=== PATIENT | female | born 1960 | race Caucasian/White ===

== ENCOUNTER 2023-11-20 15:19 | Inpatient (IN) | payer OTHER, SELFPAY ==
[2023-11-20] VITALS (8 sets, daily range): BP systolic 74–133; BP diastolic 45–72; BMI 23.8
--- NOTE | 2023-11-20 11:22 | ED.GENMED ---
History of Present Illness
General
Chief Complaint: Fever
Time Seen by Provider: 11/20/23 11:19
Travel History
Have you had any contact with someone who has COVID-19?: No
Do you have any symptoms of coronavirus? Fever > 100 degrees, chills, cough, shortness of breath, sore throat, loss of taste or smell, muscle aches, or headache?: No
History of Present Illness
History of Present Illness:
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 She has known history of chronic neutropenia, typically undergoes injections of Granix if her
granulocyte count drops below 1500. Patient reports fever as well as vomiting and generalized weakness over the past 2 days but the symptoms are improved, fever was measured at home this morning. Did not take any antipyretics. Denies any chest
pain, dyspnea, abdominal pain, dysuria, or extremity paresthesias. No ill contacts at home.
Past History
Past History
ED Past Medical History: Asthma, Cancer, CVA, Hypercholesterolemia, Seizures and Other (Kidney stones, thrombocytopenia, hepatitis C, anemia, TIA)
ED Past Surgical History: Appendectomy, Cholecystectomy and Urological (Stents)
Social History
Tobacco: Non-smoker
Alcohol: None
Drug: None
Personal:
Living: with family
Employment: Retired
Family History
Family History: Other (nc)
Review of Systems
Review of Systems
Allergies reviewed?: Yes
All Other Systems: ROS reviewed and negative except as documented in HPI and ROS
Phy Exam
Physical Exam
Physical Exam:
GEN: Well appearing, NAD, WDWN
HEENT: Oral mucosa moist, no scleral icterus
Cardiac: Tachycardic, regular
Lung: No respiratory distress, no tachypnea
Chest: Right upper chest wall Port-A-Cath present, no erythema or discharge from the site
Abdomen: Soft, nontender, no rigidity
MSK: No gross deformity or injuries
Skin: Good color, no pallor or jaundice, no rashes
Neuro: AO x3, moves all extremities freely
Psych: Calm, cooperative
Course
Orders/Labs/Results
Orders:
Orders
11/20/23 11:22
CR Chest - 2 Views Urgent
Comment:
Reason For Exam: neutropenic fever
11/20/23 11:30
Blood Culture Q30M
JONATAN Source: Blood/Venous
Specimen Description:
11/20/23 11:48
COVID-19 Antigen Urgent
Source: Nasal Swab
Complete Blood Count/With Diff Urgent
Comprehensive Metabolic Panel Urgent
Lactic Acid Q4H
Comment: CANCEL 2nd LACTIC ACID IF 1st LACTIC ACID IS LESS THAN 2
Prothrombin Time Urgent
Influenza A+B Rapid Molecular Urgent
JONATAN Source: Nasal Swab
Specimen Description:
11/20/23 11:56
0.9% Sodium Chloride 1000 ml [Nss] 1,000 ml IV BOLUS
Acetaminophen [Tylenol] 650 mg PO NOW STA
11/20/23 12:00
Blood Culture Q30M
JONATAN Source: Blood/Venous
Specimen Description:
11/20/23 13:58
Cefepime HCl [Maxipime] 2,000 mg IV NOW STA
11/20/23 14:12
Urinalysis Reflex To Culture Urgent
Date Specimen was Collected: 11/20/23
Time Specimen was Collected: 14:09
11/20/23 14:13
Vancomycin [Vancocin] 1,250 mg 0.9% Sodium Chloride 250 ml [Nss] 250 ml IV NOW
Abnormal Lab Results
11/20/23
11:48
WBC 1.2 L* 10^3/uL
(4.8-10.8)
RBC 2.89 L 10^6/uL
(4.20-5.40)
Hgb 9.0 L g/dL
(12.0-16.0)
Hct 24.6 L %
(37.0-47.0)
MCH 31.1 H pg
(27.0-31.0)
Plt Count 31 L 10^3/uL
(130-400)
Absolute Neuts (auto) 0.2 L* 10^3/uL
(1.4-6.5)
Absolute Lymphs (auto) 0.8 L 10^3/uL
(1.2-3.4)
Immature Gran % 1.7 H %
(0-0.5)
Neutrophils % 19.0 L %
(42.2-75.2)
Lymphocytes % 66.1 H %
(20.5-51.1)
Monocytes % 12.4 H %
(1.7-9.3)
Sodium 128 L mmol/L
(135-145)
Carbon Dioxide 20 L mmol/L
(22-30)
BUN 23 H mg/dl
(7-17)
Calcium 8.1 L mg/dl
(8.4-10.2)
Total Protein 5.9 L g/dl
(6.3-8.2)
11/20/23 11:48
11/20/23 11:48
Vital Signs
Initial and Last Documented VS:
Initial Vital Signs
Temp Pulse Resp BP Pulse Ox
100.2 F 131 18 106/72 98
11/20/23 10:33 11/20/23 10:33 11/20/23 10:33 11/20/23 10:33 11/20/23 10:33
Last Documented Vital Signs
Temp Pulse Resp BP Pulse Ox
100.2 F 116 16 96/61 96
11/20/23 10:33 11/20/23 12:00 11/20/23 12:00 11/20/23 12:00 11/20/23 12:00
MDM/Problems Addressed
MDM/Problems Addressed:
Patient is markedly neutropenic with a absolute neutrophil count of 200. There is no focal source for infection at this time with urinalysis pending. Patient be admitted to the hospital service for broad-spectrum IV antibiotics
*Critical Care Note
Total Time (30-74mins, 75-104mins- exclusive of procedures): Not Applicable
ED Attending Note
-
Portions of this chart may have been created with voice recognition software.� Occasional wrong word or��sound alike� substitutions may have occurred due to the inherent limitations of voice recognition software.
Discharge Plan
Departure
Patient Disposition: Admit
Date of Disposition: 11/20/23
Time of Disposition: 14:21
Admit to: Med/Surg
Presentation/result/management discussed w/ accepting MD/DO: Hospitalist
Discharge Problem:
Neutropenic fever
Prescriptions:
No Action
atorvastatin 20 MG tablet
20 mg PO HS
alendronate 70 MG tablet
70 mg PO JUNIOR@0800
Visbiome 112.5 billion cell Capsule
1 cap PO DAILY
ferrous sulfate 27 mg iron Tablet
27 mg PO DAILY
acyclovir 800 mg Tablet
800 mg PO Q12H
levetiracetam [Keppra] 1,000 mg Tablet
1,000 mg PO BID
prochlorperazine maleate 10 mg Tablet
10 mg PO Q6H PRN (Reason: nausea/vomiting)
acetaminophen [Tylenol Extra Strength] 500 mg Tablet
1,000 mg PO Q6H PRN (Reason: mild pain)
lidocaine-prilocaine 2.5-2.5 % Cream
1 applic TOPICAL MOFR
Patient Comments:
11/20/2023, apply to port site on upper right chest; pt. applied this medication yesterday for their MRI but it is normally applied on MoFr.
methotrexate sodium 2.5 mg Tablet
15 mg PO TU@0800
hydroxyzine HCl 25 mg Tablet
25 mg PO TID PRN (Reason: anxiety)
albuterol sulfate 90 mcg/actuation Hfa Aerosol Inhaler
2 puff INHALATION R Q6HPRN PRN (Reason: sob)
loratadine [Claritin] 10 mg Tablet
10 mg PO DAILY
folic acid 800 mcg Tablet
0.8 mg PO DAILY
cholecalciferol (vitamin D3) 25 mcg (1,000 unit) Tablet
25 mcg PO DAILY
Granix 300 mcg/0.5 mL Syringe
300 mcg SC DIRECTED PRN (Reason: if gran<1.5)
Patient Comments:
11/20/2023, contacted [facility] Department to confirm Granix and last dose.
Referrals:
Corona Chacko MD [Family Provider] -
Interventions
Interventions:
*Risk Screen - Suicide Last Done: 11/20/23 10:33
*General Assessment Last Done: 11/20/23 10:33
*Neglect/Abuse Screening Last Done: 11/20/23 10:33
ED- Fall Risk Assessment Last Done: 11/20/23 12:02
*ED COVID-19 Vaccine History Last Done: 11/20/23 12:03
ED- Neurological Assessment Last Done: 11/20/23 12:02
ED-Skin Assessment Last Done: 11/20/23 12:03
[2023-11-20] MEDS: TYLENOL 650 MG PO ×2 (11:59→17:20)
[2023-11-20] MEDS: NSS 1000 IV (11:59)
[2023-11-20 12:04] LABS: % Basophils 0.8 % (0-2); % Immature Granulocytes 1.7 % (0-0.5); % Lymphocytes 66.1 % (20.5-51.1); % Monocytes 12.4 % (1.7-9.3); Absolute Lymphocytes 0.8 10^3/uL (1.2-3.4); Absolute Monocytes 0.2 10^3/uL (0.1-0.6); Hematocrit 24.6 % (37.0-47.0); Mean Corp Hgb Conc. 36.6 g/dL (33.0-37.0); Mean Corpuscular Hgb 31.1 pg (27.0-31.0); Mean Corpuscular Volume 85.1 fL (81.0-99.0); Nucleated Red Blood Cells % 0 %; Red Blood Cell Count 2.89 10^6/uL (4.20-5.40); Red Cell Dist. Width 13.7 % (11.5-14.5)
[2023-11-20 12:12] LABS: Lactic Acid 1.5 mmol/L (0.7-2.0)
[2023-11-20 12:14] LABS: White Blood Cell Count 1.2 10^3/uL (4.8-10.8)
[2023-11-20 12:15] LABS: PT 14.4 Sec (11.4-14.6)
[2023-11-20 12:26] LABS: COVID-19 Antigen Negative (Negative)
[2023-11-20 12:41] LABS: ALT (SGPT) 14 U/L (0-35); AST (SGOT) 27 U/L (14-36); Albumin 3.6 g/dl (3.5-5.0); Alkaline Phosphatase 126 U/L (38-126); Blood Urea Nitrogen 23 mg/dl (7-17); Calcium 8.1 mg/dl (8.4-10.2); Carbon Dioxide 20 mmol/L (22-30); Chloride 101 mmol/L (98-107); Estimated Creatinine Clearance 38 ml/min; Glucose 97 mg/dl (70-99); Potassium 3.5 mmol/L (3.5-5.1); Sodium 128 mmol/L (135-145); Total Protein 5.9 g/dl (6.3-8.2); eGFR > 60.00
[2023-11-20 13:32] LABS: Platelet Count 31 10^3/uL (130-400)
[2023-11-20 13:33] LABS: Absolute Neutrophils 0.2 10^3/uL (1.4-6.5)
[2023-11-20 14:30] LABS: Urine Albumin 2+ (Neg - Trace); Urine Bilirubin 1+ (Negative); Urine Character Clear (Clear); Urine Color Yellow; Urine Glucose Negative (Negative); Urine Ketone Negative (Negative); Urine Leukocyte Trace (Negative); Urine Nitrite Negative (Negative); Urine Occult Blood Negative (Negative); Urine Urobilinogen Negative (Neg - 1+)
--- NOTE | 2023-11-20 14:35 | HPS.HSE ---
Addendum entered and electronically signed by Preston Steen MD 11/20/23 16:09:
I saw and examined the patient.
The LARGE ANIMAL VETERINARIAN or PA's note was reviewed and I agree with the note.
Comment:
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 Patient has been compliant with
isolation except for hospital and medical office visits. Does acknowledge having a patient in the medical office coughing a few days ago. Otherwise, chronic headache. Denies chest pain, shortness of breath, cough, runny nose, congestion,
diarrhea, dysuria, hematuria. Patient's blood pressures generally run low as per patient, although tachycardic to 100, temperature 100.2. SARS-CoV-2, flu negative. X-ray unremarkable. Labs consistent with neutropenia, hemoglobin 9, platelets 31,
sodium 128. UA dirty although does not have any symptoms. Plan�patient may have viral illness. Continue vancomycin and cefepime for now follow-up cultures, MRSA swab. Continue fluids for hyponatremia, appears dry. Oncology and infectious
disease consult.
Original Note:
Family Physician
-
Family Physician: Corona Chacko
Chief Complaint
-
fever
History of Present Illness
63 yo female w/ hx of Rosai-Mirna disease (histiocytosis variant) asthma, CVA, hld, seizure, brain tumor presents to the emergency department for evaluation of fever, chills night sweats nausea generalized weakness for past few days. she has
known history of chronic neutropenia, typically undergoes injections of Granix if her granulocyte count drops below 1500.� Patient stated started off with vomiting which resolved. Stated chronic headache from brain tumor denies dizziness or
syncopal episode. Denied chest pain, short of breath, cough, runny nose, congestion . Denied abdominal pain, diarrhea. Denied dysuria hematuria.
covid, flu, chest x ray negative. received vanco and cefepime. admitting for further management.
Medical History
Past Medical History
Past Medical History: Reports Other
Additional Past Medical History:
Asthma, Cancer, CVA, Hypercholesterolemia, Seizures and Other (Kidney stones, thrombocytopenia, hepatitis C, anemia, TIA
Past Surgical History: Reports Other
Additional Past Surgical History:
Appendectomy, Cholecystectomy and Urological (Stents)
Social History
Tobacco: Non-smoker
Alcohol: None
Drug: None
Family History
Family History: Not pertinent
Allergies / Home Medications
Allergies reflects when Allergies were last updated in [facility].
Home Medications with original date entered in [facility]
Allergy/Medication List:
Allergies
Allergy/AdvReac Type Severity Reaction Status Date / Time
penicillin G Allergy Unknown Unknown Verified 11/20/23 10:32
Sulfa (Sulfonamide Allergy Unknown Unknown Verified 11/20/23 10:32
Antibiotics)
codeine Allergy n/v ; Verified 11/20/23 10:32
foggy ;
percocet
'too
strong'
Home Medications
alendronate 70 mg tablet 70 mg PO JUNIOR@0800 OSTEOPOROSIS 03/31/20
atorvastatin 20 mg tablet 20 mg PO HS High cholesterol 03/31/20
Lactobac no.2-Bifidobac no.1-S. thermo 112.5 billion cell capsule (Visbiome) 1 cap PO DAILY Gastrointestinal issue 01/21/23
ferrous sulfate 27 mg iron tablet 27 mg PO DAILY Supplement 06/04/23
acyclovir 800 mg tablet 800 mg PO Q12H Infection 07/05/23
levetiracetam 1,000 mg tablet (Keppra) 1,000 mg PO BID Seizures 07/05/23
acetaminophen 500 mg tablet (Tylenol Extra Strength) 1,000 mg PO Q6H PRN mild pain 11/20/23
albuterol sulfate 90 mcg/actuation aerosol inhaler 2 puff inhalation R Q6HPRN PRN sob 11/20/23
cholecalciferol (vitamin D3) 25 mcg (1,000 unit) tablet 25 mcg PO DAILY Supplement 11/20/23
folic acid 800 mcg tablet 0.8 mg PO DAILY Supplement 11/20/23
hydroxyzine HCl 25 mg tablet 25 mg PO TID PRN anxiety 11/20/23
lidocaine-prilocaine 2.5 %-2.5 % topical cream 1 applic topical MOFR PORT ACCESS 11/20/23
loratadine 10 mg tablet (Claritin) 10 mg PO DAILY Allergies 11/20/23
methotrexate sodium 2.5 mg tablet 15 mg PO TU@0800 ARTHRITIS 11/20/23
prochlorperazine maleate 10 mg tablet 10 mg PO Q6H PRN nausea/vomiting 11/20/23
tbo-filgrastim 300 mcg/0.5 mL subcutaneous syringe (Granix) 300 mcg SC DIRECTED PRN if gran<1.5 11/20/23
Review of Systems
-
Constitutional: Reports Fever, Fatigue, Night Sweats and Chills
EENT: Reports No Symptoms
Respiratory: Reports No Symptoms
Cardiac: Reports No Symptoms
Abdomen/GI: Reports Nausea and Vomiting
: Reports No Symptoms
Musculoskeletal: Reports No Symptoms
Skin: Reports No Symptoms
Neurological: Reports No Symptoms
Endocrine: Reports No Symptoms
Hematologic/Lymphatic: Reports No Symptoms
Psych: Reports No Symptoms
Physical Exam
Vital Signs
Vital Signs
Temp Pulse Resp BP Pulse Ox
100.2 F 116 16 96/61 96
11/20/23 10:33 11/20/23 12:00 11/20/23 12:00 11/20/23 12:00 11/20/23 12:00
Physical Exam
General: Well Developed, Well Nourished and No Apparent Distress
HEENT: NormoCephalic, Moist mucous membranes and Atraumatic
Respiratory: Clear
Cardiac: S1/S2 and Regular Rhythm; No Murmur or Rub
GI: Soft, Non Tender, Non Distended and Normal Bowel Sounds; No Organomegaly
Rectal: Deferred by Provider
Musculoskeletal: No Clubbing, No Cyanosis and No Edema
Skin: No Rash
Neuro: AO x 3 and Nonfocal/grossly intact
Psych: Calm
Laboratory Results
-
11/20/23 11:48
11/20/23 11:48
Laboratory Results
PT 14.4 Sec (11.4-14.6) 11/20/23 11:48
INR 1.10 11/20/23 11:48
Lactic Acid Cancelled 11/20/23 15:30
Total Bilirubin 1.0 mg/dl (0.2-1.3) 11/20/23 11:48
AST 27 U/L (14-36) 11/20/23 11:48
ALT 14 U/L (0-35) 11/20/23 11:48
Alkaline Phosphatase 126 U/L (38-126) 11/20/23 11:48
Data Reviewed
-
Diagnostic Radiology: Report Reviewed by me
Lab Data: Labs Reviewed by me
Impression/Plan
-
#sepsis/neutropenic fever
-wbc 1.2,tachycardia, hypotension,temp 100.2
-UA negative.
-chest x ray with No active cardiopulmonary disease.
-covid negative, influenza A and B negative.
-iv vanco and cefepime
-blood culture sent from ER
-Tylenol prn for fever
-ID consulted
-on acyclovir prophylaxis at home
#hyponatremia likely hypovolemic
-na 128
-obtain urine osm, na, cr, serums osm
-fluids continued (LR 80cc/hr)
-monitor BMp
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
-#pancytopenia
-wbc 1.2,hgb 9.0,platelets 31
-ctm
Chronic hypotension
-Bp soft in ER
-ctm
hx of CVA
hx of 2 petit-mal seizures 2016
- continue Keppra
#hxt of brain tumor
HLD
-Statin continued
# Anxiety
-hydroxyzine continued
#hx of Asthma
-Not in acute exacerbation
-Albuterol from home continued
#hx of Hep C, related to receiving blood transfusion
#DVT ppx: SCDs
#Code: Full
[2023-11-20 14:58] LABS: Urine Squamous Cell 21-25 /LPF (Few); Urine Urothelial Cell 26-30 /LPF (FEW)
[2023-11-20 15:01] LABS: Urine Bacteria Moderate (Negative); Urine Red Blood Cell 0-2 /HPF (0-2); Urine White Cell 0-2 /HPF (0-5)
[2023-11-20] MEDS: VANCOCIN 275 MG IV (15:05)
[2023-11-20 16:10] LABS: Osmolality Serum 270 mOsm/kg (275-300)
--- NOTE | 2023-11-20 16:15 | CON.ID ---
Consultation
-
Date/Time Consultation Requested: 11/20/23 15:10
Date/Time Consultation Performed: 11/20/23 16:15
Requesting Provider: Sydney
Performing Provider: Dr Gaona
Reason for Consultation: neutropenic fever
Chief Complaint / Past History
Chief Complaint
fevers, chills, night sweats
History of Present Illness
Ms davis is a 63 year old female with history of Rosai-Alyse disease (histiocytosis varient) with chronic neutropenia, brain mass, CVA/seizure, chronic hypotension who presented here for a 2 day history of fevers, chills, night sweats, weakness.
Reports a recent sick contact in medical office. Chronic headache is noted. Denies chest pain, shortness of breath, cough, congestion, diarrhea, dysuria, hematuria. Gets outpatient granix when AC <1500. Last granix was last week. Reports no
brain surgery beyond the biopsy? Has been self isolating for about 1 year. Cannot recall her last seizure. No recent steroids. Last infusion for Rosai-alyse was in the fall - doesnt recall what it was
Since arrival here tmax 100.2 orally, BP initially 106/72 mild hypotension this afternoon, mildly elevated HR, wbc 1.2 on arrival, hgb 9.0, plt 31, ANC 0.2, lymphocytosis noted, Na 128, cr 0.9, lactic acid 1.5, t bili 1.0, ast 27, alt 14, alk phos
126, UA no pyuria, moderate squamous cells, CXR clear lungs, port in place, 11/19/23 MRI [facility] without and without 'Interval resection of the left occipital lobe enhancing brain neoplasm, now with a resection cavity containing mild subacute blood
products. Regions of enhancement in the left occipital lobe surrounding the resection cavity are concerning for residual disease. No prior postoperative imaging of the brain is available for direct comparison, and this exam is considered the current
postoperative baseline.' covid ag negative, flu negative, urine culture pending,
Past History
Additional Past Medical History:
CLL, anemia, thrombocytopenia, neutropenia Past medical history chronic hypotension, CVA with 2 petit mall seizures [id number], history of brain tumor with biopsy January 2023� HLD, tachycardia, asthma, hepatitis C from blood transfusion-treated, renal
calculi, osteopenia, CLL anemia, thrombocytopenia
Additional Past Surgical History:
Cholecystectomy 2009, appendectomy 2004, section 1987, multiple kidney stone removals 2019, 2020, right nephrostomy tube placement 04/22/2020, laser lithotripsy 09/22/2021, brain tumor biopsy January 2023, lymph node biopsy
Allergy History:
penicillin G Allergy (Unknown, Verified 11/20/23 10:32)
Unknown
Sulfa (Sulfonamide Antibiotics) Allergy (Unknown, Verified 11/20/23 10:32)
Unknown
codeine Allergy (Verified 11/20/23 10:32)
n/v ; foggy ; percocet 'too strong'
Medications Reviewed: Yes
Social History
Tobacco: Non-Smoker
Alcohol: None
Drug: None
Family History
Family History: Not Pertinent
Review of Systems
Review of Systems
General: Fever and Chills
All systems: All other systems were reviewed and were negative
Vital Signs
Temp Pulse Resp BP Pulse Ox
100.2 F 100 18 95/52 97
11/20/23 10:33 11/20/23 15:45 11/20/23 15:45 11/20/23 14:11 11/20/23 14:30
Physical Exam
Physical Exam
Constitutional: Acutely Ill and Toxic (rigoring, pale)
Cardiovascular: Regular Rate and S1/S2; Negative Murmur or Rub
Pulmonary: Clear and Symmetric; Negative Wheezes, Rales or Rhonchi
Gastrointestinal: Soft, Non Tender, Non Distended and Normal Bowel Sounds
Skin: Warm and Dry; Negative Rash or Jaundice
Lines: Port (no erythema, warmth, tenderness or draiange)
Lab / Diagnostic Study Results
11/20/23 11:48
11/20/23 11:48
Abs Immat Gran (auto) 0.0 10^3/uL (0-0.05) 11/20/23 11:48
Absolute Neuts (auto) 0.2 10^3/uL (1.4-6.5) L* 11/20/23 11:48
Absolute Lymphs (auto) 0.8 10^3/uL (1.2-3.4) L 11/20/23 11:48
Absolute Monos (auto) 0.2 10^3/uL (0.1-0.6) 11/20/23 11:48
Absolute Basos (auto) 0.0 10^3/uL (0-0.2) 11/20/23 11:48
Immature Gran % 1.7 % (0-0.5) H 11/20/23 11:48
Neutrophils % 19.0 % (42.2-75.2) L 11/20/23 11:48
Lymphocytes % 66.1 % (20.5-51.1) H 11/20/23 11:48
Monocytes % 12.4 % (1.7-9.3) H 11/20/23 11:48
Eosinophils % 0.0 % (0-6) 11/20/23 11:48
Basophils % 0.8 % (0-2) 11/20/23 11:48
PT 14.4 Sec (11.4-14.6) 11/20/23 11:48
INR 1.10 11/20/23 11:48
Lactic Acid Cancelled 11/20/23 15:30
Ur Squamous Epith Cells 21-25 /LPF (Few) 11/20/23 14:12
Microbiology Results
Micro:
11/20/23 15:03 Blood Culture - Pending
Blood/Venous
11/20/23 15:03 Blood Culture - Pending
Blood/Venous
11/20/23 14:12 Urine Culture - Pending
Urine
11/20/23 11:48 Influenza Types A & B (REAGAN) - Final
Nasal Swab Negative for Influenza A & B, NAAT
Negative results must be combined with clinical observations
and patient history.
Nucleic Acid Amplification test (NAAT)performed on the
[employer] NOW platform.
Assessment / Plan
Neutropenic fever
Chronic Neutropenia
Rosai-Alyse disease (histiocytosis variant)
Brain Mass
History of Seizure disorder
Unknown allergies to penicillin and sulfa
- blood cultures x2 in progress - repeat a set in the AM
- influenza and covid negative
- continue ppx: acyclovir
- hold probiotics
- agree with cefepime dose adjusted
- stop vancomycin - no pneumonia, skin or oral lesions
- follow clinically
[2023-11-20] MEDS: LR 1000 IV (16:54)
[2023-11-20 17:08] LABS: Urine Sodium 14 mmol/L (30-90)
[2023-11-20 17:16] LABS: Osmolality Urine 536 mOsm/kg (300-900)
--- NOTE | 2023-11-20 18:30 | PTCARENOTE ---
Received patient from ED. Patient is AAOx3, 86-88% on RA - put on 2L and SpO2 99% on 2L, sinus tach on tele monitor 120's-130's, 100.7 fever - Tylenol given for fever. Attending made aware of nurse assessment and vital signs. Nursing shift
assessment and VS charted on worklist.
[2023-11-20] MEDS: KEPPRA 1000 MG PO (20:36)
[2023-11-20] MEDS: LIPITOR 20 MG PO (20:36)
[2023-11-20] MEDS: ZOVIRAX 800 MG PO (20:36)
[2023-11-20] MEDS: MAXIPIME 2000 MG IV (23:23)
[2023-11-20] MEDS: STERILE WATER FOR INJECTION 10 ML IV (23:23)
[2023-11-21] VITALS (24 sets, daily range): BP systolic 68–108; BP diastolic 37–70; BMI 22.2
--- NOTE | 2023-11-21 00:55 | PTCARENOTE ---
Resting HR elevated, 120's-130's. HR increased to 150's-160's. Pt shivering and stated, 'I am freezing'. Pt diaphoretic, gown saturated and changed. Temperature obtained and elevated. Blankets removed and medication provided, see CONSTANZA. JOSE made
aware. Will recheck temperature.
[2023-11-21] MEDS: TYLENOL 650 MG PO ×3 (01:29→17:10)
[2023-11-21] MEDS: ZOFRAN 4 MG IV (02:35)
--- NOTE | 2023-11-21 02:35 | PTCARENOTE ---
Pt complained of nausea. Pt stated, 'I always feel nausea when I feel like this'. FURNACE REPAIR MECHANIC made aware, 1 x dose Zofran ordered, see MAR. Will continue to monitor.
[2023-11-21] MEDS: LR 1000 IV ×4 (04:31→20:09)
[2023-11-21] MEDS: NSS 500 IV (04:45)
--- NOTE | 2023-11-21 04:47 | PTCARENOTE ---
Blood pressure decreased. Pt stated, 'My blood pressure is always low, sometimes it can be 60's over 40's'. Pt complained of lethargy. PROJECT LEADER made aware, bolus ordered, see MAR. Will reassess blood pressure.
--- NOTE | 2023-11-21 06:27 | W.PN.UPDATE ---
Update Note
Progress Note Update
At 0430; BP 82/42 manual BP, Patient asymptomatic, NSS 500 CC bolus given once. BP now 92/52.
[2023-11-21 07:57] LABS: Hemoglobin 7.4 g/dL (12.0-16.0); Mean Corpuscular Volume 86.6 fL (81.0-99.0); Red Blood Cell Count 2.31 10^6/uL (4.20-5.40)
[2023-11-21 08:04] LABS: Platelet Count 22 10^3/uL (130-400); White Blood Cell Count 0.7 10^3/uL (4.8-10.8)
[2023-11-21] MEDS: CLARITIN 10 MG PO (08:34)
[2023-11-21] MEDS: STERILE WATER FOR INJECTION 10 ML IV ×2 (08:34→16:04)
[2023-11-21] MEDS: MAXIPIME 2000 MG IV ×2 (08:34→16:04)
[2023-11-21] MEDS: VITAMIN D3 (cholecalciferol) 1000 UNITS PO (08:35)
[2023-11-21] MEDS: FOLVITE 0.800000000000000044 MG PO (08:35)
[2023-11-21] MEDS: FEOSOL 325 MG PO (08:35)
[2023-11-21] MEDS: KEPPRA 1000 MG PO ×2 (08:35→19:36)
[2023-11-21] MEDS: ZOVIRAX 800 MG PO ×2 (08:35→19:24)
[2023-11-21 09:15] LABS: Blood Urea Nitrogen 21 mg/dl (7-17); Calcium 6.9 mg/dl (8.4-10.2); Carbon Dioxide 17 mmol/L (22-30); Chloride 105 mmol/L (98-107); Estimated Creatinine Clearance 35 ml/min; Glucose 92 mg/dl (70-99); Potassium 3.3 mmol/L (3.5-5.1); Sodium 128 mmol/L (135-145); eGFR > 60.00
--- NOTE | 2023-11-21 09:26 | CON.ONC ---
Addendum entered and electronically signed by Jakub Sweeney MD 11/21/23 11:31:
Hematology Addendum:
Patient seen and evaluated
Agree w/ RESOURCE ROOM TEACHER note and plan as outlined
-chronic pancytopenia known to Dr. Nieves as well as Dr. Chaudhary at [facility]
-on chronic GCSF as outpt
-w/ neutropenic fever - will dose GCSF daily - 300mcg
-antibiotics as per ID
-follow CBC and transfuse prn
Will continue to follow with you
Original Note:
Impression
Impression
Neutropenic fever
Acute on chronic hypotension
Chronic pancytopenia
Chronic thrombocytopenia w/ splenomegaly
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
Hx brain mass s/p biopsy (01/2023)
Plan
Plan
11/21 WBC 0.7, Hgb 7.4, Hct 20, PLT 22, ANC 200
Transfuse as needed to maintain Hgb >7, PLT >20
Neutropenic precautions
Granix 300mcg daily for ANC <1500
Antibiotics per ID
CBC w/ diff daily
Follow fevers
Blood cultures and urine cultures pending
Records reviewed from [facility]
Supportive care
Emotional support
We will follow.
Patient History
History of Present Illness
Hermila Berry is a 63 year old female known to Dr. Nieves with [facility] for history of IgG [place] MGUS, chronic pancytopenia/thrombocytopenia with splenomegaly. She is a patient of Dr. Chaudhary at [facility]. She has had frequent hospitalizations for neutropenic
fever. She reports 8 hospitalizations in 2022. She receives Granix twice weekly for ANC <1500. She presented to the ER yesterday, 11/20, with reports of acute fevers Tmax 102 with dry heaving/poor appetite, and generalized weakness x2 days. She
reports a recent sick contact at a medical office. Her last dose of Granix was 11/14/23. She completed 4 treatments of Rituxan in Aug 2023. She continues with weekly Methotrexate on Tuesdays.
Past-Medical/Surgical History
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
Chronic pancytopenia
Chronic thrombocytopenia
Splenomegaly w/ portal HTN
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
Rosai-Mirna Disease of BUILDING SURVEYOR
Asthma
Hypercholesterolemia
Seizure history on Kera (2016)
Nephrolithiasis w/ ureteral stents, lithotripsy ()
CVA/TIA (2015)
Hepatitis C (treated)
Appendectomy (2004)
Cholecystectomy (2009)
Brain mass s/p biopsy (01/2023)
Chronic hypotension
Patient Medication
Medication Instructions Recorded Confirmed Last Taken Type
alendronate 70 mg tablet 70 mg PO JUNIOR@0800 OSTEOPOROSIS 03/31/20 11/20/23 11/16/23 History
atorvastatin 20 mg tablet 20 mg PO HS High cholesterol 03/31/20 11/20/23 11/19/23 History
Lactobac no.2-Bifidobac no.1-S. 1 cap PO DAILY Gastrointestinal 01/21/23 11/20/23 11/20/23 History
thermo 112.5 billion cell capsule issue
(Visbiome)
ferrous sulfate 27 mg iron tablet 27 mg PO DAILY Supplement 06/04/23 11/20/23 11/20/23 History
acyclovir 800 mg tablet 800 mg PO Q12H Infection 07/05/23 11/20/23 11/20/23 History
levetiracetam 1,000 mg tablet 1,000 mg PO BID Seizures 07/05/23 11/20/23 11/20/23 History
(Keppra)
acetaminophen 500 mg tablet 1,000 mg PO Q6H PRN mild pain 11/20/23 11/20/23 11/19/23 History
(Tylenol Extra Strength)
albuterol sulfate 90 mcg/actuation 2 puff inhalation R Q6HPRN PRN sob 11/20/23 11/20/23 Unknown History
aerosol inhaler
cholecalciferol (vitamin D3) 25 25 mcg PO DAILY Supplement 11/20/23 11/20/23 11/20/23 History
mcg (1,000 unit) tablet
folic acid 800 mcg tablet 0.8 mg PO DAILY Supplement 11/20/23 11/20/23 11/20/23 History
hydroxyzine HCl 25 mg tablet 25 mg PO TID PRN anxiety 11/20/23 11/20/23 11/19/23 History
lidocaine-prilocaine 2.5 %-2.5 % 1 applic topical MOFR PORT ACCESS 11/20/23 11/20/23 11/19/23 History
topical cream
loratadine 10 mg tablet (Claritin) 10 mg PO DAILY Allergies 11/20/23 11/20/23 11/20/23 History
methotrexate sodium 2.5 mg tablet 15 mg PO TU@0800 ARTHRITIS 11/20/23 11/20/23 11/18/23 History
prochlorperazine maleate 10 mg 10 mg PO Q6H PRN nausea/vomiting 11/20/23 11/20/23 11/19/23 History
tablet
tbo-filgrastim 300 mcg/0.5 mL 300 mcg SC DIRECTED PRN if 11/20/23 11/20/23 11/14/23 History
subcutaneous syringe (Granix) gran<1.5
Active Medications
Generic Name Dose Route Start Last Admin
Trade Name Freq PRN Reason Stop Dose Admin
Acetaminophen 650 mg 11/20/23 16:45 11/21/23 06:37
Acetaminophen 325 Mg Tablet PO 12/18/23 16:44 650 mg
Q4HPRN PRN Administration
YANCEY/mild pain/temp > 100.4 F
Acetaminophen 650 mg 11/20/23 16:45
Acetaminophen 650 Mg Rectal Suppository RECTAL 12/18/23 16:44
Q4HPRN PRN
YANCEY/ mild pain/ temp >/= 100.4F
Acyclovir Sodium 800 mg 11/20/23 20:00 11/21/23 08:35
Acyclovir Sodium 800 Mg Tablet PO 11/30/23 19:59 800 mg
Q12 SEBLE Administration
Albuterol 2 puff 11/20/23 16:45
Albuterol Hfa [90 Mcg/Dose] Inhaler INH 12/18/23 16:44
R Q6HPRN PRN
sob
Protocol
Atorvastatin Calcium 20 mg 11/20/23 22:00 11/20/23 20:36
Atorvastatin (Lipitor) 20 Mg Tablet PO 12/18/23 21:59 20 mg
HS SEBLE Administration
Cefepime HCl 2,000 mg 11/21/23 00:00 11/21/23 08:34
Cefepime Hcl 2,000 Mg/12.5 Ml Vial IV 2,000 mg
Q8H SEBLE Administration
Cholecalciferol 1,000 units 11/21/23 08:00 11/21/23 08:35
Cholecalciferol (Vitamin D3) 1,000 Units Tablet (25 Mcg) PO 12/19/23 07:59 1,000 units
DAILY SEBLE Administration
Ferrous Sulfate 325 mg 11/21/23 08:00 11/21/23 08:35
Ferrous Sulfate 325 Mg Tablet PO 12/19/23 07:59 325 mg
DAILY SEBLE Administration
Folic Acid 0.8 mg 11/21/23 08:00 11/21/23 08:35
Folic Acid 0.4 Mg Tablet PO 12/19/23 07:59 0.8 mg
DAILY SEBLE Administration
Hydroxyzine HCl 25 mg 11/20/23 16:45
Hydroxyzine 25 Mg Tablet PO 12/18/23 16:44
TIDPRN PRN
anxiety
Lactated Ringer's 1,000 mls @ 80 mls/hr 11/20/23 17:00 11/21/23 04:31
Lr IV 1,000 mls
.[id number] SEBLE Administration
Levetiracetam 1,000 mg 11/20/23 20:00 11/21/23 08:35
Levetiracetam 500 Mg Regular Release Tablet PO 12/18/23 19:59 1,000 mg
BID SEBLE Administration
Loratadine 10 mg 11/21/23 08:00 11/21/23 08:34
Loratadine 10 Mg Tablet PO 12/19/23 07:59 10 mg
DAILY SEBLE Administration
Sodium Chloride 0 flush 11/20/23 17:00
Sodium Chloride 0.9% (Flush) Syringe IV 12/18/23 16:59
PER PROTOCOL SEBLE
Sterile Water 10 ml 11/21/23 00:00 11/21/23 08:34
Sterile Water For Injection 10 Ml Vial IV 12/19/23 00:00 10 ml
Q8H SEBLE Administration
Review of Systems
-
History Source: Patient, Coordinated Provider and Records
Constitutional: Reports Fever, No Appetite, Fatigue, Night Sweats, Chills and Weakness
EENT: Reports No Symptoms
Respiratory: Reports No Symptoms
Cardiac: Reports No Symptoms
GI: Reports No Symptoms
Breast: Reports N/A
: Reports No Symptoms
Musculoskeletal: Reports No Symptoms
Skin: Reports No Symptoms
Neuro: Reports No Symptoms
Endocrine: Reports No Symptoms
Hematologic/Lymphatic: Reports No Symptoms
Allergy / Immunology: Reports No Symptoms
Psych: Reports No Symptoms
Physical Exam
-
Patient is lying in bed. She is receiving IVF bolus. She is frustrated by frequent hospitalizations and 'feeling like this'. She denies acute pain.
General: Well Developed, Well Nourished, No Apparent Distress, Comfortable, Fever, Chills and Conversant; Negative Pain
HEENT: Negative Jaundice
Cardiology: S1, S2 and Other (tachycardia)
Pulmonary: Clear
GI: Normal Bowel Sounds
Musculoskeletal: No Edema
Extremities: Pulses Present
Neurology: Non Focal
Skin: Warm and Dry
Hematologic / Lymphatic: No Lymphadenopathy
Psych: Calm
Labs
Lab Results
WBC 0.7 10^3/uL (4.8-10.8) L* 11/21/23 07:34
RBC 2.31 10^6/uL (4.20-5.40) L 11/21/23 07:34
Hgb 7.4 g/dL (12.0-16.0) L 11/21/23 07:34
Hct 20.0 % (37.0-47.0) L* 11/21/23 07:34
MCV 86.6 fL (81.0-99.0) 11/21/23 07:34
MCH 32.0 pg (27.0-31.0) H 11/21/23 07:34
MCHC 37.0 g/dL (33.0-37.0) 11/21/23 07:34
RDW 14.0 % (11.5-14.5) 11/21/23 07:34
Plt Count 22 10^3/uL (130-400) L* D 11/21/23 07:34
MPV Not Reportable 11/21/23 07:34
Abs Immat Gran (auto) 0.0 10^3/uL (0-0.05) 11/20/23 11:48
Absolute Neuts (auto) 0.2 10^3/uL (1.4-6.5) L* 11/20/23 11:48
Absolute Lymphs (auto) 0.8 10^3/uL (1.2-3.4) L 11/20/23 11:48
Absolute Monos (auto) 0.2 10^3/uL (0.1-0.6) 11/20/23 11:48
Absolute Eos (auto) 0.0 10^3/uL (0-0.7) 11/20/23 11:48
Absolute Basos (auto) 0.0 10^3/uL (0-0.2) 11/20/23 11:48
Immature Gran % 1.7 % (0-0.5) H 11/20/23 11:48
Neutrophils % 19.0 % (42.2-75.2) L 11/20/23 11:48
Lymphocytes % 66.1 % (20.5-51.1) H 11/20/23 11:48
Monocytes % 12.4 % (1.7-9.3) H 11/20/23 11:48
Eosinophils % 0.0 % (0-6) 11/20/23 11:48
Basophils % 0.8 % (0-2) 11/20/23 11:48
Creatinine 1.0 mg/dL (0.6-1.0) 11/21/23 07:34
Vital Signs
Vital Signs
Temp Pulse Resp BP Pulse Ox
99.2 F 124 18 72/44 97
11/21/23 07:30 11/21/23 07:30 11/21/23 07:30 11/21/23 07:30 11/21/23 07:30
--- NOTE | 2023-11-21 11:45 | PTCARENOTE ---
pt BP 72/44 - attending made aware and LR bolus ordered. After bolus, BP 70/46. Attending made aware of BP after bolus. No further interventions at this time.
[2023-11-21] MEDS: GRANIX 300 MCG SC (11:54)
[2023-11-21] MEDS: LIDOCAINE 4% PATCH 1 PATCH TOPICAL (11:55)
--- NOTE | 2023-11-21 13:00 | PTCARENOTE ---
pt SpO2 88% on RA - put on 1L, pt is drowsy, on tele monitor going from bradycardia to tachycardia 30's-120's - tele alarming ' irregular rhythm.' BP in the 70s systolic. Attending updated and made aware. Orders to stop fluids at this time per
attending. VS charted.
--- NOTE | 2023-11-21 13:32 | W.PN.HOSP.TC ---
Today's Communication/Plan
-
broaden abx
fluids
pressors for map >65
ICU upgrade
Assessment / Plan
Assessment / Plan
Physical Exam
General: Well Developed, Well Nourished and No Apparent Distress
HEENT: NormoCephalic, Moist mucous membranes and Atraumatic
Respiratory: Clear
Cardiac: S1/S2 and Regular Rhythm; No Murmur or Rub
GI: Soft, Non Tender, Non Distended and Normal Bowel Sounds; No Organomegaly
Rectal: Deferred by Provider
Musculoskeletal: No Clubbing, No Cyanosis and No Edema
Skin: No Rash
Neuro: AO x 3 and Nonfocal/grossly intact
Psych: Calm
#sepsis/neutropenic fever
-no clear source
-cont cefepime, expand abx
-ID consulted
-on acyclovir prophylaxis at home
-F/u cultures
-Next step is pressors - ICU upgrade
#Hypoxia
-may be related to underlying NIDIA as noted while sleeping
-ctm off fluids
-CXR with no acute findings yesterday
#Hypotension
-patient states this is chronic
-will cont to monitor s/p fluids
-mentation remains well, if any changes - start pressors
#hyponatremia likely hypovolemic
-na 128
-monitor with resuscitation
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
-#pancytopenia
#brain tumor, with just biopsy at this time
-wbc 1.2,hgb 9.0,platelets 31
-ctm
-F/u onc outpatient for further needs
-GCSF daily
#Hypokalemia
-monitor and replete
hx of CVA
hx of 2 petit-mal seizures 2016
- continue Keppra
#hxt of brain tumor
HLD
-Statin continued
# Anxiety
-hydroxyzine continued
#hx of Asthma
-Not in acute exacerbation
-Albuterol from home continued
#hx of Hep C, related to receiving blood transfusion
#DVT ppx: SCDs
#Code: Full
Total time spent on today's encounter was 50 minutes which included time spent in counseling the patient/family regarding diagnosis and treatment plan as listed above, goals of care, and symptom management. Case was discussed with nursing staff,
specialists, and care coordinators/case management. All labs and imaging personally reviewed by me. Remainder the time spent in detailed review of previous records, lab data, imaging, and other medical provider documentation.
Anticipated Discharge: > 48 hours
Subjective/Interval History
-
Date of Service: November 21, 2023
tachy-sierra at times, may be exacerbated by fever. otherwise continues to spike mild temperature
Objective Data
-
Labs:
Laboratory Results
11/21/23
07:34
WBC 0.7 L*
Hgb 7.4 L
Hct 20.0 L*
Plt Count 22 L* D
Sodium 128 L
Potassium 3.3 L
Chloride 105
Carbon Dioxide 17 L
BUN 21 H
Creatinine 1.0
Glucose 92
Calcium 6.9 L*
Vital Signs:
Vital Signs
Temp Pulse Resp BP Pulse Ox
99.2 F 125 16 70/44 91
11/21/23 11:30 11/21/23 11:30 11/21/23 11:30 11/21/23 11:30 11/21/23 11:30
I&O
11/20/23 11/21/23 11/22/23
06:59 06:59 06:59
Intake Total 2420 / 2420
Balance 2420 / 2420
Review of Systems
-
History Source: Patient
All other systems: Reviewed and negative
Physical Exam
-
General: No Apparent Distress
HEENT: Normocephalic and Atraumatic
Respiratory: Rhonchi; Negative Wheezes or Rales
Cardiac: Regular Rhythm and S1/S2
GI: Soft
Genito-urinary: No Costovertebral Tender
Musculoskeletal: No Edema
Neuro: AO x 3
Hematologic / Lymphatic: No Lymphadenopathy
Psych: Calm
Data Reviewed
-
Diagnostic Radiology: Report Reviewed by me
Labs: Labs Reviewed by me
[2023-11-21] MEDS: KCL ELIXIR 40 MEQ PO (15:02)
--- NOTE | 2023-11-21 16:12 | CM ---
Reviewed chart, Patient lives with her spouse and daughter in a two story home with one step to enter. Patient stated that she is independent with her ADLs, personal care, bathing and dressing but did admit to her spouse having to supervise her at
times. Her spouse does all the cleaning, she does the laundry, cooking and her spouse does the patient observer. Patient stated that she has an s.p cane that she sometimes uses to assist with her ambulation.
Patient's spouse drives and can get her to her appointments and take her shopping.
She has had VN services in the past through [facility]. If indicated post this stay she selected VN.
She has never been to a SNF.
Patient has a prescription plan. Her PCP is Dr. Corona Chacko.
Patient does not feel that she will have needs at d/c for CM but if VN is indicated she stated that she would like VN through services.
Plan: Case management will continue to follow and assist with discharge planning. Home, likely no needs from CM-will watch for VN needs.
--- NOTE | 2023-11-21 16:34 | W.PN.ID1 ---
Date of Service
Date of Service: November 21, 2023
Today's Communication
- persistent hypotension this afternoon, decreasing Ca, will restart vancomycin, add micafungin given chronic neutropenia
Assessment / Plan
Neutropenic fever
Chronic Neutropenia
Rosai-Mirna disease (histiocytosis variant)
Brain Mass
History of Seizure disorder
Unknown allergies to penicillin and sulfa
- blood cultures x2 in progress - repeat a set in the AM
- influenza and covid negative
- continue ppx: acyclovir
- hold probiotics
- agree with cefepime dose adjusted
- persistent hypotension this afternoon, decreasing Ca, will restart vancomycin, add micafungin given chronic neutropenia
- follow clinically
Chief Complaint
-: Other (neutropenic fever)
Subjective / Review of Systems
afebrile
hypotensive this afternoon
tachycardic
leukopenia/neutropenia ongoing
cr stable
blood cultures no growth to date
new diarrhea otherwise unchanged
no: headaches, sinus tenderness, cough, sputum production, nausea, vomiting, constipation, new rashes, tenderness over port
Vital Signs / Physical Exam
Vital Signs
Vital Signs
Temp Pulse Resp BP Pulse Ox
99.2 F 125 16 70/44 91
11/21/23 11:30 11/21/23 11:30 11/21/23 11:30 11/21/23 11:30 11/21/23 11:30
Physical Exam
Constitutional: No Acute Distress
Cardiovascular: Regular Rate and S1/S2; Negative Murmur or Rub
Pulmonary: Clear and Symmetric; Negative Wheezes or Rales
Gastrointestinal: Soft, Non Tender, Non Distended and Normal Bowel Sounds
Skin: Warm and Dry; Negative Rash or Jaundice
Objective Data
Lab Data
Lab Results
11/21/23 07:34
11/21/23 07:34
PT 14.4 Sec (11.4-14.6) 11/20/23 11:48
INR 1.10 11/20/23 11:48
Estimated Creat Clear 35 ml/min 11/21/23 07:34
Lactic Acid Cancelled 11/20/23 15:30
Total Bilirubin 1.0 mg/dl (0.2-1.3) 11/20/23 11:48
AST 27 U/L (14-36) 11/20/23 11:48
ALT 14 U/L (0-35) 11/20/23 11:48
Alkaline Phosphatase 126 U/L (38-126) 11/20/23 11:48
Most recent labs reviewed.
Micro Results:
11/20/23 15:03 Blood Culture - Preliminary
Blood/Venous No Growth in 24 hours- Final report to follow
11/20/23 15:03 Blood Culture - Preliminary
Blood/Venous No Growth in 24 hours- Final report to follow
11/20/23 14:12 Urine Culture - Final
Urine No Significant Growth
11/21/23 07:34 Blood Culture - Pending
Blood/Venous
11/20/23 23:43 MRSA Screen - Pending
Nose
11/20/23 11:48 Influenza Types A & B (REAGAN) - Final
Nasal Swab Negative for Influenza A & B, NAAT
Negative results must be combined with clinical observations
and patient history.
Nucleic Acid Amplification test (NAAT)performed on the
[employer] platform.
Care Review
Plan reviewed with: Physician (tiger text to dr churchill - persistent hypotension)
--- NOTE | 2023-11-21 16:59 | PHA.VAN.IN ---
Assessment
- Assessment
Renal Function: Appears elevated from baseline (07/06/23 BASELINE SCR: 0.7)
Concomitant Antimicrobials: CEFEPIME
- Previous Dosing Experience
Previous Regimen: 750MG IV Q24H
Date of Regimen: 07/06/23
Provided Trough of: 11 PREDICTED
Provided AUC of: 476 PREDICTED
Patient's SCR is: Elevated compared to previous dosing experience (07/06/23 SCR: 0.7)
Patient's weight is: Decreased compared to previous dosing experience (07/06/23 WT = 51KG)
AUC Dosing Plan
- Dosing Variables
Dosing Weight (kg): 49.9
Dosing CrCl (ml/min): 35
Vd coefficient (L/kg): 0.7
- Empiric Dosing
Initial / Loading Dose: 1250MG
Maintenance Regimen: 500MG IV Q24H
Estimated AUC (mcg*h/mL): 435
Estimated Peak (mcg*h/mL): 25.9
Estimated Trough (mcg/ml): 12
Estimated Half Life (H): 20.7
Pharmacokinetics Vancomycin I
- -
Patient Age: 63
Patient Sex: Female
Vancomycin Day #: 1
Indication: Bacteremia
Requesting Provider: AMANDA
Pertinent Antimicrobial Allergies:
Allergies
Sulfa (Sulfonamide Antibiotics) Allergy (Unknown, Verified 11/20/23 10:32)
Unknown
Unkonwn reaction >40 years ago
penicillin G Allergy (Unknown, Verified 11/20/23 10:32)
Unknown
pt tolerates rocephin unknown reaction >40 years ago No hx of anaphylaxis has tolerated cefepime, keflex, ceftriaxone
Height / Weight:
Height 4 ft 9 in
Actual Weight 49.9 kg
Pertinent Past Medical History: CHRONIC NEUTROPENIA, BRAIN MASS
- Vital Signs / Lab Results
Temp Pulse Resp BP Pulse Ox
99.2 F 125 16 70/44 91
11/21/23 11:30 11/21/23 11:30 11/21/23 11:30 11/21/23 11:30 11/21/23 11:30
Lab Results - Hematology
11/20/23 11/21/23
11:48 07:34
WBC 1.2 L* 0.7 L*
Lab Results - Chemistry
11/20/23 11/21/23
11:48 07:34
BUN 23 H 21 H
Creatinine 0.9 1.0
Estimated Creat Clear 38 35
Albumin 3.6
11/20/23 11/20/23
11:48 15:30
Lactic Acid 1.5 Cancelled
Lab Results - Urine
11/20/23
14:12
Urine Nitrite (Reflex) Negative
Leukocyte Esterase Rfl Trace A
Urine WBC (Reflex) 0-2
Ur Squamous Epith Cells 21-25
Urine Bacteria (Reflex) Moderate A
Microbiology Results
11/20/23 15:03 Blood Culture - Preliminary
Blood/Venous No Growth in 24 hours- Final report to follow
11/20/23 15:03 Blood Culture - Preliminary
Blood/Venous No Growth in 24 hours- Final report to follow
11/20/23 14:12 Urine Culture - Final
Urine No Significant Growth
11/20/23 11:48 Influenza Types A & B (REAGAN) - Final
Nasal Swab Negative for Influenza A & B, NAAT
Negative results must be combined with clinical observations
and patient history.
Nucleic Acid Amplification test (NAAT)performed on the
[employer] platform.
[2023-11-21 17:15] LABS: Glucose - Point of Care 108 mg/dl (70-99)
--- NOTE | 2023-11-21 17:45 | RR ---
Pt systolic BP 73/50, HR 122, 102.7 temp - Tylenol given, pt appears drowsy, denies pain. Attending aware of VS and nursing assessment. Report given at bedside with AGING ROOM OPERATOR. A Rapid Response was called on this patient, please see Rapid Response form.
[2023-11-21] MEDS: VANCOCIN HCL 500 MG 100 IV (17:51)
[2023-11-21] MEDS: LEVOPHED 250 IV (17:52)
[2023-11-21 18:15] LABS: Blood Urea Nitrogen 22 mg/dl (7-17); Calcium 7.2 mg/dl (8.4-10.2); Carbon Dioxide 17 mmol/L (22-30); Chloride 107 mmol/L (98-107); Estimated Creatinine Clearance 35 ml/min; Glucose 97 mg/dl (70-99); INR 1.41; Magnesium 1.5 mg/dl (1.6-2.3); PT 17.6 Sec (11.4-14.6); Potassium 3.1 mmol/L (3.5-5.1); Sodium 128 mmol/L (135-145); eGFR > 60.00
[2023-11-21 18:16] LABS: APTT 43.6 Sec (23.4-35.0)
[2023-11-21 18:23] LABS: % Basophils 0.6 % (0-2); % Immature Granulocytes 0.6 % (0-0.5); % Lymphocytes 66.3 % (20.5-51.1); % Neutrophils 23.5 % (42.2-75.2); Absolute Lymphocytes 1.1 10^3/uL (1.2-3.4); Absolute Monocytes 0.2 10^3/uL (0.1-0.6); Absolute Neutrophils 0.4 10^3/uL (1.4-6.5); Hemoglobin 7.2 g/dL (12.0-16.0); Mean Corp Hgb Conc. 37.3 g/dL (33.0-37.0); Mean Corpuscular Hgb 31.9 pg (27.0-31.0); Mean Corpuscular Volume 85.4 fL (81.0-99.0); Nucleated Red Blood Cells % 0 %; Red Blood Cell Count 2.26 10^6/uL (4.20-5.40)
[2023-11-21 18:24] LABS: Hematocrit 19.3 % (37.0-47.0); White Blood Cell Count 1.7 10^3/uL (4.8-10.8)
[2023-11-21 18:25] LABS: Platelet Count 18 10^3/uL (130-400)
--- NOTE | 2023-11-21 18:27 | PTCARENOTE ---
recd at [facility] 1720, report bedside and brought to ICU per transfer orders already placed. Conversant, awake, VS noted, on room air. Skin warm, tylenol already given. To ICU, complete CHG, to monitors, fluids and levophed and abx per order.
uncomfortable, restless. Sarah bedside, updated. purewick placed CW port access, meds compatible per Lexicomp. Call banegas bedside. Hypotensive, states normally runs low, titrating levophed.
--- NOTE | 2023-11-21 18:50 | PTCARENOTE ---
abn labs trickling in, reported to URGENT CARE NURSE PRACTITIONER. leaving for the evening, pt c/o friction from pulse ox, removed temporarily, aware need to spot check. No other change. fluids infusing, levophed titration, meeting goals of MAP >65 at this moment.
call banegas in reach.
[2023-11-21] MEDS: KCL 40 MEQ PO (19:23)
[2023-11-21] MEDS: MYCAMINE 105 MG IV (19:23)
[2023-11-21] MEDS: MAGNESIUM SULFATE 50 IV (19:25)
[2023-11-21] MEDS: CALCIUM CHLORIDE 10% SYRINGE 60 MG IV (19:36)
--- NOTE | 2023-11-21 20:02 | VATNOTE ---
Asked by pt's primary RN for second IV access. Pt has R SQ power port, but IVF are incompatible w/ Levo. Attempt x1 for PIV in R hand, unsuccessful. Spoke to pt and RN about midline, but pt adamantly refused. Per RN, pt will be switched to
compatible fluids. Will continue to monitor.
--- NOTE | 2023-11-21 20:15 | PTCARENOTE ---
Assumed care of patient at 1900. Pt. currently in bed. Awake and oriented. Denies any pain or discomfort at this time. Afebrile. Heart rhythm sinus tachycardic. Levophed gtt infusing to maintain MAP >65. Currently on room air. Lungs sound
diminished. Regular diet ordered, but patient has poor appetite. Pure wick drainage device in place. Skin as documented. Discussed plan of care with patient. Incompatible IV medications ordered (Levophed and Bicarb gtt). Currently pt. has only SQ
port for access. Unsuccessful attempts and placing peripheral IV site. VAT paged. VAT unable to place peripheral site. Offered to place midline, but patient is refusing midline. Bicarb gtt changed to Lactated Ringers per Nurse Practitioner.
[2023-11-21] MEDS: KCL 50 IV (20:49)
[2023-11-21] MEDS: LIPITOR 20 MG PO (22:35)
[2023-11-22] VITALS (33 sets, daily range): BP systolic 69–120; BP diastolic 40–85; BMI 24.5
--- NOTE | 2023-11-22 00:02 | PTCARENOTE ---
Pt. assessment unchanged. Levophed gtt infusing. Vital signs stable at this time.
[2023-11-22] MEDS: MAXIPIME 2000 MG IV ×2 (03:15→16:08)
[2023-11-22] MEDS: STERILE WATER FOR INJECTION 10 ML IV ×2 (03:15→16:08)
[2023-11-22] MEDS: LEVOPHED 250 IV ×3 (03:15→15:19)
[2023-11-22 03:35] LABS: Hematocrit 22.6 % (37.0-47.0); Hemoglobin 8.3 g/dL (12.0-16.0); Mean Corp Hgb Conc. 36.7 g/dL (33.0-37.0); Mean Corpuscular Volume 84.3 fL (81.0-99.0); Red Blood Cell Count 2.68 10^6/uL (4.20-5.40); Red Cell Dist. Width 14.3 % (11.5-14.5); White Blood Cell Count 4.1 10^3/uL (4.8-10.8)
[2023-11-22 03:44] LABS: Platelet Count 27 10^3/uL (130-400)
--- NOTE | 2023-11-22 04:00 | PTCARENOTE ---
Pt. remains hypotensive. Titrating up on Levophed infusion. AM labs drawn. Vital signs stable at this time.
[2023-11-22 04:02] LABS: Blood Urea Nitrogen 20 mg/dl (7-17); Calcium 8.1 mg/dl (8.4-10.2); Carbon Dioxide 14 mmol/L (22-30); Chloride 105 mmol/L (98-107); Estimated Creatinine Clearance 43 ml/min; Glucose 114 mg/dl (70-99); Magnesium 2.1 mg/dl (1.6-2.3); Potassium 3.9 mmol/L (3.5-5.1); Sodium 129 mmol/L (135-145); eGFR > 60.00
[2023-11-22] MEDS: SODIUM BICARBONATE 100 MEQ IV (04:15)
[2023-11-22] MEDS: KCL 20 MEQ PO (04:23)
--- NOTE | 2023-11-22 09:00 | PTCARENOTE ---
Rec'd pt at 0800 dozing. Awakens easily to verbal stimuli and is alert and oriented. Affect overall is very flat and pt just states she is tired. Almost tearful talking about all that has happened to her this year with her Brain tumor diagnosis. Job
loss etc.. Support given. Denies pain. Speech is clear. Denies headache or dizziness. TAPIA but in general is weak. Skin is pale pink wm and dry. Respirs are shallow but non-labored on RA with sats of 94%. BS are decreased at the bases. Monitor ST-SR.
Vs as documented. Rec'd pt on IV Levophed at 14 mcg via R SQ port. Will titrate as able keeping MAP >65. + pulses. No edema. Denies chest pain. Abd is round and soft with + BS. Pt states she has no appetite. On bedpan for large amt of loose dk brown
stool mixed with urine. IV LR infusing at 75 ml/hr along with Levophed via RSC port. Site wnl. Pt assists with turning. Skin care given. Pt refusing SCD's currently but is turning and moving. Discussed a midline again with patient and pt stated she
has a bad experience with a midline catheter and does not want one. Dr. Echevarria aware. Call banegas in reach. Will monitor closely
[2023-11-22] MEDS: KEPPRA 1000 MG PO ×2 (09:03→20:08)
[2023-11-22] MEDS: LIDOCAINE 4% PATCH 1 PATCH TOPICAL (09:04)
[2023-11-22] MEDS: FOLVITE 0.800000000000000044 MG PO (09:05)
[2023-11-22] MEDS: ZOVIRAX 800 MG PO ×2 (09:06→20:08)
[2023-11-22] MEDS: FEOSOL 325 MG PO (09:06)
[2023-11-22] MEDS: VITAMIN D3 (cholecalciferol) 1000 UNITS PO (09:06)
[2023-11-22] MEDS: CLARITIN 10 MG PO (09:06)
--- NOTE | 2023-11-22 09:07 | W.PN.ID1 ---
Addendum entered and electronically signed by Karma Gaona MD 11/22/23 14:20:
chart checked
no further fevers
pressors now being weaned down
c diff negative
blood cultures no growth
continue present management
Original Note:
Date of Service
Date of Service: November 22, 2023
Today's Communication
continue vanc/cefepime/micafungin
Assessment / Plan
Neutropenic fever
Pancytopenia
Chronic Neutropenia
Rosai-Mirna disease (histiocytosis variant)
Brain Mass
History of Seizure disorder
Unknown allergies to penicillin and sulfa
- remains on pressors
- cbc with diff in AM
- blood cultures no growth to date
- c diff being checked
- continue ppx: acyclovir
- continue empiric cefepime, vanc, micafungin
- follow clinically
Chief Complaint
-: Other (neutropenic fever)
Subjective / Review of Systems
fever curve improved
remains on pressors
leukopenia improved
plt remin low
remains acidotic
cr stable
uncorrected ca trending towards normal
CXR: 'Increased stranding in both lung bases left greater than right concerning for developing pneumonia'
patient refused midline
some loose (not liquid stool)
color is better, less sick appearing but underststandably discouraged
Vital Signs / Physical Exam
Vital Signs
Vital Signs
Temp Pulse Resp BP Pulse Ox
99.4 F 109 27 93/64 96
11/22/23 07:47 11/22/23 06:41 11/22/23 06:41 11/22/23 06:41 11/22/23 04:00
Physical Exam
Constitutional: No Acute Distress and Chronically Ill
Cardiovascular: Regular Rate and S1/S2; Negative Murmur or Rub
Pulmonary: Clear and Symmetric; Negative Wheezes or Rales
Gastrointestinal: Soft, Non Tender, Distended (mild) and Normal Bowel Sounds
Skin: Warm and Dry; Negative Rash or Jaundice
Neurological: Awake and Alert
Objective Data
Lab Data
Lab Results
11/22/23 03:11
11/22/23 03:11
PT 17.6 Sec (11.4-14.6) H 11/21/23 17:53
INR 1.41 11/21/23 17:53
APTT 43.6 Sec (23.4-35.0) H 11/21/23 17:53
APTT Cancelled 11/21/23 17:53
Estimated Creat Clear 43 ml/min 11/22/23 03:11
Lactic Acid Cancelled 11/20/23 15:30
Total Bilirubin 1.0 mg/dl (0.2-1.3) 11/20/23 11:48
AST 27 U/L (14-36) 11/20/23 11:48
ALT 14 U/L (0-35) 11/20/23 11:48
Alkaline Phosphatase 126 U/L (38-126) 11/20/23 11:48
Most recent labs reviewed.
Micro Results:
11/20/23 23:43 MRSA Screen - Final
Nose No Methicillin Resistant Staphylococcus aureus isolated.
11/21/23 07:34 Blood Culture - Preliminary
Blood/Venous No Growth in 24 hours- Final report to follow
11/20/23 15:03 Blood Culture - Preliminary
Blood/Venous No Growth in 24 hours- Final report to follow
11/20/23 15:03 Blood Culture - Preliminary
Blood/Venous No Growth in 24 hours- Final report to follow
11/20/23 14:12 Urine Culture - Final
Urine No Significant Growth
11/20/23 11:48 Influenza Types A & B (REAGAN) - Final
Nasal Swab Negative for Influenza A & B, NAAT
Negative results must be combined with clinical observations
and patient history.
Nucleic Acid Amplification test (NAAT)performed on the
[employer] platform.
--- NOTE | 2023-11-22 10:07 | CON.INTV ---
Consultation
Consultation Request
Date/Time Consultation Requested: 11/22/2023
Date/Time Consultation Performed: 11/22/2023
Requesting Provider: Dr. Steen,
Performing Provider: Dr. Juan Echevarria
Reason for Consultation: Septic shock
Medical History
-
History of Present Illness:
63-year-old woman with history of Rosai-Mirna disease ( Histiocytosis variant) history of a brain mass, asthma, history of CVA, seizures presented with fevers, chills, night sweats, nausea and generalized weakness for the last 2 days. Reports
nonproductive cough for few days. She was noted to be slightly febrile, tachycardic. Chest x-ray showed no acute infiltrate.
She was found to be neutropenic, anemic and thrombocytopenic with hyponatremia.
She was started on broad-spectrum antibiotics due to her neutropenia.
Past Medical History
Past Medical History: Other (See assessment and plan section)
Social History
Tobacco: Non-smoker
Alcohol: None
Drug: None
Family History
Family History: Reviewed & Not Pertinent
Allergies / Home Medications
Allergies
Allergy/AdvReac Type Severity Reaction Status Date / Time
penicillin G Allergy Unknown Unknown Verified 11/20/23 10:32
Sulfa (Sulfonamide Allergy Unknown Unknown Verified 11/20/23 10:32
Antibiotics)
codeine Allergy n/v ; Verified 11/20/23 10:32
foggy ;
percocet
'too
strong'
Home Medications
Medication Instructions Recorded Confirmed Last Taken Type
alendronate 70 mg tablet 70 mg PO JUNIOR@0800 OSTEOPOROSIS 03/31/20 11/20/23 11/16/23 History
atorvastatin 20 mg tablet 20 mg PO HS High cholesterol 03/31/20 11/20/23 11/19/23 History
Lactobac no.2-Bifidobac no.1-S. 1 cap PO DAILY Gastrointestinal 01/21/23 11/20/23 11/20/23 History
thermo 112.5 billion cell capsule issue
(Visbiome)
ferrous sulfate 27 mg iron tablet 27 mg PO DAILY Supplement 06/04/23 11/20/23 11/20/23 History
acyclovir 800 mg tablet 800 mg PO Q12H Infection 07/05/23 11/20/23 11/20/23 History
levetiracetam 1,000 mg tablet 1,000 mg PO BID Seizures 07/05/23 11/20/23 11/20/23 History
(Keppra)
acetaminophen 500 mg tablet 1,000 mg PO Q6H PRN mild pain 11/20/23 11/20/23 11/19/23 History
(Tylenol Extra Strength)
albuterol sulfate 90 mcg/actuation 2 puff inhalation R Q6HPRN PRN sob 11/20/23 11/20/23 Unknown History
aerosol inhaler
cholecalciferol (vitamin D3) 25 25 mcg PO DAILY Supplement 11/20/23 11/20/23 11/20/23 History
mcg (1,000 unit) tablet
folic acid 800 mcg tablet 0.8 mg PO DAILY Supplement 11/20/23 11/20/23 11/20/23 History
hydroxyzine HCl 25 mg tablet 25 mg PO TID PRN anxiety 11/20/23 11/20/23 11/19/23 History
lidocaine-prilocaine 2.5 %-2.5 % 1 applic topical MOFR PORT ACCESS 11/20/23 11/20/23 11/19/23 History
topical cream
loratadine 10 mg tablet (Claritin) 10 mg PO DAILY Allergies 11/20/23 11/20/23 11/20/23 History
methotrexate sodium 2.5 mg tablet 15 mg PO TU@0800 Autoimmune 11/20/23 11/20/23 11/18/23 History
Disorder
prochlorperazine maleate 10 mg 10 mg PO Q6H PRN nausea/vomiting 11/20/23 11/20/23 11/19/23 History
tablet
tbo-filgrastim 300 mcg/0.5 mL 300 mcg SC DIRECTED PRN if 11/20/23 11/20/23 11/14/23 History
subcutaneous syringe (Granix) gran<1.5
Review of Systems
-
History Source: Patient
All other systems: Negative unless noted
Vitals / Labs / Diagnostic Testing
Vital Signs
Temp Pulse Resp BP Pulse Ox
99.4 F 109 27 93/64 96
11/22/23 07:47 11/22/23 06:41 11/22/23 06:41 11/22/23 06:41 11/22/23 04:00
Lab Data
11/22/23 03:11
11/22/23 03:11
Laboratory Results
11/21/23 11/21/23
17:53 17:53
PT 17.6 H
INR 1.41
APTT 43.6 H Cancelled
Microbiology
11/20/23 23:43 Nose MRSA Screen - Final
No Methicillin Resistant Staphylococcus aureus isolated.
11/21/23 07:34 Blood/Venous Blood Culture - Preliminary
No Growth in 24 hours- Final report to follow
11/20/23 15:03 Blood/Venous Blood Culture - Preliminary
No Growth in 24 hours- Final report to follow
11/20/23 15:03 Blood/Venous Blood Culture - Preliminary
No Growth in 24 hours- Final report to follow
11/20/23 14:12 Urine Urine Culture - Final
No Significant Growth
11/20/23 11:48 Nasal Swab Influenza Types A & B (REAGAN) - Final
Negative for Influenza A & B, NAAT
Negative results must be combined with clinical observations
and patient history.
Nucleic Acid Amplification test (NAAT)performed on the
[employer] platform.
Diagnostic Testing:
Physical Exam
-
HEENT: Normocephalic
Cardiovascular: S1/S2
Respiratory: Clear and Non-Labored Respirations
GI: Soft and Non Distended
Neurology: Awake, Alert, Oriented and No Motor Deficits
Skin: Warm
General: Respiratory Distress (n)
Assessment
-
Septic shock-transferred to the critical care unit 11/21/2023
Unclear source
Clear chest x-ray/negative COVID
Negative influenza
Urinalysis with moderate bacteria/0-2 white blood cells.
Neutropenic fever
Nongap metabolic acidosis-possibly from diarrhea/post saline fluid resuscitation
Normal anion gap
Hyponatremia
Conditions present prior admission:
Chronic hypotension
History of CVA
History of seizures in 2017 on Keppra
History of brain tumor
Hyperlipidemia
Anxiety
History of asthma
History of hepatitis C after blood transfusion
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
Assessment and plan:.
Transferred to the critical care unit for hypotension-pressor requirement
Fever curve appears to be improving
-
Continue broad-spectrum antibiotics per infectious disease
No clear source of infection as of yet
Follow cultures
Neutropenic precautions
Methotrexate on hold
-
Continue vasopressor support-maintain mean arterial blood pressure 65 mmHg.(Patient has low blood pressure at baseline)
Patient received adequate IV hydration and resuscitation.
Normal renal function
Follow urinary output
Lactic acid is not elevated-
-
Nongap metabolic acidosis: Unclear etiology-RTA.
Denies diarrhea.
Follow electrolytes
Bicarbonate drip not compatible with Levophed. Patient declined PICC line or central lines.
Continue LR at a low rate.
-
Follow daily CBC
Patient does have chronic pancytopenia follows up at [facility] as well as [facility].
Continue G-CSF daily.
-
Critical care statement: A total of 33 minutes of critical care time was provided for this patient today. This includes management of unstable vital signs, evaluation of the patient at bedside, reviewing the patient's pertinent medical records
including ventilator settings, arterial blood gases, radiographs, microbiology, laboratory evaluations and discussion with primary team, critical care nursing, and respiratory therapy.
--- NOTE | 2023-11-22 10:19 | PHA.VAN.FU ---
Addendum entered and electronically signed by Brant Delgado [facility] 11/22/23 10:22:
Will order new dose of vancomycin 750mg to start today at noon. Then daily at 06:00
Original Note:
Vancomycin Assessment / Plan
- Assessment
Renal Function: SCR Decreasing (1.0>0.8)
WBC's are: Trending Up (1.7>4.1 (on Granix))
In the past 24 hrs, patient has been: Febrile (Tmax 102.7 orally on 11/21/23 at 16:55 currently afebrile)
Concomitant Antimicrobials: Cefepime, micafungin, acyclovir (prophylaxis)
- Dosing Plan
Adjust Regimen to: Vancomycin 750mg IV Q24 hrs starting 11/23/23 06:00
New Regimen Predicts: AUC (473), Peak (32), Trough (11)
- Monitoring Plan
No level(s) ordered at this time: Will order levels according to vancomycin dosing protocol
- Follow Up
Pharmacy will continue to follow.
Vancomycin Follow UP
- -
Patient Age: 63
Patient Sex: Female
Vancomycin Day #: 2
Indication: Bacteremia
Requesting Provider: AMANDA
Pertinent Antimicrobial Allergies:
Allergies
Sulfa (Sulfonamide Antibiotics) Allergy (Unknown, Verified 11/20/23 10:32)
Unknown
Unkonwn reaction >40 years ago
penicillin G Allergy (Unknown, Verified 11/20/23 10:32)
Unknown
pt tolerates rocephin unknown reaction >40 years ago No hx of anaphylaxis has tolerated cefepime, keflex, ceftriaxone
Height / Weight:
Height 4 ft 9 in
Actual Weight 51.4 kg
Pertinent Past Medical History: CHRONIC NEUTROPENIA, BRAIN MASS
- Vital Signs / Lab Results
Temp Pulse Resp BP Pulse Ox
99.4 F 109 27 93/64 96
11/22/23 07:47 11/22/23 06:41 11/22/23 06:41 11/22/23 06:41 11/22/23 04:00
Lab Results - Hematology
11/20/23 11/21/23 11/21/23
11:48 07:34 17:53
WBC 1.2 L* 0.7 L* 1.7 L*
11/22/23
03:11
WBC 4.1 L
Lab Results - Chemistry
11/20/23 11/21/23 11/21/23
11:48 07:34 17:53
BUN 23 H 21 H 22 H
Creatinine 0.9 1.0 1.0
Estimated Creat Clear 38 35 35
Albumin 3.6
11/22/23
03:11
BUN 20 H
Creatinine 0.8
Estimated Creat Clear 43
Albumin
11/20/23 11/20/23
11:48 15:30
Lactic Acid 1.5 Cancelled
Microbiology Results
11/20/23 23:43 MRSA Screen - Final
Nose No Methicillin Resistant Staphylococcus aureus isolated.
11/21/23 07:34 Blood Culture - Preliminary
Blood/Venous No Growth in 24 hours- Final report to follow
11/20/23 15:03 Blood Culture - Preliminary
Blood/Venous No Growth in 24 hours- Final report to follow
11/20/23 15:03 Blood Culture - Preliminary
Blood/Venous No Growth in 24 hours- Final report to follow
11/20/23 14:12 Urine Culture - Final
Urine No Significant Growth
11/20/23 11:48 Influenza Types A & B (REAGAN) - Final
Nasal Swab Negative for Influenza A & B, NAAT
Negative results must be combined with clinical observations
and patient history.
Nucleic Acid Amplification test (NAAT)performed on the
[employer] platform.
[2023-11-22] MEDS: LR 1000 IV ×2 (10:22→22:55)
--- NOTE | 2023-11-22 10:30 | PTCARENOTE ---
Very limited appetite for breakfast. States she is just not hungry. Admitted to very mild nausea but did not want anything for it. States overall she is just tired and wants to rest. Dr. Echevarria in to see pt and pt again discussed that she did not
want a PICC or midline catheter. Will continue to monitor. Levophed remains at 14 mcg.
[2023-11-22] MEDS: GRANIX 300 MCG SC (10:37)
--- NOTE | 2023-11-22 11:40 | PTCARENOTE ---
On bedpan for urine and small amt of loose dark stool. Stool for C- Diff sent as ordered. Skin care given. Levophed currently at 12 mcg
[2023-11-22 11:45] LABS: Absolute Neutrophils -Man Diff 1.2 10^3/uL (1.4-6.5); Atypical Lymphocytes 10 %; Band Neutrophils 6 % (0-3); Lymphocytes 56 % (20-51); Metamyelocytes 1 % (-); Monocytes 3 % (2-9); Segmented Neutrophils 24 % (42-75)
[2023-11-22 11:46] LABS: Platelets Checked YES
[2023-11-22 11:47] LABS: Normal RBC Morphology No; Poikilocytosis Slight
[2023-11-22 11:48] LABS: Rouleaux Slight; Tear Drop Red Blood Cells FEW; Total Cells Counted 100
[2023-11-22 11:49] LABS: Ovalocytes FEW
[2023-11-22] MEDS: VANCOCIN 150 IV (12:13)
--- NOTE | 2023-11-22 13:00 | PTCARENOTE ---
Again on bedpan for urine and a small amt of stool. Anahy care given. Mostly dozing when not disturbed. Levophed at 8 mcg. States she is not really hungry for lunch but will try some water ice
--- NOTE | 2023-11-22 13:14 | W.PN.ONC2 ---
Today's Communication / Plan
-
- granix daily for ANC < 1500
- CBC with differential daily, transfuse as appropriate.
- ongoing ID management apprec.
Impression
Impression
Neutropenic fever
Acute on chronic hypotension
Chronic pancytopenia
Chronic thrombocytopenia w/ splenomegaly
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
Hx brain mass s/p biopsy (01/2023)
Plan
Plan
11/21 WBC 0.7, Hgb 7.4, Hct 20, PLT 22, ANC 200
Transfuse as needed to maintain Hgb >7, PLT >20
Neutropenic precautions
Granix 300mcg daily for ANC <1500. PLEASE MAKE SURE TO INCLUDE DIFFERENTIAL WITH CBC DAILY. WBC up to 4.1 today shot received. suspect may be able to be held tomorrow.
Antibiotics per ID
CBC w/ diff daily
Follow fevers
Blood cultures and urine cultures NTD
if ongoing FUO can consider repeat BMBx.
Records reviewed from [facility]
Supportive care
Emotional support
We will follow.
Subjective/Objective
Chief Complaint
neutropenic fever
Subjective
pt still feeling weak, frustrated. She remains on pressor support. AAOx 3. T max over past 24 hours 102.7.
Vital Signs:
Vital Signs
Temp Pulse Resp BP Pulse Ox
99.6 F 107 24 112/70 95
11/22/23 11:19 11/22/23 12:00 11/22/23 12:00 11/22/23 12:00 11/22/23 11:30
Lab Results:
Laboratory Data
WBC 4.1 10^3/uL (4.8-10.8) L 11/22/23 03:11
Hgb 8.3 g/dL (12.0-16.0) L 11/22/23 03:11
Plt Count 27 10^3/uL (130-400) L* D 11/22/23 03:11
PT 17.6 Sec (11.4-14.6) H 11/21/23 17:53
INR 1.41 11/21/23 17:53
APTT 43.6 Sec (23.4-35.0) H 11/21/23 17:53
APTT Cancelled 11/21/23 17:53
eGFR > 60.00 11/22/23 03:11
Physical Exam
HEENT: No Jaundice
Cardiology: Normal Sinus Rhythm
Pulmonary: Clear
GI: Soft; No Distended
Extremities: No Edema
Neuro: Non Focal
Review of Systems
Review of Systems
Constitutional: Reports Fever and Fatigue
Respiratory: Denies Dyspnea or Cough
Gastrointestinal: Reports Nausea/Vomiting
Neurological: Denies Headache
Hem/Lymphatic: Denies Night Sweats
--- NOTE | 2023-11-22 14:30 | W.PN.HOSP.TC ---
Today's Communication/Plan
-
Continue broad-spectrum antibiotics
Follow cultures
Wean pressors as tolerated, MAP greater than 65
Monitor urine output
Fluid resuscitation
Assessment / Plan
Assessment / Plan
Physical Exam
General: Well Developed, Well Nourished and No Apparent Distress
HEENT: NormoCephalic, Moist mucous membranes and Atraumatic
Respiratory: Clear
Cardiac: S1/S2 and Regular Rhythm; No Murmur or Rub
GI: Soft, Non Tender, Non Distended and Normal Bowel Sounds; No Organomegaly
Rectal: Deferred by Provider
Musculoskeletal: No Clubbing, No Cyanosis and No Edema
Skin: No Rash
Neuro: AO x 3 and Nonfocal/grossly intact
Psych: Calm
#Septic shock
#Neutropenic fever
-no clear source
-cont cefepime, expand abx to vancomycin, micafungin, cefepime
-ID consulted
-on acyclovir prophylaxis at home
-F/u cultures
-Wean pressors as tolerated, MAP goal greater than 65 understanding patient has chronically low BPs
#NAGMA
� Unclear source
� Continue LR
-cont bicarb
#Hypoxia
-may be related to underlying NIDIA as noted while sleeping, does not appear to be pneumonia
-ctm off fluids
#Hypotension
-patient states this is chronic
-will cont to monitor s/p fluids
-mentation remains well, if any changes - start pressors
#hyponatremia likely hypovolemic
-na 128
-monitor with resuscitation
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
-#pancytopenia
#brain tumor, with just biopsy at this time
-wbc 1.2,hgb 9.0,platelets 31
-ctm
-F/u onc outpatient for further needs
-GCSF daily
#Hypokalemia
-monitor and replete
hx of CVA
hx of 2 petit-mal seizures 2016
- continue Keppra
#hxt of brain tumor
HLD
-Statin continued
# Anxiety
-hydroxyzine continued
#hx of Asthma
-Not in acute exacerbation
-Albuterol from home continued
#hx of Hep C, related to receiving blood transfusion
#DVT ppx: SCDs
#Code: Full
Total time spent on today's encounter was 51 minutes which included time spent in counseling the patient/family regarding diagnosis and treatment plan as listed above, goals of care, and symptom management. Case was discussed with nursing staff,
specialists, and care coordinators/case management. All labs and imaging personally reviewed by me. Remainder the time spent in detailed review of previous records, lab data, imaging, and other medical provider documentation.
Anticipated Discharge: > 48 hours
Subjective/Interval History
-
Date of Service: November 22, 2023
Maintained on 14 of Levophed
Objective Data
-
Labs:
Laboratory Results
11/22/23
03:11
WBC 4.1 L
Hgb 8.3 L
Hct 22.6 L
Plt Count 27 L* D
Sodium 129 L
Potassium 3.9 D
Chloride 105
Carbon Dioxide 14 L*
BUN 20 H
Creatinine 0.8
Glucose 114 H
Calcium 8.1 L
Vital Signs:
Vital Signs
Temp Pulse Resp BP Pulse Ox
99.6 F 111 25 112/74 95
11/22/23 11:19 11/22/23 13:30 11/22/23 13:30 11/22/23 13:08 11/22/23 11:30
I&O
11/21/23 11/22/23 11/23/23
06:59 06:59 06:59
Intake Total 2420 / 2420 3322.5 / 3450.0 1305.0 / 1305.0
Output Total 1300 / 1300
Balance 2420 / 2420 2022.5 / 2150.0 1305.0 / 1305.0
Review of Systems
-
History Source: Patient
All other systems: Reviewed and negative
Physical Exam
-
General: No Apparent Distress
HEENT: Normocephalic and Atraumatic
Respiratory: Rhonchi; Negative Wheezes or Rales
Cardiac: Regular Rhythm and S1/S2
GI: Soft
Genito-urinary: No Costovertebral Tender
Musculoskeletal: No Edema
Neuro: AO x 3
Hematologic / Lymphatic: No Lymphadenopathy
Psych: Calm
Data Reviewed
-
Labs: Labs Reviewed by me
[2023-11-22] MEDS: ZOFRAN 4 MG IV (16:12)
--- NOTE | 2023-11-22 16:20 | PTCARENOTE ---
Pt has been dozing on and off all afternoon. Ate only 2 bites of water ice. Feels sl nauseated. Dr. Acosta updated and pt given Zofran 4 mg IV. Sats with sleeping will decrease to 91% but when repositioned up in bed up to 93-94%. VS as
documented. Levophed currently at 4 mcg. On bedpan for yellow urine and small amt of loose green stool. Anahy care given. Repositioned. Will continue to monitor
--- NOTE | 2023-11-22 17:36 | PTCARENOTE ---
Pts in and updated. No changes-Nausea improved since Zofran
[2023-11-22] MEDS: MYCAMINE 105 MG IV (18:20)
--- NOTE | 2023-11-22 18:38 | PTCARENOTE ---
Poor appetite for dinner but nausea better. Currently brushing her teeth. Levophed remains at 4 mcg
--- NOTE | 2023-11-22 19:00 | PTCARENOTE ---
Received pt. at 1900. Pt. currently in bed. Awake, alert, and oriented. Denies any pain or discomfort at this time. Afebrile. Pt. heart rhythm is sinus tachy. Levophed gtt infusing to maintain MAP >65. Currently on room air. Lungs sound diminished.
Regular diet ordered, poor appetite. Pt. voids in bed fraser with no problems. Skin as documented. Discussed plan of care with patient. Vital signs stable at this time.
[2023-11-22] MEDS: LIPITOR 20 MG PO (20:08)
[2023-11-22] MEDS: MELATONIN 6 MG PO (20:09)
[2023-11-23] VITALS (41 sets, daily range): BP systolic 74–113; BP diastolic 46–78; BMI 25.8
--- NOTE | 2023-11-23 00:15 | PTCARENOTE ---
Pt. assessment unchanged. Remains on Levophed gtt. Attempting to wean Levophed gtt down. Vital signs stable at this time.
[2023-11-23] MEDS: MAXIPIME 2000 MG IV ×2 (03:11→16:02)
[2023-11-23] MEDS: STERILE WATER FOR INJECTION 10 ML IV ×2 (03:11→16:02)
[2023-11-23 03:17] LABS: Hematocrit 21.2 % (37.0-47.0); Hemoglobin 7.9 g/dL (12.0-16.0); Mean Corp Hgb Conc. 37.3 g/dL (33.0-37.0); Mean Corpuscular Volume 83.1 fL (81.0-99.0); Nucleated Red Blood Cells % 0 %; Red Blood Cell Count 2.55 10^6/uL (4.20-5.40); Red Cell Dist. Width 14.6 % (11.5-14.5); White Blood Cell Count 4.2 10^3/uL (4.8-10.8)
[2023-11-23 03:22] LABS: Platelet Count 14 10^3/uL (130-400)
[2023-11-23 03:38] LABS: Blood Urea Nitrogen 15 mg/dl (7-17); Calcium 7.2 mg/dl (8.4-10.2); Carbon Dioxide 20 mmol/L (22-30); Chloride 100 mmol/L (98-107); Estimated Creatinine Clearance 65 ml/min; Glucose 101 mg/dl (70-99); Potassium 3.2 mmol/L (3.5-5.1); Sodium 129 mmol/L (135-145); eGFR > 60.00
--- NOTE | 2023-11-23 04:00 | PTCARENOTE ---
Pt. assessment remains unchanged. AM labs drawn. Vital signs stable at this time.
[2023-11-23 04:29] LABS: Band Neutrophils 5 % (0-3); Segmented Neutrophils 17 % (42-75)
[2023-11-23 04:30] LABS: Atypical Lymphocytes 11 %; Lymphocytes 66 % (20-51); Monocytes 1 % (2-9); Platelets Checked Yes
[2023-11-23 04:31] LABS: Normal RBC Morphology No; Nucleated Red Blood Cells 1 (-)
[2023-11-23 04:33] LABS: Ovalocytes 1+; Rouleaux Slight; Tear Drop Red Blood Cells Slight; Total Cells Counted 100
[2023-11-23 04:35] LABS: Absolute Neutrophils -Man Diff 0.9 10^3/uL (1.4-6.5)
[2023-11-23] MEDS: KCL 100 IV (04:37)
[2023-11-23] MEDS: CALCIUM GLUCONATE 100 IV (04:48)
[2023-11-23] MEDS: VANCOCIN 150 IV (05:49)
[2023-11-23] MEDS: KEPPRA 1000 MG PO ×2 (08:56→20:25)
[2023-11-23] MEDS: VITAMIN D3 (cholecalciferol) 1000 UNITS PO (08:56)
[2023-11-23] MEDS: LIDOCAINE 4% PATCH 1 PATCH TOPICAL (08:56)
[2023-11-23] MEDS: FEOSOL 325 MG PO (08:57)
[2023-11-23] MEDS: ZOVIRAX 800 MG PO ×2 (08:57→20:25)
[2023-11-23] MEDS: FOLVITE 0.800000000000000044 MG PO (08:57)
[2023-11-23] MEDS: CLARITIN 10 MG PO (08:57)
[2023-11-23] MEDS: ZOFRAN 4 MG IV ×2 (08:57→19:08)
[2023-11-23] MEDS: FLUSH (NSS) 2 FLUSH IV (08:57)
--- NOTE | 2023-11-23 09:15 | PTCARENOTE ---
Rec'd pt this am awake alert and oriented resting bed. Overall states she is still tired and feels a little nauseated. Overall affect is flat. States she just wants to feel better. Denies pain. Speech is clear. TAPIA. Skin is pale pink wm and dry.
Respirs are shallow and at times tachypnic in the 20's but non-labored and denies shortness of breath. BS are in general decreased at the bases. Rec'd pt on 2lnc with sats of 98%- changed over to RA at 0900 and sats are 96%. Monitor ST. + pulses. No
edema. VS as documented. Rec'd pt on IV Levophed at 2 mcg- decreased at 0830 to 1 mcg. Will wean as tolerated keeping MAP's >65. Infusing via R Sq port along KCL rider and LR infusions. Abd is soft with + BS. Pt states she still has no appetite
but will try breakfast. Medicated at 0900 with Zofran 4 mg IV. On bedpan for loose brown stool and large amt of urine. Skin and arlen care given. Pt able to help reposition herself. Support given. Call banegas in reach. Will continue to monitor closely.
Plan of care reviewed.
--- NOTE | 2023-11-23 09:40 | W.PN.ID1 ---
Date of Service
Date of Service: November 23, 2023
Today's Communication
continue empiric therapies
Assessment / Plan
Neutropenic fever - improving
Shock - improving
Pancytopenia
Chronic Neutropenia
Rosai-Mirna disease (histiocytosis variant)
Brain Mass
History of Seizure disorder
Unknown allergies to penicillin and sulfa
- remains on pressors - now minimal
- ANC trending up
- blood cultures no growth to date
- c diff negative
- continue ppx: acyclovir
- continue empiric cefepime, vanc, micafungin
- follow clinically
patient is critically ill - improving
Chief Complaint
-: Other (neutropenic fever)
Subjective / Review of Systems
No further yimi fevers
BP stable on 2 mcg of norepi down from peak of 14
leukopenia resolving, ANC 0.9 today
progression of thrombocytopenia
cr 0.6
covid ag negative
CXR overnight 'Increased stranding in both lung bases left greater than right concerning for developing pneumonia.' my read, agree with increased stranding
Vital Signs / Physical Exam
Vital Signs
Vital Signs
Temp Pulse Resp BP Pulse Ox
99.9 F 106 26 96/61 98
11/23/23 04:00 11/23/23 06:00 11/23/23 06:00 11/23/23 06:00 11/23/23 06:00
Physical Exam
Constitutional: Chronically Ill
Cardiovascular: Regular Rate and S1/S2; Negative Murmur or Rub
Pulmonary: Clear and Symmetric; Negative Wheezes or Rales
Gastrointestinal: Soft, Non Tender, Non Distended and Normal Bowel Sounds
Skin: Warm and Dry; Negative Rash or Jaundice
Objective Data
Lab Data
Lab Results
11/23/23 03:06
11/23/23 03:06
PT 17.6 Sec (11.4-14.6) H 11/21/23 17:53
INR 1.41 11/21/23 17:53
APTT 43.6 Sec (23.4-35.0) H 11/21/23 17:53
APTT Cancelled 11/21/23 17:53
Estimated Creat Clear 65 ml/min 11/23/23 03:06
Lactic Acid Cancelled 11/20/23 15:30
Total Bilirubin 1.0 mg/dl (0.2-1.3) 11/20/23 11:48
AST 27 U/L (14-36) 11/20/23 11:48
ALT 14 U/L (0-35) 11/20/23 11:48
Alkaline Phosphatase 126 U/L (38-126) 11/20/23 11:48
Most recent labs reviewed.
Micro Results:
11/21/23 07:34 Blood Culture - Preliminary
Blood/Venous No Growth in 48 hours- Final report to follow
11/20/23 15:03 Blood Culture - Preliminary
Blood/Venous No Growth in 48 hours- Final report to follow
11/20/23 15:03 Blood Culture - Preliminary
Blood/Venous No Growth in 48 hours- Final report to follow
11/22/23 11:46 C. difficile GDH Antigen & Toxins - Final
Feces/Stool Negative for toxigenic C.difficile
11/20/23 23:43 MRSA Screen - Final
Nose No Methicillin Resistant Staphylococcus aureus isolated.
11/20/23 14:12 Urine Culture - Final
Urine No Significant Growth
11/20/23 11:48 Influenza Types A & B (REAGAN) - Final
Nasal Swab Negative for Influenza A & B, NAAT
Negative results must be combined with clinical observations
and patient history.
Nucleic Acid Amplification test (NAAT)performed on the
[employer] platform.
--- NOTE | 2023-11-23 09:51 | PHA.VAN.FU ---
Vancomycin Assessment / Plan
- Assessment
Renal Function: SCR Decreasing (0.8>0.6)
WBC's are: Trending Up (4.1>4.2, ANC 900 (pt on granix))
In the past 24 hrs, patient has been: Afebrile
Concomitant Antimicrobials: Cefepime, micafungin, acyclovir (prophylaxis)
- Dosing Plan
Adjust Regimen to: Vancomycin 500mg IV Q12hrs due to improved renal function
New Regimen Predicts: AUC (466), Peak (26), Trough (14)
Dosing Comments: will start 500mg dose today at 18:00
- Monitoring Plan
No level(s) ordered at this time: Will order levels according to vancomycin dosing protocol
- Follow Up
Pharmacy will continue to follow.
Vancomycin Follow UP
- -
Patient Age: 63
Patient Sex: Female
Vancomycin Day #: 3
Indication: Bacteremia
Requesting Provider: AMANDA
Pertinent Antimicrobial Allergies:
Allergies
Sulfa (Sulfonamide Antibiotics) Allergy (Unknown, Verified 11/20/23 10:32)
Unknown
[place] reaction >40 years ago
penicillin G Allergy (Unknown, Verified 11/20/23 10:32)
Unknown
pt tolerates rocephin unknown reaction >40 years ago No hx of anaphylaxis has tolerated cefepime, keflex, ceftriaxone
Height / Weight:
Height 4 ft 9 in
Actual Weight 54.1 kg
Pertinent Past Medical History: CHRONIC NEUTROPENIA, BRAIN MASS
- Vital Signs / Lab Results
Temp Pulse Resp BP Pulse Ox
99.9 F 106 26 96/61 98
11/23/23 04:00 11/23/23 06:00 11/23/23 06:00 11/23/23 06:00 11/23/23 06:00
Lab Results - Hematology
11/20/23 11/21/23 11/21/23
11:48 07:34 17:53
WBC 1.2 L* 0.7 L* 1.7 L*
Band Neutrophils
11/22/23 11/23/23
03:11 03:06
WBC 4.1 L 4.2 L
Band Neutrophils 6 H 5 H
Lab Results - Chemistry
11/20/23 11/21/23 11/21/23
11:48 07:34 17:53
BUN 23 H 21 H 22 H
Creatinine 0.9 1.0 1.0
Estimated Creat Clear 38 35 35
Albumin 3.6
11/22/23 11/23/23
03:11 03:06
BUN 20 H 15
Creatinine 0.8 0.6
Estimated Creat Clear 43 65
Albumin
11/20/23 11/20/23
11:48 15:30
Lactic Acid 1.5 Cancelled
Microbiology Results
11/21/23 07:34 Blood Culture - Preliminary
Blood/Venous No Growth in 48 hours- Final report to follow
11/20/23 15:03 Blood Culture - Preliminary
Blood/Venous No Growth in 48 hours- Final report to follow
11/20/23 15:03 Blood Culture - Preliminary
Blood/Venous No Growth in 48 hours- Final report to follow
11/22/23 11:46 C. difficile GDH Antigen & Toxins - Final
Feces/Stool Negative for toxigenic C.difficile
11/20/23 23:43 MRSA Screen - Final
Nose No Methicillin Resistant Staphylococcus aureus isolated.
11/20/23 14:12 Urine Culture - Final
Urine No Significant Growth
--- NOTE | 2023-11-23 10:00 | PTCARENOTE ---
Finishing breakfast- overall limited appetite but did eat about 60%. States nausea is somewhat better since Zofran.
--- NOTE | 2023-11-23 10:08 | W.PN.INTV ---
Today's Communication / Plan
Recommendations
Wean off vasopressors-currently on Levophed 2 mics per minute.
Follow daily labs
Follow cultures
Continue antibiotics
Monitor for bleeding
Assessment
-
63-year-old woman with past medical history noted. Admitted for neutropenic fever. Developed hypotension not responsive to IV fluid, transferred to the critical care unit for vasopressor therapy due to septic shock. Unclear source.
Septic shock-transferred to the critical care unit 11/21/2023
Unclear source
Clear chest x-ray/negative COVID
Negative influenza
Urinalysis with moderate bacteria/0-2 white blood cells.
Neutropenic fever
Nongap metabolic acidosis-possibly from diarrhea/post saline fluid resuscitation
Normal anion gap
Hyponatremia
Conditions present prior admission:
Chronic hypotension
History of CVA
History of seizures in 2017 on Keppra
History of brain tumor
Hyperlipidemia
Anxiety
History of asthma
History of hepatitis C after blood transfusion
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
Assessment and plan:.
Transferred to the critical care unit for hypotension-pressor requirement 11/22/2023
Improved fever curve.
-
Continue broad-spectrum antibiotics per infectious disease
No clear source of infection as of yet
Follow cultures-so far negative.
Neutropenic precautions
Methotrexate on hold
-
Continue vasopressor support-maintain mean arterial blood pressure 65 mmHg.(Patient has low blood pressure at baseline)
Patient received adequate IV hydration and resuscitation..
Levophed requirements decreased. 2 mics per minute. Hopefully can wean off today.
Normal renal function
Follow urinary output
Lactic acid is not elevated-
-
Nongap metabolic acidosis: Improved.
Renal function is normal.
Lactic acid not elevated.
Denies diarrhea.
Follow electrolytes
Bicarbonate drip not compatible with Levophed. Patient declined PICC line or central lines.
Encourage oral intake.
Discontinue IV fluids. Patient tolerating oral hydration.
-
Potassium and calcium have been repleted.
Repeat tomorrow
Encourage oral intake
-
Follow daily CBC-significant thrombocytopenia. Monitor for bleeding
Patient does have chronic pancytopenia follows up at [facility] as [facility].
Oncology continues to follow status post G-CSF-defer to oncology
Counts improving.
-
Critical care statement: A total of 31 minutes of critical care time was provided for this patient today. This includes management of unstable vital signs, evaluation of the patient at bedside, reviewing the patient's pertinent medical records
including ventilator settings, arterial blood gases, radiographs, microbiology, laboratory evaluations and discussion with primary team, critical care nursing, and respiratory therapy.
Subjective Dataa
Subjective Data
Date of Service:
Date of Service: November 23, 2023
Chief Complaint: M[place] Floor Layer Follow Up (Septic shock)
Subjective:
Patient offers no new complaints
Afebrile overnight.
Tolerating diet.
Review of Systems
General: Fever (n)
Cardiopulmonary: Dyspnea (none at rest.)
GI: Abdominal Pain (n) and Nausea (n)
Objective Data
Data Reviewed
Vital Signs / I&O / Oxygen:
Vital Signs
Temp Pulse Resp BP Pulse Ox
99.9 F 106 26 96/61 98
11/23/23 04:00 11/23/23 06:00 11/23/23 06:00 11/23/23 06:00 11/23/23 06:00
Intake and Output
11/22/23 11/23/23 11/24/23
06:59 06:59 06:59
Intake Total 3322.5 / 3450.0 3598.8 / 3598.8
Output Total 1300 / 1300 1500 / 1500
Balance 2021.5 / 2149.0 2097.8 / 2097.
SaO2 98
Nasal Cannula flow liters per 2
minute
Physical Exam
General: Respiratory Distress (n) and Comfortable
HEENT: Normocephalic
Cardiovascular: S1-S2
Respiratory: Clear and Non-Labored Respirations
GI: Soft and Non Distended
Neurology: Awake and Alert
Labs/Micro/Reports
Lab Data
11/23/23 03:06
11/23/23 03:06
Microbiology
11/21/23 07:34 Blood/Venous Blood Culture - Preliminary
No Growth in 48 hours- Final report to follow
11/20/23 15:03 Blood/Venous Blood Culture - Preliminary
No Growth in 48 hours- Final report to follow
11/20/23 15:03 Blood/Venous Blood Culture - Preliminary
No Growth in 48 hours- Final report to follow
11/22/23 11:46 Feces/Stool C. difficile GDH Antigen & Toxins - Final
Negative for toxigenic C.difficile
11/20/23 23:43 Nose MRSA Screen - Final
No Methicillin Resistant Staphylococcus aureus isolated.
11/20/23 14:12 Urine Urine Culture - Final
No Significant Growth
11/20/23 11:48 Nasal Swab Influenza Types A & B (REAGAN) - Final
Negative for Influenza A & B, NAAT
Negative results must be combined with clinical observations
and patient history.
Nucleic Acid Amplification test (NAAT)performed on the
[employer] platform.
--- NOTE | 2023-11-23 11:30 | PTCARENOTE ---
Has been resting this morning. Levophed increased to 3 mcg as MAP is 67 with BP 86/57. Feels ok just tired. Assisted oob to the BS - she is sl weak but gait is steady. Voided and had mod amt loose brownish/green stool on the commode. Complete CHG
bath given. Hair washed. and then pt assisted back to bed. C/o a R calf cramp getting back to bed and wanted to put the SCD's back on to see if they would help. SCD's placed back on. No other changes. States she is not hungry for lunch. Call [facility]
in reach.
[2023-11-23] MEDS: LR IV (12:11)
--- NOTE | 2023-11-23 12:20 | W.PN.ONC2 ---
Today's Communication / Plan
-
- granix today.
- will hold off on plt transfusion for now with improvement in fevers, transfuse tomorrow if < 10
Impression
Impression
Neutropenic fever
Acute on chronic hypotension
Chronic pancytopenia
Chronic thrombocytopenia w/ splenomegaly
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
Hx brain mass s/p biopsy (01/2023)
Plan
Plan
11/21 WBC 0.7, Hgb 7.4, Hct 20, PLT 22, ANC 200
Transfuse as needed to maintain Hgb >7, PLT >10
Neutropenic precautions
Granix 300mcg daily for ANC <1500. PLEASE MAKE SURE TO INCLUDE DIFFERENTIAL WITH CBC DAILY. WBC up to 4.2 with ANC 900,shot should be given.
Antibiotics per ID
CBC w/ diff daily
Follow fevers
Blood cultures and urine cultures NTD
if ongoing FUO can consider repeat BMBx.
Records reviewed from [facility]
Supportive care
Emotional support
We will follow.
Subjective/Objective
Chief Complaint
neutropenic fever
Subjective
pt with no new complaints today. T max over last 24 hours improved, 100.1. Pressor support being weaned.
Vital Signs:
Vital Signs
Temp Pulse Resp BP Pulse Ox
99.4 F 116 33 92/58 94
11/23/23 08:30 11/23/23 10:32 11/23/23 10:32 11/23/23 10:32 11/23/23 10:32
Lab Results:
Laboratory Data
WBC 4.2 10^3/uL (4.8-10.8) L 11/23/23 03:06
Hgb 7.9 g/dL (12.0-16.0) L 11/23/23 03:06
Plt Count 14 10^3/uL (130-400) L* D 11/23/23 03:06
PT 17.6 Sec (11.4-14.6) H 11/21/23 17:53
INR 1.41 11/21/23 17:53
APTT 43.6 Sec (23.4-35.0) H 11/21/23 17:53
APTT Cancelled 11/21/23 17:53
eGFR > 60.00 11/23/23 03:06
Physical Exam
HEENT: No Jaundice
Cardiology: Normal Sinus Rhythm
Pulmonary: Clear
GI: Soft; No Distended
Extremities: No Edema
Neuro: Non Focal
Review of Systems
Review of Systems
Constitutional: Reports Fatigue
Respiratory: Denies Cough
Gastrointestinal: Reports Nausea/Vomiting
Neurological: Denies Headache
[2023-11-23] MEDS: GRANIX 300 MCG SC (13:01)
--- NOTE | 2023-11-23 13:05 | PTCARENOTE ---
Granix given as ordered. Family at the bedside. States R leg cramping is better with the SCD's on. No other changes.
--- NOTE | 2023-11-23 14:05 | W.PN.HOSP.TC ---
Today's Communication/Plan
-
cont abx
wean pressors
fluids
Assessment / Plan
Assessment / Plan
Physical Exam
General: Well Developed, Well Nourished and No Apparent Distress
HEENT: NormoCephalic, Moist mucous membranes and Atraumatic
Respiratory: Clear
Cardiac: S1/S2 and Regular Rhythm; No Murmur or Rub
GI: Soft, Non Tender, Non Distended and Normal Bowel Sounds; No Organomegaly
Rectal: Deferred by Provider
Musculoskeletal: No Clubbing, No Cyanosis and No Edema
Skin: No Rash
Neuro: AO x 3 and Nonfocal/grossly intact
Psych: Calm
#Septic shock
#Neutropenic fever
-no clear source
-expand abx to vancomycin, micafungin, cefepime
-ID consulted
-on acyclovir prophylaxis at home
-F/u cultures
-Wean pressors as tolerated, MAP goal greater than 65 understanding patient has chronically low BPs
#NAGMA
� Unclear source
� Continue LR
-improving
#Hypoxia
-may be related to underlying NIDIA as noted while sleeping, does not appear to be pneumonia
-ctm
#hyponatremia likely hypovolemic
-monitor with resuscitation
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
-#pancytopenia
#brain tumor, with just biopsy at this time
-wbc 1.2,hgb 9.0,platelets 31
-ctm
-F/u onc outpatient for further needs
-GCSF today
#Hypokalemia
-monitor and replete
hx of CVA
hx of 2 petit-mal seizures 2016
- continue Keppra
#hxt of brain tumor
HLD
-Statin continued
# Anxiety
-hydroxyzine continued
#hx of Asthma
-Not in acute exacerbation
-Albuterol from home continued
#hx of Hep C, related to receiving blood transfusion
#DVT ppx: SCDs
#Code: Full
Total time spent on today's encounter was 52 minutes which included time spent in counseling the patient/family regarding diagnosis and treatment plan as listed above, goals of care, and symptom management. Case was discussed with nursing staff,
specialists, and care coordinators/case management. All labs and imaging personally reviewed by me. Remainder the time spent in detailed review of previous records, lab data, imaging, and other medical provider documentation.
Anticipated Discharge: > 48 hours
Subjective/Interval History
-
Date of Service: November 23, 2023
weaning off pressors, slightly nauseous
Objective Data
-
Labs:
Laboratory Results
11/23/23
03:06
WBC 4.2 L
Hgb 7.9 L
Hct 21.2 L
Plt Count 14 L* D
Sodium 129 L
Potassium 3.2 L
Chloride 100
Carbon Dioxide 20 L
BUN 15
Creatinine 0.6
Glucose 101 H
Calcium 7.2 L
Vital Signs:
Vital Signs
Temp Pulse Resp BP Pulse Ox
98.9 F 104 23 96/66 96
11/23/23 12:00 11/23/23 13:30 11/23/23 13:30 11/23/23 13:30 11/23/23 13:30
I&O
11/22/23 11/23/23 11/24/23
06:59 06:59 06:59
Intake Total 3322.5 / 3450.0 3598.8 / 3706.3 906.4 / 906.4
Output Total 1300 / 1300 1500 / 1500 200 / 200
Balance 2022.5 / 2150.0 2098.8 / 2206.3 706.4 / 706.4
Review of Systems
-
History Source: Patient
All other systems: Reviewed and negative
Physical Exam
-
General: No Apparent Distress
HEENT: Normocephalic and Atraumatic
Respiratory: Rhonchi; Negative Wheezes or Rales
Cardiac: Regular Rhythm and S1/S2
GI: Soft
Genito-urinary: No Costovertebral Tender
Musculoskeletal: No Edema
Neuro: AO x 3
Hematologic / Lymphatic: No Lymphadenopathy
Psych: Calm
--- NOTE | 2023-11-23 14:30 | PTCARENOTE ---
Back oob to the BSC. O2 off again at pt request. SCD's also off again as well. Voiding yellow urine mixed with small amt of loose brown stool. Currently resting back in bed. Levophed remains at 3 mcg.
[2023-11-23] MEDS: LEVOPHED 250 IV (15:57)
[2023-11-23] MEDS: MYCAMINE 105 MG IV (17:12)
--- NOTE | 2023-11-23 18:00 | PTCARENOTE ---
Assessment unchanged. Ate about 1/2 of a [employer]. Pt currently assisted back oob to the BSC for urine and loose brown stool. Anahy care given. Pt did own oral care. Resting back in bed. Remains on Levophed at 3 mcg
[2023-11-23] MEDS: VANCOCIN HCL 500 MG 100 IV (18:07)
[2023-11-23] MEDS: FLUSH (NSS) 1 FLUSH IV (19:09)
--- NOTE | 2023-11-23 19:15 | PTCARENOTE ---
Pt with some dry heaving and nausea. No vomiting. Medicated with Zofran 4 mg IV. Had placed pt back on 1l nc at 1815 as her sats were 88%- Currently pt wanted it back off as she felt it was making her sick. On the 1l sats are 97%- off the O2 sats
dip to 88-91%.
--- NOTE | 2023-11-23 20:00 | PTCARENOTE ---
Rec'd pt resting in bed, denies pain, oriented, ST,to keep MAP > 65 w/ levophed, presently at 3mic, see flow sheet for titrations,weak distal pulses, skin warm/dry, refused wearing sequential teds- educated on reason to prevent DVT, still refused,RA
sat 85%, 2 liters nc applied- sat incr to 96%, lungs decr in bases, occas cough, enc to use IS- reaches 500, hyper bowel sounds, loose brown stool when assisted to bsc, no nausea , voided yellow urine on BSC
2029- melatonin 6mg po given for sleep as requested
[2023-11-23] MEDS: MELATONIN 6 MG PO (20:25)
[2023-11-23] MEDS: LIPITOR 20 MG PO (20:25)
[2023-11-24] VITALS (20 sets, daily range): BP systolic 70–119; BP diastolic 52–73; BMI 25.3
--- NOTE | 2023-11-24 00:15 | PTCARENOTE ---
sys reviewed, changes noted, oob to bsc to void and then back to bed
[2023-11-24] MEDS: MAXIPIME 2000 MG IV ×2 (03:21→16:50)
[2023-11-24] MEDS: STERILE WATER FOR INJECTION 10 ML IV ×2 (03:21→16:50)
[2023-11-24 03:40] LABS: Hematocrit 21.4 % (37.0-47.0); Hemoglobin 7.9 g/dL (12.0-16.0); Mean Corp Hgb Conc. 36.9 g/dL (33.0-37.0); Mean Corpuscular Volume 83.9 fL (81.0-99.0); Red Blood Cell Count 2.55 10^6/uL (4.20-5.40); Red Cell Dist. Width 14.8 % (11.5-14.5); White Blood Cell Count 4.3 10^3/uL (4.8-10.8)
--- NOTE | 2023-11-24 04:00 | PTCARENOTE ---
sys reviewed, changes noted
[2023-11-24 04:07] LABS: Atypical Lymphocytes 16 %; Lymphocytes 82 % (20-51); Monocytes 1 % (2-9); Segmented Neutrophils 1 % (42-75)
[2023-11-24 04:08] LABS: Normal RBC Morphology No; Platelets Checked Yes; Poikilocytosis 1+; Polychromasia 1+
[2023-11-24 04:09] LABS: Platelet Count 13 10^3/uL (130-400); Total Cells Counted 100
[2023-11-24 04:36] LABS: Blood Urea Nitrogen 13 mg/dl (7-17); Calcium 7.5 mg/dl (8.4-10.2); Carbon Dioxide 24 mmol/L (22-30); Chloride 102 mmol/L (98-107); Estimated Creatinine Clearance 67 ml/min; Glucose 95 mg/dl (70-99); Magnesium 1.4 mg/dl (1.6-2.3); Potassium 3.3 mmol/L (3.5-5.1); Sodium 128 mmol/L (135-145); eGFR > 60.00
[2023-11-24] MEDS: KCL 100 IV (05:19)
[2023-11-24] MEDS: VANCOCIN HCL 500 MG 100 IV ×2 (05:19→16:51)
--- NOTE | 2023-11-24 05:21 | PTCARENOTE ---
40kcl/100 hung over 4 hr per order
[2023-11-24] MEDS: MAGNESIUM SULFATE 50 IV (06:13)
--- NOTE | 2023-11-24 06:16 | PTCARENOTE ---
2 gm maG sulfate hung over 2 hr per order
--- NOTE | 2023-11-24 07:15 | W.PN.HOSP.TC ---
Today's Communication/Plan
-
.
Assessment / Plan
Assessment / Plan
Physical Exam
General:chronically ill looking, No Apparent Distress
HEENT: NormoCephalic, Moist mucous membranes and Atraumatic
Respiratory: limited, right upper chest port noted.
Cardiac: S1/S2 and Regular Rhythm; No Murmur or Rub
GI: Soft, Non Tender, Non Distended and Normal Bowel Sounds; No Organomegaly
Rectal: no rectal bleeding
Musculoskeletal: No Edema
Skin: No Rash
Neuro: AO x 3 and Nonfocal/grossly intact
Psych: Calm
#Septic shock
#Neutropenic fever
-no clear source
-expand abx to vancomycin, micafungin, cefepime
-ID consulted
-on acyclovir prophylaxis at home
-Negative C diff, negative blood cultures. Negative
-Weaned off pressors.
Appreciate ID help
# Neutropenia secondary to chemotherapy. Chronic thrombocytopenia/chronic pancytopenia
Her white count improved
Status post Granix
# None anion gap metabolic acidosis
Resolved
#Hypoxia
-may be related to underlying NIDIA as noted while sleeping, does not appear to be pneumonia
-ctm
#hyponatremia
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
-#pancytopenia
#brain tumor, with just biopsy at this time
-wbc 1.2,hgb 9.0,platelets 31
-ctm
-F/u onc outpatient for further needs
-GCSF given
#Hypokalemia
-monitor and replete
# Hypoxia only. Oxygen saturation down to 85-89 %, improved with 2 L oxygen wean off oxygen as tolerated
hx of CVA
hx of 2 petit-mal seizures 2016
- continue Keppra
#hxt of brain tumor
HLD
-Statin continued
# Anxiety
-hydroxyzine continued
#hx of Asthma
-Not in acute exacerbation
-Albuterol from home continued
#hx of Hep C, related to receiving blood transfusion
#DVT ppx: SCDs
#Code: Full
Total time spent to see the patient on the floor, examine the patient, review data and lab results, discuss treatment plan with patient and nursing staff around 55 minutes
Anticipated Discharge: > 48 hours
Subjective/Interval History
-
Date of Service: November 24, 2023
she feels better
denies sob or cough
No fevers
Objective Data
-
Labs:
Laboratory Results
11/24/23
03:18
WBC 4.3 L
Hgb 7.9 L
Hct 21.4 L
Plt Count 13 L*
Sodium 128 L
Potassium 3.3 L
Chloride 102
Carbon Dioxide 24
BUN 13
Creatinine 0.6
Glucose 95
Calcium 7.5 L
Vital Signs:
Vital Signs
Temp Pulse Resp BP Pulse Ox
98.8 F 105 25 108/65 97
11/24/23 00:00 11/24/23 05:30 11/24/23 05:30 11/24/23 05:00 11/24/23 05:30
I&O
11/23/23 11/24/23 11/25/23
06:59 06:59 06:59
Intake Total 3598.8 / 3706.3 1700.8 / 1700.8
Output Total 1500 / 1500 1350 / 1350
Balance 2098.8 / 2206.3 350.8 / 350.8
--- NOTE | 2023-11-24 08:00 | PTCARENOTE ---
PT received in bed AAOx3, flat affect, flat voice, refusing to get OOB, refusing SCD, explained the reasoning, PT continues to refuse...NSR with trace edema, weak pedal pulses, PT had 2 L placed during the night for saturation drop to 85%, refusing
to wear O2 at this time, encouraged PT to use IS, attempted to refuse I encourage her to at least use it 5 times, pulled 750, abdomen round slightly distended hyperactive BS, calls when she needs to use BSC, assistance x2, right SQ port, patent
+blood return
[2023-11-24] MEDS: KEPPRA 1000 MG PO ×2 (08:45→19:52)
[2023-11-24] MEDS: LIDOCAINE 4% PATCH 1 PATCH TOPICAL (08:45)
--- NOTE | 2023-11-24 08:45 | PTCARENOTE ---
PT refuses to get OOB, 'I'm just too tired', attempted to explain that while shes tired we need to move and keep ourselves strong with the strength we have, PT adamantly refuses getting OOB, will attempt later
--- NOTE | 2023-11-24 08:46 | PHA.VAN.FU ---
Vancomycin Assessment / Plan
- Assessment
Renal Function: Stable
Neutropenia: ANC = 900 (11/23)
In the past 24 hrs, patient has been: Afebrile
Concomitant Antimicrobials: cefepime, micafungin, chronic acyclovir
- Dosing Plan
Continue: Vanc 500mg Q12H
- Monitoring Plan
No level(s) ordered at this time: will hold off for now - consider levels tomorrow
- Follow Up
Pharmacy will continue to follow.
Vancomycin Follow UP
- -
Patient Age: 63
Patient Sex: Female
Vancomycin Day #: 4
Indication: Bacteremia
Requesting Provider: Dr. Gaona
Pertinent Antimicrobial Allergies:
Sulfa (Sulfonamide Antibiotics) - Un[place]wn reaction >40 years ago
penicillin G Allergy -unknown reaction >40 years ago No hx of anaphylaxis has tolerated cefepime, keflex, ceftriaxone
Height / Weight:
Height 4 ft 9 in
Actual Weight 52.9 kg
Pertinent Past Medical History: IgG [place] MGUS, Chronic neutropneia
- Vital Signs / Lab Results
Temp Pulse Resp BP Pulse Ox
99.9 F 105 25 108/65 97
11/24/23 07:32 11/24/23 05:30 11/24/23 05:30 11/24/23 05:00 11/24/23 05:30
Lab Results - Hematology
11/21/23 11/22/23 11/23/23
17:53 03:11 03:06
WBC 1.7 L* 4.1 L 4.2 L
Band Neutrophils 6 H 5 H
11/24/23
03:18
WBC 4.3 L
Band Neutrophils Not Reportable
Lab Results - Chemistry
11/21/23 11/21/23 11/22/23
07:34 17:53 03:11
BUN 21 H 22 H 20 H
Creatinine 1.0 1.0 0.8
Estimated Creat Clear 35 35 43
11/23/23 11/24/23
03:06 03:18
BUN 15 13
Creatinine 0.6 0.6
Estimated Creat Clear 65 67
Microbiology Results
11/21/23 07:34 Blood Culture - Preliminary
Blood/Venous No Growth in 72 hours- Final report to follow
11/20/23 15:03 Blood Culture - Preliminary
Blood/Venous No Growth in 72 hours- Final report to follow
11/20/23 15:03 Blood Culture - Preliminary
Blood/Venous No Growth in 72 hours- Final report to follow
11/22/23 11:46 C. difficile GDH Antigen & Toxins - Final
Feces/Stool Negative for toxigenic C.difficile
11/20/23 23:43 MRSA Screen - Final
Nose No Methicillin Resistant Staphylococcus aureus isolated.
[2023-11-24] MEDS: FOLVITE 0.800000000000000044 MG PO (08:48)
[2023-11-24] MEDS: CLARITIN 10 MG PO (08:48)
[2023-11-24] MEDS: FEOSOL 325 MG PO (08:48)
[2023-11-24] MEDS: VITAMIN D3 (cholecalciferol) 1000 UNITS PO (08:48)
[2023-11-24] MEDS: ZOVIRAX 800 MG PO ×2 (08:49→19:52)
--- NOTE | 2023-11-24 09:15 | W.PN.INTV ---
Addendum entered and electronically signed by Rey Florentino MD 11/26/23 23:40:
Critical care time (patient seen 11/24/2023): 37 minutes; my critical care time does not overlap with another physician's critical care time.
Original Note:
Today's Communication / Plan
Recommendations
Maintain MAP>65
Replete K>3.5, Mg>1.8
Start midodrine
Check random cortisol level and TSH with free T4
Follow cultures
Continue antibiotics as per ID
Monitor for bleeding; transfuse plt>10-20k, Hb>7
Continue ICU level of care given severely low BP with possible need for vasopressors and need for q1hr vitals
Assessment
-
63-year-old woman with past medical history noted. Admitted for neutropenic fever. Developed hypotension not responsive to IV fluid, transferred to the critical care unit for vasopressor therapy due to septic shock. Unclear source.
Impression:
Septic shock-transferred to the critical care unit 11/21/2023 - shock resolved as of 11/24/2023
Unclear source
Clear chest x-ray/negative COVID
Negative influenza
Urinalysis with moderate bacteria/0-2 white blood cells.
Neutropenic fever
Nongap metabolic acidosis-possibly from diarrhea/post saline fluid resuscitation
Normal anion gap
Hyponatremia
Thrombocytopenia and anemia
Conditions present prior admission:
Chronic hypotension
History of CVA
History of seizures in 2017 on Keppra
History of brain tumor
Hyperlipidemia
Anxiety
History of asthma
History of hepatitis C after blood transfusion
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
Assessment and plan:.
Transferred to the critical care unit for hypotension-pressor requirement 11/22/2023
Improved fever curve -afebrile since 11/21
-
Continue broad spectrum antibiotics per infectious disease - currently on cefepime (started 11/20), vanc (started 11/20) & micafungin (started 11/21)
No clear source of infection as of yet - suspect pneumonia given bilateral linear opacities seen on CXR
Follow cultures-so far negative.
Neutropenic precautions
Methotrexate on hold
-
Maintain MAP>65
Patient received adequate IV hydration and resuscitation with 3.5L IVF comprised of: LR bolus x 2 L (11/20 - 11/21) + 1L NS 0.9% (11/20) + NS 0.9% 500cc (11/21); also also LR @ 75mL/hr x 2 days (11/21 - 11/23)
Levophed requirements decreased. 2 mics per minute. Hopefully can wean off today.
Follow urinary output
-
Nongap metabolic acidosis: Improved.
Renal function is normal.
Lactic acid not elevated.
Denies diarrhea.
Follow electrolytes
Bicarbonate drip not compatible with Levophed. Patient declined PICC line or central lines.
Encourage oral intake.
Discontinue IV fluids. Patient tolerating oral hydration.
-
Replete K>3.5, Mg>1.8
Encourage oral intake
-
Follow daily CBC-significant thrombocytopenia. Monitor for bleeding
Patient does have chronic pancytopenia follows [facility] at [facility] as well as [facility].
Oncology continues to follow status post G-CSF-defer to oncology
Transfuse to maintain plt>10-20k, Hb>7
Pt remains borderline hypotensive and may need vasopressors again. Hence will keep in ICU for today and re-assess tomorrow.
Subjective Dataa
Subjective Data
Date of Service:
Date of Service: November 24, 2023
Chief Complaint: [employer] Follow Up (Septic shock)
Subjective:
Seen this AM. BP 87/55, HR 110s. She feels fine. Off levo since 2AM. No acute events reported overnight. Patient is slow to respond but still following commands. Denies chest pain, headache, fevers or chills.
Review of Systems
General: Other (12 point ROS performed and is negative unless mentioned above.)
Objective Data
Data Reviewed
Vital Signs / I&O / Oxygen:
Vital Signs
Temp Pulse Resp BP Pulse Ox
99.9 F 105 25 108/65 97
11/24/23 07:32 11/24/23 05:30 11/24/23 05:30 11/24/23 05:00 11/24/23 05:30
Intake and Output
11/23/23 11/24/23 11/25/23
06:59 06:59 06:59
Intake Total 3598.8 / 3706.3 1700.8 / 1700.8
Output Total 1500 / 1500 1350 / 1350
Balance 2098.8 / 2206.3 350.8 / 350.8
SaO2 97
Nasal Cannula flow liters per 2
minute
Physical Exam
General: Respiratory Distress (n) and Comfortable
HEENT: Normocephalic
Cardiovascular: S1-S2 and Peripheral Edema (n)
Respiratory: Clear and Non-Labored Respirations
GI: Soft and Non Distended
Neurology: Awake and Alert
Skin: Warm and Dry
Labs/Micro/Reports
Lab Data
11/24/23 03:18
11/24/23 03:18
Microbiology
11/21/23 07:34 Blood/Venous Blood Culture - Preliminary
No Growth in 72 hours- Final report to follow
11/20/23 15:03 Blood/Venous Blood Culture - Preliminary
No Growth in 72 hours- Final report to follow
11/20/23 15:03 Blood/Venous Blood Culture - Preliminary
No Growth in 72 hours- Final report to follow
11/22/23 11:46 Feces/Stool C. difficile GDH Antigen & Toxins - Final
Negative for toxigenic C.difficile
11/20/23 23:43 Nose MRSA Screen - Final
No Methicillin Resistant Staphylococcus aureus isolated.
11/20/23 14:12 Urine Urine Culture - Final
No Significant Growth
--- NOTE | 2023-11-24 09:27 | W.PN.ID1 ---
Date of Service
Date of Service: November 24, 2023
Today's Communication
- pressors weaned off early this AM
- continue empiric cefepime, vanc, micafungin - for today
Assessment / Plan
Neutropenic fever - improving
Shock - resolved today
Pancytopenia
Chronic Neutropenia
Rosai-Mirna disease (histiocytosis variant)
Brain Mass
History of Seizure disorder
Unknown allergies to penicillin and sulfa
- pressors weaned off early this AM
- blood cultures no growth to date
- CXR questionable pneumonia - dry, nonproductive cough
- continue ppx: acyclovir
- continue empiric cefepime, vanc, micafungin - for today
- follow clinically
Chief Complaint
-: Other (neutropenic fever)
Subjective / Review of Systems
no further fevers
bp stable - pressors stopped this AM
ANC not reportable today, yesterday it was 0.9 and similar wbc
cr 0.6
CXR: possible developing pneumonia
blood cultures no growth to date
frustrated
Vital Signs / Physical Exam
Vital Signs
Vital Signs
Temp Pulse Resp BP Pulse Ox
99.9 F 105 25 108/65 90
11/24/23 07:32 11/24/23 05:30 11/24/23 05:30 11/24/23 05:00 11/24/23 08:00
Physical Exam
Constitutional: No Acute Distress
Cardiovascular: Regular Rate and S1/S2; Negative Murmur or Rub
Pulmonary: Clear and Symmetric; Negative Wheezes or Rales
Gastrointestinal: Soft, Non Tender, Non Distended and Normal Bowel Sounds
Skin: Warm and Dry; Negative Rash or Jaundice
Neurological: Awake
Objective Data
Lab Data
Lab Results
11/24/23 03:18
11/24/23 03:18
PT 17.6 Sec (11.4-14.6) H 11/21/23 17:53
INR 1.41 11/21/23 17:53
APTT 43.6 Sec (23.4-35.0) H 11/21/23 17:53
APTT Cancelled 11/21/23 17:53
Estimated Creat Clear 67 ml/min 11/24/23 03:18
Lactic Acid Cancelled 11/20/23 15:30
Total Bilirubin 1.0 mg/dl (0.2-1.3) 11/20/23 11:48
AST 27 U/L (14-36) 11/20/23 11:48
ALT 14 U/L (0-35) 11/20/23 11:48
Alkaline Phosphatase 126 U/L (38-126) 11/20/23 11:48
Most recent labs reviewed.
Micro Results:
11/21/23 07:34 Blood Culture - Preliminary
Blood/Venous No Growth in 72 hours- Final report to follow
11/20/23 15:03 Blood Culture - Preliminary
Blood/Venous No Growth in 72 hours- Final report to follow
11/20/23 15:03 Blood Culture - Preliminary
Blood/Venous No Growth in 72 hours- Final report to follow
11/22/23 11:46 C. difficile GDH Antigen & Toxins - Final
Feces/Stool Negative for toxigenic C.difficile
11/20/23 23:43 MRSA Screen - Final
Nose No Methicillin Resistant Staphylococcus aureus isolated.
11/20/23 14:12 Urine Culture - Final
Urine No Significant Growth
11/20/23 11:48 Influenza Types A & B (REAGAN) - Final
Nasal Swab Negative for Influenza A & B, NAAT
Negative results must be combined with clinical observations
and patient history.
Nucleic Acid Amplification test (NAAT)performed on the
[employer] platform.
[2023-11-24] MEDS: GRANIX 300 MCG SC (10:27)
--- NOTE | 2023-11-24 11:31 | PTCARENOTE ---
VS prior to 0700 can not be verified by this nurse
--- NOTE | 2023-11-24 12:30 | W.PN.ONC ---
Addendum entered and electronically signed by Roxanne Fontanez MD 11/24/23 21:26:
Pt seen and examined, chart reviewed,
Agree with A/P as per JOSE Moran.
Original Note:
Today's Communication / Plan
-
11/24 WBC 4.3, Hgb 7.9, Hct 21.4, PLT 13, ANC 900
Transfuse as needed to maintain Hgb >7, PLT >10
Continue neutropenic precautions
Granix 300mcg daily for ANC <1500.
CBC w/ diff daily
PLEASE MAKE SURE TO INCLUDE DIFFERENTIAL WITH CBC DAILY. ie) WBC up to 4.3 with ANC 900, Granix should be given.
If ongoing fever of unknown origin, can consider repeat BMBx.�
Continue prophylactics and antibiotics per ID�
Supportive care
Consider Psych consult - patient expresses anxiety/depression over her situation/quality of life for the past year with 9 hospitalizations and living in isolation to avoid getting sick. She is tearful with conversation. She states she just 'wants
some normalcy'. She has support at home but states she is having a difficult time emotionally. Patient states she will consider speaking to our psychiatrist.
We will continue to follow.
Impression
Impression
Neutropenic fevers (improved)
Acute on chronic hypotension (weaning pressors)
Chronic pancytopenia
Chronic thrombocytopenia w/ splenomegaly
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
Hx brain mass s/p biopsy (01/2023)
Subjective/Objective
Subjective/Objective
Patient is resting in bed. She is tearful at times.
Vital Signs:
Vital Signs
Temp Pulse Resp BP Pulse Ox
98.9 F 110 24 72/56 93
11/24/23 11:50 11/24/23 11:00 11/24/23 11:00 11/24/23 11:00 11/24/23 11:00
physical exam:
aaox3, tearful/flat
HRR (tachy) lungs dim/clear
+bowel sounds, no edema
Lab Results:
Laboratory Data
WBC 4.3 10^3/uL (4.8-10.8) L 11/24/23 03:18
Hgb 7.9 g/dL (12.0-16.0) L 11/24/23 03:18
Plt Count 13 10^3/uL (130-400) L* 11/24/23 03:18
PT 17.6 Sec (11.4-14.6) H 11/21/23 17:53
INR 1.41 11/21/23 17:53
APTT 43.6 Sec (23.4-35.0) H 11/21/23 17:53
APTT Cancelled 11/21/23 17:53
eGFR > 60.00 11/24/23 03:18
--- NOTE | 2023-11-24 12:32 | PTCARENOTE ---
Assessment remains unchanged, at bedside, assisted PT to BSC x1, the to chair, explained to PT that although we are tired we need to maintain our strength the best we can and that is to at least get OOB and stretch our legs and get the blood
flowing, instructed PT Id like her to be OOB for at least 1 hour, call banegas in reach
[2023-11-24] MEDS: ProAmatine 5 MG PO (15:39)
[2023-11-24] MEDS: MYCAMINE 105 MG IV (16:50)
[2023-11-24] MEDS: ProAmatine 10 MG PO (18:20)
--- NOTE | 2023-11-24 18:24 | PTCARENOTE ---
Assessment remains unchanged, PT OOB in chair for dinner, at bedside, PT did c/o slight nausea, medicated with Zofran
[2023-11-24] MEDS: LIPITOR 20 MG PO (19:55)
--- NOTE | 2023-11-24 20:00 | PTCARENOTE ---
Rec'd pt resting in bed, oriented, flat affect, ST, bp stable, weak distal pulses, skin warm/dry, RA, sat 91, lungs decr in bases,enc to use IS- reaches 750, + bowel sounds, no bm, abd soft, no n/v, poor appetite, voids on BSC prn, pt refuses to
wear sequentials- explained reason to prevent dvt, still refuses
--- NOTE | 2023-11-24 21:55 | PTCARENOTE ---
sat 86 while sleeping, 2 liters nc applied- sat incr to 96
--- NOTE | 2023-11-24 23:47 | PTCARENOTE ---
sys reviewed, changes noted
[2023-11-25] VITALS (38 sets, daily range): BP systolic 83–112; BP diastolic 51–68; PULSE 103–104; O2SAT 94; BMI 25.0
[2023-11-25] MEDS: STERILE WATER FOR INJECTION 10 ML IV ×2 (03:35→16:24)
[2023-11-25] MEDS: MAXIPIME 2000 MG IV ×2 (03:35→16:24)
--- NOTE | 2023-11-25 03:54 | PTCARENOTE ---
sys reviewed, resting comf
[2023-11-25 04:33] LABS: % Basophils 0.5 % (0-2); % Immature Granulocytes 0.5 % (0-0.5); % Lymphocytes 88.5 % (20.5-51.1); % Monocytes 8.7 % (1.7-9.3); % Neutrophils 1.8 % (42.2-75.2); Absolute Lymphocytes 3.5 10^3/uL (1.2-3.4); Absolute Monocytes 0.3 10^3/uL (0.1-0.6); Absolute Neutrophils 0.1 10^3/uL (1.4-6.5); Hematocrit 21.7 % (37.0-47.0); Hemoglobin 7.9 g/dL (12.0-16.0); Mean Corp Hgb Conc. 36.4 g/dL (33.0-37.0); Mean Corpuscular Hgb 31.2 pg (27.0-31.0); Mean Corpuscular Volume 85.8 fL (81.0-99.0); Nucleated Red Blood Cells % 0.5 %; Red Blood Cell Count 2.53 10^6/uL (4.20-5.40); White Blood Cell Count 3.9 10^3/uL (4.8-10.8)
[2023-11-25 04:56] LABS: Blood Urea Nitrogen 13 mg/dl (7-17); Calcium 7.3 mg/dl (8.4-10.2); Carbon Dioxide 26 mmol/L (22-30); Chloride 100 mmol/L (98-107); Estimated Creatinine Clearance 66 ml/min; Glucose 96 mg/dl (70-99); Magnesium 1.9 mg/dl (1.6-2.3); Potassium 3.3 mmol/L (3.5-5.1); Sodium 131 mmol/L (135-145); eGFR > 60.00
[2023-11-25 05:12] LABS: Platelet Count 10 10^3/uL (130-400)
[2023-11-25 05:17] LABS: Cortisol, Random 8.5 ug/dl; TSH Reflex To Free T4 1.27 uIU/ml (0.47-4.68)
[2023-11-25] MEDS: VANCOCIN HCL 500 MG 100 IV ×2 (05:34→18:36)
[2023-11-25] MEDS: KCL 100 IV (05:36)
--- NOTE | 2023-11-25 05:39 | PTCARENOTE ---
40 kcl/100 hung over 4 hr for k-3.3
--- NOTE | 2023-11-25 06:20 | W.PN.HOSP.TC ---
Today's Communication/Plan
-
Transfer to tele
PT / OT
Psych consult
c/w Midodrine
IV Abx
oncology to review CBC
Replace low K
Assessment / Plan
Assessment / Plan
Physical Exam
General:chronically ill looking, No Apparent Distress
HEENT: NormoCephalic, Moist mucous membranes and Atraumatic
Respiratory: limited, right upper chest port noted.
Cardiac: S1/S2 and Regular Rhythm; No Murmur or Rub
GI: Soft, Non Tender, Non Distended and Normal Bowel Sounds; No Organomegaly
Rectal: no rectal bleeding
Musculoskeletal: No Edema
Skin: No Rash
Neuro: AO x 3 and Nonfocal/grossly intact
Psych: Calm
#Septic shock
#Neutropenic fever
-no clear source. -Chest x ray questionable pneumonia - dry, nonproductive cough. On 2 liters O2
-expand abx to vancomycin, micafungin, cefepime
-on acyclovir prophylaxis at home
-Negative C diff, negative blood cultures. Negative
-Weaned off IV pressors Started on midodrine TID.
Appreciate ID help
# patient expressed depression to oncology team
I d/w pt, she agreed to see psychiatrist
Appreciate psychiatry input
# Neutropenia secondary to chemotherapy. Chronic thrombocytopenia/chronic pancytopenia
Her white count improved
Status post Granix
# None anion gap metabolic acidosis
Resolved
#Hypoxia only.
c/w O2 as needed. Poor inspiratory efforts, suspect atelectasis.
#hyponatremia
Mild
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
-#pancytopenia
#brain tumor, with just biopsy at this time
-wbc 1.2,hgb 9.0,platelets 31
-ctm
-F/u onc outpatient for further needs
-GCSF given
#Hypokalemia
-monitor and replete
# Hypoxia only. Oxygen saturation down to 85-89 %, improved with 2 L oxygen wean off oxygen as tolerated
hx of CVA
hx of 2 petit-mal seizures 2016
- continue Keppra
#hxt of brain tumor
HLD
-Statin continued
# Anxiety
-hydroxyzine continued
#hx of Asthma
-Not in acute exacerbation
-Albuterol from home continued
#hx of Hep C, related to receiving blood transfusion
#DVT ppx: SCDs
#Code: Full
Total time spent to see the patient on the floor, examine the patient, review data and lab results, discuss treatment plan with patient and nursing staff around 57 minutes
Anticipated Discharge: > 48 hours
Subjective/Interval History
-
Date of Service: November 25, 2023
Doing well
slept well
denies pain
Objective Data
-
Labs:
Laboratory Results
11/25/23
03:45
WBC 3.9 L
Hgb 7.9 L
Hct 21.7 L
Plt Count Pending
Sodium 131 L
Potassium 3.3 L
Chloride 100
Carbon Dioxide 26
BUN 13
Creatinine 0.6
Glucose 96
Calcium 7.3 L
Vital Signs:
Vital Signs
Temp Pulse Resp BP Pulse Ox
98.7 F 98 20 108/58 96
11/25/23 03:44 11/25/23 05:30 11/25/23 05:30 11/25/23 05:00 11/25/23 05:30
I&O
11/23/23 11/24/23 11/25/23
06:59 06:59 06:59
Intake Total 3598.8 / 3706.3 1700.8 / 1700.8 1030 / 1030
Output Total 1500 / 1500 1350 / 1350 700 / 700
Balance 2098.8 / 2206.3 350.8 / 350.8 330 / 330
--- NOTE | 2023-11-25 08:41 | PHA.VAN.FU ---
Vancomycin Assessment / Plan
- Assessment
Renal Function: Stable
WBC's are: Stable
Neutropenia: ANC = 100
In the past 24 hrs, patient has been: Afebrile
Concomitant Antimicrobials: cefepime, micafungin, chronic acyclovir
- Dosing Plan
Continue: Vanc 500mg Q12H
- Monitoring Plan
Peak Level: 11/25 20:30
Trough Level: 11/26 05:30
Monitoring Comments: levels drawn after 5th maintenance dose
- Follow Up
Pharmacy will continue to follow.
Vancomycin Follow UP
- -
Patient Age: 63
Patient Sex: Female
Vancomycin Day #: 5
Indication: Bacteremia
Requesting Provider: Dr. Gaona
Pertinent Antimicrobial Allergies:
Sulfa (Sulfonamide Antibiotics) - [place] reaction >40 years ago
penicillin G Allergy -unknown reaction >40 years ago No hx of anaphylaxis has tolerated cefepime, keflex, ceftriaxone
Height / Weight:
Height 4 ft 9 in
Actual Weight 52.3 kg
Pertinent Past Medical History: IgG [place] MGUS, Chronic neutropneia
- Vital Signs / Lab Results
Temp Pulse Resp BP Pulse Ox
97.7 F 98 20 108/58 96
11/25/23 08:05 11/25/23 05:30 11/25/23 05:30 11/25/23 05:00 11/25/23 05:30
Lab Results - Hematology
11/22/23 11/23/23 11/24/23
03:11 03:06 03:18
WBC 4.2 L 4.3 L
Band Neutrophils 6 H 5 H Not Reportable
11/25/23
03:45
WBC 3.9 L
Band Neutrophils
Lab Results - Chemistry
11/23/23 11/24/23 11/25/23
03:06 03:18 03:45
BUN 15 13 13
Creatinine 0.6 0.6 0.6
Estimated Creat Clear 65 67 66
Microbiology Results
11/21/23 07:34 Blood Culture - Preliminary
Blood/Venous No Growth in 4 days- Final report to follow
11/20/23 15:03 Blood Culture - Preliminary
Blood/Venous No Growth in 4 days- Final report to follow
11/20/23 15:03 Blood Culture - Preliminary
Blood/Venous No Growth in 4 days- Final report to follow
--- NOTE | 2023-11-25 09:00 | PTCARENOTE ---
Assumed care of pt at 0715 following shift report. Pt resting quietly in bed, asleep. Pt awake at 0830 to order breakfast. Denies any c/o pain or SOB. 'I'm just tired. I haven't slept well in six days.' Pt on O2 at 2l/min via NC w/ prongs not in
place- POx 93-95% on RA. O2 removed and pt instructed to notify staff w/ any SOB. Physical assessment completed as documented. Pt assisted w/ AM Hygiene and transferred OOB to chair. Generalized weakness noted w/ steady gait. No complaints w/
increased activity. Pt declined AM meds 'until after I've eaten my breakfast. I don't take pills on an empty stomach'. Call bassam w/in pt reach and pt verbalized understanding to call for assistance prior to getting out of chair as well as to notify
staff once she has had her breakfast in order to administer ordered AM meds.
--- NOTE | 2023-11-25 09:06 | W.PN.ID1 ---
Date of Service
Date of Service: November 25, 2023
Today's Communication
- afebrile x72 hours - but still requiring midodrine
- ANC minimal at 0.1 - will not change empiric therapies today - observe another day
Assessment / Plan
Neutropenic fever - improving
Shock - resolved today
Pancytopenia
Chronic Neutropenia
Rosai-Mirna disease (histiocytosis variant)
Brain Mass
History of Seizure disorder
Unknown allergies to penicillin and sulfa
- ANC minimal at 0.1 - will not change empiric therapies today - observe another day
- blood cultures no growth to date
- CXR questionable pneumonia - dry, nonproductive cough
- continue ppx: acyclovir
- continue empiric cefepime, vanc, micafungin - for today
- follow clinically
Chief Complaint
-: Other (neutropenic fever)
Subjective / Review of Systems
afebrile
bp stable but on midodrine - new for patient
wbc 3.9; ANC still 0.1
plt declining
L shift persists
cr 0.6
blood cultures remain no growth
cough nonproductive
no complaints
Vital Signs / Physical Exam
Vital Signs
Vital Signs
Temp Pulse Resp BP Pulse Ox
97.7 F 98 20 108/58 96
11/25/23 08:05 11/25/23 05:30 11/25/23 05:30 11/25/23 05:00 11/25/23 05:30
Physical Exam
Constitutional: No Acute Distress
Cardiovascular: Regular Rate and S1/S2; Negative Murmur or Rub
Pulmonary: Clear and Symmetric; Negative Wheezes or Rales
Gastrointestinal: Soft, Non Tender, Non Distended and Normal Bowel Sounds
Skin: Warm and Dry; Negative Rash or Jaundice
Lines: Port
Objective Data
Lab Data
Lab Results
11/25/23 03:45
11/25/23 03:45
PT 17.6 Sec (11.4-14.6) H 11/21/23 17:53
INR 1.41 11/21/23 17:53
APTT 43.6 Sec (23.4-35.0) H 11/21/23 17:53
APTT Cancelled 11/21/23 17:53
Estimated Creat Clear 66 ml/min 11/25/23 03:45
Lactic Acid Cancelled 11/20/23 15:30
Total Bilirubin 1.0 mg/dl (0.2-1.3) 11/20/23 11:48
AST 27 U/L (14-36) 11/20/23 11:48
ALT 14 U/L (0-35) 11/20/23 11:48
Alkaline Phosphatase 126 U/L (38-126) 11/20/23 11:48
Most recent labs reviewed.
Micro Results:
11/21/23 07:34 Blood Culture - Preliminary
Blood/Venous No Growth in 4 days- Final report to follow
11/20/23 15:03 Blood Culture - Preliminary
Blood/Venous No Growth in 4 days- Final report to follow
11/20/23 15:03 Blood Culture - Preliminary
Blood/Venous No Growth in 4 days- Final report to follow
11/22/23 11:46 C. difficile GDH Antigen & Toxins - Final
Feces/Stool Negative for toxigenic C.difficile
11/20/23 23:43 MRSA Screen - Final
Nose No Methicillin Resistant Staphylococcus aureus isolated.
11/20/23 14:12 Urine Culture - Final
Urine No Significant Growth
11/20/23 11:48 Influenza Types A & B (REAGAN) - Final
Nasal Swab Negative for Influenza A & B, NAAT
Negative results must be combined with clinical observations
and patient history.
Nucleic Acid Amplification test (NAAT)performed on the
[employer] platform.
Care Review
Plan reviewed with: Other (clinical pharmacy - abx, neutropenia)
[2023-11-25] MEDS: FOLVITE 0.800000000000000044 MG PO (09:41)
[2023-11-25] MEDS: ZOVIRAX 800 MG PO ×2 (09:42→20:49)
[2023-11-25] MEDS: KEPPRA 1000 MG PO ×2 (09:42→20:49)
[2023-11-25] MEDS: FEOSOL 325 MG PO (09:42)
[2023-11-25] MEDS: VITAMIN D3 (cholecalciferol) 1000 UNITS PO (09:42)
[2023-11-25] MEDS: CLARITIN 10 MG PO (09:43)
[2023-11-25] MEDS: GRANIX 300 MCG SC (09:43)
[2023-11-25] MEDS: ProAmatine 10 MG PO ×3 (09:43→17:42)
[2023-11-25] MEDS: LIDOCAINE 4% PATCH TOPICAL (09:44)
--- NOTE | 2023-11-25 09:54 | W.PN.INTV ---
Today's Communication / Plan
Recommendations
Continue midodrine and wean as tolerated
Maintain MAP >65
Up OOB as tolerated
Encourage incentive spirometer
Consider starting stress dose steroids as her random cortisol level was <19, however would consider doing cosyntropin stimulation test prior.
Patient is stable for downgrade out of ICU to telemetry. Air Battle Manager/pulmonary service will now sign off. Please reconsult if there are any additional questions or concerns.
Assessment
-
63-year-old woman with past medical history noted. Admitted for neutropenic fever. Developed hypotension not responsive to IV fluid, transferred to the critical care unit for vasopressor therapy due to septic shock. Unclear source.
Impression:
Septic shock-transferred to the critical care unit 11/21/2023 - shock resolved as of 11/24/2023
Unclear source but suspect pneumonia given bilateral linear opacities seen on CXR
negative COVID
Negative influenza
Urinalysis with moderate bacteria/0-2 white blood cells.
Neutropenic fever
Nongap metabolic acidosis-possibly from diarrhea/post saline fluid resuscitation
Normal anion gap
Hyponatremia
Thrombocytopenia and anemia
Hypotension with adrenal insufficiency
Conditions present prior admission:
Chronic hypotension
History of CVA
History of seizures in 2017 on Keppra
History of brain tumor
Hyperlipidemia
Anxiety
History of asthma
History of hepatitis C after blood transfusion
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
Assessment and plan:.
Transferred to the critical care unit for hypotension-pressor requirement 11/22/2023
Improved fever curve -afebrile since 11/21
-
Continue broad spectrum antibiotics per infectious disease - currently on cefepime (started 11/20), vanc (started 11/20) & micafungin (started 11/21)
Suspect pneumonia given bilateral linear opacities seen on CXR --> would given total of 10-14 days Abx
Would favor stopping IV vanco given negative MRSA plus blood and urine cultures have been showing NGTD
Neutropenic precautions
Methotrexate on hold
-
Maintain MAP>65
Patient received adequate IV hydration and resuscitation with 3.5L IVF comprised of: LR bolus x 2 L (11/20 - 11/21) + 1L NS 0.9% (11/20) + NS 0.9% 500cc (11/21); also also LR @ 75mL/hr x 2 days (11/21 - 11/23)
Patient has been weaned off levophed for >24 hrs, and she is now on midodrine; this should be weaned slowly as tolerated.
Her random cortisol level is 8.5 - she has adrenal insufficiency, however unclear if it is absolute or relative. Would favor doing a cosyntropin stimulation test; otherwise would start stress dose steroids with wean as tolerated
Follow urinary output
-
Nongap metabolic acidosis: Resolved
Denies diarrhea.
Follow electrolytes and replete K>3.5, Mg>1.8
Encourage oral intake.
Discontinue IV fluids. Patient tolerating oral hydration.
-
Follow daily CBC-significant thrombocytopenia. Monitor for bleeding
Patient does have chronic pancytopenia follows [facility] well as [facility].
Oncology continues to follow status post G-CSF-defer to oncology
Transfuse to maintain plt>10-20k, Hb>7
Dispo: Stable for downgrade out of ICU to telemetry. Pulmonary/monitoring tech service will now sign off. Thank you for allowing us to be involved in the care of this patient; please reconsult if respiratory issues develop.
(Patient seen and evaluated on 11/25/2023).
Subjective Dataa
Subjective Data
Date of Service:
Date of Service: November 25, 2023
Chief Complaint: Air Battle Manager Follow Up (Septic shock)
Subjective:
Patient seen today. She is tired saying that she did not get good sleep last couple nights. She is receiving a unit of platelets as her count is 10 today. Consent being obtained by Dr. Parra alongside me. Patient's BP is 91/64, heart rate 102.
No acute events reported overnight. No bleeding reported.
Review of Systems
General: Other (12 point ROS performed and is negative unless mentioned above.)
Objective Data
Data Reviewed
Vital Signs / I&O / Oxygen:
Vital Signs
Temp Pulse Resp BP Pulse Ox
97.7 F 107 28 104/59 93
11/25/23 08:05 11/25/23 09:00 11/25/23 09:00 11/25/23 08:00 11/25/23 09:23
Intake and Output
11/24/23 11/25/23 11/26/23
06:59 06:59 06:59
Intake Total 1700.8 / 1700.8 1030 / 1030
Output Total 1350 / 1350 700 / 700
Balance 350.8 / 350.8 330 / 330
SaO2 93
Nasal Cannula flow liters per 2
minute
Physical Exam
General: Respiratory Distress (n) and Comfortable
HEENT: Normocephalic
Cardiovascular: S1-S2 and Peripheral Edema (trace LE edema bilaterally)
Respiratory: Wheeze (Negative), Crackles (Bibasilar heard in posterior lung ernst), Rhonchi (Negative) and Non-Labored Respirations
GI: Soft, Non Distended, Non Tender and Normal Bowel Sounds
Neurology: Awake and Alert
Skin: Warm, Dry and Cyanosis (Negative)
Labs/Micro/Reports
Lab Data
11/25/23 03:45
11/25/23 03:45
Microbiology
11/21/23 07:34 Blood/Venous Blood Culture - Preliminary
No Growth in 4 days- Final report to follow
11/20/23 15:03 Blood/Venous Blood Culture - Preliminary
No Growth in 4 days- Final report to follow
11/20/23 15:03 Blood/Venous Blood Culture - Preliminary
No Growth in 4 days- Final report to follow
11/22/23 11:46 Feces/Stool C. difficile GDH Antigen & Toxins - Final
Negative for toxigenic C.difficile
11/20/23 23:43 Nose MRSA Screen - Final
No Methicillin Resistant Staphylococcus aureus isolated.
--- NOTE | 2023-11-25 09:58 | W.PN.ONC ---
Today's Communication / Plan
-
11/25 WBC 3.9, Hgb 7.9, Hct 21.7, PLT 10, ANC 100
Transfuse as needed to maintain Hgb >7, PLT >10
1unit platelets ordered to be transfused today - patient agreeable
Continue Neutropenic precautions
Continue Granix 300mcg daily for ANC <1500
CBC w/ diff daily, must include differential to assess ANC
Follow fevers - afebrile this AM
If fevers persist, can consider repeat bone marrow biopsy
ID following; continue antibiotics
Blood cultures negative
Urine culture negative
C. diff negative
Psych consult
We will continue to follow.
Impression
Impression
Neutropenic fevers (resolving)
Acute on chronic hypotension (pressors weaned)
Chronic pancytopenia
Acute on chronic thrombocytopenia w/ splenomegaly
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
Hx brain mass s/p biopsy (01/2023)
Acute anxiety/depression
Subjective/Objective
Subjective/Objective
Patient is OOB to the chair. She is feeling OK. She denies pain or acute complaints. She was unhappy with breakfast. She is agreeable to platelet transfusion today and psychiatry consultation.
Vital Signs:
Vital Signs
Temp Pulse Resp BP Pulse Ox
97.7 F 107 28 104/59 93
11/25/23 08:05 11/25/23 09:00 11/25/23 09:00 11/25/23 08:00 11/25/23 09:23
physical exam:
aaox3, flat, conversant
HR tachycardia, lungs diminished
no edema
Lab Results:
Laboratory Data
WBC 3.9 10^3/uL (4.8-10.8) L 11/25/23 03:45
Hgb 7.9 g/dL (12.0-16.0) L 11/25/23 03:45
Plt Count 10 10^3/uL (130-400) L* D 11/25/23 03:45
PT 17.6 Sec (11.4-14.6) H 11/21/23 17:53
INR 1.41 11/21/23 17:53
APTT 43.6 Sec (23.4-35.0) H 11/21/23 17:53
APTT Cancelled 11/21/23 17:53
eGFR > 60.00 11/25/23 03:45
--- NOTE | 2023-11-25 12:30 | PTCARENOTE ---
Pt continues to sit OOB in chair. No complaints offered or changes noted from previous assessment findings. Pt's here to visit. Updated on plan of care and questions answered. Waiting on blood transfusion consent to be obtained in order to
administer platelets. Dr Parra aware of need for consent. Call banegas remains w/in pt reach and safe environment maintained.
--- NOTE | 2023-11-25 12:37 | PTOTSP ---
pt currently demonstrates ability to complete simple ADLs, functional transfers, ambulation with supervision to no assistance. pt has support from spouse at home. no acute OT needs identified at this time, willl sign off.
--- NOTE | 2023-11-25 14:24 | CS.PSYCHR ---
Consult Summary - Psychiatry
-
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
isolation except for hospital and medical office visits, followed at [facility] in [place], sees specialist at [facility], treated with Methotrexate.� Psychiatry asked to evaluate for depression. Pt seen with , who is
supportive. Pt describes an ordeal over the past year, diagnosed with a very rare condition. 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
having to isolate, not able to drive due to decreased Rt peripheral vision. Pt states she feels more down when in hospitals. Family, grandchild are a source of encouragement; pt has hope about her prognosis. Pt able to see positives aspects of
her situation. She states a preference not to take antidepressant medication, which would be complicated given her medical condition and lab findings.
Psych Hx: denies any depression or anxiety prior to medical problems over the past year. Pt is prescribed Hydroxyzine 25 mg as needed for anxiety- rarely takes it.
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 Lives with . Insurance will be changing to Medicare
MSE: alert, oriented, reclining in bed, in no acute distress. Affect appropriate, mood mildly dysphoric. Speech coherent, thought goal-directed. No signs of psychosis
Cognitive functioning appears intact, insight good
Imp: Adjustment d/o, with mild depression
Rec: Supportive therapy, on an outpatient basis upon return home/when medically stable. Pt should be able to access via telehealth
Will follow
--- NOTE | 2023-11-25 14:28 | PTCARENOTE ---
Pt returned to bed at her request for a nap. Comfort care provided. Ordered platelets started transfusing after s/s of reaction reviewed w/ pt. Pt observed for first 15 minutes of transfusion. Pt's Pox down to 86% on RA when asleep. O2 applied at
2l/min via NC w/ POx improved to 98%.
--- NOTE | 2023-11-25 16:04 | CM ---
CM following re: discharge planning.
Reviewed pt's chart, met with pt.
PT evaluation noted - home PT recommended. Pt is aware, expressed her agreement and she preferred [facility]. A referral to [facility] made.
D/C plan: home with [facility] and family support.
CM will follow with discharge plan updates as hospitalization progresses
[2023-11-25] MEDS: MYCAMINE 105 MG IV (17:41)
--- NOTE | 2023-11-25 17:48 | PTCARENOTE ---
Pt OOB in chair visiting w/ . No new complaints offered other than 'I don't know why but my eyes are burning me'. Wet washcloth applied per pt request. Dr Parra notified of pt's SBP in 80-90's this shift. No new orders received.
--- NOTE | 2023-11-25 20:00 | PTCARENOTE ---
Rec'd pt resting in bed, assisted to bsc to void and back to bed- rosemary well, oriented, flat affect, denies pain, SR/ST, to keep map > 65, weak distal pulses, no edema, skin warm/dry, RA sat 89 while resting- placed on 2 liters nc, sat incr to 95,
lungs decr in bases, enc to use IS- reaches 1000, hyper bowel sounds, no bm, abd soft, no n/v, 'I had more of an appetite today', voids on bsc yellow urine
[2023-11-25] MEDS: LIPITOR 20 MG PO (20:50)
[2023-11-25 21:59] LABS: Vancomycin Peak 19.6 ug/ml (18-26)
--- NOTE | 2023-11-25 23:57 | PTCARENOTE ---
sys reviewed, changes noted
[2023-11-26] VITALS (8 sets, daily range): BP systolic 87–107; BP diastolic 51–66; BMI 23.5
[2023-11-26] MEDS: MAXIPIME 2000 MG IV ×2 (03:44→16:40)
[2023-11-26] MEDS: STERILE WATER FOR INJECTION 10 ML IV ×2 (03:44→16:41)
--- NOTE | 2023-11-26 03:54 | PTCARENOTE ---
sys reviewed, changes noted
[2023-11-26 04:27] LABS: Hemoglobin 7.1 g/dL (12.0-16.0); Mean Corp Hgb Conc. 35.9 g/dL (33.0-37.0); Mean Corpuscular Hgb 31.4 pg (27.0-31.0); Mean Corpuscular Volume 87.6 fL (81.0-99.0); Red Blood Cell Count 2.26 10^6/uL (4.20-5.40); White Blood Cell Count 3.2 10^3/uL (4.8-10.8)
[2023-11-26 04:37] LABS: Hematocrit 19.8 % (37.0-47.0); Platelet Count 10 10^3/uL (130-400)
[2023-11-26 04:54] LABS: Blood Urea Nitrogen 13 mg/dl (7-17); Calcium 7.1 mg/dl (8.4-10.2); Carbon Dioxide 24 mmol/L (22-30); Chloride 102 mmol/L (98-107); Estimated Creatinine Clearance 58 ml/min; Glucose 100 mg/dl (70-99); Potassium 3.6 mmol/L (3.5-5.1); Sodium 131 mmol/L (135-145); eGFR > 60.00
--- NOTE | 2023-11-26 04:54 | PTCARENOTE ---
Hermila Nielson, CASINO BANKER notified of plt count of 10, will pass on to heme in am
[2023-11-26 05:05] LABS: Vancomycin Trough 11.2 ug/ml (5-20)
[2023-11-26] MEDS: VANCOCIN HCL 500 MG 100 IV (05:13)
--- NOTE | 2023-11-26 06:36 | W.PN.HOSP.TC ---
Today's Communication/Plan
-
.
Assessment / Plan
Assessment / Plan
Physical Exam
General:chronically ill looking, No Apparent Distress
HEENT: NormoCephalic, Moist mucous membranes and Atraumatic
Respiratory: limited, right upper chest port noted.
Cardiac: S1/S2 and Regular Rhythm; No Murmur or Rub
GI: Soft, Non Tender, Non Distended and Normal Bowel Sounds; No Organomegaly
Rectal: no rectal bleeding
Musculoskeletal: No Edema
Skin: No Rash
Neuro: AO x 3 and Nonfocal/grossly intact
Psych: Calm
#Septic shock
#Neutropenic fever
-no clear source. -Chest x ray questionable pneumonia - dry, nonproductive cough. On 2 liters O2
-expand abx to vancomycin, micafungin, cefepime
-on acyclovir prophylaxis at home
-Negative C diff, negative blood cultures. Negative
-Weaned off IV pressors. Started on midodrine TID.
Appreciate ID help
# Thrombocytopenia
Could be ITP or infectious related
I agree with steroid trial
S/p plt transfusion on 11/25 with no response
#Adjustment disorder, with mild depression
Seen by psych, recommended to c/w supportive therapy, on an outpatient basis upon return home/when medically stable.� Pt should be able to access via telehealth.
No suicidal thought expressed to us.
Appreciate psychiatry input
# Neutropenia secondary to chemotherapy. Chronic thrombocytopenia/chronic pancytopenia
Her white count improved
Status post Granix
# None anion gap metabolic acidosis
Resolved
#Hypoxia only.
c/w O2 as needed. Poor inspiratory efforts, suspect atelectasis.
#hyponatremia
Mild
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
-#pancytopenia
#brain tumor, with just biopsy at this time
-wbc 1.2,hgb 9.0,platelets 31
-ctm
-F/u onc outpatient for further needs
-GCSF given
#Hypokalemia
-monitor and replete
# Hypoxia only. Oxygen saturation down to 85-89 %, improved with 2 L oxygen wean off oxygen as tolerated
hx of CVA
hx of 2 petit-mal seizures 2016
- continue Keppra
#hxt of brain tumor
HLD
-Statin continued
# Anxiety
-hydroxyzine continued
#hx of Asthma
-Not in acute exacerbation
-Albuterol from home continued
#hx of Hep C, related to receiving blood transfusion
#DVT ppx: SCDs
#Code: Full
Total time spent to see the patient on the floor, examine the patient, review data and lab results, discuss treatment plan with patient and nursing staff around 59 minutes
Anticipated Discharge: > 48 hours
Subjective/Interval History
-
Date of Service: November 26, 2023
She is doing well, slept well, tolerating midodrine
No fevers
Plt at 10K
Objective Data
-
Labs:
Laboratory Results
11/26/23
03:51
WBC 3.2 L
Hgb 7.1 L
Hct 19.8 L*
Plt Count 10 L*
Sodium 131 L
Potassium 3.6
Chloride 102
Carbon Dioxide 24
BUN 13
Creatinine 0.6
Glucose 100 H
Calcium 7.1 L
Vital Signs:
Vital Signs
Temp Pulse Resp BP Pulse Ox
98.9 F 102 25 107/66 97
11/26/23 03:53 11/26/23 06:00 11/26/23 06:00 11/26/23 06:00 11/26/23 05:00
I&O
11/24/23 11/25/23 11/26/23
06:59 06:59 06:59
Intake Total 1700.8 / 1700.8 1030 / 1030 1119 / 1119
Output Total 1350 / 1350 700 / 700 400 / 400
Balance 350.8 / 350.8 330 / 330 719 / 719
--- NOTE | 2023-11-26 06:40 | W.PN.ONC2 ---
Today's Communication / Plan
-
HOLDING methotrexate with PLT 10K.
Suspect acute drop PLT infectious or autoimmune (ITP?) as outpatient PLT ~ 100K. Doubt Abx related as PLT was 31K on arrival (before Abx started)
Trial of Decadron 40 mg PO QD x 4 to see if responsive (would suggest ITP/immuno etiology)
Wean Abx as tolerated per ID.
Impression
Impression
Neutropenic fevers (resolving)
Acute on chronic hypotension (pressors weaned)
Chronic pancytopenia
Acute on chronic thrombocytopenia w/ splenomegaly
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
Hx brain mass s/p biopsy (01/2023)
Acute anxiety/depression
Plan
Plan
11/21 WBC 3.2, Hgb 7.1, Hct 20, PLT 10, ANC 100
Transfuse as needed to maintain Hgb >7, PLT >10 - although hold PLT today as no increment from PLT TNFX yesterday and no bleeding.
Neutropenic precautions.
HOLD Methotrexate with PLT < 50
Granix 300mcg daily for ANC <1500. PLEASE MAKE SURE TO INCLUDE DIFFERENTIAL WITH CBC DAILY.
Suspect acute drop PLT infectious or autoimmune (ITP?) as outpatient PLT ~ 100K
Trial of Decadron 40 mg PO QD x 4 to see if responsive (would suggest ITP/immuno etiology)
Antibiotics per ID
CBC w/ diff daily
Follow fevers
Blood cultures and urine cultures NTD
Wean Abx as tolerated - currently on vanco, cefepime, micafungin, Acylovir
Subjective/Objective
Chief Complaint
ACS Heme Onc
Subjective
Feeling a bit better. No bleeding. Fevers improved.
Vital Signs:
Vital Signs
Temp Pulse Resp BP Pulse Ox
98.9 F 102 25 107/66 97
11/26/23 03:53 11/26/23 06:00 11/26/23 06:00 11/26/23 06:00 11/26/23 05:00
Lab Results:
Laboratory Data
WBC 3.2 10^3/uL (4.8-10.8) L 11/26/23 03:51
Hgb 7.1 g/dL (12.0-16.0) L 11/26/23 03:51
Plt Count 10 10^3/uL (130-400) L* 11/26/23 03:51
PT 17.6 Sec (11.4-14.6) H 11/21/23 17:53
INR 1.41 11/21/23 17:53
APTT 43.6 Sec (23.4-35.0) H 11/21/23 17:53
APTT Cancelled 11/21/23 17:53
eGFR > 60.00 11/26/23 03:51
Physical Exam
Cardiology: S1 and S2
Pulmonary: Clear
GI: Soft
--- NOTE | 2023-11-26 08:00 | PTCARENOTE ---
PT received in bed AAOx3, flat affect, flat voice, asking not to get OOB til breakfast...NSR with trace edema, weak pedal pulses, O2 saturation 94%, shallow breaths, diminished at bases , encouraged PT to use IS, encouraged her to at least use it 5
times, pulled 750, abdomen round slightly distended hyperactive BS, calls when she needs to use bathroom, assistance x1, right SQ port, patent +blood return
[2023-11-26 09:30] LABS: Atypical Lymphocytes 2 %; Band Neutrophils 4 % (0-3); Lymphocytes 90 % (20-51); Normal RBC Morphology No; Nucleated Red Blood Cells 1 (-); Platelets Checked Yes; Segmented Neutrophils 4 % (42-75)
[2023-11-26 09:31] LABS: Microcytosis 1+; Ovalocytes Occasional; Poikilocytosis 1+; Tear Drop Red Blood Cells Occasional; Total Cells Counted 100
[2023-11-26 09:32] LABS: Absolute Neutrophils -Man Diff 0.2 10^3/uL (1.4-6.5)
--- NOTE | 2023-11-26 10:16 | PHA.VAN.FU ---
Vancomycin Assessment / Plan
- Assessment
Renal Function: Stable
WBC's are: Stable
Neutropenia: ANC = 200
In the past 24 hrs, patient has been: Afebrile
Concomitant Antimicrobials: cefepime, micafungin, chronic acyclovir
- Assessment - Therapeutic Drug Monitoring
Extrapolated Cmax (mcg/mL): 23.1
Peak level was drawn: Appropriately (drawn ~1.9H after end of previous infusion)
Extrapolated Cmin (mcg/mL): 8.8
Trough Drawn: Appropriately
Levels were drawn: At steady state (levels drawn after 5th maintenance dose)
Calculated AUC (mcg*h/mL): 358
Calculated ke: 0.0877
Calculated half life (H): 7.9
Calculated Vd (L): 31.87 (~0.65 L/kg)
Calculated Vanc CL (ml/min): 47
- Dosing Plan
Adjust Regimen to: Vanc 750mg Q12H starting at 1800
New Regimen Predicts: AUC (560), Peak (36.2), Trough (13.8)
- Monitoring Plan
No level(s) ordered at this time: consider levels in next few days to assess new regimen
- Follow Up
Pharmacy will continue to follow.
Vancomycin Follow UP
- -
Patient Age: 63
Patient Sex: Female
Vancomycin Day #: 6
Indication: Bacteremia
Requesting Provider: Dr. Gaona
Pertinent Antimicrobial Allergies:
Sulfa (Sulfonamide Antibiotics) - [place] reaction >40 years ago
penicillin G Allergy -unknown reaction >40 years ago No hx of anaphylaxis has tolerated cefepime, keflex, ceftriaxone
Height / Weight:
Height 4 ft 9 in
Actual Weight 49.2 kg
Pertinent Past Medical History: IgG [place] MGUS, Chronic neutropneia
- Vital Signs / Lab Results
Temp Pulse Resp BP Pulse Ox
98.9 F 102 25 107/66 95
11/26/23 03:53 11/26/23 06:00 11/26/23 06:00 11/26/23 06:00 11/26/23 08:00
Lab Results - Hematology
11/24/23 11/25/23 11/26/23
03:18 03:45 03:51
WBC 4.3 L 3.9 L 3.2 L
Band Neutrophils Not Reportable 4 H
Lab Results - Chemistry
11/24/23 11/25/23 11/26/23
03:18 03:45 03:51
BUN 13 13 13
Creatinine 0.6 0.6 0.6
Estimated Creat Clear 67 66 58
Microbiology Results
11/21/23 07:34 Blood Culture - Final
Blood/Venous No Growth - Final Report
11/20/23 15:03 Blood Culture - Final
Blood/Venous No Growth - Final Report
11/20/23 15:03 Blood Culture - Final
Blood/Venous No Growth - Final Report
Therapeutic Drug Monitoring
Vancomycin Peak 19.6 ug/ml (18-26) 11/25/23 21:28
Vancomycin Trough 11.2 ug/ml (5-20) 11/26/23 03:51
[2023-11-26] MEDS: DECADRON 40 MG PO (10:19)
[2023-11-26] MEDS: LIDOCAINE 4% PATCH TOPICAL ×2 (10:20→10:39)
[2023-11-26] MEDS: FOLVITE 0.800000000000000044 MG PO (10:21)
[2023-11-26] MEDS: ZOVIRAX 800 MG PO ×2 (10:21→22:28)
[2023-11-26] MEDS: FEOSOL 325 MG PO (10:21)
[2023-11-26] MEDS: GRANIX 300 MCG SC (10:21)
[2023-11-26] MEDS: ProAmatine 10 MG PO ×3 (10:22→17:27)
[2023-11-26] MEDS: VITAMIN D3 (cholecalciferol) 1000 UNITS PO (10:22)
[2023-11-26] MEDS: KEPPRA 1000 MG PO ×2 (10:22→22:26)
[2023-11-26] MEDS: CLARITIN 10 MG PO (10:23)
--- NOTE | 2023-11-26 10:45 | W.PN.ID1 ---
Date of Service
Date of Service: November 26, 2023
Today's Communication
CT chest
xray the sinuses
procalcitonin
follow ANC
stop micafungin, continue vanc/cefepime for today
Assessment / Plan
Neutropenic fever - resolved - last fever 11/21
Shock - resolved 11/23
Pancytopenia
Chronic Neutropenia - ongoing
Rosai-Mirna disease (histiocytosis variant)
Brain Mass
History of Seizure disorder
Unknown allergies to penicillin and sulfa
- ANC minimal at 0.2; continued midodrine requirement which is new, note possible adrenal insufficiency
- note trial of decadron for concern of ITP/immune induced thrombocytopenia
- blood cultures finalized negative
- CXR questionable pneumonia - dry, nonproductive cough
- CT chest
- Xray sinuses
- procalcitonin
- continue ppx: acyclovir
- continue empiric cefepime, vancomycin for now - pending above workup deescalate vs stop
- stop micafungin
- follow clinically
Chief Complaint
-: Other (neutropenic fever)
Subjective / Review of Systems
afebrile
bp stable
remains profoundly neutropenic ANC 200, WBC 3.2
plt 10
cr 0.6
cultures finalized negative
Vital Signs / Physical Exam
Vital Signs
Vital Signs
Temp Pulse Resp BP Pulse Ox
98.9 F 107 25 87/53 95
11/26/23 03:53 11/26/23 10:22 11/26/23 06:00 11/26/23 10:22 11/26/23 08:00
Physical Exam
Constitutional: No Acute Distress and Chronically Ill
Cardiovascular: Regular Rate and S1/S2; Negative Murmur or Rub
Pulmonary: Clear and Symmetric; Negative Wheezes or Rales
Gastrointestinal: Soft, Non Tender, Non Distended and Normal Bowel Sounds
Skin: Warm and Dry; Negative Rash or Jaundice
Objective Data
Lab Data
Lab Results
11/26/23 03:51
11/26/23 03:51
PT 17.6 Sec (11.4-14.6) H 11/21/23 17:53
INR 1.41 11/21/23 17:53
APTT 43.6 Sec (23.4-35.0) H 11/21/23 17:53
APTT Cancelled 11/21/23 17:53
Estimated Creat Clear 58 ml/min 11/26/23 03:51
Lactic Acid Cancelled 11/20/23 15:30
Total Bilirubin 1.0 mg/dl (0.2-1.3) 11/20/23 11:48
AST 27 U/L (14-36) 11/20/23 11:48
ALT 14 U/L (0-35) 11/20/23 11:48
Alkaline Phosphatase 126 U/L (38-126) 11/20/23 11:48
Most recent labs reviewed.
Micro Results:
11/21/23 07:34 Blood Culture - Final
Blood/Venous No Growth - Final Report
11/20/23 15:03 Blood Culture - Final
Blood/Venous No Growth - Final Report
11/20/23 15:03 Blood Culture - Final
Blood/Venous No Growth - Final Report
11/22/23 11:46 C. difficile GDH Antigen & Toxins - Final
Feces/Stool Negative for toxigenic C.difficile
11/20/23 23:43 MRSA Screen - Final
Nose No Methicillin Resistant Staphylococcus aureus isolated.
11/20/23 14:12 Urine Culture - Final
Urine No Significant Growth
11/20/23 11:48 Influenza Types A & B (REAGAN) - Final
Nasal Swab Negative for Influenza A & B, NAAT
Negative results must be combined with clinical observations
and patient history.
Nucleic Acid Amplification test (NAAT)performed on the
[employer] platform.
--- NOTE | 2023-11-26 10:52 | PTCARENOTE ---
Assisted PT OOB to chair for meal, after breakfast assisted PT into bathroom, PT brushed teeth, washed face and used CHG wipes herself, assisted PT back to chair
--- NOTE | 2023-11-26 12:00 | W.PN.UPDATE ---
Update Note
Progress Note Update
patient seen chart reviewed. at [facility]/ mrs davis has hx of rosai kwasi disease. she reports w dismay having had nine hospitalizations in less than a year for various reasons. she is despite this in a relatively okay mood. she was told
she needed to take 'ten pills' (steroids) but is taking it in stride. seems to be a great support. she does admit she has down moments but overall with support she is coping. i suggested she may not need to see psych daily but she said she
feels it helps so we will return tomorrow. she does not feel she needs psychotropic medication.
--- NOTE | 2023-11-26 14:00 | PTCARENOTE ---
Assessment remains unchanged, PT OOB for 3 1/2 hours without issue, assisted back to bed, PT denies wanting to eat lunch today, awaiting PT for walk around unit
--- NOTE | 2023-11-26 15:21 | CM ---
CM following re: discharge planning.
Reviewed pt's chart, met with pt.
PT evaluation noted - home PT recommended. Pt is aware, expressed her agreement and she preferred [facility]. A referral to [facility] made.
D/C plan: remains unchanged - home with [facility] and family support.
CM will follow with discharge plan updates as hospitalization progresses
--- NOTE | 2023-11-26 15:53 | VNURNOTE ---
home health liaison attempted to talk to patient. Spoke to spouse Migel about [facility] services. Spouse states he does not feel that his needs homecare services. States she has had it in the past. Mgiel will discuss further with and will call
liaison back. Will continue to follow up on discharge planning
--- NOTE | 2023-11-26 16:51 | TRANSFER ---
Pt transferred from ICU to room 321 at 1615. Pt walked from wheelchair to bed with standby assistance. On room air, assessment complete by this RN. Pt placed on tele monitor #[id number]. VSS, call banegas within reach.
[2023-11-26 17:45] LABS: Procalcitonin 0.66 ng/ml (0.0-0.25)
[2023-11-26] MEDS: VANCOCIN 150 IV (18:10)
[2023-11-26] MEDS: LIPITOR 20 MG PO (22:26)
[2023-11-27] VITALS (11 sets, daily range): BP systolic 93–126; BP diastolic 46–62
[2023-11-27] MEDS: STERILE WATER FOR INJECTION 10 ML IV (03:53)
[2023-11-27] MEDS: MAXIPIME 2000 MG IV (03:53)
[2023-11-27] MEDS: FLUSH (NSS) 2 FLUSH IV (03:54)
[2023-11-27] MEDS: VANCOCIN 150 IV (06:02)
[2023-11-27] MEDS: FLUSH (NSS) 1 FLUSH IV (06:05)
[2023-11-27 06:46] LABS: Mean Corpuscular Hgb 31.6 pg (27.0-31.0); Mean Corpuscular Volume 87.9 fL (81.0-99.0); Nucleated Red Blood Cells % 1.9 %; Red Blood Cell Count 2.15 10^6/uL (4.20-5.40); Red Cell Dist. Width 14.9 % (11.5-14.5)
[2023-11-27 07:28] LABS: Blood Urea Nitrogen 18 mg/dl (7-17); Calcium 7.7 mg/dl (8.4-10.2); Carbon Dioxide 21 mmol/L (22-30); Chloride 108 mmol/L (98-107); Estimated Creatinine Clearance 58 ml/min; Glucose 171 mg/dl (70-99); Potassium 4.1 mmol/L (3.5-5.1); Sodium 134 mmol/L (135-145); eGFR > 60.00
[2023-11-27 07:38] LABS: Hematocrit 18.9 % (37.0-47.0); Hemoglobin 6.8 g/dL (12.0-16.0); White Blood Cell Count 1.5 10^3/uL (4.8-10.8)
[2023-11-27 07:39] LABS: Platelet Count 7 10^3/uL (130-400)
[2023-11-27] MEDS: LIDOCAINE 4% PATCH TOPICAL ×2 (09:16→09:31)
[2023-11-27] MEDS: DECADRON 40 MG PO (09:16)
[2023-11-27] MEDS: FOLVITE 0.800000000000000044 MG PO (09:17)
[2023-11-27] MEDS: CLARITIN 10 MG PO (09:17)
[2023-11-27] MEDS: ProAmatine 10 MG PO ×3 (09:17→17:07)
[2023-11-27] MEDS: VITAMIN D3 (cholecalciferol) 1000 UNITS PO (09:17)
[2023-11-27] MEDS: KEPPRA 1000 MG PO ×2 (09:18→19:43)
[2023-11-27] MEDS: FEOSOL 325 MG PO (09:19)
[2023-11-27] MEDS: ZOVIRAX 800 MG PO ×2 (09:19→19:43)
[2023-11-27 09:20] LABS: Band Neutrophils 4 % (0-3); Segmented Neutrophils 17 % (42-75)
[2023-11-27 09:21] LABS: Atypical Lymphocytes 4 %; Hypochromasia 1+; Lymphocytes 65 % (20-51); Monocytes 9 % (2-9); Normal RBC Morphology No; Platelets Checked Yes; Poikilocytosis 1+
[2023-11-27 09:22] LABS: Ovalocytes 1+; Tear Drop Red Blood Cells 1+; Total Cells Counted 100
[2023-11-27 09:26] LABS: Absolute Neutrophils -Man Diff 0.3 10^3/uL (1.4-6.5)
[2023-11-27] MEDS: GRANIX 300 MCG SC (09:43)
--- NOTE | 2023-11-27 10:32 | W.PN.ID1 ---
Date of Service
Date of Service: November 27, 2023
Today's Communication
DC cefepime and Vancomycin.
Assessment / Plan
Neutropenic fever. Fever resolved - last fever 11/21
Shock - resolved 11/23
Pancytopenia
Chronic Neutropenia - ongoing
Rosai-Mirna disease (histiocytosis variant)
Brain Mass
History of Seizure disorder
Unknown allergies to penicillin and sulfa
- ANC minimal at 0.2; continued midodrine requirement which is new, note possible adrenal insufficiency
- On trial of decadron for concern of ITP/immune induced thrombocytopenia
- blood cultures finalized negative
- CT chest: moderate bilateral pleural effusion with compressive atelectasis
- Xray sinuses - normal
-DC cefepime, Vancomycin
- continue ppx: acyclovir
Chief Complaint
-: Other (neutropenic fever)
Subjective / Review of Systems
Wants to go home soon. Feels well.
Minimal cough.
Vital Signs / Physical Exam
Vital Signs
Vital Signs
Temp Pulse Resp BP Pulse Ox
97.9 F 87 16 100/51 94
11/27/23 08:01 11/27/23 09:17 11/27/23 08:01 11/27/23 09:17 11/27/23 08:01
Physical Exam
Constitutional: No Acute Distress
Cardiovascular: Regular Rate and S1/S2
Pulmonary: Other (Decreased BS bases)
Gastrointestinal: Soft, Non Tender and Non Distended
Extremities: Negative Edema
Neurological: AO x 3
Lines: Port (RCW no erythema)
Objective Data
Lab Data
Lab Results
11/27/23 06:29
11/27/23 06:29
PT 17.6 Sec (11.4-14.6) H 11/21/23 17:53
INR 1.41 11/21/23 17:53
APTT 43.6 Sec (23.4-35.0) H 11/21/23 17:53
APTT Cancelled 11/21/23 17:53
Estimated Creat Clear 58 ml/min 11/27/23 06:29
Lactic Acid Cancelled 11/20/23 15:30
Total Bilirubin 1.0 mg/dl (0.2-1.3) 11/20/23 11:48
AST 27 U/L (14-36) 11/20/23 11:48
ALT 14 U/L (0-35) 11/20/23 11:48
Alkaline Phosphatase 126 U/L (38-126) 11/20/23 11:48
Most recent labs reviewed.
Micro Results:
11/21/23 07:34 Blood Culture - Final
Blood/Venous No Growth - Final Report
11/20/23 15:03 Blood Culture - Final
Blood/Venous No Growth - Final Report
11/20/23 15:03 Blood Culture - Final
Blood/Venous No Growth - Final Report
11/22/23 11:46 C. difficile GDH Antigen & Toxins - Final
Feces/Stool Negative for toxigenic C.difficile
11/20/23 23:43 MRSA Screen - Final
Nose No Methicillin Resistant Staphylococcus aureus isolated.
11/20/23 14:12 Urine Culture - Final
Urine No Significant Growth
11/20/23 11:48 Influenza Types A & B (REAGAN) - Final
Nasal Swab Negative for Influenza A & B, NAAT
Negative results must be combined with clinical observations
and patient history.
Nucleic Acid Amplification test (NAAT)performed on the
[employer] platform.
--- NOTE | 2023-11-27 11:11 | W.PN.ONC ---
Today's Communication / Plan
-
Transfuse as needed to maintain Hgb >7, PLT >10
Transfuse platelets today retest for incremental increase with dexamethasone on board
Neutropenic precautions
HOLD Methotrexate with PLT < 50
Granix 300mcg daily for ANC <1500. PLEASE MAKE SURE TO INCLUDE DIFFERENTIAL WITH CBC DAILY
Trial of Decadron 40 mg PO QD x 4 to see if responsive (would suggest ITP/immuno etiology)
CBC w/ diff daily
Follow fevers
Blood cultures and urine cultures
Wean Abx as tolerated - currently on vanco, cefepime, micafungin, Acylovir
Impression
Impression
Neutropenic fevers (resolving)
Acute on chronic hypotension (pressors weaned)
Chronic pancytopenia
Acute on chronic thrombocytopenia w/ splenomegaly
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
Hx brain mass s/p biopsy (01/2023)
Acute anxiety/depression
Plan
Plan
Subjective/Objective
Subjective/Objective
Patient without new complaints. Anxious to be discharged. No atypical bruising or bleeding. No epistaxis or melena.
Vital Signs:
Vital Signs
Temp Pulse Resp BP Pulse Ox
97.9 F 87 16 100/51 94
11/27/23 08:01 11/27/23 09:17 11/27/23 08:01 11/27/23 09:17 11/27/23 08:01
Physical Exam
Constitutional: No Acute Distress
Cardiovascular: Regular Rate and S1/S2
Pulmonary: Other (Decreased BS bases)
Gastrointestinal: Soft, Non Tender and Non Distended
Extremities: Negative Edema
Neurological: AO x 3
Lines: Port (RCW no erythema)
Lab Results:
Laboratory Data
WBC 1.5 10^3/uL (4.8-10.8) L* 11/27/23 06:29
Hgb 6.8 g/dL (12.0-16.0) L* 11/27/23 06:29
Plt Count 7 10^3/uL (130-400) L* D 11/27/23 06:29
PT 17.6 Sec (11.4-14.6) H 11/21/23 17:53
INR 1.41 11/21/23 17:53
APTT 43.6 Sec (23.4-35.0) H 11/21/23 17:53
APTT Cancelled 11/21/23 17:53
eGFR > 60.00 11/27/23 06:29
--- NOTE | 2023-11-27 12:19 | W.PN.HOSP.TC ---
Today's Communication/Plan
-
likely dc in am
Assessment / Plan
Assessment / Plan
Physical Exam
General:chronically ill looking, No Apparent Distress
HEENT: NormoCephalic, Moist mucous membranes and Atraumatic
Respiratory: limited, right upper chest port noted.
Cardiac: S1/S2 and Regular Rhythm; No Murmur or Rub
GI: Soft, Non Tender, Non Distended and Normal Bowel Sounds; No Organomegaly
Rectal: no rectal bleeding
Musculoskeletal: No Edema
Skin: No Rash
Neuro: AO x 3 and Nonfocal/grossly intact
Psych: Calm, agitated this morning
#Septic shock
#Neutropenic fever
All resolved
Stopped Abx today
-no clear source. -Chest x ray questionable pneumonia - CT chest no PNA. Off O2
S/p empiric vancomycin, micafungin, cefepime
- c/w prophylactic acyclovir
-Negative C diff, negative blood cultures.
-Weaned off IV pressors. Started on midodrine TID.
Appreciate ID help
# moderate-sized bilateral pleural effusions. Consolidation in the lung bases likely compressive atelectasis per CT
No sob
No hypoxia
# Anemia
HGB around 6.8
d/w Dr Jorgensen
# Thrombocytopenia
Could be ITP or infectious related
I agree with steroid trial
S/p plt transfusion on 11/25 with no response
d/w Dr Jorgensen, will give another unit today 11/27
#Adjustment disorder, with mild depression
Seen by psych, recommended to c/w supportive therapy, on an outpatient basis upon return home/when medically stable.� Pt should be able to access via telehealth.
No suicidal thought expressed to us.
Appreciate psychiatry input
# Anxiety
She is anxious and frustrated from ongoing medical issue. High-dose steroid could be contributing to anxiety. Will give low-dose Klonopin for anxiety.
# Neutropenia secondary to chemotherapy. Chronic thrombocytopenia/chronic pancytopenia
Her white count improved
Status post Granix
# None anion gap metabolic acidosis
Resolved
#Hypoxia only.
c/w O2 as needed. Poor inspiratory efforts. Known pulmonary atelectasis.
#hyponatremia
Mild
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
-#pancytopenia
#brain tumor, with just biopsy at this time
-wbc 1.2,hgb 9.0,platelets 31
-ctm
-F/u onc outpatient for further needs
-GCSF given
#Hypokalemia
-monitor and replete
# Hypoxia only. Oxygen saturation down to 85-89 %, improved with 2 L oxygen wean off oxygen as tolerated
hx of CVA
hx of 2 petit-mal seizures 2016
- continue Keppra
#hxt of brain tumor
HLD
-Statin continued
# Anxiety
-hydroxyzine continued
#hx of Asthma
-Not in acute exacerbation
-Albuterol from home continued
#hx of Hep C, related to receiving blood transfusion
#DVT ppx: SCDs
#Code: Full
# Discharge planning. Discussed with the patient. She is frustrated with her ongoing medical issues. She is going to have transfusion today, patient reports it is ongoing issue and not new. We are hoping to discharge her in the a.m.
Total time spent to see the patient on the floor, examine the patient, review data and lab results, discuss treatment plan with patient and nursing staff around 55 minutes
Anticipated Discharge: Within 24 hours
Subjective/Interval History
-
Date of Service: November 27, 2023
no pain or sob
no chills or fevers
she is frustrated and wants to leave hospital
Objective Data
-
Labs:
Laboratory Results
01/25/24
06:29
WBC 1.5 L*
Hgb 6.8 L*
Hct 18.9 L*
Plt Count 7 L* D
Sodium 134 L
Potassium 4.1
Chloride 108 H
Carbon Dioxide 21 L
BUN 18 H
Creatinine 0.5 L
Glucose 171 H
Calcium 7.7 L
Vital Signs:
Vital Signs
Temp Pulse Resp BP Pulse Ox
97.9 F 87 16 100/51 94
11/27/23 08:01 11/27/23 09:17 11/27/23 08:01 11/27/23 09:17 11/27/23 08:01
I&O
11/26/23 11/27/23 11/28/23
06:59 06:59 06:59
Intake Total 1119 / 1119 1090 / 1090
Output Total 400 / 400
Balance 719 / 719 1090 / 1090
[2023-11-27] MEDS: ATARAX 25 MG PO ×2 (12:21→19:43)
--- NOTE | 2023-11-27 13:43 | W.PN.UPDATE ---
Update Note
Progress Note Update
Patient is very talkative regarding her numerous admissions as well as different diagnoses she was given over her lifetime. Admits to anxiety and depression but feels she can deal with it through supportive psychotherapy and not interested in
medications. Denies hopelessness or suicidal thoughts.
Supportive intervention given, will F/U.
[2023-11-27] MEDS: LIPITOR 20 MG PO (22:55)
[2023-11-27] MEDS: KLONOPIN 0.5 MG PO (22:55)
[2023-11-28] VITALS (9 sets, daily range): BP systolic 101–146; BP diastolic 54–69; PULSE 83; O2SAT 96
[2023-11-28 04:48] LABS: Hematocrit 22.7 % (37.0-47.0); Mean Corp Hgb Conc. 35.2 g/dL (33.0-37.0); Nucleated Red Blood Cells % 2.8 %; Red Blood Cell Count 2.58 10^6/uL (4.20-5.40); Red Cell Dist. Width 15.4 % (11.5-14.5)
[2023-11-28 05:14] LABS: White Blood Cell Count 1.8 10^3/uL (4.8-10.8)
[2023-11-28 05:15] LABS: Platelet Count 11 10^3/uL (130-400)
[2023-11-28] MEDS: LIDOCAINE 4% PATCH TOPICAL ×2 (08:00→08:38)
[2023-11-28] MEDS: VITAMIN D3 (cholecalciferol) 1000 UNITS PO (08:38)
[2023-11-28] MEDS: FEOSOL 325 MG PO (08:38)
[2023-11-28] MEDS: DECADRON 40 MG PO (08:38)
[2023-11-28] MEDS: CLARITIN 10 MG PO (08:38)
[2023-11-28] MEDS: FOLVITE 0.800000000000000044 MG PO (08:38)
[2023-11-28] MEDS: ZOVIRAX 800 MG PO ×2 (08:38→21:01)
[2023-11-28] MEDS: GRANIX 300 MCG SC (08:39)
[2023-11-28] MEDS: ProAmatine PO (08:39)
[2023-11-28] MEDS: KEPPRA 1000 MG PO ×2 (08:43→21:01)
--- NOTE | 2023-11-28 09:33 | W.PN.ID1 ---
Date of Service
Date of Service: November 28, 2023
Today's Communication
Observe off abx.
ID will sign off.
Assessment / Plan
Neutropenic fever. Fever resolved - last fever 11/21
Shock - resolved 11/23
Chronic Pancytopenia
Chronic Neutropenia - ongoing
Rosai-Mirna disease (histiocytosis variant)
Brain Mass
History of Seizure disorder
Unknown allergies to penicillin and sulfa
- ANC minimal at 0.2; continued midodrine requirement which is new, note possible adrenal insufficiency
- On trial of decadron for concern of ITP/immune induced thrombocytopenia
- blood cultures finalized negative
- CT chest: moderate bilateral pleural effusion with compressive atelectasis
- Xray sinuses - normal
-Observe off abx.
- continue ppx: acyclovir
-ID will sign off.
Chief Complaint
-: Other (neutropenic fever)
Subjective / Review of Systems
No complaints. Feels well.
Vital Signs / Physical Exam
Vital Signs
Vital Signs
Temp Pulse Resp BP Pulse Ox
97.8 F 77 16 146/68 98
11/28/23 07:52 11/28/23 07:52 11/28/23 07:52 11/28/23 08:39 11/28/23 07:52
Physical Exam
Constitutional: No Acute Distress
Eyes: Sclera Anicteric
Pulmonary: Non Labored
Gastrointestinal: Soft, Non Tender and Non Distended
Extremities: Negative Edema
Neurological: AO x 3
Lines: Port (no erythema)
Objective Data
Lab Data
Lab Results
11/28/23 04:35
11/27/23 06:29
PT 17.6 Sec (11.4-14.6) H 11/21/23 17:53
INR 1.41 11/21/23 17:53
APTT 43.6 Sec (23.4-35.0) H 11/21/23 17:53
APTT Cancelled 11/21/23 17:53
Estimated Creat Clear 58 ml/min 11/27/23 06:29
Lactic Acid Cancelled 11/20/23 15:30
Total Bilirubin 1.0 mg/dl (0.2-1.3) 11/20/23 11:48
AST 27 U/L (14-36) 11/20/23 11:48
ALT 14 U/L (0-35) 11/20/23 11:48
Alkaline Phosphatase 126 U/L (38-126) 11/20/23 11:48
Most recent labs reviewed.
Micro Results:
11/21/23 07:34 Blood Culture - Final
Blood/Venous No Growth - Final Report
11/20/23 15:03 Blood Culture - Final
Blood/Venous No Growth - Final Report
11/20/23 15:03 Blood Culture - Final
Blood/Venous No Growth - Final Report
11/22/23 11:46 C. difficile GDH Antigen & Toxins - Final
Feces/Stool Negative for toxigenic C.difficile
11/20/23 23:43 MRSA Screen - Final
Nose No Methicillin Resistant Staphylococcus aureus isolated.
11/20/23 14:12 Urine Culture - Final
Urine No Significant Growth
11/20/23 11:48 Influenza Types A & B (REAGAN) - Final
Nasal Swab Negative for Influenza A & B, NAAT
Negative results must be combined with clinical observations
and patient history.
Nucleic Acid Amplification test (NAAT)performed on the
[employer] platform.
[2023-11-28 09:45] LABS: Band Neutrophils 4 % (0-3); Segmented Neutrophils 16 % (42-75)
[2023-11-28 09:46] LABS: Atypical Lymphocytes 7 %; Lymphocytes 65 % (20-51); Monocytes 8 % (2-9); Normal RBC Morphology No; Platelets Checked Yes
[2023-11-28 09:47] LABS: Microcytosis 1+; Ovalocytes 1+; Total Cells Counted 100
[2023-11-28 09:49] LABS: Absolute Neutrophils -Man Diff 0.3 10^3/uL (1.4-6.5)
--- NOTE | 2023-11-28 12:12 | W.PN.ONC ---
Addendum entered and electronically signed by Jakub Sweeney MD 11/28/23 14:24:
Hematology Addendum:
Pt seen and evaluated - agree w/ [employer] note and plan as outlined
-chronic pancytopenia followed by Dr. Nieves - possible component of ITP
-plts remain low 11,000
-cont dexamethasone pulse - 40mg daily
-transfuse 1 unit plts today
-follow CBC daily
Will continue to follow with you
Original Note:
Today's Communication / Plan
-
11/28 WBC 1.8, Hgb 8.0, Hct 22.7,�PLT 11,�ANC 300
Continue neutropenic precautions
Transfuse as needed to maintain Hgb >7, PLT >10
s/p 1unit pRBCs, 2units platelets
1unit platelets ordered for transfusion today
Hold Methotrexate for PLT <50
Granix 300mcg daily for ANC <1500
CBC w/ diff daily, must include differential to assess ANC
Afebrile since 11/25
ID has signed off: observe off antibiotics
Blood cultures negative, Urine culture negative, C. diff negative
Continue Decadron 40mg PO QD x4 to see if responsive
We will continue to follow.
Impression
Impression
Neutropenic fevers (resolved)
Acute on chronic hypotension (pressors weaned)
Chronic pancytopenia
Acute on chronic thrombocytopenia w/ splenomegaly
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
Hx brain mass s/p biopsy (01/2023)
Acute anxiety/depression
Plan
Plan
Subjective/Objective
Subjective/Objective
patient agreeable to platelets
Vital Signs:
Vital Signs
Temp Pulse Resp BP Pulse Ox
97.8 F 77 16 146/68 98
11/28/23 07:52 11/28/23 07:52 11/28/23 07:52 11/28/23 08:39 11/28/23 09:31
Lab Results:
Laboratory Data
WBC 1.8 10^3/uL (4.8-10.8) L* 11/28/23 04:35
Hgb 8.0 g/dL (12.0-16.0) L 11/28/23 04:35
Plt Count 11 10^3/uL (130-400) L* D 11/28/23 04:35
PT 17.6 Sec (11.4-14.6) H 11/21/23 17:53
INR 1.41 11/21/23 17:53
APTT 43.6 Sec (23.4-35.0) H 11/21/23 17:53
APTT Cancelled 11/21/23 17:53
eGFR > 60.00 11/27/23 06:29
Orders
Orders
Orders From Last 24 Hours
11/27/23 12:32
* Blood Bank Products Urgent
11/28/23 12:11
* Blood Bank Products Urgent
[2023-11-28] MEDS: ProAmatine 10 MG PO ×2 (12:16→17:30)
--- NOTE | 2023-11-28 13:14 | VNURNOTE ---
Home Health Liaison met with patient at 1245 to discuss [facility] nurse/therapy, visits, schedule and homebound status.
Patient is declining need for VN. Patient was given brochure with contact number and is aware that her PCP can set up VN if she changes her mind.
CM updated.
[facility] referral cancelled with intake.
--- NOTE | 2023-11-28 13:20 | CM ---
Spoke with attending who stated that patient is medically cleared for discharge with VN. Spoke with Kirstin [facility] liason who stated that she spoke with patient and at this time she does not want VN services. Kirstin gave her the information in the even
that she changes her mind.
Plan: Case management will continue to follow and assist with discharge planning. Home with no needs.
[2023-11-28] MEDS: ATARAX 25 MG PO ×2 (14:23→21:01)
--- NOTE | 2023-11-28 15:21 | W.PN.HOSP.TC ---
Today's Communication/Plan
-
likely dc in am
Assessment / Plan
Assessment / Plan
Physical Exam
General:chronically ill looking, No Apparent Distress
HEENT: NormoCephalic, Moist mucous membranes and Atraumatic
Respiratory: limited, right upper chest port noted.
Cardiac: S1/S2 and Regular Rhythm; No Murmur or Rub
GI: Soft, Non Tender, Non Distended and Normal Bowel Sounds; No Organomegaly
Rectal: no rectal bleeding
Musculoskeletal: No Edema
Skin: No Rash
Neuro: AO x 3 and Nonfocal/grossly intact
Psych: Calm, agitated this morning
#Septic shock
#Neutropenic fever
All resolved
Stopped Abx 11/27.
-no clear source. -Chest x ray questionable pneumonia - CT chest no PNA. Off O2
S/p empiric vancomycin, micafungin, cefepime
- c/w prophylactic acyclovir
-Negative C diff, negative blood cultures.
-Weaned off IV pressors. Started on midodrine TID.
Appreciate ID help
# moderate-sized bilateral pleural effusions. Consolidation in the lung bases likely compressive atelectasis per CT
No sob
No hypoxia
# Anemia
HGB around 6.8, given blood. HGB around 8
# Thrombocytopenia
Could be ITP or infectious related
I agree with steroid trial. Pulse dexamethasone 40 mg QD
S/p plt transfusion on 11/25 with no response
one unit 11/27, to give another unit 11/28
#Adjustment disorder, with mild depression
Seen by psych, recommended to c/w supportive therapy, on an outpatient basis upon return home/when medically stable.� Pt should be able to access via telehealth.
No suicidal thought expressed to us.
Appreciate psychiatry input
# Anxiety
She is anxious and frustrated from ongoing medical issue. High-dose steroid could be contributing to anxiety. Will give low-dose Klonopin for anxiety.
# Neutropenia secondary to chemotherapy. Chronic thrombocytopenia/chronic pancytopenia
Her white count improved
Status post Granix
# None anion gap metabolic acidosis
Resolved
#Hypoxia only.
c/w O2 as needed. Poor inspiratory efforts. Known pulmonary atelectasis.
#hyponatremia
Mild
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
-#pancytopenia
#brain tumor, with just biopsy at this time
-wbc 1.2,hgb 9.0,platelets 31
-ctm
-F/u onc outpatient for further needs
-GCSF given
#Hypokalemia
-monitor and replete
# Hypoxia only. Oxygen saturation down to 85-89 %, improved with 2 L oxygen wean off oxygen as tolerated
hx of CVA
hx of 2 petit-mal seizures 2016
- continue Keppra
#hxt of brain tumor
HLD
-Statin continued
# Anxiety
-hydroxyzine continued
#hx of Asthma
-Not in acute exacerbation
-Albuterol from home continued
#hx of Hep C, related to receiving blood transfusion
#DVT ppx: SCDs
#Code: Full
Total time spent to see the patient on the floor, examine the patient, review data and lab results, discuss treatment plan with patient and nursing staff around 55 minutes
Anticipated Discharge: Within 24 hours
Subjective/Interval History
-
Date of Service: November 28, 2023
No chest pain
No sob
Objective Data
-
Labs:
Laboratory Results
11/28/23
04:35
WBC 1.8 L*
Hgb 8.0 L
Hct 22.7 L
Plt Count 11 L* D
Vital Signs:
Vital Signs
Temp Pulse Resp BP Pulse Ox
97.8 F 77 16 101/55 98
11/28/23 07:52 11/28/23 07:52 11/28/23 07:52 11/28/23 12:16 11/28/23 09:31
I&O
11/27/23 11/28/23 11/29/23
06:59 06:59 06:59
Intake Total 1090 / 1090 1920
Balance 1090 / 1090 1920
[2023-11-28] MEDS: KLONOPIN 0.5 MG PO (21:01)
[2023-11-28] MEDS: LIPITOR 20 MG PO (21:01)
[2023-11-29] VITALS (8 sets, daily range): BP systolic 121–146; BP diastolic 58–70
[2023-11-29 05:13] LABS: Hematocrit 23.5 % (37.0-47.0); Hemoglobin 8.1 g/dL (12.0-16.0); Mean Corp Hgb Conc. 34.5 g/dL (33.0-37.0); Mean Corpuscular Hgb 30.5 pg (27.0-31.0); Mean Corpuscular Volume 88.3 fL (81.0-99.0); Nucleated Red Blood Cells % 1.7 %; Red Blood Cell Count 2.66 10^6/uL (4.20-5.40)
[2023-11-29 05:35] LABS: White Blood Cell Count 1.8 10^3/uL (4.8-10.8)
[2023-11-29 05:39] LABS: Platelet Count 17 10^3/uL (130-400)
[2023-11-29] MEDS: KEPPRA 1000 MG PO ×2 (07:49→19:50)
[2023-11-29] MEDS: DECADRON 40 MG PO (07:49)
[2023-11-29] MEDS: ProAmatine 10 MG PO ×2 (07:50→12:36)
[2023-11-29] MEDS: ZOVIRAX 800 MG PO ×2 (07:51→19:50)
[2023-11-29] MEDS: FEOSOL 325 MG PO (07:51)
[2023-11-29] MEDS: LIDOCAINE 4% PATCH TOPICAL (07:52)
[2023-11-29] MEDS: CLARITIN 10 MG PO (07:52)
[2023-11-29] MEDS: VITAMIN D3 (cholecalciferol) 1000 UNITS PO (07:52)
[2023-11-29] MEDS: FOLVITE 0.800000000000000044 MG PO (07:53)
[2023-11-29] MEDS: GRANIX 300 MCG SC (07:53)
[2023-11-29 10:35] LABS: Band Neutrophils 6 % (0-3); Segmented Neutrophils 33 % (42-75)
[2023-11-29 10:36] LABS: Atypical Lymphocytes 6 %; Lymphocytes 46 % (20-51); Monocytes 9 % (2-9)
[2023-11-29 10:37] LABS: Normal RBC Morphology No; Platelets Checked YES
[2023-11-29 10:38] LABS: Macrocytosis Slight; Ovalocytes FEW; Schistocytes RARE; Target Cells FEW; Tear Drop Red Blood Cells FEW
[2023-11-29 10:39] LABS: Total Cells Counted 100
[2023-11-29 10:54] LABS: Absolute Neutrophils -Man Diff 0.7 10^3/uL (1.4-6.5)
[2023-11-29 12:58] LABS: Mean Corp Hgb Conc. 35.6 g/dL (33.0-37.0); Mean Corpuscular Hgb 31.4 pg (27.0-31.0); Mean Corpuscular Volume 88.2 fL (81.0-99.0); Mean Platelet Volume 11.7 fL (7.4-10.4); Red Blood Cell Count 2.04 10^6/uL (4.20-5.40); Red Cell Dist. Width 16.2 % (11.5-14.5)
--- NOTE | 2023-11-29 13:00 | W.PN.HOSP.TC ---
Today's Communication/Plan
-
repeat CBC
oncology to see
Assessment / Plan
Assessment / Plan
Physical Exam
General:chronically ill looking, No Apparent Distress
HEENT: NormoCephalic, Moist mucous membranes and Atraumatic
Respiratory: limited, right upper chest port noted.
Cardiac: S1/S2 and Regular Rhythm; No Murmur or Rub
GI: Soft, Non Tender, Non Distended and Normal Bowel Sounds; No Organomegaly
Rectal: no rectal bleeding
Musculoskeletal: No Edema
Skin: No Rash
Neuro: AO x 3 and Nonfocal/grossly intact
Psych: Calm, agitated this morning
#Septic shock
#Neutropenic fever
All resolved
Stopped Abx 11/27.
-no clear source. -Chest x ray questionable pneumonia - CT chest no PNA. Off O2
S/p empiric vancomycin, micafungin, cefepime
- c/w prophylactic acyclovir
-Negative C diff, negative blood cultures.
-Weaned off IV pressors. Started on midodrine TID.
Appreciate ID help
# Moderate-sized bilateral pleural effusions. Consolidation in the lung bases likely compressive atelectasis per CT
No sob
No hypoxia
# Anemia
HGB around 6.8, given blood. HGB around 8
# Thrombocytopenia. Platelets at 17
Could be ITP or infectious related
I agree with steroid trial. Pulse dexamethasone 40 mg QD. Pt had to take many pills to reach 40 mg, will change to oral prednisone( pt reported oral prednisone helped her counts in past more than IV)
d/w oncology, repeat CBC this noon and if plt trending up then can go home
S/p plt transfusion on 11/25 ,,
#Adjustment disorder, with mild depression
Seen by psych, recommended to c/w supportive therapy, on an outpatient basis upon return home/when medically stable.� Pt should be able to access via telehealth.
No suicidal thought expressed to us.
Appreciate psychiatry input
# Anxiety
She is anxious and frustrated from ongoing medical issue. High-dose steroid could be contributing to anxiety. We did low-dose Klonopin HS for anxiety.
# Neutropenia secondary to chemotherapy. Chronic thrombocytopenia/chronic pancytopenia
Her white count improved
Status post Granix
# None anion gap metabolic acidosis
Resolved
#Hypoxia only.
c/w O2 as needed. Poor inspiratory efforts. Known pulmonary atelectasis.
#hyponatremia
Mild
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
-#pancytopenia
#brain tumor, with just biopsy at this time
-wbc 1.2,hgb 9.0,platelets 31
-ctm
-F/u onc outpatient for further needs
-GCSF given
#Hypokalemia
-monitor and replete
# Hypoxia only. Oxygen saturation down to 85-89 %, improved with 2 L oxygen wean off oxygen as tolerated
hx of CVA
hx of 2 petit-mal seizures 2016
- continue Keppra
#hxt of brain tumor
HLD
-Statin continued
# Anxiety
-hydroxyzine continued
#hx of Asthma
-Not in acute exacerbation
-Albuterol from home continued
#hx of Hep C, related to receiving blood transfusion
#DVT ppx: SCDs
#Code: Full
Total time spent to see the patient on the floor, examine the patient, review data and lab results, discuss treatment plan with patient and nursing staff around 55 minutes
Anticipated Discharge: Within 24 hours
Subjective/Interval History
-
Date of Service: November 29, 2023
No pain issues
no fevers or chills
No bleeding
Objective Data
-
Labs:
Laboratory Results
11/29/23 11/29/23
04:48 12:48
WBC 1.8 L* Pending
Hgb 8.1 L Pending
Hct 23.5 L Pending
Plt Count 17 L* D Pending
Vital Signs:
Vital Signs
Temp Pulse Resp BP Pulse Ox
97.4 F 66 16 130/62 96
11/29/23 11:26 11/29/23 12:36 11/29/23 11:26 11/29/23 12:36 11/29/23 11:26
I&O
11/28/23 11/29/23 11/30/23
06:59 06:59 06:59
Intake Total 1920 960 / 960
Balance 1920 960 / 960
[2023-11-29 13:10] LABS: Hemoglobin 6.4 g/dL (12.0-16.0); Platelet Count 12 10^3/uL (130-400); White Blood Cell Count 1.4 10^3/uL (4.8-10.8)
[2023-11-29] MEDS: ProAmatine PO (17:24)
[2023-11-29] MEDS: ATARAX 25 MG PO (19:50)
[2023-11-29] MEDS: KLONOPIN 0.5 MG PO (21:12)
[2023-11-29] MEDS: LIPITOR 20 MG PO (21:12)
--- NOTE | 2023-11-29 22:47 | W.PN.ONC ---
Today's Communication / Plan
-
adjust CSF/prednisone
Impression
Impression
Neutropenic fevers (resolved)
Acute on chronic hypotension (pressors weaned)
Chronic pancytopenia
Acute on chronic thrombocytopenia w/ splenomegaly
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
Hx brain mass s/p biopsy (01/2023)
Acute anxiety/depression
Plan
Plan
increase CSF to 480mcg/day and increase prednisone to 50mg/day -- for transfusion pRBCs
Subjective/Objective
Subjective/Objective
feeling well though fatigued--
Vital Signs:
Vital Signs
Temp Pulse Resp BP Pulse Ox
97.5 F 65 18 144/68 95
11/29/23 20:15 11/29/23 20:15 11/29/23 20:15 11/29/23 20:15 11/29/23 19:00
Lab Results:
Laboratory Data
WBC 1.4 10^3/uL (4.8-10.8) L* 11/29/23 12:48
Hgb 6.4 g/dL (12.0-16.0) L* D 11/29/23 12:48
Plt Count 12 10^3/uL (130-400) L* D 11/29/23 12:48
PT 17.6 Sec (11.4-14.6) H 11/21/23 17:53
INR 1.41 11/21/23 17:53
APTT 43.6 Sec (23.4-35.0) H 11/21/23 17:53
APTT Cancelled 11/21/23 17:53
eGFR > 60.00 11/27/23 06:29
Orders
Orders
Orders From Last 24 Hours
11/30/23 08:00
Prednisone [Deltasone] 50 mg PO DAILY
Tbo-Filgrastim [Granix] 480 mcg SC DAILY
[2023-11-30 03:15] VITALS: BP 133/67
[2023-11-30 07:54] VITALS: BP 127/65
[2023-11-30 08:31] LABS: Hematocrit 27.8 % (37.0-47.0); Hemoglobin 9.4 g/dL (12.0-16.0); Mean Corp Hgb Conc. 33.8 g/dL (33.0-37.0); Mean Corpuscular Hgb 30.8 pg (27.0-31.0); Mean Corpuscular Volume 91.1 fL (81.0-99.0); Red Blood Cell Count 3.05 10^6/uL (4.20-5.40); Red Cell Dist. Width 15.9 % (11.5-14.5)
[2023-11-30 08:52] LABS: White Blood Cell Count 1.8 10^3/uL (4.8-10.8)
[2023-11-30 08:53] LABS: Platelet Count 15 10^3/uL (130-400)
[2023-11-30] MEDS: ProAmatine 10 MG PO (09:32)
[2023-11-30] MEDS: VITAMIN D3 (cholecalciferol) 1000 UNITS PO (09:32)
[2023-11-30] MEDS: DELTASONE 50 MG PO (09:32)
[2023-11-30] MEDS: ZOVIRAX 800 MG PO ×2 (09:32→19:47)
[2023-11-30] MEDS: FEOSOL 325 MG PO (09:36)
[2023-11-30] MEDS: KEPPRA 1000 MG PO ×2 (09:36→19:47)
[2023-11-30] MEDS: ProAmatine PO ×3 (09:36→17:36)
[2023-11-30] MEDS: LIDOCAINE 4% PATCH 1 PATCH TOPICAL (09:36)
[2023-11-30] MEDS: FOLVITE 0.800000000000000044 MG PO (09:40)
[2023-11-30] MEDS: CLARITIN 10 MG PO (09:40)
[2023-11-30] MEDS: GRANIX 480 MCG SC (10:50)
[2023-11-30 11:44] LABS: Segmented Neutrophils 35 % (42-75)
[2023-11-30 11:45] LABS: Absolute Neutrophils -Man Diff 0.7 10^3/uL (1.4-6.5); Atypical Lymphocytes 5 %; Band Neutrophils 8 % (0-3); Lymphocytes 47 % (20-51); Monocytes 5 % (2-9)
[2023-11-30 11:46] LABS: Anisocytosis Slight; Normal RBC Morphology No; Nucleated Red Blood Cells 3 (-); Platelets Checked YES
[2023-11-30 11:48] LABS: Target Cells FEW
[2023-11-30 11:50] LABS: Tear Drop Red Blood Cells FEW; Total Cells Counted 100
[2023-11-30 11:51] LABS: Ovalocytes FEW
--- NOTE | 2023-11-30 13:34 | W.PN.HOSP.TC ---
Today's Communication/Plan
-
f/w oncology recommendations
Assessment / Plan
Assessment / Plan
Physical Exam
General:chronically ill looking, No Apparent Distress
HEENT: NormoCephalic, Moist mucous membranes and Atraumatic
Respiratory: limited, right upper chest port noted.
Cardiac: S1/S2 and Regular Rhythm; No Murmur or Rub
GI: Soft, Non Tender, Non Distended and Normal Bowel Sounds; No Organomegaly
Rectal: no rectal bleeding
Musculoskeletal: No Edema
Skin: No Rash
Neuro: AO x 3 and Nonfocal/grossly intact
Psych: Calm, agitated this morning
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
-#pancytopenia
#brain tumor, with just biopsy at this time
Oncology evaluating her counts
d/w oncology, possible underlying BM disease causing significant pancytopenia
-GCSF given , increased dose on 11/29
#Septic shock
#Neutropenic fever
All resolved
Stopped Abx 11/27.
-no clear source. -Chest x ray questionable pneumonia - CT chest no PNA. Off O2
S/p empiric vancomycin, micafungin, cefepime
- c/w prophylactic acyclovir
-Negative C diff, negative blood cultures.
-Weaned off IV pressors. Started on midodrine TID.
Appreciate ID help
# Moderate-sized bilateral pleural effusions. Consolidation in the lung bases likely compressive atelectasis per CT
No sob
No hypoxia
# Anemia
HGB around 6.8, given blood. HGB around 6 on 11/29, given another unit.
HGB 11/30 9.4
# Thrombocytopenia. Platelets at 15
Could be ITP or infectious related
I agree with steroid trial. Pulse dexamethasone 40 mg QD. Pt had to take many pills to reach 40 mg, will change to oral prednisone( pt reported oral prednisone helped her counts in past more than IV)
d/w oncology, repeat CBC this noon and if plt trending up then can go home
S/p plt transfusion on 11/25 ,,.
#Adjustment disorder, with mild depression
Seen by psych, recommended to c/w supportive therapy, on an outpatient basis upon return home/when medically stable.� Pt should be able to access via telehealth.
No suicidal thought expressed to us.
Appreciate psychiatry input
# Anxiety
She is anxious and frustrated from ongoing medical issue. High-dose steroid could be contributing to anxiety. We did low-dose Klonopin HS for anxiety.
# Neutropenia secondary to chemotherapy. Chronic thrombocytopenia/chronic pancytopenia
Her white count improved
Status post Granix
# None anion gap metabolic acidosis
Resolved
#Hypoxia only.
c/w O2 as needed. Poor inspiratory efforts. Known pulmonary atelectasis.
#hyponatremia
Mild
#Hypokalemia
-monitor and replete
hx of CVA
hx of 2 petit-mal seizures 2016
- continue Keppra
#hxt of brain tumor
HLD
-Statin continued
#hx of Asthma
-Not in acute exacerbation
-Albuterol from home continued
#hx of Hep C, related to receiving blood transfusion
#DVT ppx: SCDs
#Code: Full
Total time spent to see the patient on the floor, examine the patient, review data and lab results, discuss treatment plan with patient and nursing staff around 57 minutes
Anticipated Discharge: > 48 hours
Subjective/Interval History
-
Date of Service: November 30, 2023
No bleeding
No fevers
Objective Data
-
Labs:
Laboratory Results
11/30/23
07:55
WBC 1.8 L*
Hgb 9.4 L D
Hct 27.8 L
Plt Count 15 L* D
Vital Signs:
Vital Signs
Temp Pulse Resp BP Pulse Ox
97.8 F 58 16 127/65 93
11/30/23 07:54 11/30/23 07:54 11/30/23 07:54 11/30/23 07:54 11/30/23 07:54
I&O
11/29/23 11/30/23 12/01/23
06:59 06:59 06:59
Intake Total 1781 / 1781 1690 / 1690
Balance 1781 / 1781 1690 / 1690
[2023-11-30 14:50] VITALS: BP 130/66
[2023-11-30 19:46] VITALS: BP 119/60
[2023-11-30] MEDS: ATARAX 25 MG PO (19:52)
[2023-11-30] MEDS: LIPITOR 20 MG PO (21:29)
[2023-11-30] MEDS: KLONOPIN 0.5 MG PO (21:30)
[2023-11-30 23:00] VITALS: BP 146/75
[2023-12-01] VITALS (7 sets, daily range): BP systolic 114–153; BP diastolic 56–80; PULSE 72; O2SAT 96
[2023-12-01 06:39] LABS: Hematocrit 27.7 % (37.0-47.0); Hemoglobin 9.4 g/dL (12.0-16.0); Mean Corp Hgb Conc. 33.9 g/dL (33.0-37.0); Mean Corpuscular Hgb 30.5 pg (27.0-31.0); Mean Corpuscular Volume 89.9 fL (81.0-99.0); Red Blood Cell Count 3.08 10^6/uL (4.20-5.40); Red Cell Dist. Width 15.9 % (11.5-14.5); White Blood Cell Count 2.7 10^3/uL (4.8-10.8)
[2023-12-01 06:42] LABS: ALT (SGPT) 29 U/L (0-35); AST (SGOT) 21 U/L (14-36); Albumin 2.8 g/dl (3.5-5.0); Alkaline Phosphatase 84 U/L (38-126); Blood Urea Nitrogen 25 mg/dl (7-17); Carbon Dioxide 24 mmol/L (22-30); Chloride 104 mmol/L (98-107); Estimated Creatinine Clearance 58 ml/min; Glucose 98 mg/dl (70-99); Potassium 3.6 mmol/L (3.5-5.1); Sodium 139 mmol/L (135-145); Total Bilirubin 1.2 mg/dl (0.2-1.3); Total Protein 4.8 g/dl (6.3-8.2); eGFR > 60.00
[2023-12-01 06:50] LABS: Platelet Count 13 10^3/uL (130-400)
[2023-12-01] MEDS: CLARITIN 10 MG PO (07:42)
[2023-12-01] MEDS: FOLVITE 0.800000000000000044 MG PO (07:42)
[2023-12-01] MEDS: ProAmatine 10 MG PO ×2 (07:42→14:12)
[2023-12-01] MEDS: KEPPRA 1000 MG PO ×2 (07:42→19:16)
[2023-12-01] MEDS: ZOVIRAX 800 MG PO ×2 (07:42→19:16)
[2023-12-01] MEDS: DELTASONE 50 MG PO (07:42)
[2023-12-01] MEDS: VITAMIN D3 (cholecalciferol) 1000 UNITS PO (07:42)
[2023-12-01] MEDS: FEOSOL 325 MG PO (07:42)
[2023-12-01] MEDS: LIDOCAINE 4% PATCH TOPICAL ×2 (07:43→07:51)
[2023-12-01] MEDS: GRANIX 480 MCG SC (07:43)
--- NOTE | 2023-12-01 11:58 | W.PN.ONC ---
Today's Communication / Plan
-
12/01 WBC 2.7,�Hgb 9.4,�Hct 27.7,�PLT 13,�ANC 700
Neutropenic precautions
Transfuse as needed to maintain Hgb >7, PLT >10
s/p 2unit pRBCs, 3units platelets
Holding Methotrexate for PLT <50
Granix dose increased to 480mcg on 11/29
Continue Granix daily for ANC <1500
CBC w/ diff daily, must include differential to assess ANC
Continue Prednisone at increased dose of 50mg QD; monitor response
Psych following; emotional support
Discharge planning home with [facility] services if patient agreeable.
We will continue to follow.
Impression
Impression
Neutropenic fever (resolved)
Acute on chronic hypotension (resolved)
Chronic pancytopenia
Acute on chronic thrombocytopenia w/ hx splenomegaly
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
Hx brain mass s/p biopsy (01/2023)
Acute anxiety/depression
Fatigue/weakness
Subjective/Objective
Subjective/Objective
patient is sleeping between care.
Vital Signs:
Vital Signs
Temp Pulse Resp BP Pulse Ox
97.7 F 67 18 142/65 94
12/01/23 11:00 12/01/23 11:00 12/01/23 11:00 12/01/23 11:00 12/01/23 11:00
physical exam unchanged.
Lab Results:
Laboratory Data
WBC 2.7 10^3/uL (4.8-10.8) L 12/01/23 05:49
Hgb 9.4 g/dL (12.0-16.0) L 12/01/23 05:49
Plt Count 13 10^3/uL (130-400) L* 12/01/23 05:49
PT 17.6 Sec (11.4-14.6) H 11/21/23 17:53
INR 1.41 11/21/23 17:53
APTT 43.6 Sec (23.4-35.0) H 11/21/23 17:53
APTT Cancelled 11/21/23 17:53
eGFR > 60.00 12/01/23 05:49
--- NOTE | 2023-12-01 12:00 | W.PN.ONC2 ---
Today's Communication / Plan
-
- methotrexate level now
- IV leucovorin if detectable MTX level
- diagnostic/therapeutic tap of the effusions, eval for mtx
If MTX level undetectable then she needs inpt bone marrow biopsy. Would also discuss case with Dr. Chaudhary. Pt does not want to transfer to [facility].
For now, continue increased GCSF at 480mcg/day and continue prednisone at increased dose of 50mg/day.
Consider IVIg if ITP suspected, would work faster than steroid and is usually effective.
Impression
Impression
Neutropenic fevers (resolved)
Acute on chronic hypotension (pressors weaned)
Chronic pancytopenia
Acute on chronic thrombocytopenia w/ splenomegaly
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
Hx brain mass s/p excisional biopsy (01/2023), confirmed lymphocytic infiltrate on path
Acute anxiety/depression
Pleural effusions, moderate b/l
Plan
Plan
MTX can accumulate and persist in body fluids such as pleural effusion. Suspect this may be the reason for her continued cytopenias.
Counts were at baseline through 11/17/23 so bone marrow process seems less likely.
Plan:
- methotrexate level now
- leucovorin if detectable MTX level
- diagnostic/therapeutic tap of the effusions, eval for mtx
If MTX level undetectable then she needs inpt bone marrow biopsy. Would also discuss case with Dr. Chaudhary. Pt does not want to transfer to [facility].
For now, continue increased GCSF at 480mcg/day and continue prednisone at increased dose of 50mg/day.
Consider IVIg if ITP suspected, would work faster than steroid and is usually effective.
Subjective/Objective
Chief Complaint
Heme/Onc follow up of pancytopenia
Subjective
Denies new complaint
Vital Signs:
Vital Signs
Temp Pulse Resp BP Pulse Ox
97.7 F 67 18 142/65 94
12/01/23 11:00 12/01/23 11:00 12/01/23 11:00 12/01/23 11:00 12/01/23 11:00
Lab Results:
Laboratory Data
WBC 2.7 10^3/uL (4.8-10.8) L 12/01/23 05:49
Hgb 9.4 g/dL (12.0-16.0) L 12/01/23 05:49
Plt Count 13 10^3/uL (130-400) L* 12/01/23 05:49
PT 17.6 Sec (11.4-14.6) H 11/21/23 17:53
INR 1.41 11/21/23 17:53
APTT 43.6 Sec (23.4-35.0) H 11/21/23 17:53
APTT Cancelled 11/21/23 17:53
eGFR > 60.00 12/01/23 05:49
Physical Exam
Awake, alert, pale, non-toxic
Review of Systems
Review of Systems
Constitutional: Reports Fatigue; Denies Fever
Head: Denies Sore Throat
Respiratory: Denies Dyspnea or Cough
Cardiovascular: Denies Chest Pain
Gastrointestinal: Denies Nausea/Vomiting or Diarrhea
Genitourinary: Denies Hematuria
Skin: Denies Rash or Pruritis
Neurological: Denies Headache
Hem/Lymphatic: Reports Easy Bruising
Orders
Orders
Orders From Last 24 Hours
12/01/23 11:41
Methotrexate, Sensitive [S] Urgent
--- NOTE | 2023-12-01 14:10 | W.PN.UPDATE ---
Update Note
Progress Note Update
Pt seen, chart reviewed. Pt states she feels tired; affect is appropriate, mildly dysphoric. Pt states the anti-anxiety med (clonazepam) at HS is helping with anxiety and helping her sleep. Pt declines antidepressant med- denies needing, as
discussed before.
Imp: �Adjustment d/o, with mild depression, stable on current mgt
Rec:� Supportive therapy, on an outpatient basis upon return home/when medically stable.
�� � � Psychiatry will sign off; please reconsult for any new concerns
[2023-12-01] MEDS: ATARAX 25 MG PO ×2 (14:25→19:16)
--- NOTE | 2023-12-01 14:29 | W.PN.HOSP.TC ---
Today's Communication/Plan
-
prednisone
GCSF at 480mcg/day�
Thoracentesis diag/therapeutic
TMX level
Assessment / Plan
Assessment / Plan
Physical Exam
General:chronically ill looking, No Apparent Distress
HEENT: NormoCephalic, Moist mucous membranes and Atraumatic
Respiratory: limited, right upper chest port noted.
Cardiac: S1/S2 and Regular Rhythm; No Murmur or Rub
GI: Soft, Non Tender, Non Distended and Normal Bowel Sounds; No Organomegaly
Rectal: no rectal bleeding
Musculoskeletal: No Edema
Skin: No Rash
Neuro: AO x 3 and Nonfocal/grossly intact
Psych: Calm, agitated this morning
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
-#pancytopenia
#brain tumor, with just biopsy at this time
Oncology evaluating her counts
d/w oncology, possible underlying BM disease causing significant pancytopenia
-GCSF given , increased dose on 11/29
-could be related to methotrexalte accumulated in pleural fluid
-f/u methotrexate level now
� IV leucovorin if detectable methotrexate level
� Diagnostic/therapeutic Effusions, eval for methotrexate
#Septic shock
#Neutropenic fever
All resolved
Stopped Abx 11/27.
-no clear source. -Chest x ray questionable pneumonia - CT chest no PNA. Off O2
S/p empiric vancomycin, micafungin, cefepime
- c/w prophylactic acyclovir
-Negative C diff, negative blood cultures.
-Weaned off IV pressors. Started on midodrine TID.
Appreciate ID help
# Moderate-sized bilateral pleural effusions. Consolidation in the lung bases likely compressive atelectasis per CT
No sob
No hypoxia
� Eval for thoracentesis
# Anemia
HGB around 6.8, given blood. HGB around 6 on 11/29, given another unit.
HGB 11/30 9.4
# Thrombocytopenia. Platelets at 15
Could be ITP or infectious related
I agree with steroid trial. Pulse dexamethasone 40 mg QD. Pt had to take many pills to reach 40 mg, will change to oral prednisone( pt reported oral prednisone helped her counts in past more than IV)
d/w oncology, repeat CBC this noon and if plt trending up then can go home
S/p plt transfusion on 11/25 ,,.
see plan above
#Adjustment disorder, with mild depression
Seen by psych, recommended to c/w supportive therapy, on an outpatient basis upon return home/when medically stable.� Pt should be able to access via telehealth.
No suicidal thought expressed to us.
Appreciate psychiatry input
# Anxiety
She is anxious and frustrated from ongoing medical issue. High-dose steroid could be contributing to anxiety. We did low-dose Klonopin HS for anxiety.
# Neutropenia secondary to chemotherapy. Chronic thrombocytopenia/chronic pancytopenia
Her white count improved
Status post Granix
increased granix dosing
# None anion gap metabolic acidosis
Resolved
#Hypoxia only.
c/w O2 as needed. Poor inspiratory efforts. Known pulmonary atelectasis.
resolved
#hyponatremia
Mild
#Hypokalemia
-monitor and replete
hx of CVA
hx of 2 petit-mal seizures 2016
- continue Keppra
#hxt of brain tumor
HLD
-Statin continued
#hx of Asthma
-Not in acute exacerbation
-Albuterol from home continued
#hx of Hep C, related to receiving blood transfusion
#DVT ppx: SCDs
#Code: Full
Total time spent on today's encounter was 51 minutes which included time spent in counseling the patient/family regarding diagnosis and treatment plan as listed above, goals of care, and symptom management. Case was discussed with nursing staff,
specialists, and care coordinators/case management. All labs and imaging personally reviewed by me. Remainder the time spent in detailed review of previous records, lab data, imaging, and other medical provider documentation.
Anticipated Discharge: > 48 hours
Subjective/Interval History
-
Date of Service: December 01, 2023
no acute events
Objective Data
-
Labs:
Laboratory Results
12/01/23
05:49
WBC 2.7 L
Hgb 9.4 L
Hct 27.7 L
Plt Count 13 L*
Sodium 139
Potassium 3.6
Chloride 104
Carbon Dioxide 24
BUN 25 H
Creatinine 0.5 L
Glucose 98
Calcium 8.0 L
Total Bilirubin 1.2
AST 21
ALT 29
Alkaline Phosphatase 84
Vital Signs:
Vital Signs
Temp Pulse Resp BP Pulse Ox
97.7 F 67 18 115/61 94
12/01/23 11:00 12/01/23 11:00 12/01/23 11:00 12/01/23 14:12 12/01/23 11:00
I&O
11/30/23 12/01/23 12/02/23
06:59 06:59 06:59
Intake Total 1690 / 1690 240 / 240 960 / 960
Balance 1690 / 1690 240 / 240 960 / 960
Review of Systems
-
History Source: Patient
All other systems: Reviewed and negative
Physical Exam
-
General: No Apparent Distress
HEENT: Normocephalic and Atraumatic
Respiratory: Rhonchi; Negative Wheezes or Rales
Cardiac: Regular Rhythm and S1/S2
GI: Soft
Genito-urinary: No Costovertebral Tender
Musculoskeletal: No Edema
Neuro: AO x 3
Hematologic / Lymphatic: No Lymphadenopathy
Psych: Calm
Data Reviewed
-
Labs: Labs Reviewed by me
--- NOTE | 2023-12-01 16:22 | CM ---
Per VN notes, patient is declining homecare. Patient not yet medically cleared for d/c.
Plan: Case management will continue to follow and assist with discharge planning. Patient would like to return home when stable.
[2023-12-01] MEDS: ProAmatine PO (17:43)
[2023-12-01] MEDS: KLONOPIN 0.5 MG PO (21:08)
[2023-12-01] MEDS: LIPITOR 20 MG PO (21:08)
[2023-12-02] VITALS (8 sets, daily range): BP systolic 62–123; BP diastolic 53–68
[2023-12-02 05:10] LABS: % Basophils 0.7 % (0-2); % Immature Granulocytes 0.2 % (0-0.5); % Lymphocytes 58.2 % (20.5-51.1); % Neutrophils 36.9 % (42.2-75.2); Absolute Lymphocytes 2.6 10^3/uL (1.2-3.4); Absolute Monocytes 0.2 10^3/uL (0.1-0.6); Absolute Neutrophils 1.6 10^3/uL (1.4-6.5); Hematocrit 30.6 % (37.0-47.0); Hemoglobin 10.4 g/dL (12.0-16.0); Mean Corpuscular Hgb 31.3 pg (27.0-31.0); Mean Corpuscular Volume 92.2 fL (81.0-99.0); Nucleated Red Blood Cells % 0 %; Red Blood Cell Count 3.32 10^6/uL (4.20-5.40); White Blood Cell Count 4.5 10^3/uL (4.8-10.8)
[2023-12-02 05:22] LABS: Platelet Count 16 10^3/uL (130-400)
[2023-12-02 05:40] LABS: ALT (SGPT) 31 U/L (0-35); AST (SGOT) 21 U/L (14-36); Albumin 2.8 g/dl (3.5-5.0); Alkaline Phosphatase 95 U/L (38-126); Blood Urea Nitrogen 27 mg/dl (7-17); Calcium 8.1 mg/dl (8.4-10.2); Carbon Dioxide 25 mmol/L (22-30); Chloride 104 mmol/L (98-107); Estimated Creatinine Clearance 58 ml/min; Glucose 94 mg/dl (70-99); Potassium 3.7 mmol/L (3.5-5.1); Sodium 139 mmol/L (135-145); Total Bilirubin 1.3 mg/dl (0.2-1.3); Total Protein 4.8 g/dl (6.3-8.2); eGFR > 60.00
[2023-12-02] MEDS: CLARITIN 10 MG PO (08:07)
[2023-12-02] MEDS: ZOVIRAX 800 MG PO ×2 (08:08→19:19)
[2023-12-02] MEDS: FEOSOL 325 MG PO (08:08)
[2023-12-02] MEDS: VITAMIN D3 (cholecalciferol) 25 MCG PO (08:08)
[2023-12-02] MEDS: ProAmatine 10 MG PO ×3 (08:08→17:26)
[2023-12-02] MEDS: DELTASONE 50 MG PO (08:08)
[2023-12-02] MEDS: KEPPRA 1000 MG PO ×2 (08:08→19:19)
[2023-12-02] MEDS: FOLVITE 0.800000000000000044 MG PO (08:08)
[2023-12-02] MEDS: GRANIX SC (08:09)
[2023-12-02] MEDS: LIDOCAINE 4% PATCH TOPICAL (08:09)
--- NOTE | 2023-12-02 08:24 | W.PN.ONC ---
Addendum entered and electronically signed by Ana Maria Zacarias MD 12/02/23 10:43:
Patient seen and examined, agree w/ A&P as below. I called patient's and discussed plan as well.
MTX may be to blame for pleural effusions, fever, nausea. Would continue to hold
Await fluid studies on pleural fluid, for bilateral thoracentesis today, after plt transfusions
serum MTX level pending, to be tested on pleural fluid as well. Will consider leucovorin rescue if MTX level still detectable
Okay to hold GRANIX per 's wishes - rarely can cause thrombocytopenia as well
Will wean off steroids over the next week, has not helped platelet count
t/c bone marrow biopsy as inpt if above w/u unrevealing and/or no improvement in CBC
Original Note:
Today's Communication / Plan
-
12/02 WBC 4.5,�Hgb 10.4,�Hct 30.6,�PLT 16,�ANC 700
Neutropenic precautions; bleeding precautions
Transfuse as needed to maintain Hgb >7, PLT >10
s/p 2unit pRBCs, 3units platelets
Holding Methotrexate for PLT <50
Granix dose was increased to 480mcg on 11/29
HOLD Granix
CBC w/ diff daily (must include differential to assess ANC)
Continue Prednisone 50mg; recommend beginning a slow taper and monitoring
[facility] consult for thoracentesis: 1unit platelets ordered to be transfused prior/during procedure
Pleural fluid orders: cell counts, flow cytology, protein, LDH, glucose, and methotrexate level
Per Dr. Pate - if MTX level is undetectable - plan for inpatient bone marrow biopsy
Impression
Impression
Neutropenic fevers (resolved)
Acute on chronic hypotension (pressors weaned)
Chronic pancytopenia
Acute on chronic thrombocytopenia w/ hx splenomegaly
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
Hx brain mass s/p excisional biopsy (01/2023), confirmed lymphocytic infiltrate on path
Acute anxiety/depression
Pleural effusions, moderate b/l
Subjective/Objective
Subjective/Objective
Patient states she is discouraged/sad/frustrated/angry at her situation. She feels OK but fatigued. She is struggling emotionally as the past year has been very difficult for her with repeated hospitalizations. She reports she lives with her
, daughter, and 14 month-old granddaughter and has a good support system at home. She is tolerating breakfast during our conversation. she denies pain, N/V/D, fever or chills. She is interested in outpatient psych/counseling upon discharge.
Vital Signs:
Vital Signs
Temp Pulse Resp BP Pulse Ox
98.2 F 73 14 98/58 97
12/02/23 07:54 12/02/23 07:54 12/02/23 07:54 12/02/23 08:08 12/02/23 08:21
physical exam:
aaox3, flat affect, chronically ill appearing
R chest wall port
HRR, lungs dim/clear, room air
no edema
Lab Results:
Laboratory Data
WBC 4.5 10^3/uL (4.8-10.8) L 12/02/23 04:44
Hgb 10.4 g/dL (12.0-16.0) L 12/02/23 04:44
Plt Count 16 10^3/uL (130-400) L* D 12/02/23 04:44
PT 17.6 Sec (11.4-14.6) H 11/21/23 17:53
INR 1.41 11/21/23 17:53
APTT 43.6 Sec (23.4-35.0) H 11/21/23 17:53
APTT Cancelled 11/21/23 17:53
eGFR > 60.00 12/02/23 04:44
Orders
Orders
Orders From Last 24 Hours
12/01/23 13:35
[facility] Cytology Routine
12/01/23 13:36
Body Fluid Cell Count Urgent
Body Fluid Glucose Urgent
Body Fluid LDH Urgent
Body Fluid Protein Urgent
--- NOTE | 2023-12-02 08:42 | W.PN.UPDATE ---
Update Note
Progress Note Update
We have an order for thoracentesis. Patient needs platelets given prior to proceeding. We need platelet level to be above 20,000. Thank you
[2023-12-02] MEDS: ATARAX 25 MG PO ×2 (12:37→21:03)
--- NOTE | 2023-12-02 13:19 | W.PN.HOSP.TC ---
Today's Communication/Plan
-
Holding Granix
Platelet transfusion
Thoracentesis today
Pending methotrexate
Assessment / Plan
Assessment / Plan
Physical Exam
General:chronically ill looking, No Apparent Distress
HEENT: NormoCephalic, Moist mucous membranes and Atraumatic
Respiratory: limited, right upper chest port noted.
Cardiac: S1/S2 and Regular Rhythm; No Murmur or Rub
GI: Soft, Non Tender, Non Distended and Normal Bowel Sounds; No Organomegaly
Rectal: no rectal bleeding
Musculoskeletal: No Edema
Skin: No Rash
Neuro: AO x 3 and Nonfocal/grossly intact
Psych: Calm, agitated this morning
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
-#pancytopenia
#brain tumor, with just biopsy at this time
Oncology evaluating her counts
d/w oncology, possible underlying BM disease causing significant pancytopenia
-GCSF given , increased dose on 11/29
-could be related to methotrexalte accumulated in pleural fluid
-f/u methotrexate level now
� IV leucovorin if detectable methotrexate level
� Diagnostic/therapeutic Effusions, eval for methotrexate�will need transfuse to ensure platelets over 20,000
#Septic shock
#Neutropenic fever
All resolved
Stopped Abx 11/27.
-no clear source. -Chest x ray questionable pneumonia - CT chest no PNA. Off O2
S/p empiric vancomycin, micafungin, cefepime
- c/w prophylactic acyclovir
-Negative C diff, negative blood cultures.
-Weaned off IV pressors. Started on midodrine TID.
Appreciate ID help
# Moderate-sized bilateral pleural effusions. Consolidation in the lung bases likely compressive atelectasis per CT
No sob
No hypoxia
� Eval for thoracentesis
# Anemia
HGB around 6.8, given blood. HGB around 6 on 11/29, given another unit.
HGB 11/30 9.4
# Thrombocytopenia. Platelets at 15
Could be ITP or infectious related
Planning on weaning steroids over the next week, has not assisted in increased platelet count
� As per , wants to hold on Granix as due to low likelihood of thrombocytopenia
d/w oncology, repeat CBC this noon and if plt trending up then can go home
S/p plt transfusion on 11/25 ,,.
see plan above
� Transfuse 1 unit platelets today for thoracentesis
#Adjustment disorder, with mild depression
Seen by psych, recommended to c/w supportive therapy, on an outpatient basis upon return home/when medically stable.� Pt should be able to access via telehealth.
No suicidal thought expressed to us.
Appreciate psychiatry input
# Anxiety
She is anxious and frustrated from ongoing medical issue. High-dose steroid could be contributing to anxiety. We did low-dose Klonopin HS for anxiety.
# Neutropenia secondary to chemotherapy. Chronic thrombocytopenia/chronic pancytopenia
Her white count improved
Status post Granix
holdign Granix
# None anion gap metabolic acidosis
Resolved
#Hypoxia only.
c/w O2 as needed. Poor inspiratory efforts. Known pulmonary atelectasis.
resolved
#hyponatremia
Mild
#Hypokalemia
-monitor and replete
hx of CVA
hx of 2 petit-mal seizures 2016
- continue Keppra
#hxt of brain tumor
HLD
-Statin continued
#hx of Asthma
-Not in acute exacerbation
-Albuterol from home continued
#hx of Hep C, related to receiving blood transfusion
#DVT ppx: SCDs
#Code: Full
Total time spent on today's encounter was 55 minutes which included time spent in counseling the patient/family regarding diagnosis and treatment plan as listed above, goals of care, and symptom management. Case was discussed with nursing staff,
specialists, and care coordinators/case management. All labs and imaging personally reviewed by me. Remainder the time spent in detailed review of previous records, lab data, imaging, and other medical provider documentation.
Anticipated Discharge: > 48 hours
Subjective/Interval History
-
Date of Service: December 02, 2023
No acute events overnight
Objective Data
-
Labs:
Laboratory Results
12/02/23
04:44
WBC 4.5 L
Hgb 10.4 L
Hct 30.6 L
Plt Count 16 L* D
Sodium 139
Potassium 3.7
Chloride 104
Carbon Dioxide 25
BUN 27 H
Creatinine 0.5 L
Glucose 94
Calcium 8.1 L
Total Bilirubin 1.3
AST 21
ALT 31
Alkaline Phosphatase 95
Vital Signs:
Vital Signs
Temp Pulse Resp BP Pulse Ox
98 F 68 16 113/55 97
12/02/23 11:15 12/02/23 11:15 12/02/23 11:15 12/02/23 12:17 12/02/23 11:15
I&O
12/01/23 12/02/23 12/03/23
06:59 06:59 06:59
Intake Total 240 / 240 1640 / 1640 287 / 287
Balance 240 / 240 1640 / 1640 287 / 287
Review of Systems
-
History Source: Patient
All other systems: Not reviewed unless documented
Physical Exam
-
General: No Apparent Distress
HEENT: Normocephalic and Atraumatic
Respiratory: Rhonchi; Negative Wheezes or Rales
Cardiac: Regular Rhythm and S1/S2
GI: Soft
Genito-urinary: No Costovertebral Tender
Musculoskeletal: No Edema
Neuro: AO x 3
Hematologic / Lymphatic: No Lymphadenopathy
Psych: Calm
Data Reviewed
-
Diagnostic Radiology: Image personally visualized and interpreted and Report Reviewed by me
CT Scan: Image personally visualized and interpreted and Report Reviewed by me
Labs: Labs Reviewed by me
[2023-12-02 13:38] LABS: Methotrexate, Sensitive <0.05 umol/L
[2023-12-02 16:22] LABS: Body Fluid Glucose 125 mg/dl; Body Fluid LDH 182 U/L; Body Fluid Protein 2.3 g/dl
--- NOTE | 2023-12-02 19:08 | PTCARENOTE ---
Pt. transferred from tele to med surg. Discussed change with . Pt. has been in NSR showing no changes since being on tele 17 days ago.
[2023-12-02] MEDS: KLONOPIN 0.5 MG PO (21:03)
[2023-12-02] MEDS: LIPITOR 20 MG PO (21:03)
[2023-12-03 00:05] VITALS: BP 105/41
[2023-12-03 00:30] VITALS: BP 107/62
[2023-12-03 05:45] LABS: % Basophils 0.9 % (0-2); % Immature Granulocytes 0.2 % (0-0.5); % Lymphocytes 62.1 % (20.5-51.1); % Monocytes 4.1 % (1.7-9.3); % Neutrophils 32.7 % (42.2-75.2); Absolute Lymphocytes 2.7 10^3/uL (1.2-3.4); Absolute Monocytes 0.2 10^3/uL (0.1-0.6); Absolute Neutrophils 1.4 10^3/uL (1.4-6.5); Hematocrit 30.1 % (37.0-47.0); Hemoglobin 10.5 g/dL (12.0-16.0); Mean Corp Hgb Conc. 34.9 g/dL (33.0-37.0); Mean Corpuscular Hgb 31.1 pg (27.0-31.0); Mean Corpuscular Volume 89.1 fL (81.0-99.0); Nucleated Red Blood Cells % 0 %; Red Blood Cell Count 3.38 10^6/uL (4.20-5.40); Red Cell Dist. Width 16.2 % (11.5-14.5); White Blood Cell Count 4.4 10^3/uL (4.8-10.8)
[2023-12-03 05:59] LABS: ALT (SGPT) 35 U/L (0-35); AST (SGOT) 22 U/L (14-36); Albumin 2.9 g/dl (3.5-5.0); Alkaline Phosphatase 88 U/L (38-126); Blood Urea Nitrogen 27 mg/dl (7-17); Carbon Dioxide 24 mmol/L (22-30); Chloride 103 mmol/L (98-107); Estimated Creatinine Clearance 58 ml/min; Glucose 97 mg/dl (70-99); Potassium 3.7 mmol/L (3.5-5.1); Sodium 136 mmol/L (135-145); Total Protein 4.8 g/dl (6.3-8.2); eGFR > 60.00
[2023-12-03 06:09] LABS: Platelet Count 27 10^3/uL (130-400)
[2023-12-03 07:00] VITALS: BP 106/61
[2023-12-03] MEDS: ProAmatine 10 MG PO (08:02)
[2023-12-03] MEDS: KEPPRA 1000 MG PO (08:02)
[2023-12-03] MEDS: DELTASONE 50 MG PO (08:03)
[2023-12-03] MEDS: ZOVIRAX 800 MG PO (08:03)
[2023-12-03] MEDS: FEOSOL 325 MG PO (08:03)
[2023-12-03] MEDS: VITAMIN D3 (cholecalciferol) 25 MCG PO (08:03)
[2023-12-03] MEDS: FOLVITE 0.800000000000000044 MG PO (08:06)
[2023-12-03] MEDS: CLARITIN 10 MG PO (08:06)
--- NOTE | 2023-12-03 08:07 | W.PN.ONC2 ---
Today's Communication / Plan
-
Suspect stable for D/C with counts improving. Continue Prednisone 50 mg Po QD and monitor.
F/U Dr. Chaudhary ([facility]) shortly following outpt BMBx. Being scheduled here at [facility] as outpatient.
Impression
Impression
Neutropenic fevers (resolved)
Acute on chronic hypotension (pressors weaned)
Chronic pancytopenia
Acute on chronic thrombocytopenia w/ hx splenomegaly
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
Hx brain mass s/p excisional biopsy (01/2023), confirmed lymphocytic infiltrate on path
Acute anxiety/depression
Pleural effusions, improved and no tappable fluid
Plan
Plan
MTX can accumulate and persist in body fluids such as pleural effusion. Suspect this may be the reason for her continued cytopenias?? vs ITP. However, no tappable fluid.
Counts seems to be improving.
Plan:
- methotrexate level < 0.05
- leucovorin rescue not required
- diagnostic/therapeutic tap too small to tap
- spoke with Dr. Chaudhary. Will schedule F/U there soon.
- Schedule outpt BMBx
- Continue prednisone at increased dose of 50mg/day. PLT responding.
- Granix on hold
Subjective/Objective
Chief Complaint
ACS Heme F/U
Subjective
Frustrated but no specific new c/o.
Vital Signs:
Vital Signs
Temp Pulse Resp BP Pulse Ox
98.1 F 75 16 107/62 95
12/03/23 00:05 12/03/23 00:30 12/03/23 00:05 12/03/23 00:30 12/03/23 00:05
Lab Results:
Laboratory Data
WBC 4.4 10^3/uL (4.8-10.8) L 12/03/23 04:39
Hgb 10.5 g/dL (12.0-16.0) L 12/03/23 04:39
Plt Count 27 10^3/uL (130-400) L* D 12/03/23 04:39
PT 17.6 Sec (11.4-14.6) H 11/21/23 17:53
INR 1.41 11/21/23 17:53
APTT 43.6 Sec (23.4-35.0) H 11/21/23 17:53
APTT Cancelled 11/21/23 17:53
eGFR > 60.00 12/03/23 04:39
ANC 1.6
Physical Exam
HEENT: No Jaundice
Cardiology: S1 and S2
Pulmonary: Clear
GI: Soft
Extremities: No C/C/E
[2023-12-03] MEDS: LIDOCAINE 4% PATCH TOPICAL (08:11)
--- NOTE | 2023-12-03 11:02 | W.PN.HOSP.TC ---
Addendum entered and electronically signed by Preston Steen MD 12/03/23 17:18:
[id number]
Original Note:
Today's Communication/Plan
-
Holding Granix, MTX
prednisone 50mg daily
clonazepam qhs x 3 days, can cont if rxed by pcp
Wean midodrine outpatient
F/U Dr. Chaudhary ([facility]) shortly following outpt BMBx.� F/u [facility] as outpatient.
Assessment / Plan
Assessment / Plan
Physical Exam
General:chronically ill looking, No Apparent Distress
HEENT: NormoCephalic, Moist mucous membranes and Atraumatic
Respiratory: limited, right upper chest port noted.
Cardiac: S1/S2 and Regular Rhythm; No Murmur or Rub
GI: Soft, Non Tender, Non Distended and Normal Bowel Sounds; No Organomegaly
Rectal: no rectal bleeding
Musculoskeletal: No Edema
Skin: No Rash
Neuro: AO x 3 and Nonfocal/grossly intact
Psych: Calm, agitated this morning
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
-#pancytopenia
#brain tumor, with just biopsy at this time
Oncology evaluating her counts
d/w oncology, possible underlying BM disease causing significant pancytopenia
-GCSF given , increased dose on 11/29
-Methotrexate level negative
-MTX on hold for now
� would like to hold on Granix at this time
� Follow-up with Dr. Chaudhary for outpatient bone marrow biopsy
-F/u Oncology outpatient
� Diagnostic/therapeutic Effusions, eval for methotrexate�pleural fluid too small to tap
-Cont prednisone 50mg daily
-F/u CBC in 3-5 days with PCP/Hematology
#Septic shock
#Neutropenic fever
All resolved
Stopped Abx 11/27.
-no clear source. -Chest x ray questionable pneumonia - CT chest no PNA. Off O2
S/p empiric vancomycin, micafungin, cefepime
- c/w prophylactic acyclovir
-Negative C diff, negative blood cultures.
-Weaned off IV pressors. Started on midodrine TID. -wean off outpatient
Appreciate ID help
# Moderate-sized bilateral pleural effusions. Consolidation in the lung bases likely compressive atelectasis per CT
No sob
No hypoxia
� Eval for thoracentesis - too small too tap
# Anemia
HGB around 6.8, given blood. HGB around 6 on 11/29, given another unit.
HGB 11/30 9.4
# Thrombocytopenia. Platelets at 15
Could be ITP or infectious related
Planning on weaning steroids over the next week, has not assisted in increased platelet count
� As per , wants to hold on Granix as due to low likelihood of thrombocytopenia
d/w oncology, repeat CBC this noon and if plt trending up then can go home
S/p plt transfusion on 11/25 ,,.
see plan above
� Transfuse 1 unit platelets 12/02
-CBC in 3-5 days
-Cont prednisone
#Adjustment disorder, with mild depression
Seen by psych, recommended to c/w supportive therapy, on an outpatient basis upon return home/when medically stable.� Pt should be able to access via telehealth.
No suicidal thought expressed to us.
Appreciate psychiatry input
# Anxiety
She is anxious and frustrated from ongoing medical issue. High-dose steroid could be contributing to anxiety. We did low-dose Klonopin HS for anxiety.
# Neutropenia secondary to chemotherapy. Chronic thrombocytopenia/chronic pancytopenia
Her white count improved
Status post Granix
holdign Granix
# None anion gap metabolic acidosis
Resolved
#Hypoxia only.
c/w O2 as needed. Poor inspiratory efforts. Known pulmonary atelectasis.
resolved
#hyponatremia
Mild
#Hypokalemia
-monitor and replete
hx of CVA
hx of 2 petit-mal seizures 2016
- continue Keppra
#hxt of brain tumor
HLD
-Statin continued
#hx of Asthma
-Not in acute exacerbation
-Albuterol from home continued
#hx of Hep C, related to receiving blood transfusion
#DVT ppx: SCDs
#Code: Full
More than 30 minutes spent in discharge including
Final examination of the patient
Summarizing hospital stay
Instructions for continuing care to all relevant caregivers
Preparation of discharge records, prescriptions, and referral forms
Total time spent (35 in minutes):
Anticipated Discharge: Today
Subjective/Interval History
-
Date of Service: December 03, 2023
No acute events
Objective Data
-
Labs:
Laboratory Results
12/03/23
04:39
WBC 4.4 L
Hgb 10.5 L
Hct 30.1 L
Plt Count 27 L* D
Sodium 136
Potassium 3.7
Chloride 103
Carbon Dioxide 24
BUN 27 H
Creatinine 0.6
Glucose 97
Calcium 8.0 L
Total Bilirubin 1.0
AST 22
ALT 35
Alkaline Phosphatase 88
Vital Signs:
Vital Signs
Temp Pulse Resp BP Pulse Ox
97.7 F 72 18 106/61 97
12/03/23 07:00 12/03/23 08:02 12/03/23 07:00 12/03/23 08:02 12/03/23 07:00
I&O
12/02/23 12/03/23 12/04/23
06:59 06:59 06:59
Intake Total 1640 / 1640 907 / 90
Balance 1640 / 1640
Review of Systems
-
History Source: Patient
All other systems: Not reviewed unless documented
Physical Exam
-
General: No Apparent Distress
HEENT: Normocephalic and Atraumatic
Respiratory: Rhonchi; Negative Wheezes or Rales
Cardiac: Regular Rhythm and S1/S2
GI: Soft
Genito-urinary: No Costovertebral Tender
Musculoskeletal: No Edema
Neuro: AO x 3
Hematologic / Lymphatic: No Lymphadenopathy
Psych: Calm
Data Reviewed
-
Diagnostic Radiology: Image personally visualized and interpreted and Report Reviewed by me
CT Scan: Image personally visualized and interpreted and Report Reviewed by me
Labs: Labs Reviewed by me
--- NOTE | 2023-12-03 11:11 | W.DS.TRANS ---
DC Summary - [employer]
-
Discharge Instructions:
Discharge Diagnosis/Procedures Neutropenic fever
Shock
Chronic pancytopenia
Thrombocytopenia, severe
Diet As tolerated
Activity As tolerated
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
Instructions:
Stand-Alone Forms:
Changes to Home Medications: Yes
Discharge Medications:
DC Medications w/original date entered in [facility]
alendronate 70 mg tablet 70 mg PO JUNIOR@0800 OSTEOPOROSIS 03/31/20
atorvastatin 20 mg tablet 20 mg PO HS High cholesterol 03/31/20
Lactobac no.2-Bifidobac no.1-S. thermo 112.5 billion cell capsule (Visbiome) 1 cap PO DAILY Gastrointestinal issue 01/21/23
ferrous sulfate 27 mg iron tablet 27 mg PO DAILY Supplement 06/04/23
acyclovir 800 mg tablet 800 mg PO Q12H Infection 07/05/23
levetiracetam 1,000 mg tablet (Keppra) 1,000 mg PO BID Seizures 07/05/23
acetaminophen 500 mg tablet (Tylenol Extra Strength) 1,000 mg PO Q6H PRN mild pain 11/20/23
albuterol sulfate 90 mcg/actuation aerosol inhaler 2 puff inhalation R Q6HPRN PRN sob 11/20/23
cholecalciferol (vitamin D3) 25 mcg (1,000 unit) tablet 25 mcg PO DAILY Supplement 11/20/23
folic acid 800 mcg tablet 0.8 mg PO DAILY Supplement 11/20/23
hydroxyzine HCl 25 mg tablet 25 mg PO TID PRN anxiety 11/20/23
lidocaine-prilocaine 2.5 %-2.5 % topical cream 1 applic topical MOFR PORT ACCESS 11/20/23
loratadine 10 mg tablet (Claritin) 10 mg PO DAILY Allergies 11/20/23
prochlorperazine maleate 10 mg tablet 10 mg PO Q6H PRN nausea/vomiting 11/20/23
tbo-filgrastim 300 mcg/0.5 mL subcutaneous syringe (Granix) 300 mcg SC DIRECTED PRN if gran<1.5 11/20/23
clonazepam 0.5 mg tablet 0.5 mg PO HS 3 days #3 tabs 12/03/23
midodrine 5 mg tablet 10 mg PO TID@0800,1300,1800 30 days #90 tabs 12/03/23
prednisone 50 mg tablet 50 mg PO DAILY 14 days #14 tabs 12/03/23
Home Medication Changes
clonazepam 0.5 mg tablet 0.5 mg PO HS 3 days #3 tabs 12/03/23
midodrine 5 mg tablet 10 mg PO TID@0800,1300,1800 30 days #90 tabs 12/03/23
prednisone 50 mg tablet 50 mg PO DAILY 14 days #14 tabs 12/03/23
Pending Results: No
== END 2023-12-03 15:33 | disposition home or self-care (01) | DRG 871 ==
LOC: 3 WEST ACU 15:19
PROVIDERS: Internal Medicine; Internal Medicine Critical Care Medicine; Internal Medicine Hematology & Oncology; Nurse Practitioner Family; Physician Assistant; Radiology Vascular & Interventional Radiology; Registered Nurse; ADMITTING PHYSICIAN Internal Medicine; EMERGENCY PHYSICIAN Emergency Medicine; FAMILY PHYSICIAN Family Medicine; OTHER PHYSICIAN Internal Medicine Critical Care Medicine; OTHER PHYSICIAN Internal Medicine Hematology & Oncology; OTHER PHYSICIAN Psychiatry & Neurology Psychiatry; OTHER PHYSICIAN Student in an Organized Health Care Education/Training Program
PROC: 30243R1 Transfusion of Nonautologous Platelets into Central Vein, Percutaneous Approach (ICD-10-PCS; 2023-11-25)
PROC: 30243N1 Transfusion of Nonautologous Red Blood Cells into Central Vein, Percutaneous Approach (ICD-10-PCS; 2023-11-27)
PROC: 0W9B3ZZ Drainage of Left Pleural Cavity, Percutaneous Approach (ICD-10-PCS; 2023-12-02)
DX: A41.9 Sepsis, unspecified organism (principal); R65.21 Severe sepsis with septic shock; E87.1 Hypo-osmolality and hyponatremia; K76.6 Portal hypertension; E87.20 Acidosis, unspecified; D76.3 Other histiocytosis syndromes; D61.818 Other pancytopenia; J90 Pleural effusion, not elsewhere classified; J98.11 Atelectasis; D69.3 Immune thrombocytopenic purpura; R50.81 Fever presenting with conditions classified elsewhere; E78.00 Pure hypercholesterolemia, unspecified; J45.909 Unspecified asthma, uncomplicated; E86.1 Hypovolemia; I95.89 Other hypotension; F41.9 Anxiety disorder, unspecified; D70.1 Agranulocytosis secondary to cancer chemotherapy; T45.1X5A Adverse effect of antineoplastic and immunosuppressive drugs, initial encounter; Y92.9 Unspecified place or not applicable; D49.6 Neoplasm of unspecified behavior of brain; R16.1 Splenomegaly, not elsewhere classified; R09.02 Hypoxemia; R76.0 Raised antibody titer; F43.21 Adjustment disorder with depressed mood; E87.6 Hypokalemia; F32.A Depression, unspecified; Z90.49 Acquired absence of other specified parts of digestive tract; Z87.442 Personal history of urinary calculi; Z86.73 Personal history of transient ischemic attack (TIA), and cerebral infarction without residual deficits; Z86.19 Personal history of other infectious and parasitic diseases; Z11.52 Encounter for screening for COVID-19; Z88.5 Allergy status to narcotic agent; Z88.0 Allergy status to penicillin; Z88.2 Allergy status to sulfonamides
CPT/HCPCS: 32555; 70220; 71045; 71046; 71250; 80048; 80053; 80202; 80204; 81003; 81015; 82533; 82945; 82962; 83605; 83615; 83735; 83930; 83935; 84145; 84157; 84300; 84443; 85025; 85027; 85610; 85730; 86850; 86900; 86901; 86920; 87040; 87070; 87086; 87324; 87449; 87502; 87811; 93005; 97116; 97162; 97165; 97530; 99285; J1447; J7030; P9016; P9073

== ENCOUNTER → 2023-12-08 09:25 | Outpatient (REF) | payer OTHER, SELFPAY ==
[2023-12-08 10:06] LABS: % Basophils 0.3 % (0-2); % Immature Granulocytes 1.2 % (0-0.5); % Lymphocytes 41.1 % (20.5-51.1); % Monocytes 4.4 % (1.7-9.3); Absolute Lymphocytes 1.3 10^3/uL (1.2-3.4); Absolute Monocytes 0.1 10^3/uL (0.1-0.6); Absolute Neutrophils 1.7 10^3/uL (1.4-6.5); Hematocrit 32.7 % (37.0-47.0); Hemoglobin 11.5 g/dL (12.0-16.0); Mean Corp Hgb Conc. 35.2 g/dL (33.0-37.0); Mean Corpuscular Volume 91.1 fL (81.0-99.0); Mean Platelet Volume 12.1 fL (7.4-10.4); Nucleated Red Blood Cells % 0 %; Platelet Count 57 10^3/uL (130-400); Red Blood Cell Count 3.59 10^6/uL (4.20-5.40); Red Cell Dist. Width 16.7 % (11.5-14.5); White Blood Cell Count 3.2 10^3/uL (4.8-10.8)
[2023-12-08 10:30] VITALS: BP 109/65; BP_SYST 92
[2023-12-08] MEDS: FLUSH (NSS) 1 FLUSH IV (11:32)
[2023-12-08] MEDS: ATIVAN 0.5 MG IV (11:32)
[2023-12-08] MEDS: NSS (PRESERVATIVE FREE) 0.25 ML IV (11:32)
[2023-12-08 12:30] VITALS: BP 95/61; BP_SYST 79
[2023-12-08 12:35] VITALS: BP 96/61; BP_SYST 80
[2023-12-08 12:45] VITALS: BP 99/60; BP_SYST 86
[2023-12-08 12:50] VITALS: BP 97/68; BP_SYST 88
[2023-12-08 13:13] VITALS: BP 98/65
== END ==
LOC: RADI 09:25
PROVIDERS: Physician Assistant; ATTENDING PHYSICIAN Nurse Practitioner Family; FAMILY PHYSICIAN Family Medicine
DX: D47.2 Monoclonal gammopathy (principal); D68.8 Other specified coagulation defects; D61.818 Other pancytopenia
CPT/HCPCS: 88305; 88311; 88312; 36415; 38222; 77012; 85025; 88313; 88341; 88342

== ENCOUNTER → 2024-01-01 11:23 | Outpatient (REF) | payer OTHER, SELFPAY ==
[2024-01-01 12:41] LABS: % Basophils 0.4 % (0-2); % Immature Granulocytes 0.9 % (0-0.5); % Lymphocytes 26.2 % (20.5-51.1); % Neutrophils 66.5 % (42.2-75.2); Absolute Lymphocytes 0.6 10^3/uL (1.2-3.4); Absolute Monocytes 0.1 10^3/uL (0.1-0.6); Absolute Neutrophils 1.6 10^3/uL (1.4-6.5); Hematocrit 35.3 % (37.0-47.0); Hemoglobin 12.7 g/dL (12.0-16.0); Mean Corpuscular Hgb 33.9 pg (27.0-31.0); Mean Corpuscular Volume 94.1 fL (81.0-99.0); Mean Platelet Volume 10.7 fL (7.4-10.4); Nucleated Red Blood Cells % 0 %; Platelet Count 88 10^3/uL (130-400); Red Blood Cell Count 3.75 10^6/uL (4.20-5.40); Red Cell Dist. Width 16.6 % (11.5-14.5); White Blood Cell Count 2.3 10^3/uL (4.8-10.8)
[2024-01-01 12:55] LABS: ALT (SGPT) 29 U/L (0-35); AST (SGOT) 22 U/L (14-36); Albumin 3.9 g/dl (3.5-5.0); Alkaline Phosphatase 63 U/L (38-126); Blood Urea Nitrogen 23 mg/dl (7-17); Calcium 8.6 mg/dl (8.4-10.2); Carbon Dioxide 28 mmol/L (22-30); Chloride 100 mmol/L (98-107); Glucose 105 mg/dl (70-99); Potassium 4.5 mmol/L (3.5-5.1); Sodium 135 mmol/L (135-145); Total Protein 6.1 g/dl (6.3-8.2); eGFR > 60.00
[2024-01-01 13:29] LABS: LDH 242 U/L (120-246)
== END ==
LOC: REG 11:23
PROVIDERS: ATTENDING PHYSICIAN Nurse Practitioner Primary Care
DX: D72.820 Lymphocytosis (symptomatic) (principal)
CPT/HCPCS: 36415; 80053; 83615; 85025

== ENCOUNTER → 2024-02-17 10:43 | Outpatient (REF) | payer OTHER, SELFPAY | LOC: PAVMRI 10:43 | PROVIDERS: ATTENDING PHYSICIAN Internal Medicine Hematology; FAMILY PHYSICIAN Family Medicine | DX: D76.3 Other histiocytosis syndromes (principal); D72.820 Lymphocytosis (symptomatic); Z87.898 Personal history of other specified conditions | CPT/HCPCS: 70553; A9575 ==

== ENCOUNTER → 2024-03-04 13:02 | Outpatient (REF) | payer OTHER, SELFPAY | LOC: HWWDC 13:02 | PROVIDERS: ATTENDING PHYSICIAN Family Medicine | DX: Z12.31 Encounter for screening mammogram for malignant neoplasm of breast (principal) | CPT/HCPCS: 77063; 77067 ==

== ENCOUNTER → 2024-04-05 10:46 | Outpatient (REF) | payer OTHER, SELFPAY ==
[2024-04-05 12:05] LABS: % Basophils 0.5 % (0-2); % Eosinophils 0.2 % (0-6); % Immature Granulocytes 7.4 % (0-0.5); % Lymphocytes 17.3 % (20.5-51.1); % Monocytes 3.9 % (1.7-9.3); % Neutrophils 70.7 % (42.2-75.2); Absolute Immature Granulocytes 0.5 10^3/uL (0-0.05); Absolute Lymphocytes 1.1 10^3/uL (1.2-3.4); Absolute Monocytes 0.2 10^3/uL (0.1-0.6); Absolute Neutrophils 4.3 10^3/uL (1.4-6.5); Hemoglobin 13.7 g/dL (12.0-16.0); Mean Corp Hgb Conc. 35.1 g/dL (33.0-37.0); Mean Corpuscular Hgb 32.2 pg (27.0-31.0); Mean Corpuscular Volume 91.8 fL (81.0-99.0); Mean Platelet Volume 10.6 fL (7.4-10.4); Nucleated Red Blood Cells % 0 %; Platelet Count 118 10^3/uL (130-400); Red Blood Cell Count 4.25 10^6/uL (4.20-5.40); Red Cell Dist. Width 12.5 % (11.5-14.5); White Blood Cell Count 6.1 10^3/uL (4.8-10.8)
== END ==
LOC: REG 10:46
PROVIDERS: ATTENDING PHYSICIAN Internal Medicine Hematology & Oncology; FAMILY PHYSICIAN Family Medicine
DX: D47.2 Monoclonal gammopathy (principal); R16.1 Splenomegaly, not elsewhere classified; D68.61 Antiphospholipid syndrome; D69.2 Other nonthrombocytopenic purpura; C91.Z0 Other lymphoid leukemia not having achieved remission; D61.818 Other pancytopenia; D76.3 Other histiocytosis syndromes; D36.11 Benign neoplasm of peripheral nerves and autonomic nervous system of face, head, and neck; D70.9 Neutropenia, unspecified
CPT/HCPCS: 36415; 85025

== ENCOUNTER → 2024-04-19 11:14 | Outpatient (REF) | payer OTHER, SELFPAY ==
[2024-04-19 12:52] LABS: % Basophils 0.4 % (0-2); % Eosinophils 0.8 % (0-6); % Immature Granulocytes 1.7 % (0-0.5); % Lymphocytes 21.6 % (20.5-51.1); % Monocytes 5.7 % (1.7-9.3); % Neutrophils 69.8 % (42.2-75.2); Absolute Immature Granulocytes 0.1 10^3/uL (0-0.05); Absolute Monocytes 0.3 10^3/uL (0.1-0.6); Absolute Neutrophils 3.3 10^3/uL (1.4-6.5); Hematocrit 38.6 % (37.0-47.0); Hemoglobin 13.8 g/dL (12.0-16.0); Mean Corp Hgb Conc. 35.8 g/dL (33.0-37.0); Mean Corpuscular Hgb 32.3 pg (27.0-31.0); Mean Corpuscular Volume 90.4 fL (81.0-99.0); Mean Platelet Volume 10.9 fL (7.4-10.4); Nucleated Red Blood Cells % 0 %; Platelet Count 109 10^3/uL (130-400); Red Blood Cell Count 4.27 10^6/uL (4.20-5.40); Red Cell Dist. Width 12.5 % (11.5-14.5); White Blood Cell Count 4.8 10^3/uL (4.8-10.8)
== END ==
LOC: REG 11:14
PROVIDERS: ATTENDING PHYSICIAN Internal Medicine Hematology & Oncology; FAMILY PHYSICIAN Family Medicine; REFERRING PHYSICIAN Internal Medicine Hematology
DX: D47.2 Monoclonal gammopathy (principal); R16.1 Splenomegaly, not elsewhere classified; D68.61 Antiphospholipid syndrome; D69.2 Other nonthrombocytopenic purpura; C91.Z0 Other lymphoid leukemia not having achieved remission; D61.818 Other pancytopenia; D76.3 Other histiocytosis syndromes; D36.11 Benign neoplasm of peripheral nerves and autonomic nervous system of face, head, and neck; D70.9 Neutropenia, unspecified; D83.9 Common variable immunodeficiency, unspecified
CPT/HCPCS: 36415; 85025

== ENCOUNTER → 2024-05-03 07:53 | Outpatient (REF) | payer OTHER, SELFPAY ==
[2024-05-03 08:43] LABS: % Eosinophils 0.3 % (0-6); % Immature Granulocytes 0.2 % (0-0.5); % Lymphocytes 57.3 % (20.5-51.1); % Monocytes 7.1 % (1.7-9.3); % Neutrophils 34.1 % (42.2-75.2); Absolute Basophils 0.1 10^3/uL (0-0.2); Absolute Lymphocytes 3.5 10^3/uL (1.2-3.4); Absolute Monocytes 0.4 10^3/uL (0.1-0.6); Absolute Neutrophils 2.1 10^3/uL (1.4-6.5); Hemoglobin 14.6 g/dL (12.0-16.0); Mean Corp Hgb Conc. 35.6 g/dL (33.0-37.0); Mean Corpuscular Hgb 31.6 pg (27.0-31.0); Mean Corpuscular Volume 88.7 fL (81.0-99.0); Mean Platelet Volume 11.4 fL (7.4-10.4); Nucleated Red Blood Cells % 0 %; Platelet Count 123 10^3/uL (130-400); Red Blood Cell Count 4.62 10^6/uL (4.20-5.40); Red Cell Dist. Width 12.3 % (11.5-14.5)
[2024-05-03 09:13] LABS: ALT (SGPT) 20 U/L (0-35); AST (SGOT) 24 U/L (14-36); Albumin 4.5 g/dl (3.5-5.0); Alkaline Phosphatase 89 U/L (38-126); Blood Urea Nitrogen 21 mg/dl (7-17); Calcium 8.9 mg/dl (8.4-10.2); Carbon Dioxide 27 mmol/L (22-30); Chloride 107 mmol/L (98-107); Glucose 85 mg/dl (70-99); HDL Cholesterol 51 mg/dl; LDL Cholesterol, Calculated 74 mg/dl; Potassium 3.8 mmol/L (3.5-5.1); Sodium 140 mmol/L (135-145); Total Bilirubin 0.7 mg/dl (0.2-1.3); Total Cholesterol 174 mg/dl (50-199); Total Protein 6.5 g/dl (6.3-8.2); Triglyceride 247 mg/dl (10-149); Very Low Density Lipoprotein 49 mg/dl (0-30); eGFR > 60.00
[2024-05-03 09:45] LABS: TSH 2.39 uIU/ml (0.47-4.68)
== END ==
LOC: REG 07:53
PROVIDERS: ATTENDING PHYSICIAN Family Medicine; OTHER PHYSICIAN Internal Medicine Hematology; REFERRING PHYSICIAN Internal Medicine Hematology & Oncology
DX: E78.2 Mixed hyperlipidemia (principal); D47.2 Monoclonal gammopathy; R16.1 Splenomegaly, not elsewhere classified; D68.61 Antiphospholipid syndrome; D69.2 Other nonthrombocytopenic purpura; C91.Z0 Other lymphoid leukemia not having achieved remission; D61.818 Other pancytopenia; D76.3 Other histiocytosis syndromes; D36.11 Benign neoplasm of peripheral nerves and autonomic nervous system of face, head, and neck; D70.9 Neutropenia, unspecified; D83.9 Common variable immunodeficiency, unspecified
CPT/HCPCS: 36415; 80053; 80061; 84443; 85025

== ENCOUNTER → 2024-05-17 08:34 | Outpatient (REF) | payer OTHER, SELFPAY ==
[2024-05-17 13:21] LABS: Hematocrit 40.7 % (37.0-47.0); Hemoglobin 14.4 g/dL (12.0-16.0); Mean Corp Hgb Conc. 35.4 g/dL (33.0-37.0); Mean Corpuscular Hgb 31.9 pg (27.0-31.0); Mean Corpuscular Volume 90.2 fL (81.0-99.0); Mean Platelet Volume 11.1 fL (7.4-10.4); Platelet Count 124 10^3/uL (130-400); Red Blood Cell Count 4.51 10^6/uL (4.20-5.40); Red Cell Dist. Width 12.3 % (11.5-14.5); White Blood Cell Count 6.2 10^3/uL (4.8-10.8)
[2024-05-17 14:00] LABS: % Basophils 0.6 % (0-2); % Eosinophils 0.5 % (0-6); % Immature Granulocytes 0.2 % (0-0.5); % Lymphocytes 53.3 % (20.5-51.1); % Monocytes 6.8 % (1.7-9.3); % Neutrophils 38.6 % (42.2-75.2); Absolute Lymphocytes 3.3 10^3/uL (1.2-3.4); Absolute Monocytes 0.4 10^3/uL (0.1-0.6); Absolute Neutrophils 2.4 10^3/uL (1.4-6.5); Nucleated Red Blood Cells % 0 %
== END ==
LOC: REG 08:34
PROVIDERS: ATTENDING PHYSICIAN Internal Medicine Hematology & Oncology; FAMILY PHYSICIAN Family Medicine; REFERRING PHYSICIAN Internal Medicine Hematology
DX: D47.2 Monoclonal gammopathy (principal); R16.1 Splenomegaly, not elsewhere classified; D68.61 Antiphospholipid syndrome; D69.2 Other nonthrombocytopenic purpura; C91.Z0 Other lymphoid leukemia not having achieved remission; D61.818 Other pancytopenia; D76.3 Other histiocytosis syndromes; D36.11 Benign neoplasm of peripheral nerves and autonomic nervous system of face, head, and neck; D70.9 Neutropenia, unspecified
CPT/HCPCS: 36415; 85025

== ENCOUNTER → 2024-05-21 08:23 | Outpatient (REF) | payer OTHER, SELFPAY ==
[2024-05-21 10:02] LABS: TSH Reflex To Free T4 2.04 uIU/ml (0.47-4.68)
[2024-05-21 10:10] LABS: ALT (SGPT) 21 U/L (0-35); AST (SGOT) 26 U/L (14-36); Albumin 4.2 g/dl (3.5-5.0); Alkaline Phosphatase 73 U/L (38-126); Blood Urea Nitrogen 18 mg/dl (7-17); Calcium 8.7 mg/dl (8.4-10.2); Carbon Dioxide 25 mmol/L (22-30); Chloride 110 mmol/L (98-107); Glucose 95 mg/dl (70-99); LDH 238 U/L (120-246); Potassium 3.5 mmol/L (3.5-5.1); Sodium 142 mmol/L (135-145); Total Bilirubin 0.7 mg/dl (0.2-1.3); Total Protein 6.1 g/dl (6.3-8.2); eGFR > 60.00
[2024-05-21 10:11] LABS: Hematocrit 39.6 % (37.0-47.0); Mean Corp Hgb Conc. 35.4 g/dL (33.0-37.0); Mean Corpuscular Hgb 31.3 pg (27.0-31.0); Mean Corpuscular Volume 88.4 fL (81.0-99.0); Mean Platelet Volume 11.5 fL (7.4-10.4); Platelet Count 123 10^3/uL (130-400); Red Blood Cell Count 4.48 10^6/uL (4.20-5.40); Red Cell Dist. Width 12.4 % (11.5-14.5); White Blood Cell Count 5.6 10^3/uL (4.8-10.8)
[2024-05-21 10:13] LABS: Vitamin D, 25-OH*** 47.7 ng/mL (30-80)
[2024-05-21 10:37] LABS: Folate > 20.0 ng/ml (2.76-20); Vitamin B12 332 pg/ml (239-931)
[2024-05-21 12:00] LABS: % Basophils 0.5 % (0-2); % Eosinophils 0.5 % (0-6); % Immature Granulocytes 0.4 % (0-0.5); % Lymphocytes 57.7 % (20.5-51.1); % Monocytes 7.2 % (1.7-9.3); % Neutrophils 33.7 % (42.2-75.2); Absolute Lymphocytes 3.2 10^3/uL (1.2-3.4); Absolute Monocytes 0.4 10^3/uL (0.1-0.6); Absolute Neutrophils 1.9 10^3/uL (1.4-6.5); Nucleated Red Blood Cells % 0 %
[2024-05-24 01:59] LABS: IgA 73 mg/dl (70-400); IgG 493 mg/dl (700-1600); IgM 40 mg/dl (40-230)
== END ==
LOC: REG 08:23
PROVIDERS: ATTENDING PHYSICIAN Internal Medicine Hematology; FAMILY PHYSICIAN Family Medicine; OTHER PHYSICIAN Internal Medicine Hematology & Oncology; REFERRING PHYSICIAN Psychiatry & Neurology Neurology
DX: R20.0 Anesthesia of skin (principal); R20.2 Paresthesia of skin; D76.3 Other histiocytosis syndromes
CPT/HCPCS: 36415; 80053; 82306; 82607; 82746; 82784; 83615; 84207; 84425; 84443; 85025

== ENCOUNTER → 2024-05-31 08:00 | Outpatient (REF) | payer OTHER, SELFPAY ==
[2024-05-31 09:23] LABS: Hematocrit 39.5 % (37.0-47.0); Hemoglobin 13.8 g/dL (12.0-16.0); Mean Corp Hgb Conc. 34.9 g/dL (33.0-37.0); Mean Corpuscular Hgb 30.6 pg (27.0-31.0); Mean Corpuscular Volume 87.6 fL (81.0-99.0); Mean Platelet Volume 11.3 fL (7.4-10.4); Platelet Count 114 10^3/uL (130-400); Red Blood Cell Count 4.51 10^6/uL (4.20-5.40); Red Cell Dist. Width 12.2 % (11.5-14.5); White Blood Cell Count 5.6 10^3/uL (4.8-10.8)
[2024-05-31 09:41] LABS: % Basophils 0.9 % (0-2); % Eosinophils 0.5 % (0-6); % Immature Granulocytes 0.5 % (0-0.5); % Lymphocytes 55.7 % (20.5-51.1); % Monocytes 7.3 % (1.7-9.3); % Neutrophils 35.1 % (42.2-75.2); Absolute Basophils 0.1 10^3/uL (0-0.2); Absolute Lymphocytes 3.1 10^3/uL (1.2-3.4); Absolute Monocytes 0.4 10^3/uL (0.1-0.6); Nucleated Red Blood Cells % 0 %
== END ==
LOC: REG 08:00
PROVIDERS: ATTENDING PHYSICIAN Internal Medicine Hematology & Oncology; FAMILY PHYSICIAN Family Medicine; REFERRING PHYSICIAN Internal Medicine Hematology
DX: D47.2 Monoclonal gammopathy (principal); R16.1 Splenomegaly, not elsewhere classified; D68.61 Antiphospholipid syndrome; D69.2 Other nonthrombocytopenic purpura; C91.Z0 Other lymphoid leukemia not having achieved remission; D61.818 Other pancytopenia; D76.3 Other histiocytosis syndromes; D36.11 Benign neoplasm of peripheral nerves and autonomic nervous system of face, head, and neck; D70.9 Neutropenia, unspecified; D83.9 Common variable immunodeficiency, unspecified
CPT/HCPCS: 36415; 85025

== ENCOUNTER → 2024-06-14 08:21 | Outpatient (REF) | payer OTHER, SELFPAY ==
[2024-06-14 09:27] LABS: % Basophils 0.8 % (0-2); % Eosinophils 1.8 % (0-6); % Immature Granulocytes 1.2 % (0-0.5); % Lymphocytes 49.2 % (20.5-51.1); Absolute Eosinophils 0.1 10^3/uL (0-0.7); Absolute Immature Granulocytes 0.1 10^3/uL (0-0.05); Absolute Lymphocytes 2.5 10^3/uL (1.2-3.4); Absolute Monocytes 0.5 10^3/uL (0.1-0.6); Absolute Neutrophils 1.9 10^3/uL (1.4-6.5); Hematocrit 41.3 % (37.0-47.0); Hemoglobin 14.6 g/dL (12.0-16.0); Mean Corp Hgb Conc. 35.4 g/dL (33.0-37.0); Mean Corpuscular Hgb 31.5 pg (27.0-31.0); Nucleated Red Blood Cells % 0 %; Platelet Count 118 10^3/uL (130-400); Red Blood Cell Count 4.64 10^6/uL (4.20-5.40); Red Cell Dist. Width 12.6 % (11.5-14.5)
== END ==
LOC: REG 08:21
PROVIDERS: ATTENDING PHYSICIAN Internal Medicine Hematology & Oncology; FAMILY PHYSICIAN Family Medicine; REFERRING PHYSICIAN Internal Medicine Hematology
DX: D47.2 Monoclonal gammopathy (principal); R16.1 Splenomegaly, not elsewhere classified; D68.61 Antiphospholipid syndrome; D69.2 Other nonthrombocytopenic purpura; C91.Z0 Other lymphoid leukemia not having achieved remission; D61.818 Other pancytopenia; D76.3 Other histiocytosis syndromes; D36.11 Benign neoplasm of peripheral nerves and autonomic nervous system of face, head, and neck; D70.9 Neutropenia, unspecified; D83.9 Common variable immunodeficiency, unspecified
CPT/HCPCS: 36415; 85025

== ENCOUNTER → 2024-06-28 08:07 | Outpatient (REF) | payer OTHER, SELFPAY ==
[2024-06-28 09:25] LABS: Hematocrit 39.1 % (37.0-47.0); Hemoglobin 13.8 g/dL (12.0-16.0); Mean Corp Hgb Conc. 35.3 g/dL (33.0-37.0); Mean Corpuscular Hgb 30.7 pg (27.0-31.0); Mean Corpuscular Volume 87.1 fL (81.0-99.0); Mean Platelet Volume 11.2 fL (7.4-10.4); Platelet Count 121 10^3/uL (130-400); Red Blood Cell Count 4.49 10^6/uL (4.20-5.40); Red Cell Dist. Width 12.5 % (11.5-14.5); White Blood Cell Count 4.8 10^3/uL (4.8-10.8)
[2024-06-28 12:25] LABS: % Basophils 0.6 % (0-2); % Eosinophils 0.8 % (0-6); % Immature Granulocytes 0.2 % (0-0.5); % Lymphocytes 50.6 % (20.5-51.1); % Neutrophils 38.8 % (42.2-75.2); Absolute Lymphocytes 2.4 10^3/uL (1.2-3.4); Absolute Monocytes 0.4 10^3/uL (0.1-0.6); Absolute Neutrophils 1.9 10^3/uL (1.4-6.5); Nucleated Red Blood Cells % 0 %
== END ==
LOC: REG 08:07
PROVIDERS: ATTENDING PHYSICIAN Internal Medicine Hematology & Oncology; FAMILY PHYSICIAN Family Medicine; REFERRING PHYSICIAN Internal Medicine Hematology
DX: D47.2 Monoclonal gammopathy (principal); R16.1 Splenomegaly, not elsewhere classified; D68.61 Antiphospholipid syndrome; D69.2 Other nonthrombocytopenic purpura; C91.Z0 Other lymphoid leukemia not having achieved remission; D61.818 Other pancytopenia; D76.3 Other histiocytosis syndromes; D36.11 Benign neoplasm of peripheral nerves and autonomic nervous system of face, head, and neck; D70.9 Neutropenia, unspecified; D83.9 Common variable immunodeficiency, unspecified
CPT/HCPCS: 36415; 85025

== ENCOUNTER → 2024-07-02 13:10 | Outpatient (REF) | payer OTHER, SELFPAY | LOC: HWRAD 13:10 | PROVIDERS: ATTENDING PHYSICIAN Family Medicine | DX: M85.80 Other specified disorders of bone density and structure, unspecified site (principal); Z78.0 Asymptomatic menopausal state | CPT/HCPCS: 77080 ==

== ENCOUNTER → 2024-07-12 08:14 | Outpatient (REF) | payer OTHER, SELFPAY ==
[2024-07-12 09:43] LABS: % Basophils 0.9 % (0-2); % Eosinophils 0.5 % (0-6); % Immature Granulocytes 0.2 % (0-0.5); % Lymphocytes 48.3 % (20.5-51.1); % Monocytes 9.6 % (1.7-9.3); % Neutrophils 40.5 % (42.2-75.2); Absolute Lymphocytes 2.1 10^3/uL (1.2-3.4); Absolute Monocytes 0.4 10^3/uL (0.1-0.6); Absolute Neutrophils 1.8 10^3/uL (1.4-6.5); Hematocrit 39.7 % (37.0-47.0); Hemoglobin 13.8 g/dL (12.0-16.0); Mean Corp Hgb Conc. 34.8 g/dL (33.0-37.0); Mean Corpuscular Hgb 30.2 pg (27.0-31.0); Mean Corpuscular Volume 86.9 fL (81.0-99.0); Mean Platelet Volume 11.4 fL (7.4-10.4); Nucleated Red Blood Cells % 0 %; Platelet Count 113 10^3/uL (130-400); Red Blood Cell Count 4.57 10^6/uL (4.20-5.40); White Blood Cell Count 4.4 10^3/uL (4.8-10.8)
== END ==
LOC: REG 08:14
PROVIDERS: ATTENDING PHYSICIAN Internal Medicine Hematology & Oncology; FAMILY PHYSICIAN Family Medicine; REFERRING PHYSICIAN Internal Medicine Hematology
DX: D47.2 Monoclonal gammopathy (principal); R16.1 Splenomegaly, not elsewhere classified; D68.61 Antiphospholipid syndrome; D69.2 Other nonthrombocytopenic purpura; C91.Z0 Other lymphoid leukemia not having achieved remission; D61.818 Other pancytopenia; D76.3 Other histiocytosis syndromes; D36.11 Benign neoplasm of peripheral nerves and autonomic nervous system of face, head, and neck; D70.9 Neutropenia, unspecified; D83.9 Common variable immunodeficiency, unspecified
CPT/HCPCS: 36415; 85025

== ENCOUNTER → 2024-07-14 10:14 | Outpatient (REF) | payer OTHER, SELFPAY | LOC: HWRAD 10:14 | PROVIDERS: ATTENDING PHYSICIAN Family Medicine | DX: M25.552 Pain in left hip (principal) | CPT/HCPCS: 73502 ==

== ENCOUNTER → 2024-07-26 08:12 | Outpatient (REF) | payer OTHER, SELFPAY ==
[2024-07-26 09:31] LABS: % Basophils 0.7 % (0-2); % Eosinophils 0.9 % (0-6); % Immature Granulocytes 0.4 % (0-0.5); % Lymphocytes 49.8 % (20.5-51.1); % Monocytes 8.7 % (1.7-9.3); % Neutrophils 39.5 % (42.2-75.2); Absolute Lymphocytes 2.2 10^3/uL (1.2-3.4); Absolute Monocytes 0.4 10^3/uL (0.1-0.6); Absolute Neutrophils 1.8 10^3/uL (1.4-6.5); Hematocrit 38.4 % (37.0-47.0); Hemoglobin 13.4 g/dL (12.0-16.0); Mean Corp Hgb Conc. 34.9 g/dL (33.0-37.0); Mean Corpuscular Hgb 30.2 pg (27.0-31.0); Mean Corpuscular Volume 86.7 fL (81.0-99.0); Mean Platelet Volume 11.1 fL (7.4-10.4); Nucleated Red Blood Cells % 0 %; Platelet Count 119 10^3/uL (130-400); Red Blood Cell Count 4.43 10^6/uL (4.20-5.40); Red Cell Dist. Width 13.1 % (11.5-14.5); White Blood Cell Count 4.5 10^3/uL (4.8-10.8)
== END ==
LOC: REG 08:12
PROVIDERS: ATTENDING PHYSICIAN Internal Medicine Hematology & Oncology; FAMILY PHYSICIAN Family Medicine; REFERRING PHYSICIAN Internal Medicine Hematology
DX: D47.2 Monoclonal gammopathy (principal); R16.1 Splenomegaly, not elsewhere classified; D68.61 Antiphospholipid syndrome; D69.2 Other nonthrombocytopenic purpura; C91.Z0 Other lymphoid leukemia not having achieved remission; D61.818 Other pancytopenia; D76.3 Other histiocytosis syndromes; D36.11 Benign neoplasm of peripheral nerves and autonomic nervous system of face, head, and neck; D70.9 Neutropenia, unspecified; D83.9 Common variable immunodeficiency, unspecified
CPT/HCPCS: 36415; 85025

== ENCOUNTER → 2024-08-09 08:19 | Outpatient (REF) | payer OTHER, SELFPAY ==
[2024-08-09 10:05] LABS: Hematocrit 38.5 % (37.0-47.0); Hemoglobin 13.5 g/dL (12.0-16.0); Mean Corp Hgb Conc. 35.1 g/dL (33.0-37.0); Mean Corpuscular Hgb 30.3 pg (27.0-31.0); Mean Corpuscular Volume 86.5 fL (81.0-99.0); Mean Platelet Volume 10.9 fL (7.4-10.4); Platelet Count 111 10^3/uL (130-400); Red Blood Cell Count 4.45 10^6/uL (4.20-5.40); Red Cell Dist. Width 13.3 % (11.5-14.5); White Blood Cell Count 4.8 10^3/uL (4.8-10.8)
[2024-08-09 10:25] LABS: % Basophils 0.8 % (0-2); % Eosinophils 0.8 % (0-6); % Immature Granulocytes 0.2 % (0-0.5); % Lymphocytes 57.7 % (20.5-51.1); % Monocytes 8.2 % (1.7-9.3); % Neutrophils 32.3 % (42.2-75.2); Absolute Lymphocytes 2.7 10^3/uL (1.2-3.4); Absolute Monocytes 0.4 10^3/uL (0.1-0.6); Absolute Neutrophils 1.5 10^3/uL (1.4-6.5); Nucleated Red Blood Cells % 0 %
== END ==
LOC: REG 08:19
PROVIDERS: ATTENDING PHYSICIAN Internal Medicine Hematology & Oncology; FAMILY PHYSICIAN Family Medicine; REFERRING PHYSICIAN Internal Medicine Hematology
DX: D47.2 Monoclonal gammopathy (principal); R16.1 Splenomegaly, not elsewhere classified; D68.61 Antiphospholipid syndrome; D69.2 Other nonthrombocytopenic purpura; C91.Z0 Other lymphoid leukemia not having achieved remission; D61.818 Other pancytopenia; D76.3 Other histiocytosis syndromes; D36.11 Benign neoplasm of peripheral nerves and autonomic nervous system of face, head, and neck; D70.9 Neutropenia, unspecified; D83.9 Common variable immunodeficiency, unspecified
CPT/HCPCS: 36415; 85025

== ENCOUNTER → 2024-08-11 12:53 | Outpatient (REF) | payer OTHER, SELFPAY | LOC: PAVMRI 12:53 | PROVIDERS: ATTENDING PHYSICIAN Internal Medicine Hematology; FAMILY PHYSICIAN Family Medicine | DX: D76.3 Other histiocytosis syndromes (principal); Z87.898 Personal history of other specified conditions | CPT/HCPCS: 70553; A9575 ==

== ENCOUNTER → 2024-08-23 08:58 | Outpatient (REF) | payer OTHER, SELFPAY ==
[2024-08-23 10:29] LABS: Hematocrit 39.5 % (37.0-47.0); Hemoglobin 14.1 g/dL (12.0-16.0); Mean Corp Hgb Conc. 35.7 g/dL (33.0-37.0); Mean Corpuscular Hgb 30.7 pg (27.0-31.0); Mean Corpuscular Volume 85.9 fL (81.0-99.0); Red Cell Dist. Width 13.2 % (11.5-14.5); White Blood Cell Count 5.1 10^3/uL (4.8-10.8)
[2024-08-23 11:29] LABS: Mean Platelet Volume 10.6 fL (7.4-10.4); Platelet Count 117 10^3/uL (130-400)
[2024-08-23 11:30] LABS: % Basophils 0.8 % (0-2); % Eosinophils 0.6 % (0-6); % Immature Granulocytes 0.2 % (0-0.5); % Lymphocytes 55.2 % (20.5-51.1); % Monocytes 10.8 % (1.7-9.3); % Neutrophils 32.4 % (42.2-75.2); Absolute Lymphocytes 2.8 10^3/uL (1.2-3.4); Absolute Monocytes 0.6 10^3/uL (0.1-0.6); Absolute Neutrophils 1.7 10^3/uL (1.4-6.5); Nucleated Red Blood Cells % 0 %
[2024-08-23 14:00] LABS: ALT (SGPT) 33 U/L (0-35); AST (SGOT) 32 U/L (14-36); Albumin 4.8 g/dl (3.5-5.0); Alkaline Phosphatase 85 U/L (38-126); Blood Urea Nitrogen 21 mg/dl (7-17); Calcium 9.4 mg/dl (8.4-10.2); Carbon Dioxide 25 mmol/L (22-30); Chloride 104 mmol/L (98-107); Glucose 78 mg/dl (70-99); LDH 219 U/L (120-246); Potassium 3.9 mmol/L (3.5-5.1); Sodium 142 mmol/L (135-145); Total Bilirubin 0.7 mg/dl (0.2-1.3); Total Protein 6.8 g/dl (6.3-8.2); eGFR > 60.00
[2024-08-23 14:26] LABS: IgA 96 mg/dl (70-400); IgG 675 mg/dl (700-1600); IgM 57 mg/dl (40-230)
[2024-08-23 14:39] LABS: TSH Reflex To Free T4 2.12 uIU/ml (0.47-4.68)
== END ==
LOC: REG 08:58
PROVIDERS: ATTENDING PHYSICIAN Internal Medicine Hematology; FAMILY PHYSICIAN Family Medicine; REFERRING PHYSICIAN Internal Medicine Hematology & Oncology
DX: D47.2 Monoclonal gammopathy (principal); R16.1 Splenomegaly, not elsewhere classified; D68.61 Antiphospholipid syndrome; D69.2 Other nonthrombocytopenic purpura; C91.Z0 Other lymphoid leukemia not having achieved remission; D61.818 Other pancytopenia; D76.3 Other histiocytosis syndromes; D36.11 Benign neoplasm of peripheral nerves and autonomic nervous system of face, head, and neck; D70.9 Neutropenia, unspecified; D83.9 Common variable immunodeficiency, unspecified
CPT/HCPCS: 36415; 80053; 82784; 83615; 84443; 85025

== ENCOUNTER → 2024-09-06 07:58 | Outpatient (REF) | payer OTHER, SELFPAY ==
[2024-09-06 08:54] LABS: Hematocrit 38.8 % (37.0-47.0); Hemoglobin 13.9 g/dL (12.0-16.0); Mean Corp Hgb Conc. 35.8 g/dL (33.0-37.0); Mean Corpuscular Hgb 31.7 pg (27.0-31.0); Mean Corpuscular Volume 88.6 fL (81.0-99.0); Mean Platelet Volume 10.6 fL (7.4-10.4); Platelet Count 102 10^3/uL (130-400); Red Blood Cell Count 4.38 10^6/uL (4.20-5.40); White Blood Cell Count 4.7 10^3/uL (4.8-10.8)
[2024-09-06 09:18] LABS: % Basophils 0.9 % (0-2); % Eosinophils 0.4 % (0-6); % Immature Granulocytes 0.2 % (0-0.5); % Lymphocytes 58.7 % (20.5-51.1); % Monocytes 7.7 % (1.7-9.3); % Neutrophils 32.1 % (42.2-75.2); Absolute Lymphocytes 2.8 10^3/uL (1.2-3.4); Absolute Monocytes 0.4 10^3/uL (0.1-0.6); Absolute Neutrophils 1.5 10^3/uL (1.4-6.5); Nucleated Red Blood Cells % 0 %
== END ==
LOC: REG 07:58
PROVIDERS: ATTENDING PHYSICIAN Internal Medicine Hematology & Oncology; FAMILY PHYSICIAN Family Medicine; REFERRING PHYSICIAN Internal Medicine Hematology
DX: D47.2 Monoclonal gammopathy (principal); E16.1 Other hypoglycemia; D68.61 Antiphospholipid syndrome; D69.2 Other nonthrombocytopenic purpura; C91.Z0 Other lymphoid leukemia not having achieved remission; D61.818 Other pancytopenia; D76.3 Other histiocytosis syndromes
CPT/HCPCS: 36415; 85025

== ENCOUNTER → 2024-09-20 08:18 | Outpatient (REF) | payer OTHER, SELFPAY ==
[2024-09-20 09:11] LABS: % Basophils 0.5 % (0-2); % Eosinophils 0.3 % (0-6); % Immature Granulocytes 0.3 % (0-0.5); % Lymphocytes 57.5 % (20.5-51.1); % Monocytes 8.3 % (1.7-9.3); % Neutrophils 33.1 % (42.2-75.2); Absolute Lymphocytes 2.3 10^3/uL (1.2-3.4); Absolute Monocytes 0.3 10^3/uL (0.1-0.6); Absolute Neutrophils 1.3 10^3/uL (1.4-6.5); Hematocrit 39.4 % (37.0-47.0); Hemoglobin 13.6 g/dL (12.0-16.0); Mean Corp Hgb Conc. 34.5 g/dL (33.0-37.0); Mean Corpuscular Hgb 31.3 pg (27.0-31.0); Mean Corpuscular Volume 90.8 fL (81.0-99.0); Mean Platelet Volume 11.5 fL (7.4-10.4); Nucleated Red Blood Cells % 0 %; Platelet Count 97 10^3/uL (130-400); Red Blood Cell Count 4.34 10^6/uL (4.20-5.40); Red Cell Dist. Width 13.1 % (11.5-14.5)
== END ==
LOC: REG 08:18
PROVIDERS: ATTENDING PHYSICIAN Internal Medicine Hematology & Oncology
DX: D47.2 Monoclonal gammopathy (principal); R16.1 Splenomegaly, not elsewhere classified; D68.61 Antiphospholipid syndrome; D69.2 Other nonthrombocytopenic purpura; C91.Z0 Other lymphoid leukemia not having achieved remission; D61.818 Other pancytopenia; D76.3 Other histiocytosis syndromes; D36.11 Benign neoplasm of peripheral nerves and autonomic nervous system of face, head, and neck; D70.9 Neutropenia, unspecified; D83.9 Common variable immunodeficiency, unspecified
CPT/HCPCS: 36415; 85025

== ENCOUNTER → 2024-10-04 08:30 | Outpatient (REF) | payer OTHER, SELFPAY ==
[2024-10-04 10:31] LABS: % Basophils 0.7 % (0-2); % Eosinophils 0.2 % (0-6); % Immature Granulocytes 0.5 % (0-0.5); % Lymphocytes 46.4 % (20.5-51.1); % Monocytes 8.3 % (1.7-9.3); % Neutrophils 43.9 % (42.2-75.2); Absolute Lymphocytes 2.7 10^3/uL (1.2-3.4); Absolute Monocytes 0.5 10^3/uL (0.1-0.6); Absolute Neutrophils 2.6 10^3/uL (1.4-6.5); Hematocrit 39.1 % (37.0-47.0); Hemoglobin 13.8 g/dL (12.0-16.0); Mean Corp Hgb Conc. 35.3 g/dL (33.0-37.0); Mean Corpuscular Hgb 31.9 pg (27.0-31.0); Mean Corpuscular Volume 90.5 fL (81.0-99.0); Mean Platelet Volume 11.1 fL (7.4-10.4); Nucleated Red Blood Cells % 0 %; Platelet Count 100 10^3/uL (130-400); Red Blood Cell Count 4.32 10^6/uL (4.20-5.40); Red Cell Dist. Width 13.1 % (11.5-14.5); White Blood Cell Count 5.8 10^3/uL (4.8-10.8)
== END ==
LOC: REG 08:30
PROVIDERS: ATTENDING PHYSICIAN Internal Medicine Hematology & Oncology; FAMILY PHYSICIAN Family Medicine; REFERRING PHYSICIAN Internal Medicine Hematology
DX: D47.2 Monoclonal gammopathy (principal); R16.1 Splenomegaly, not elsewhere classified; D68.61 Antiphospholipid syndrome; D69.2 Other nonthrombocytopenic purpura; C91.Z0 Other lymphoid leukemia not having achieved remission; D61.818 Other pancytopenia; D76.3 Other histiocytosis syndromes; D36.11 Benign neoplasm of peripheral nerves and autonomic nervous system of face, head, and neck; D70.9 Neutropenia, unspecified; D83.9 Common variable immunodeficiency, unspecified
CPT/HCPCS: 36415; 85025

== ENCOUNTER → 2024-10-18 08:31 | Outpatient (REF) | payer OTHER, SELFPAY ==
[2024-10-18 09:41] LABS: Hematocrit 39.2 % (37.0-47.0); Hemoglobin 13.8 g/dL (12.0-16.0); Mean Corp Hgb Conc. 35.2 g/dL (33.0-37.0); Mean Corpuscular Hgb 31.2 pg (27.0-31.0); Mean Corpuscular Volume 88.7 fL (81.0-99.0); Mean Platelet Volume 11.3 fL (7.4-10.4); Platelet Count 108 10^3/uL (130-400); Red Blood Cell Count 4.42 10^6/uL (4.20-5.40); Red Cell Dist. Width 12.6 % (11.5-14.5); White Blood Cell Count 4.4 10^3/uL (4.8-10.8)
[2024-10-18 10:28] LABS: % Basophils 0.7 % (0-2); % Eosinophils 0.5 % (0-6); % Immature Granulocytes 0.2 % (0-0.5); % Monocytes 8.7 % (1.7-9.3); % Neutrophils 30.9 % (42.2-75.2); Absolute Lymphocytes 2.6 10^3/uL (1.2-3.4); Absolute Monocytes 0.4 10^3/uL (0.1-0.6); Absolute Neutrophils 1.4 10^3/uL (1.4-6.5); Nucleated Red Blood Cells % 0 %
== END ==
LOC: REG 08:31
PROVIDERS: ATTENDING PHYSICIAN Internal Medicine Hematology & Oncology; FAMILY PHYSICIAN Family Medicine; OTHER PHYSICIAN Internal Medicine Hematology
DX: D47.2 Monoclonal gammopathy (principal); R16.1 Splenomegaly, not elsewhere classified; D68.61 Antiphospholipid syndrome; D69.2 Other nonthrombocytopenic purpura; C91.Z0 Other lymphoid leukemia not having achieved remission; D61.818 Other pancytopenia; D76.3 Other histiocytosis syndromes; D36.11 Benign neoplasm of peripheral nerves and autonomic nervous system of face, head, and neck; D70.9 Neutropenia, unspecified; D83.9 Common variable immunodeficiency, unspecified
CPT/HCPCS: 85025

== ENCOUNTER → 2024-11-01 08:26 | Outpatient (REF) | payer OTHER, SELFPAY ==
[2024-11-01 09:42] LABS: Hematocrit 37.9 % (37.0-47.0); Hemoglobin 13.5 g/dL (12.0-16.0); Mean Corp Hgb Conc. 35.6 g/dL (33.0-37.0); Mean Corpuscular Hgb 31.5 pg (27.0-31.0); Mean Corpuscular Volume 88.6 fL (81.0-99.0); Red Blood Cell Count 4.28 10^6/uL (4.20-5.40); Red Cell Dist. Width 12.8 % (11.5-14.5)
[2024-11-01 11:11] LABS: Mean Platelet Volume 10.8 fL (7.4-10.4); Platelet Count 78 10^3/uL (130-400)
[2024-11-01 11:13] LABS: % Basophils 0.5 % (0-2); % Eosinophils 0.5 % (0-6); % Immature Granulocytes 0.5 % (0-0.5); % Neutrophils 32.5 % (42.2-75.2); Absolute Lymphocytes 2.3 10^3/uL (1.2-3.4); Absolute Monocytes 0.4 10^3/uL (0.1-0.6); Absolute Neutrophils 1.3 10^3/uL (1.4-6.5); Nucleated Red Blood Cells % 0 %
== END ==
LOC: REG 08:26
PROVIDERS: ATTENDING PHYSICIAN Internal Medicine Hematology & Oncology; FAMILY PHYSICIAN Family Medicine; REFERRING PHYSICIAN Internal Medicine Hematology
DX: D47.2 Monoclonal gammopathy (principal); R16.1 Splenomegaly, not elsewhere classified; D68.61 Antiphospholipid syndrome; D69.2 Other nonthrombocytopenic purpura; C91.Z0 Other lymphoid leukemia not having achieved remission; D61.818 Other pancytopenia; D76.3 Other histiocytosis syndromes; D36.11 Benign neoplasm of peripheral nerves and autonomic nervous system of face, head, and neck; D70.9 Neutropenia, unspecified
CPT/HCPCS: 36415; 85025

== ENCOUNTER → 2024-11-15 08:42 | Outpatient (REF) | payer OTHER, SELFPAY ==
[2024-11-15 09:56] LABS: Hematocrit 38.9 % (37.0-47.0); Hemoglobin 13.5 g/dL (12.0-16.0); Mean Corp Hgb Conc. 34.7 g/dL (33.0-37.0); Mean Corpuscular Hgb 30.9 pg (27.0-31.0); Mean Platelet Volume 10.8 fL (7.4-10.4); Platelet Count 103 10^3/uL (130-400); Red Blood Cell Count 4.37 10^6/uL (4.20-5.40); Red Cell Dist. Width 12.6 % (11.5-14.5); White Blood Cell Count 4.6 10^3/uL (4.8-10.8)
[2024-11-15 11:50] LABS: Absolute Neutrophils -Man Diff 1.7 10^3/uL (1.4-6.5); Atypical Lymphocytes 16 %; Band Neutrophils 1 % (0-3); Eosinophils 1 % (0-6); Lymphocytes 37 % (20-51); Monocytes 8 % (2-9); Segmented Neutrophils 37 % (42-75)
[2024-11-15 11:52] LABS: Normal RBC Morphology Yes; Platelets Checked Yes; Total Cells Counted 100
== END ==
LOC: REG 08:42
PROVIDERS: ATTENDING PHYSICIAN Internal Medicine Hematology & Oncology; FAMILY PHYSICIAN Internal Medicine Hematology
DX: D47.2 Monoclonal gammopathy (principal); R16.1 Splenomegaly, not elsewhere classified; D68.61 Antiphospholipid syndrome; D69.2 Other nonthrombocytopenic purpura; C91.Z0 Other lymphoid leukemia not having achieved remission; D61.818 Other pancytopenia; D76.3 Other histiocytosis syndromes; D36.11 Benign neoplasm of peripheral nerves and autonomic nervous system of face, head, and neck; D70.9 Neutropenia, unspecified; D83.9 Common variable immunodeficiency, unspecified
CPT/HCPCS: 36415; 85025

== ENCOUNTER → 2024-11-29 08:37 | Outpatient (REF) | payer OTHER, SELFPAY ==
[2024-11-29 10:16] LABS: Hematocrit 39.1 % (37.0-47.0); Hemoglobin 13.5 g/dL (12.0-16.0); Mean Corp Hgb Conc. 34.5 g/dL (33.0-37.0); Mean Corpuscular Hgb 30.7 pg (27.0-31.0); Mean Corpuscular Volume 88.9 fL (81.0-99.0); Mean Platelet Volume 10.7 fL (7.4-10.4); Platelet Count 92 10^3/uL (130-400); Red Cell Dist. Width 12.5 % (11.5-14.5); White Blood Cell Count 5.1 10^3/uL (4.8-10.8)
[2024-11-29 10:45] LABS: TSH 2.66 uIU/ml (0.47-4.68)
[2024-11-29 11:03] LABS: Absolute Neutrophils -Man Diff 1.5 10^3/uL (1.4-6.5); Atypical Lymphocytes 14 %; Band Neutrophils 3 % (0-3); Lymphocytes 50 % (20-51); Monocytes 6 % (2-9); Normal RBC Morphology Yes; Platelets Checked Yes; Segmented Neutrophils 27 % (42-75); Total Cells Counted 100
[2024-11-29 11:21] LABS: Folate 8.3 ng/ml (2.76-20); Vitamin B12 387 pg/ml (239-931)
[2024-12-01 05:30] LABS: Vitamin B6 Results 141.6 nmol/L (20.0-125.0)
== END ==
LOC: REG 08:37
PROVIDERS: ATTENDING PHYSICIAN Internal Medicine Hematology & Oncology; FAMILY PHYSICIAN Family Medicine; OTHER PHYSICIAN Internal Medicine Hematology; REFERRING PHYSICIAN Psychiatry & Neurology Neurology
DX: R20.0 Anesthesia of skin (principal); R20.2 Paresthesia of skin; D47.2 Monoclonal gammopathy; R16.1 Splenomegaly, not elsewhere classified; D68.61 Antiphospholipid syndrome; D69.2 Other nonthrombocytopenic purpura; C91.Z0 Other lymphoid leukemia not having achieved remission; D61.818 Other pancytopenia; D76.3 Other histiocytosis syndromes; D36.11 Benign neoplasm of peripheral nerves and autonomic nervous system of face, head, and neck; D70.9 Neutropenia, unspecified; D83.9 Common variable immunodeficiency, unspecified
CPT/HCPCS: 36415; 82607; 82746; 84207; 84443; 85025

== ENCOUNTER → 2024-12-02 13:45 | Outpatient (REF) | payer OTHER, SELFPAY ==
--- NOTE | 2024-12-02 15:21 | VATNOTE ---
right subq port deaccessed per protocol. 500 units heparin instilled. Brisk blood return noted prior to.
== END ==
LOC: PAVMRI 13:45
PROVIDERS: ATTENDING PHYSICIAN Internal Medicine Hematology; FAMILY PHYSICIAN Family Medicine
DX: D76.3 Other histiocytosis syndromes (principal)
CPT/HCPCS: 70553; A9575

== ENCOUNTER → 2024-12-06 08:14 | Outpatient (REF) | payer OTHER, SELFPAY ==
[2024-12-06 09:32] LABS: % Basophils 0.9 % (0-2); % Eosinophils 0.4 % (0-6); % Immature Granulocytes 0.2 % (0-0.5); % Lymphocytes 62.9 % (20.5-51.1); % Monocytes 7.2 % (1.7-9.3); % Neutrophils 28.4 % (42.2-75.2); Absolute Lymphocytes 2.9 10^3/uL (1.2-3.4); Absolute Monocytes 0.3 10^3/uL (0.1-0.6); Absolute Neutrophils 1.3 10^3/uL (1.4-6.5); Hematocrit 37.4 % (37.0-47.0); Mean Corp Hgb Conc. 34.8 g/dL (33.0-37.0); Mean Platelet Volume 10.9 fL (7.4-10.4); Nucleated Red Blood Cells % 0 %; Platelet Count 98 10^3/uL (130-400); Red Cell Dist. Width 12.9 % (11.5-14.5); White Blood Cell Count 4.6 10^3/uL (4.8-10.8)
[2024-12-06 10:27] LABS: TSH Reflex To Free T4 1.66 uIU/ml (0.47-4.68)
[2024-12-06 10:31] LABS: ALT (SGPT) 27 U/L (0-35); AST (SGOT) 28 U/L (14-36); Albumin 4.7 g/dl (3.5-5.0); Alkaline Phosphatase 87 U/L (38-126); Blood Urea Nitrogen 22 mg/dl (7-17); Carbon Dioxide 22 mmol/L (22-30); Chloride 106 mmol/L (98-107); Glucose 108 mg/dl (70-99); Potassium 3.4 mmol/L (3.5-5.1); Sodium 140 mmol/L (135-145); Total Bilirubin 0.9 mg/dl (0.2-1.3); Total Protein 6.5 g/dl (6.3-8.2); eGFR > 60.00
[2024-12-06 12:03] LABS: LDH 218 U/L (120-246)
[2024-12-06 18:22] LABS: IgA 86 mg/dl (70-400); IgG 622 mg/dl (700-1600); IgM 46 mg/dl (40-230)
== END ==
LOC: REG 08:14
PROVIDERS: ATTENDING PHYSICIAN Internal Medicine Hematology; FAMILY PHYSICIAN Family Medicine
DX: D76.3 Other histiocytosis syndromes (principal)
CPT/HCPCS: 36415; 80053; 82784; 83615; 84443; 85025

== ENCOUNTER → 2024-12-20 08:12 | Outpatient (REF) | payer OTHER, SELFPAY ==
[2024-12-20 09:26] LABS: Hematocrit 37.4 % (37.0-47.0); Hemoglobin 13.3 g/dL (12.0-16.0); Mean Corp Hgb Conc. 35.6 g/dL (33.0-37.0); Mean Corpuscular Hgb 31.5 pg (27.0-31.0); Mean Corpuscular Volume 88.6 fL (81.0-99.0); Mean Platelet Volume 11.1 fL (7.4-10.4); Platelet Count 95 10^3/uL (130-400); Red Blood Cell Count 4.22 10^6/uL (4.20-5.40); White Blood Cell Count 4.5 10^3/uL (4.8-10.8)
[2024-12-20 10:19] LABS: Absolute Neutrophils -Man Diff 1.6 10^3/uL (1.4-6.5); Band Neutrophils 1 % (0-3); Lymphocytes 39 % (20-51); Segmented Neutrophils 36 % (42-75)
[2024-12-20 10:20] LABS: Atypical Lymphocytes 20 %; Eosinophils 1 % (0-6); Hypochromasia 1+; Monocytes 3 % (2-9); Normal RBC Morphology No; Platelets Checked Yes; Polychromasia Slight; Total Cells Counted 100
== END ==
LOC: REG 08:12
PROVIDERS: ATTENDING PHYSICIAN Internal Medicine Hematology & Oncology; FAMILY PHYSICIAN Family Medicine; REFERRING PHYSICIAN Internal Medicine Hematology
DX: D47.2 Monoclonal gammopathy (principal); R16.1 Splenomegaly, not elsewhere classified; D68.61 Antiphospholipid syndrome; D69.2 Other nonthrombocytopenic purpura; C91.Z0 Other lymphoid leukemia not having achieved remission; D61.818 Other pancytopenia; D76.3 Other histiocytosis syndromes; D36.11 Benign neoplasm of peripheral nerves and autonomic nervous system of face, head, and neck; D70.9 Neutropenia, unspecified; D83.9 Common variable immunodeficiency, unspecified
CPT/HCPCS: 36415; 85025

== ENCOUNTER → 2024-12-23 08:28 | Outpatient (REF) | payer OTHER, SELFPAY | LOC: HWRAD 08:28 | PROVIDERS: ATTENDING PHYSICIAN Surgery; FAMILY PHYSICIAN Family Medicine | DX: N20.0 Calculus of kidney (principal) | CPT/HCPCS: 76775 ==

== ENCOUNTER 2024-12-31 16:57 | Inpatient (IN) | payer OTHER, SELFPAY ==
[2024-12-31] VITALS (11 sets, daily range): BP systolic 92–126; BP diastolic 52–69; BMI 27.4
[2024-12-31 11:54] LABS: Urine Albumin 3+ (Neg - Trace); Urine Bilirubin Negative (Negative); Urine Character Clear (Clear); Urine Color Yellow; Urine Glucose Negative (Negative); Urine Ketone Negative (Negative); Urine Leukocyte 2+ (Negative); Urine Nitrite Negative (Negative); Urine Occult Blood 2+ (Negative); Urine Urobilinogen 1+ (Neg - 1+)
[2024-12-31 12:21] LABS: Urine Squamous Cell >30 /LPF (Few)
[2024-12-31 12:22] LABS: Urine White Cell 30-40 /HPF (0-5)
[2024-12-31 12:23] LABS: Urine Bacteria Few (Negative)
--- NOTE | 2024-12-31 13:47 | ED.GENMED ---
History of Present Illness
General
Chief Complaint: Abdominal Pain
Source: patient
Time Seen by Provider: 12/31/24 13:29
History of Present Illness
History of Present Illness:
64-year-old female with past medical history of previous CVA, previous seizures, asthma, known intrarenal stones bilaterally, previous UTI, chronic thrombocytopenia presenting to the ER for evaluation of bilateral flank pain accompanied with fever
of 101 this morning, took Tylenol with resolution of the fever and chills. Patient states the bilateral flank pain felt similar to previous episodes of kidney stones and she has required multiple stone extractions. Patient denies any urinary
frequency/urgency/dysuria or hematuria. Currently no nausea. Denies any other URI-like symptoms or any other concerns.
Past History
Past History
ED Past Medical History: Asthma, Cancer, CVA, Hypercholesterolemia, Seizures and Other (Kidney stones, thrombocytopenia, hepatitis C, anemia, TIA)
ED Past Surgical History: Appendectomy, Cholecystectomy and Urological (Stents)
Social History
Tobacco: Non-smoker
Alcohol: None
Drug: None
Personal:
Living: with family
Employment: Retired
Family History
Family History: Other (nc)
Review of Systems
Review of Systems
All Other Systems: ROS reviewed and negative except as documented in HPI and ROS
Phy Exam
Physical Exam
Physical Exam:
GENERAL: Alert , in no apparent distress but does appear mildly uncomfortable
EYE: clear conjunctiva b/l
HEAD: NCAT
ENT: o/p clr, mmm.
CARDIAC: tachycardic rate and rhythm
LUNGS: Clear breath sounds bilaterally, no acute respiratory distress, no wheezes/rales/rhonchi
ABDOMEN: Soft, without focal tenderness, no r/g, no cvat
NEUROLOGICAL: Alert and oriented
SKIN: Warm and dry, skin intact.
MUSCULOSKELETAL: No edema, well perfused.
PSYCH: Normal and appropriate interaction.
Scores
Heart Failure Risk
Heart Failure Risk Score: Not Applicable
Heart Score for Chest Pain Patients
STEMI patient?: Not applicable
Withdrawal Assessment of Alcohol
Withdrawal Assessment Completed?: Not applicable
Course
Orders/Labs/Results
Orders:
Orders
12/31/24 11:30
Urinalysis Reflex To Culture Urgent
Date Specimen was Collected: 12/31/24
Time Specimen was Collected: 11:22
Urine Microscopic Reflex Cult Urgent
Urine Culture Urgent
JONATAN Source: U
Specimen Description:
Date Specimen was Collected: 12/31/24
Time Specimen was Collected: 11:22
12/31/24 13:39
0.9% Sodium Chloride 1000 ml [Nss] 1,000 ml IV BOLUS
Ketorolac [Toradol] 30 mg IV NOW STA
12/31/24 13:40
CT Abd/pel Without Iv Or Oral Urgent
Comment:
Reason For Exam: b/l flank pain, UTI, hx stones
12/31/24 13:45
Lactic Acid Q4H
Comment: CANCEL 2nd LACTIC ACID IF 1st LACTIC ACID IS LESS THAN 2
12/31/24 14:28
Complete Blood Count/With Diff Urgent
Comprehensive Metabolic Panel Urgent
Lactic Acid Q4H
Comment: CANCEL 2nd LACTIC ACID IF 1st LACTIC ACID IS LESS THAN 2
12/31/24 15:09
Cefepime HCl [Maxipime] 2,000 mg IV NOW STA
12/31/24 15:36
Dexamethasone Sod Phosphate [Decadron] 20 mg .ROUTE .STK-MED ONE
Fentanyl Citrate/Pf [Sublimaze] 100 mcg .ROUTE .STK-MED ONE
Lidocaine 2% Mpf [Xylocaine Mpf 2%] 100 mg .ROUTE .STK-MED ONE
Ondansetron Injectable [Zofran] 4 mg .ROUTE .STK-MED ONE
Propofol [Diprivan] 20 ml .ROUTE .STK-MED
12/31/24 15:37
Admit/Transfer Patient As Directed
Co-Sign Provider:
Level of Care: Inpatient admission
Assign to:: Telemetry
Physician / Group: justyn cortes
Diagnosis: urosepsis
Reason for Telemetry: Arrhythmia
Date to Stop Telemetry: 01/03/25
Time to Stop Telemetry: 11:00
Reason for Hospitalization: urosepsis
Expected length of stay greater than two midnights?: Yes
ELOS- Estimated Length of Stay in days: 3
I certify the patient meets the requirements for IP care: Yes
Midazolam HCl [Versed] 2 mg .ROUTE .STK-MED ONE
PRN Pain Medication Management As Directed
May give lesser potent ordered pain med per pt: Yes
preference::
Protocol:: Medication orders for pain may be administered in a
manner that supports deferring to patient preference
when the pt is:
- Requesting an ordered lesser potent pain medication.
Least to most potent pain medications are defined
as: acetaminophen < NSAID < tramadol < opioids
(morphine, oxycodone, hydromorphone).
- Requesting a lesser dose of the same medication IF
ORDERED.
- Requesting a less intrusive route of administration
if both routes are prescribed by the provider (PO <
IV).
12/31/24 15:38
Code Status As Directed
Resuscitation Status: Full Code
12/31/24 15:43
Blood Culture Q30M
JONATAN Source: Blood/Venous
Specimen Description:
Blood Culture Q30M
JONATAN Source: Blood/Venous
Specimen Description:
12/31/24 15:51
ONCOLOGY CONSULT Routine
Consulting Provider: Jakub Sweeney
Was physician already notified: Yes
01/03/25 11:00
DC Protocol for Telemetry ONCE
Abnormal Lab Results
12/31/24 12/31/24
11:30 14:28
WBC 2.7 L 10^3/uL
(4.8-10.8)
RBC 3.87 L 10^6/uL
(4.20-5.40)
Hct 34.2 L %
(37.0-47.0)
MCH 31.5 H pg
(27.0-31.0)
Plt Count 58 L 10^3/uL
(130-400)
MPV 11.2 H fL
(7.4-10.4)
Absolute Neuts (auto) 1.3 L 10^3/uL
(1.4-6.5)
Absolute Lymphs (auto) 1.1 L 10^3/uL
(1.2-3.4)
Immature Gran % 0.7 H %
(0-0.5)
Monocytes % 11.9 H %
(1.7-9.3)
Glucose 103 H mg/dl
(70-99)
Ur Occult Blood Reflex 2+ A
(Negative)
Leukocyte Esterase Rfl 2+ A
(Negative)
Urine RBC 7-10 A /HPF
(0-2)
Urine WBC (Reflex) 30-40 A /HPF
(0-5)
Urine Bacteria (Reflex) Few A
(Negative)
Urine Albumin (Reflex) 3+ A
(Neg - Trace)
12/31/24 14:28
12/31/24 14:28
Vital Signs
Initial and Last Documented VS:
Initial Vital Signs
Temp Pulse Resp BP Pulse Ox
98.5 F 117 16 126/69 98
12/31/24 11:18 12/31/24 11:18 12/31/24 11:18 12/31/24 11:18 12/31/24 11:18
Last Documented Vital Signs
Temp Pulse Resp BP Pulse Ox
98.5 F 117 16 126/69 98
12/31/24 11:18 12/31/24 11:18 12/31/24 11:18 12/31/24 11:18 12/31/24 11:18
MDM/Problems Addressed
Differential Diagnosis Includes:
Renal/ureteral colic, kidney stone/infected kidney stone, UTI, pyelonephritis
MDM/Problems Addressed:
64-year-old female presenting to the emergency department for evaluation of bilateral flank pain and fever with patient stating symptoms feel similar to previous episodes of kidney stones. She reports she had a ultrasound done at the [facility]
center earlier this week which showed bilateral nephrolithiasis. On arrival here patient tachycardic but is afebrile. Urinalysis had been obtained which shows 2+ leukocytes and 30-40 WBCs likely signifying some degree of urinary tract infection.
Will obtain labs, including lactic acid and blood cultures, CT scan. Toradol ordered for pain control. Fluids ordered as well.
Chronic conditions affecting care: Other (Previous kidney stones status post stent and stone removal)
*Radiology
Radiology exam reviewed: radiology read reviewed
*Pulse Oximetry
Patient hypoxic: no
*Critical Care Note
Total Time (30-74mins, 75-104mins- exclusive of procedures): Not Applicable
Data Reviewed
Review of Other/Old Records Reveals: Labs and Records
Patient Management
Discussion with other providers: Hospitalist and Operations Lead
Escalation/DeEscalation of care consider admission/obs:
CT scan does show a 2 mm calculus within the mid left ureter with mild left hydronephrosis. Other chronic findings noted. Given patient's fever, chronic leukopenia and infected stone I notified urology who will plan to take patient to the OR today
for stent placement. Hospitalist team to admit. IV Maxipime ordered. Patient remained stable.
ED Attending Note
-
Portions of this chart may have been created with voice recognition software.� Occasional wrong word or��sound alike� substitutions may have occurred due to the inherent limitations of voice recognition software.
Discharge Plan
Departure
Patient Disposition: Admit
Date of Disposition: 12/31/24
Time of Disposition: 15:10
Presentation/result/management discussed w/ accepting MD/DO: Hospitalist
Discharge Problem:
Complicated urinary tract infection, Ureterolithiasis
Prescriptions:
No Action
atorvastatin 20 MG tablet
20 mg PO HS
alendronate 70 MG tablet
70 mg PO JUNIOR@0800
Visbiome 112.5 billion cell Capsule
1 cap PO DAILY
acyclovir 800 mg Tablet
800 mg PO Q12H
levetiracetam [Keppra] 1,000 mg Tablet
1,000 mg PO BID
prochlorperazine maleate 10 mg Tablet
10 mg PO Q6HPRN PRN (Reason: nausea/vomiting)
acetaminophen [Tylenol Extra Strength] 500 mg Tablet
1,000 mg PO Q6HPRN PRN (Reason: mild pain)
hydroxyzine HCl 25 mg Tablet
25 mg PO TIDPRN PRN (Reason: anxiety)
albuterol sulfate 90 mcg/actuation Hfa Aerosol Inhaler
2 puff INHALATION R Q6HPRN PRN (Reason: sob)
loratadine [Claritin] 10 mg Tablet
10 mg PO DAILYPRN PRN (Reason: allergies)
cholecalciferol (vitamin D3) 25 mcg (1,000 unit) Tablet
25 mcg PO DAILY
prednisone 5 mg Tablet
2.5 mg PO DAILY
ferrous sulfate 325 mg (65 mg iron) Tablet
325 mg PO DAILY
Referrals:
Corona Chacko MD [Family Provider] -
Interventions
Interventions:
*Risk Screen - Suicide Last Done: 12/31/24 11:18
*General Assessment Last Done: 12/31/24 11:18
ED- Fall Risk Assessment Last Done: 12/31/24 13:52
*ED COVID-19 Vaccine History Last Done: 12/31/24 11:18
*Nursing Disposition Last Done: 12/31/24 15:52
GS-Jmdymk-Zlmxavyykk Assessment Last Done: 12/31/24 13:52
Discharge Date and Time
Discharge Date/Time: 12/31/24 15:53
Print Language: SWEDISH
[2024-12-31] MEDS: NSS 1000 IV (14:37)
[2024-12-31] MEDS: TORADOL 30 MG IV (14:38)
[2024-12-31 14:52] LABS: % Basophils 0.4 % (0-2); % Immature Granulocytes 0.7 % (0-0.5); % Monocytes 11.9 % (1.7-9.3); Absolute Lymphocytes 1.1 10^3/uL (1.2-3.4); Absolute Monocytes 0.3 10^3/uL (0.1-0.6); Absolute Neutrophils 1.3 10^3/uL (1.4-6.5); Hematocrit 34.2 % (37.0-47.0); Hemoglobin 12.2 g/dL (12.0-16.0); Mean Corp Hgb Conc. 35.7 g/dL (33.0-37.0); Mean Corpuscular Hgb 31.5 pg (27.0-31.0); Mean Corpuscular Volume 88.4 fL (81.0-99.0); Nucleated Red Blood Cells % 0 %; Red Blood Cell Count 3.87 10^6/uL (4.20-5.40); Red Cell Dist. Width 12.7 % (11.5-14.5); White Blood Cell Count 2.7 10^3/uL (4.8-10.8)
[2024-12-31 14:53] LABS: Lactic Acid 0.8 mmol/L (0.7-2.0)
[2024-12-31 15:03] LABS: ALT (SGPT) 21 U/L (0-35); AST (SGOT) 24 U/L (14-36); Albumin 4.1 g/dl (3.5-5.0); Alkaline Phosphatase 109 U/L (38-126); Blood Urea Nitrogen 15 mg/dl (7-17); Calcium 8.9 mg/dl (8.4-10.2); Carbon Dioxide 23 mmol/L (22-30); Chloride 105 mmol/L (98-107); Glucose 103 mg/dl (70-99); Potassium 3.9 mmol/L (3.5-5.1); Sodium 136 mmol/L (135-145); Total Bilirubin 1.1 mg/dl (0.2-1.3); Total Protein 6.4 g/dl (6.3-8.2); eGFR > 60.00
[2024-12-31 15:11] LABS: Mean Platelet Volume 11.2 fL (7.4-10.4); Platelet Count 58 10^3/uL (130-400)
--- NOTE | 2024-12-31 15:19 | HPS.HSE ---
Family Physician
-
Family Physician: Corona Chacko
Chief Complaint
-
b/l flank pain
History of Present Illness
64-year-old female with past medical history of previous CVA, previous seizures, asthma, known intrarenal stones bilaterally, previous UTI, chronic thrombocytopenia presenting to the ER for evaluation of bilateral flank pain accompanied with fever
of 101 this morning, took Tylenol with resolution of the fever and chills. Patient states the bilateral flank pain felt similar to previous episodes of kidney stones and she has required multiple stone extractions. patient stated flank for past two
weeks, which got worse since this morning. Patient had a febrile 101 this morning. Denies headache, dizzy or syncope. Patient denies any chest pain or short of breath. Patient denied any abdominal pain, nausea, vomiting, diarrhea. Patient
denies any urinary frequency/urgency/dysuria or hematuria.
CT with impression of mild left hydronephrosis secondary to a punctuate 2 mm calculus within the mid left ureter. Positive UA
Patient received cefepime, fluids in ER. Urology consulted. Admitting for further management
Medical History
Past Medical History
Past Medical History: Reports Other
Additional Past Medical History:
Epilepsy
Loyal pilocytic syndrome
Mixed hyperlipidemia
Osteoporosis
Kidney stones
Bilateral kidney stones
Rosai-Mirna disease
Colonic polyps
CVA
Thrombocytopenia
MGUS
Hepatitis C
Brain tumor
Past Surgical History: Reports Other
Additional Past Surgical History:
Appendectomy
Cholecystectomy right nephrostomy placement
Brain tumor resection
Port placement
Social History
Tobacco: Non-smoker
Alcohol: None
Drug: None
Family History
Family History: Not pertinent
Allergies / Home Medications
Allergies reflects when Allergies were last updated in [facility].
Home Medications with original date entered in [facility]
Allergy/Medication List:
Allergies
Allergy/AdvReac Type Severity Reaction Status Date / Time
penicillin G Allergy Unknown Unknown Verified 12/31/24 11:21
Sulfa (Sulfonamide Allergy Unknown Unknown Verified 12/31/24 11:21
Antibiotics)
codeine Allergy n/v ; Verified 12/31/24 11:21
foggy ;
percocet
'too
strong'
Home Medications
alendronate 70 mg tablet 70 mg PO JUNIOR@0800 OSTEOPOROSIS 03/31/20
atorvastatin 20 mg tablet 20 mg PO HS High cholesterol 03/31/20
Lactobac no.2-Bifidobac no.1-S. thermo 112.5 billion cell capsule (Visbiome) 1 cap PO DAILY Gastrointestinal issue 01/21/23
ferrous sulfate 27 mg iron tablet 27 mg PO DAILY Supplement 06/04/23
acyclovir 800 mg tablet 800 mg PO Q12H Infection 07/05/23
levetiracetam 1,000 mg tablet (Keppra) 1,000 mg PO BID Seizures 07/05/23
acetaminophen 500 mg tablet (Tylenol Extra Strength) 1,000 mg PO Q6H PRN mild pain 11/20/23
albuterol sulfate 90 mcg/actuation aerosol inhaler 2 puff inhalation R Q6HPRN PRN sob 11/20/23
cholecalciferol (vitamin D3) 25 mcg (1,000 unit) tablet 25 mcg PO DAILY Supplement 11/20/23
folic acid 800 mcg tablet 0.8 mg PO DAILY Supplement 11/20/23
hydroxyzine HCl 25 mg tablet 25 mg PO TID PRN anxiety 11/20/23
lidocaine-prilocaine 2.5 %-2.5 % topical cream 1 applic topical MOFR PORT ACCESS 11/20/23
loratadine 10 mg tablet (Claritin) 10 mg PO DAILY Allergies 11/20/23
prochlorperazine maleate 10 mg tablet 10 mg PO Q6H PRN nausea/vomiting 11/20/23
tbo-filgrastim 300 mcg/0.5 mL subcutaneous syringe (Granix) 300 mcg SC DIRECTED PRN if gran<1.5 11/20/23
midodrine 5 mg tablet 10 mg (2 x 5 mg) PO TID@0800,1300,1800 30 days #90 tabs 12/03/23
prednisone 50 mg tablet 50 mg PO DAILY 14 days #14 tabs 12/03/23
Review of Systems
-
Constitutional: Reports Fever
EENT: Reports No Symptoms
Respiratory: Reports No Symptoms
Cardiac: Reports No Symptoms
Abdomen/GI: Reports No Symptoms
: Reports Flank Pain
Musculoskeletal: Reports No Symptoms
Skin: Reports No Symptoms
Neurological: Reports No Symptoms
Endocrine: Reports No Symptoms
Hematologic/Lymphatic: Reports No Symptoms
Psych: Reports No Symptoms
Physical Exam
Vital Signs
Vital Signs
Temp Pulse Resp BP Pulse Ox
98.5 F 117 16 126/69 98
12/31/24 11:18 12/31/24 11:18 12/31/24 11:18 12/31/24 11:18 12/31/24 11:18
Physical Exam
General: Well Developed, Well Nourished and No Apparent Distress
HEENT: NormoCephalic, Moist mucous membranes and Atraumatic
Respiratory: Clear
Cardiac: S1/S2 and Regular Rhythm; No Murmur or Rub
GI: Soft, Non Tender, Non Distended and Normal Bowel Sounds; No Organomegaly
Rectal: Deferred by Provider
Musculoskeletal: No Clubbing, No Cyanosis and No Edema
Skin: No Rash
Neuro: AO x 3 and Nonfocal/grossly intact
Psych: Calm
Laboratory Results
-
12/31/24 14:28
12/31/24 14:28
Laboratory Results
Lactic Acid 0.8 mmol/L (0.7-2.0) 12/31/24 14:28
Total Bilirubin 1.1 mg/dl (0.2-1.3) 12/31/24 14:28
AST 24 U/L (14-36) 12/31/24 14:28
ALT 21 U/L (0-35) 12/31/24 14:28
Alkaline Phosphatase 109 U/L (38-126) 12/31/24 14:28
Data Reviewed
-
CT Scan: Report Reviewed by me
Lab Data: Labs Reviewed by me
Impression/Plan
-
# Urosepsis
# Obstructing 2 mm mild ureteral stone
-WBC 2.7, tachycardia
-CT abdomen pelvis with impression of Mild left hydronephrosis secondary to a punctate 2 mm calculus within the mid left ureter. Multiple additional intrarenal calculi bilaterally. Splenomegaly, which appears to be a chronic finding Grade 1
anterolisthesis at L5-S1 secondary to bilateral facet arthropathy.
-Cefepime continued
-Blood culture sent from ER
-Tylenol as needed for fever
-We will keep patient n.p.o. for possible stent today
-Urology aware
# Chronic thrombocytopenia/history of Rosai-Mirna syndrome
-Platelets 58
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
#pancytopenia
-prednisone continued
#Adjustment disorder, with mild depression
# Anxiety
hx of CVA
hx of 2 petit-mal seizures 2017
- continue Keppra
#hxt of brain tumor
HLD
-Statin continued
#hx of Asthma
-Not in acute exacerbation
#hx of Hep C, related to receiving blood transfusion
#DVT ppx: SCDs
#Code: Full
[2024-12-31] MEDS: MAXIPIME 2000 MG IV (15:41)
--- NOTE | 2024-12-31 15:55 | W.PN.UPDATE ---
Update Note
Progress Note Update
This note serves as an addendum to the H&P by hand sample maker NIKI
Sydney CHAUNCEY
HPI
64F HX CVA, previous seizures, asthma, known b/l intrarenal stone, previous UTI, chronic thrombocytopenia sen at ER;
- Fever 101 with bilateral flank pain but took Tylenol with resolution of the fever and chills.
- bilateral flank pain felt similar to previous episodes of kidney stones and she has required multiple stone extractions
ROS:
- denies any urinary frequency/urgency/dysuria or hematuria.
- no nausea.
- Denies any other URI-like symptoms or any other concerns.
PHX; see above
VS
12/31/24
11:18
Pulse 117
Laboratory Tests
12/20/24 12/31/24
08:42 14:28
WBC 4.5 L 2.7 L
Plt Count 58 L
PE
GENERAL: Alert, not toxic , mildly uncomfortable
HEENT: : anicteric
CARDIAC: tachycardic rate and rhythm
LUNGS: CTA, bilaterally, no acute respiratory distress, no wheezes/rales/rhonchi
ABDOMEN: Soft, without focal tenderness, no r/g, no cvat
NEUROLOGICAL: Alert and oriented
SKIN: Warm and dry, skin intact.
MUSCULOSKELETAL: No edema, well perfused.
PSYCH: Normal and appropriate interaction
Data
CT Abd/pel Without Iv Or Oral
1. Mild left hydronephrosis secondary to a punctate 2 mm calculus within the mid left ureter. Multiple additional intrarenal calculi bilaterally.
2. Splenomegaly, which appears to be a chronic finding.
3. Grade 1 anterolisthesis at L5-S1 secondary to bilateral facet arthropathy.
4. Additional findings above.
Last hospitalist admission: DATE OF ADMISSION: 11/20/2023 - DATE OF DISCHARGE: 12/03/2023
DISCHARGE DIAGNOSIS:
1. Neutropenic fever.
2. Shock.
3. Chronic pancytopenia.
4. Thrombocytopenia, severe.
ASSESSMENT & PLAN
Sepsis ( Tachy, Leucopenia) due to UTI
Obstructing stone complicated by mild Lt HN
HX Septic shock
- UCx, BCx
- Agree with IV CFP
- IV LR IVF
- NPO
- To consider stress dose IV Hydrocortisone if any clinical deterioration
- Urologist consulted - planning for OR SARHA
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
Associated pancytopenia per Onncology evaluating possible underlying BM disease causing significant pancytopenia
HX 2 petit-mal seizures 2016
HX Brain tumor
- continue Keppra
HX Thrombocytopenia on chr PO prednisone
Current platelete 58 now
- To consider stress dose IV Hydrocortisone if any clinical deterioration
- cont PNEUMATIC TESTER prednisone for now
- Heme consult
HX CVA
HLD continued
HX Asthma
- Not in acute exacerbation
- Albuterol from home continued
HX Hep C, related to receiving blood transfusion
HX Adjustment disorder, with mild depression
HX Anxiety
Seen by psych on lastr admission; recommended to c/w supportive therapy, on an outpatient basis upon return home/when medically stable.
DVT Px: SCD
Full code
IP TLM
--- NOTE | 2024-12-31 16:19 | CONS.URO ---
Consultation
-
Performing Provider: Peffer
Reason for Consultation: Sepsis, kidney stone
Medical History
History of Present Illness
64F with prior history of kidney stones and procedures
History of neutropenia/pancytopenia
past medical history of previous CVA, previous seizures, asthma, known intrarenal stones bilaterally, previous UTI, chronic thrombocytopenia presenting to the ER for evaluation of bilateral flank pain accompanied with fever of 101 this morning,
took Tylenol with resolution of the fever and chills.
Patient states the bilateral flank pain felt similar to previous episodes of kidney stones and she has required multiple stone extractions
She sees Dr. Coleman and last had an US 5 days ago with 24hr urine study pending
Patient stated flank for past two weeks, which got worse since this morning. Patient denies any urinary frequency/urgency/dysuria or hematuria.
CT with impression of mild left hydronephrosis secondary to a punctuate 2 mm calculus within the mid left ureter. Positive UA
Review of CT shows also an unlikely but possible R distal ureteral stone
Patient received cefepime, fluids in ER
Past Medical History
Past Medical History: Other (CVA, previous seizures, asthma, known intrarenal stones bilaterally, previous UTI, chronic thrombocytopenia)
Past Surgical History: Urological
Social History
Tobacco: Non-smoker
Alcohol: None
Personal:
Living: With Family
Family History
Family History: Reviewed & Not Pertinent
Allergies/Home Medications
Allergies
Allergy/AdvReac Type Severity Reaction Status Date / Time
codeine Allergy n/v ; Verified 12/31/24 11:21
foggy ;
percocet
'too
strong'
penicillin G Allergy Unknown Verified 12/31/24 16:18
Sulfa (Sulfonamide Allergy Unkonwn Verified 12/31/24 16:18
Antibiotics) reaction
>40 years
ago
Home Medications
�Medication �Instructions �Recorded �Confirmed �Type
alendronate 70 mg tablet 70 mg PO JUNIOR@0800 OSTEOPOROSIS 03/31/20 12/31/24 History
atorvastatin 20 mg tablet 20 mg PO HS High cholesterol 03/31/20 12/31/24 History
Lactobac no.2-Bifidobac no.1-S. 1 cap PO DAILY Gastrointestinal 01/21/23 12/31/24 History
thermo 112.5 billion cell capsule issue
(Visbiome)
acyclovir 800 mg tablet 800 mg PO Q12H Infection 07/05/23 12/31/24 History
levetiracetam 1,000 mg tablet 1,000 mg PO BID Seizures 07/05/23 12/31/24 History
(Keppra)
acetaminophen 500 mg tablet 1,000 mg PO Q6HPRN PRN mild pain 11/20/23 12/31/24 History
(Tylenol Extra Strength)
albuterol sulfate 90 mcg/actuation 2 puff inhalation R Q6HPRN PRN sob 11/20/23 12/31/24 History
aerosol inhaler
cholecalciferol (vitamin D3) 25 25 mcg PO DAILY Supplement 11/20/23 12/31/24 History
mcg (1,000 unit) tablet
hydroxyzine HCl 25 mg tablet 25 mg PO TIDPRN PRN anxiety 11/20/23 12/31/24 History
loratadine 10 mg tablet (Claritin) 10 mg PO DAILYPRN PRN allergies 11/20/23 12/31/24 History
prochlorperazine maleate 10 mg 10 mg PO Q6HPRN PRN nausea/vomiting 11/20/23 12/31/24 History
tablet
ferrous sulfate 325 mg (65 mg 325 mg PO DAILY 12/31/24 12/31/24 History
iron) tablet
prednisone 5 mg tablet 2.5 mg PO DAILY 12/31/24 12/31/24 History
Physical Exam
Vital Signs
Vital Signs
Temp Pulse Resp BP Pulse Ox
98.5 F 117 16 126/69 98
12/31/24 11:18 12/31/24 11:18 12/31/24 11:18 12/31/24 11:18 12/31/24 11:18
Lab / Testing Results
Laboratory Results
12/31/24 14:28
12/31/24 14:28
Physical Exam
General: Well Developed, Well Nourished and No Apparent Distress
Respiratory: Clear and Non Labored Respirations
GI: Soft and Non Tender
Genito-urinary: No Costovertebral Tend
Neuro: AO x 3
Psych: Calm and Intact Judgement
Assessment / Plan
-
64F with obstructing L prox ureteral stone and fever
History of prior stones and presenting with b/l flank and abdominal pain
Calcification near location of distal R ureter which I cannot rule out possible R distal ureteral stone
- OR for cystoscopy, L ureteral stent, R RGP and possible R ureteral stent
- Continue abx - on cefepime
- Urine cx pending
- Monitor leukopenia - management per primary
Outpatient follow up for ureteroscopy/laser lithotripsy once infection addressed
Data Reviewed
-
CT Scan: Image personally visualized and interpreted
Lab Data: Labs Reviewed
--- NOTE | 2024-12-31 16:56 | W.IMMPOSTOP ---
Surgical Immed Post Op Note
-
Primary Surgeon: Peffer
Assisting Surgeon: none
Pre-op Diagnosis: sepsis, L ureteral stone, possible R
Post-op Diagnosis: same
Procedure Performed: cystoscopy, RGP, b/l ureteral stents
Anesthesia Type: gen
Specimen / Cultures: none
Estimated Blood Loss: none
Complications: none
Operative Findings:
L stent placed, no obvious purulent urine
unlikely R ureteral stone but stent placed given symptoms and sepsis
[2024-12-31] MEDS: KEPPRA 1000 MG PO (19:41)
[2024-12-31] MEDS: LR 1000 IV (19:41)
[2024-12-31] MEDS: ZOVIRAX 800 MG PO (19:41)
--- NOTE | 2024-12-31 20:00 | PTCARENOTE ---
Report received by this RN, from [facility] in PACU. Patient arrived from PACU with Normosol hung but, clamped. LR started at 80 ml/hr infusing through right chest wall port. VSS. 2 L NC removed due to adequate oxygenation on room air as evidenced by
SpO2 98%. Patient denies pain. NSR to sinus tach on telemetry. Patient refusing SCDs. OOB standby assist, with no devices. Skin clean,dry, and intact. Voiding clear, yellow urine. No urgency, frequency, or hesitancy. Patient oriented to room. Will
be moving to a private room due to history of MRSA. Bed in lowest position. Bed alarm on. Call banegas and personal belongings within reach.
[2024-12-31] MEDS: LIPITOR 20 MG PO (20:58)
[2025-01-01 03:14] VITALS: BP 123/69
[2025-01-01] MEDS: MAXIPIME 2000 MG IV ×2 (03:17→17:11)
[2025-01-01] MEDS: STERILE WATER FOR INJECTION 10 ML IV ×2 (03:17→17:11)
[2025-01-01] MEDS: LR 1000 IV ×2 (03:18→17:07)
[2025-01-01 07:00] VITALS: BP 105/59
[2025-01-01 08:47] LABS: Hematocrit 29.4 % (37.0-47.0); Hemoglobin 10.5 g/dL (12.0-16.0); Mean Corp Hgb Conc. 35.7 g/dL (33.0-37.0); Mean Corpuscular Hgb 31.6 pg (27.0-31.0); Mean Corpuscular Volume 88.6 fL (81.0-99.0); Red Blood Cell Count 3.32 10^6/uL (4.20-5.40); Red Cell Dist. Width 12.6 % (11.5-14.5); White Blood Cell Count 2.1 10^3/uL (4.8-10.8)
[2025-01-01] MEDS: KEPPRA 1000 MG PO ×2 (09:43→20:57)
[2025-01-01] MEDS: FEOSOL 325 MG PO (09:43)
[2025-01-01] MEDS: DELTASONE 2.5 MG PO (09:43)
[2025-01-01] MEDS: ZOVIRAX 800 MG PO ×2 (09:43→20:56)
[2025-01-01 10:36] LABS: Mean Platelet Volume 11.9 fL (7.4-10.4); Platelet Count 38 10^3/uL (130-400)
--- NOTE | 2025-01-01 10:48 | W.PN.URO.CBU ---
Today's Communication / Plan
-
Continue antibiotics
Outpatient follow up for stone procedure
Assessment / Plan
-
64F with obstructing L prox ureteral stone and fever
History of prior stones and presenting with b/l flank and abdominal pain
Calcification near location of distal R ureter, possible R distal ureteral stone
12/31/24 cystoscopy, bilateral ureteral stent placement
- Continue abx - on cefepime
- Urine cx with only mixed kee, blood cx pending. Will likely need to choose empiric abx treatment for outpatient
- Onc recs for pancytopenia
Outpatient follow up with Dr. Coleman for ureteroscopy/laser lithotripsy once infection addressed
Diagnosis
-
Date of Service: January 01, 2025
-
Patient Diagnosis:
Septic UTI
Obstructing ureteral stone
leukopenia
Post Op s/p b/l ureteral stents 12/31
Subjective
-
Some urinary frequency
No pain
Objective
-
Vital Signs
Temp Pulse Resp BP Pulse Ox
98.5 F 95 18 105/59 96
01/01/25 07:00 01/01/25 07:00 01/01/25 07:00 01/01/25 07:00 01/01/25 07:00
Intake and Output
12/31/24 01/01/25 01/02/25
06:59 06:59 06:59
Intake Total 976 / 976
Balance 976 / 976
Intake:
IV fluids (Total) 956 / 956
Normosol 300 / 300
IV piggybacks 20 20
Other:
Number of approximated MODERATE 2
amounts of urine
Laboratory Results
01/01/25 08:23
12/31/24 14:28
Physical Exam
-
General - well developed, well nourished, no acute distress
Chest - clear
Abdomen - soft, non-tender
[2025-01-01 11:00] VITALS: BP 102/63
[2025-01-01 14:57] LABS: % Basophils 0.5 % (0-2); % Immature Granulocytes 1.4 % (0-0.5); % Lymphocytes 12.3 % (20.5-51.1); % Monocytes 5.5 % (1.7-9.3); % Neutrophils 80.3 % (42.2-75.2); Absolute Lymphocytes 0.3 10^3/uL (1.2-3.4); Absolute Monocytes 0.1 10^3/uL (0.1-0.6); Absolute Neutrophils 1.8 10^3/uL (1.4-6.5); Nucleated Red Blood Cells % 0 %
--- NOTE | 2025-01-01 15:03 | W.PN.HOSP.TC ---
Today's Communication/Plan
-
Assessment / Plan
Assessment / Plan
Gen-AAOx3, NAD
HEENT-NC, AT, anicteric, clear oral mm
Neck-supple
CV-reg, no M, +S1/S2
Lungs-clear B/L
Abd-soft, NT, ND
Musculoskeletal-no edema, no deformity
Skin-warm and dry
Neuro-grossly non-focal
Psych-calm, cooperative
Ms. 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
fevers and chills. CT imaging showed mild left hydronephrosis with a stone in her mid left ureter. She was started on antibiotics and admitted for further evaluation and management.
Bilateral renal stones:
-Recurrent
-Partially obstructing left ureteral stone and possible right ureteral stone noted during cystoscopy
-Bilateral ureteral stents placed
-UA showing pyuria and bacteria
-Continue antibiotics with cefepime, follow-up urine cultures
-IV fluids
-Pain control as needed
-Outpatient urology follow-up
Rosai-Mirna syndrome:
-This is a non-Langerhans' cell histiocytosis, this is not cancer or CLL
-She is on chronic steroids, currently prednisone 2.5 mg daily, may need stress dose during this admission
-She is leukopenic and thrombocytopenic at baseline, which usually worsens with physiologic stress
-To be evaluated by oncology during this admission, will hold off on stress dose steroids for now pending oncology recommendations
CODE STATUS: Full code
Anticipated Discharge: 24 - 48 hours
Subjective/Interval History
-
Date of Service: January 01, 2025
Patient was seen and examined at bedside this morning. Feeling some abdominal soreness after bilateral ureteral stenting yesterday but generally feeling well this morning.
Objective Data
-
Labs:
Laboratory Results
01/01/25
08:23
WBC 2.1 L*
Hgb 10.5 L
Hct 29.4 L
Plt Count 38 L D
Vital Signs:
Vital Signs
Temp Pulse Resp BP Pulse Ox
98.2 F 102 16 102/63 95
01/01/25 11:00 01/01/25 11:00 01/01/25 11:00 01/01/25 11:00 01/01/25 11:00
I&O
12/31/24 01/01/25 01/02/25
06:59 06:59 06:59
Intake Total 976 / 976
Balance 976 / 976
Review of Systems
-
History Source: Patient
All other systems: Reviewed and negative
Abdomen/GI: Reports Abdominal Pain
Physical Exam
-
General: No Apparent Distress
[2025-01-01] MEDS: TYLENOL 650 MG PO ×2 (15:44→20:57)
[2025-01-01 17:36] VITALS: BP 96/57
--- NOTE | 2025-01-01 19:48 | CON.ONC ---
Impression
Impression
Nephrolithiasis s/p cystoscopy and b/l renal stent placement 12/31
Urosepsis
Acute on chronic cytopenias
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
CROSSING GUARD involvement with RDS
Treated hep C
Splenomegaly due to portal hypertension
Plan
Plan
Daily CBC c diff
GCSF PRN ANC <1000, currently 1800
Transfuse PRN Platelets<20K or if bleeding then <50K
Would also hold ASA if platelet <40K again 01/02
Transfuse PRBC's PRN Hgb <7
Pt clinically stable.
Thank you for consult, will follow along with you.
Patient History
History of Present Illness
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 Nieves and Dr. Rut Chaudhary, currently on prednisone 2.5 mg daily. She also has a history of treated
hepatitis C complicated by portal hypertension and splenomegaly. She has had frequent admissions for infection. Now admitted with nephrolithiasis requiring b/l stent placement. She is on Cefepime. We are consulted for acute on chronic cytopenias.
c/o headache this morning. Denies current fevers/chills.
Past-Medical/Surgical History
Past Medical History
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
CROSSING GUARD involvement with RDS
Treated hep C
Portal HTN -> splenomegaly
IgM MGUS
APLA on baby aspirin only
Surgical History
Cholecystectomy 2009, appendectomy 2004, section 1987, multiple kidney stone removals 2019, 2020, right nephrostomy tube placement 04/22/2020, laser lithotripsy 09/22/2021, brain tumor biopsy January 2023, lymph node biopsy, spinal tap
Social History
Tobacco: Non-smoker
Alcohol: None
Drug: None
Personal:
Living: With Family ( [place])
Employment: Disabled
Family History
Family History: Other (Sister uterine cancer, mother dementia, father cardiac, DM 2)
Patient Medication
�Medication �Instructions �Recorded �Confirmed �Last Taken �Type
alendronate 70 mg tablet 70 mg PO JUNIOR@0800 OSTEOPOROSIS 03/31/20 12/31/24 11/16/23 History
atorvastatin 20 mg tablet 20 mg PO HS High cholesterol 03/31/20 12/31/24 12/07/23 History
Lactobac no.2-Bifidobac no.1-S. 1 cap PO DAILY Gastrointestinal 01/21/23 12/31/24 12/08/23 History
thermo 112.5 billion cell capsule issue
(Visbiome)
acyclovir 800 mg tablet 800 mg PO Q12H Infection 07/05/23 12/31/24 12/08/23 History
levetiracetam 1,000 mg tablet 1,000 mg PO BID Seizures 07/05/23 12/31/24 12/08/23 History
(Keppra)
acetaminophen 500 mg tablet 1,000 mg PO Q6HPRN PRN mild pain 11/20/23 12/31/24 11/19/23 History
(Tylenol Extra Strength)
albuterol sulfate 90 mcg/actuation 2 puff inhalation R Q6HPRN PRN sob 11/20/23 12/31/24 Unknown History
aerosol inhaler
cholecalciferol (vitamin D3) 25 25 mcg PO DAILY Supplement 11/20/23 12/31/24 12/08/23 History
mcg (1,000 unit) tablet
hydroxyzine HCl 25 mg tablet 25 mg PO TIDPRN PRN anxiety 11/20/23 12/31/24 12/08/23 History
loratadine 10 mg tablet (Claritin) 10 mg PO DAILYPRN PRN allergies 11/20/23 12/31/24 12/08/23 History
prochlorperazine maleate 10 mg 10 mg PO Q6HPRN PRN nausea/vomiting 11/20/23 12/31/24 11/19/23 History
tablet
ferrous sulfate 325 mg (65 mg 325 mg PO DAILY 12/31/24 12/31/24 Unknown History
iron) tablet
prednisone 5 mg tablet 2.5 mg PO DAILY 12/31/24 12/31/24 Unknown History
Active Medications
Generic Name Dose Route Start Last Admin
Trade Name Freq PRN Reason Stop Dose Admin
Acetaminophen 650 mg 12/31/24 17:25 01/01/25 15:44
Acetaminophen 325 Mg Tablet PO 01/28/25 17:24 650 mg
Q4HPRN PRN Administration
mild pain/YANCEY/temp> 100.4F
Acyclovir Sodium 800 mg 12/31/24 20:00 01/01/25 09:43
Acyclovir Sodium 800 Mg Tablet PO 01/10/25 19:59 800 mg
Q12H SEBLE Administration
Albuterol 2 puff 12/31/24 17:25
Albuterol Hfa [90 Mcg/Dose] Inhaler INH
R Q6HPRN PRN
sob
Protocol
Atorvastatin Calcium 20 mg 12/31/24 22:00 12/31/24 20:58
Atorvastatin (Lipitor) 20 Mg Tablet PO 01/28/25 21:59 20 mg
HS SEBLE Administration
Bisacodyl 10 mg 12/31/24 17:25
Bisacodyl 10 Mg Rectal Suppository RECTAL 01/28/25 17:24
[id number] PRN
constipation
Cefepime HCl 2,000 mg 01/01/25 04:00 01/01/25 17:11
Cefepime Hcl 2,000 Mg/12.5 Ml Vial IV 2,000 mg
Q12H SEBLE Administration
Ferrous Sulfate 325 mg 01/01/25 08:00 01/01/25 09:43
Ferrous Sulfate 325 Mg Tablet PO 01/29/25 07:59 325 mg
DAILY SEBLE Administration
Lactated Ringer's 1,000 mls @ 80 mls/hr 12/31/24 17:25 01/01/25 17:07
Lr IV 1,000 mls
.[id number] SEBLE Administration
Levetiracetam 1,000 mg 12/31/24 20:00 01/01/25 09:43
Levetiracetam 500 Mg Regular Release Tablet PO 01/28/25 19:59 1,000 mg
BID SEBLE Administration
Melatonin 5 mg 01/01/25 22:00
Melatonin 5 Mg Tablet PO 01/29/25 21:59
HS SEBLE
Polyethylene Glycol 17 grams 12/31/24 17:25
Polyethylene Glycol Powder 17 Grams Packet PO 01/28/25 17:24
DAILYPRN PRN
constipation
Prednisone 2.5 mg 01/01/25 08:00 01/01/25 09:43
Prednisone 2.5 Mg Tablet PO 01/29/25 07:59 2.5 mg
DAILY SEBLE Administration
Senna/Docusate Sodium 1 tablet 12/31/24 17:25
Docusate W/Senna (Anahy-Colace) Tablet PO 01/28/25 17:24
BIDPRN PRN
constipation
Sodium Chloride 0 flush 12/31/24 18:00
Sodium Chloride 0.9% (Flush) Syringe IV 01/28/25 17:59
PER PROTOCOL SEBLE
Sterile Water 10 ml 01/01/25 04:00 01/01/25 17:11
Sterile Water For Injection 10 Ml Vial IV 01/29/25 03:59 10 ml
Q12H SEBLE Administration
Review of Systems
-
History Source: Patient and Records
All Other Systems: Reviewed and Negative
Physical Exam
-
General: Well Developed, Well Nourished and No Apparent Distress
HEENT: Moist Mucous Membranes; Negative Jaundice
Cardiology: Normal Sinus Rhythm, S1 and S2
Pulmonary: Clear; Negative Wheezes
GI: Soft and Normal Bowel Sounds
Musculoskeletal: No Clubbing, No Cyanosis and No Edema
Extremities: Negative Phlebitic Signs
Neurology: Non Focal
Skin: Warm
Hematologic / Lymphatic: No Lymphadenopathy
Psych: Calm and Intact Judgement/Insight
Labs
Lab Results
WBC 2.1 10^3/uL (4.8-10.8) L* 01/01/25 08:
RBC 3.32 10^6/uL (4.20-5.40) L 01/01/25 08:
Hgb 10.5 g/dL (12.0-16.0) L 01/01/25 08:
Hct 29.4 % (37.0-47.0) L 01/01/25:
MCV 88.6 fL (81.0-99.0) 01/01/25 08:
MCH 31.6 pg (27.0-31.0) H 01/01/25 08:
MCHC 35.7 g/dL (33.0-37.0) 01/01/25 08:23
RDW 12.6 % (11.5-14.5) 01/01/25 08:
Plt Count 38 10^3/uL (130-400) L D 01/01/25:
MPV 11.9 fL (7.4-10.4) H 01/01/25 08:23
Abs Immat Gran (auto) 0.0 10^3/uL (0-0.05) 01/01/25 08:
Absolute Neuts (auto) 1.8 10^3/uL (1.4-6.5) 01/01/25 08:23
Absolute Lymphs (auto) 0.3 10^3/uL (1.2-3.4) L 01/01/25 08:
Absolute Monos (auto) 0.1 10^3/uL (0.1-0.6) 01/01/25 08:23
Absolute Eos (auto) 0.0 10^3/uL (0-0.7) 01/01/25 08:23
Absolute Basos (auto) 0.0 10^3/uL (0-0.2) 01/01/25 08:23
Immature Gran % 1.4 % (0-0.5) H 01/01/25 08:23
Neutrophils % 80.3 % (42.2-75.2) H 01/01/25 08:23
Lymphocytes % 12.3 % (20.5-51.1) L 01/01/25 08:23
Monocytes % 5.5 % (1.7-9.3) 01/01/25 08:23
Eosinophils % 0.0 % (0-6) 01/01/25 08:
Basophils % 0.5 % (0-2) 01/01/25 08:23
Creatinine 0.8 mg/dL (0.6-1.0) 12/31/24 14:28
12/06/24: WBC 4.6, Hgb 13.0, Plt 98K
Vital Signs
Vital Signs
Temp Pulse Resp BP Pulse Ox
98.3 F 89 16 96/57 92
01/01/25 17:36 01/01/25 17:36 01/01/25 17:36 01/01/25 17:36 01/01/25 17:36
[2025-01-01] MEDS: MELATONIN 5 MG PO (20:56)
[2025-01-01] MEDS: LIPITOR 20 MG PO (20:57)
[2025-01-01 21:09] VITALS: BP 110/63
[2025-01-01 23:36] VITALS: BP 96/45
[2025-01-02] MEDS: MAXIPIME 2000 MG IV (04:08)
[2025-01-02] MEDS: STERILE WATER FOR INJECTION 10 ML IV (04:08)
[2025-01-02 07:00] VITALS: BP 105/62
[2025-01-02 07:02] LABS: Hematocrit 26.8 % (37.0-47.0); Hemoglobin 9.3 g/dL (12.0-16.0); Mean Corp Hgb Conc. 34.7 g/dL (33.0-37.0); Mean Corpuscular Volume 89.3 fL (81.0-99.0); Mean Platelet Volume 13.4 fL (7.4-10.4); Platelet Count 25 10^3/uL (130-400); Red Cell Dist. Width 12.8 % (11.5-14.5); White Blood Cell Count 1.5 10^3/uL (4.8-10.8)
[2025-01-02] MEDS: DECADRON 6 MG IV (07:46)
[2025-01-02] MEDS: ZOVIRAX 800 MG PO (08:46)
[2025-01-02] MEDS: KEPPRA 1000 MG PO (08:46)
[2025-01-02] MEDS: FEOSOL 325 MG PO (08:46)
[2025-01-02] MEDS: DELTASONE 2.5 MG PO (08:46)
[2025-01-02] MEDS: NSS 1000 IV (09:53)
--- NOTE | 2025-01-02 11:48 | W.DCSUMMARY ---
Discharge Summary
Discharge Data
Date of Admission: 12/31/24
Date of Discharge: 01/02/25
-
Pending Results: No
Hospital Course
Ms. 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
fevers and chills. CT imaging showed mild left hydronephrosis with a stone in her mid left ureter. She was started on antibiotics and admitted for further evaluation and management.
She was brought to the OR for bilateral ureteral stent placement on 12/31 with urology. She tolerated the procedure well. She was continued on IV fluids and antibiotics. Of note, her WBCs and platelets dropped to lower than her normal levels
(usually low due to her Rosai-Mirna syndrome) post procedure, which is likely stress-induced. She has been given a short course of pulse dose steroids which has helped with similar episodes in the past. She had no evidence of bleeding. She was
evaluated by heme-onc who agreed with not transfusing platelets unless her levels dropped to less than 20,000 or if bleeding less than 50,000.
At the time of hospital discharge she was hemodynamically stable. She will need ongoing outpatient follow-up with urology. She will also need to follow-up with her primary social worker aide/oncologist for ongoing management especially considering her
drop in WBCs and platelets after cystoscopy with ureteral stent placement. She will also need to follow-up with her primary care physician. She will be discharged to home with a prescription for prednisone 40 mg for 2 more days and cefdinir 300 mg
twice daily for 2 more days.
Gen-AAOx3, NAD
HEENT-NC, AT, anicteric, clear oral mm
Neck-supple
CV-reg, no M, +S1/S2
Lungs-clear B/L
Abd-soft, NT, ND
Musculoskeletal-no edema, no deformity
Skin-warm and dry
Neuro-grossly non-focal
Psych-calm, cooperative
Discharge Plan
-
Patient Disposition: Home (Routine Discharge)
Discharge Diagnosis/Procedures: Bilateral ureteral stones
Diet: No restrictions
Activity: No restrictions
Activity Restrictions/Additional Instructions:
Ms. 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
fevers and chills. CT imaging showed mild left hydronephrosis with a stone in her mid left ureter. She was started on antibiotics and admitted for further evaluation and management.
She was brought to the OR for bilateral ureteral stent placement on 12/31 with urology. She tolerated the procedure well. She was continued on IV fluids and antibiotics. Of note, her WBCs and platelets dropped to lower than her normal levels
(usually low due to her Rosai-Mirna syndrome) post procedure, which is likely stress-induced. She has been given a short course of pulse dose steroids which has helped with similar episodes in the past. She had no evidence of bleeding. She was
evaluated by heme-onc who agreed with not transfusing platelets unless her levels dropped to less than 20,000 or if bleeding less than 50,000.
At the time of hospital discharge she was hemodynamically stable. She will need ongoing outpatient follow-up with urology. She will also need to follow-up with her primary social worker aide/oncologist for ongoing management especially considering her
drop in WBCs and platelets after cystoscopy with ureteral stent placement. She will also need to follow-up with her primary care physician. She will be discharged to home with a prescription for prednisone 40 mg for 2 more days and cefdinir 300 mg
twice daily for 2 more days.
Referrals:
Corona Chacko MD [Family Provider] -
Cooper Velazco MD [Active] -
Prescriptions:
New
cefdinir 300 mg capsule
300 mg PO BID 2 Days Qty: 4 0RF
prednisone 20 mg tablet
40 mg PO DAILY 2 Days Qty: 4 0RF
Continued
atorvastatin 20 MG tablet
20 mg PO HS
alendronate 70 MG tablet
70 mg PO JUNIOR@0800
Visbiome 112.5 billion cell Capsule
1 cap PO DAILY
acyclovir 800 mg Tablet
800 mg PO Q12H
levetiracetam [Keppra] 1,000 mg Tablet
1,000 mg PO BID
prochlorperazine maleate 10 mg Tablet
10 mg PO Q6HPRN PRN (Reason: nausea/vomiting)
acetaminophen [Tylenol Extra Strength] 500 mg Tablet
1,000 mg PO Q6HPRN PRN (Reason: mild pain)
hydroxyzine HCl 25 mg Tablet
25 mg PO TIDPRN PRN (Reason: anxiety)
albuterol sulfate 90 mcg/actuation Hfa Aerosol Inhaler
2 puff INHALATION R Q6HPRN PRN (Reason: sob)
loratadine [Claritin] 10 mg Tablet
10 mg PO DAILYPRN PRN (Reason: allergies)
cholecalciferol (vitamin D3) 25 mcg (1,000 unit) Tablet
25 mcg PO DAILY
prednisone 5 mg Tablet
2.5 mg PO DAILY
ferrous sulfate 325 mg (65 mg iron) Tablet
325 mg PO DAILY
Discharge Orders:
Discharge Patient (As Directed); Ordered 01/02/25
Ordered By: Ger Pendleton
Discharge Date and Time
Print Language: YAKUT
--- NOTE | 2025-01-02 11:53 | W.PN.URO.CBU ---
Today's Communication / Plan
-
Continue abx course
Outpatient follow up with Dr. Coleman
Stable for DC from urology standpoint
Assessment / Plan
-
64F with obstructing L prox ureteral stone and fever
History of prior stones and presenting with b/l flank and abdominal pain
Calcification near location of distal R ureter, possible R distal ureteral stone
12/31/24 cystoscopy, bilateral ureteral stent placement
- Continue abx - on cefepime currently. Will likely need to choose empiric abx treatment for outpatient - cephalosporin or fluoroquinolone would be fine
- Urine cx with only mixed kee, blood cx pending.
- Onc recs for pancytopenia
Outpatient follow up with Dr. Coleman for ureteroscopy/laser lithotripsy once infection addressed
Stable for DC from urology standpoint
Diagnosis
-
Date of Service: January 02, 2025
-
Patient Diagnosis:
Septic UTI
Obstructing ureteral stone
leukopenia
Post Op s/p b/l ureteral stents 12/31
Subjective
-
Tolerating stents
Objective
-
Vital Signs
Temp Pulse Resp BP Pulse Ox
98.2 F 87 18 105/62 96
01/02/25 07:00 01/02/25 07:00 01/02/25 07:00 01/02/25 07:00 01/02/25 07:00
Intake and Output
01/01/25 01/02/25 01/03/25
06:59 06:59 06:59
Intake Total 976 / 976 1929
Balance 976 / 976 1929
Intake:
IV fluids (Total) 956 / 956 1929
Normosol 300 / 300
IV piggybacks 20 / 20
Other:
Number of approximated MODERATE 2
amounts of urine
Laboratory Results
01/02/25 04:50
12/31/24 14:28
Physical Exam
-
General - well developed, well nourished, no acute distress
--- NOTE | 2025-01-02 12:07 | CM ---
surgical manager reviewed patient's chart and met with patient and patient lives with her spouse in a 2 story home, patient is independent with adl's and ambulation, patient has a cane but she has not used it in over a year. Patient drives.
PCP: Dr. Chacko
Pharmacy [facility]
Plan; Home today no needs.
[2025-01-02 14:52] LABS: Absolute Neutrophils -Man Diff 0.7 10^3/uL (1.4-6.5); Atypical Lymphocytes 8 %; Band Neutrophils 7 % (0-3); Lymphocytes 35 % (20-51); Metamyelocytes 1 % (-); Monocytes 8 % (2-9); Myelocytes 1 % (-); Segmented Neutrophils 40 % (42-75)
[2025-01-02 14:53] LABS: Platelets Checked YES
[2025-01-02 14:55] LABS: Normal RBC Morphology Yes; Total Cells Counted 100
== END 2025-01-02 15:20 | disposition home or self-care (01) | DRG 854 ==
LOC: 4 WEST ACU 16:57
PROVIDERS: Emergency Medicine; Physician Assistant Medical; Radiology Diagnostic Radiology; Registered Nurse; ADMITTING PHYSICIAN Internal Medicine; ATTENDING PHYSICIAN Internal Medicine; CONSULT PHYSICIAN Urology; EMERGENCY PHYSICIAN Emergency Medicine; FAMILY PHYSICIAN Family Medicine; OTHER PHYSICIAN Internal Medicine Hematology & Oncology
PROC: 0T788DZ Dilation of Bilateral Ureters with Intraluminal Device, Via Natural or Artificial Opening Endoscopic (ICD-10-PCS; 2024-12-31)
PROC: BT1D1ZZ Fluoroscopy of Right Kidney, Ureter and Bladder using Low Osmolar Contrast (ICD-10-PCS; 2024-12-31)
DX: A41.9 Sepsis, unspecified organism (principal); D61.818 Other pancytopenia; N13.6 Pyonephrosis; D76.3 Other histiocytosis syndromes; K76.6 Portal hypertension; J45.909 Unspecified asthma, uncomplicated; M81.0 Age-related osteoporosis without current pathological fracture; D47.2 Monoclonal gammopathy; E78.2 Mixed hyperlipidemia; R16.1 Splenomegaly, not elsewhere classified; G40.A09 Absence epileptic syndrome, not intractable, without status epilepticus; F32.A Depression, unspecified; F43.22 Adjustment disorder with anxiety; Z87.442 Personal history of urinary calculi; Z86.73 Personal history of transient ischemic attack (TIA), and cerebral infarction without residual deficits; Z87.440 Personal history of urinary (tract) infections; Z90.49 Acquired absence of other specified parts of digestive tract; Z79.83 Long term (current) use of bisphosphonates; Z79.52 Long term (current) use of systemic steroids; Z86.0100 Personal history of colon polyps, unspecified; Z86.03 Personal history of neoplasm of uncertain behavior; Z88.5 Allergy status to narcotic agent; Z88.0 Allergy status to penicillin; Z88.2 Allergy status to sulfonamides; Z86.19 Personal history of other infectious and parasitic diseases; Z80.49 Family history of malignant neoplasm of other genital organs; Z83.3 Family history of diabetes mellitus
CPT/HCPCS: 74176; 74420; 76000; 80053; 81003; 81015; 83605; 85025; 87040; 87086; 96361; 96374; 96375; 99284; C1769; C2617

== ENCOUNTER → 2025-01-03 08:39 | Outpatient (REF) | payer OTHER, SELFPAY ==
[2025-01-03 10:07] LABS: Hemoglobin 10.8 g/dL (12.0-16.0); Mean Corp Hgb Conc. 34.8 g/dL (33.0-37.0); Mean Corpuscular Hgb 31.1 pg (27.0-31.0); Mean Corpuscular Volume 89.3 fL (81.0-99.0); Red Blood Cell Count 3.47 10^6/uL (4.20-5.40); Red Cell Dist. Width 12.7 % (11.5-14.5)
[2025-01-03 11:29] LABS: Mean Platelet Volume 13.7 fL (7.4-10.4)
[2025-01-03 11:31] LABS: Absolute Neutrophils -Man Diff 1.5 10^3/uL (1.4-6.5); Atypical Lymphocytes 6 %; Band Neutrophils 6 % (0-3); Lymphocytes 38 % (20-51); Monocytes 5 % (2-9); Normal RBC Morphology No; Platelets Checked Yes; Segmented Neutrophils 45 % (42-75)
[2025-01-03 11:32] LABS: Hypochromasia 2+; Polychromasia 1+; Total Cells Counted 100
[2025-01-03 11:35] LABS: Platelet Count 26 10^3/uL (130-400)
== END ==
LOC: REG 08:39
PROVIDERS: ATTENDING PHYSICIAN Internal Medicine Hematology & Oncology; FAMILY PHYSICIAN Family Medicine; OTHER PHYSICIAN Internal Medicine Hematology
DX: D47.2 Monoclonal gammopathy (principal); R16.1 Splenomegaly, not elsewhere classified; D68.61 Antiphospholipid syndrome; D69.2 Other nonthrombocytopenic purpura; C91.Z0 Other lymphoid leukemia not having achieved remission; D61.818 Other pancytopenia; D76.3 Other histiocytosis syndromes; D36.11 Benign neoplasm of peripheral nerves and autonomic nervous system of face, head, and neck; D70.9 Neutropenia, unspecified; D83.9 Common variable immunodeficiency, unspecified
CPT/HCPCS: 36415; 85025

== ENCOUNTER → 2025-01-10 08:24 | Outpatient (REF) | payer OTHER, SELFPAY ==
[2025-01-10 09:14] LABS: Hematocrit 35.6 % (37.0-47.0); Hemoglobin 12.6 g/dL (12.0-16.0); Mean Corp Hgb Conc. 35.4 g/dL (33.0-37.0); Mean Corpuscular Hgb 31.3 pg (27.0-31.0); Mean Corpuscular Volume 88.6 fL (81.0-99.0); Platelet Count 96 10^3/uL (130-400); Red Blood Cell Count 4.02 10^6/uL (4.20-5.40); Red Cell Dist. Width 12.8 % (11.5-14.5); White Blood Cell Count 6.9 10^3/uL (4.8-10.8)
[2025-01-10 09:54] LABS: % Basophils 0.4 % (0-2); % Eosinophils 0.1 % (0-6); % Immature Granulocytes 0.3 % (0-0.5); % Lymphocytes 70.1 % (20.5-51.1); % Monocytes 5.5 % (1.7-9.3); % Neutrophils 23.6 % (42.2-75.2); Absolute Lymphocytes 4.8 10^3/uL (1.2-3.4); Absolute Monocytes 0.4 10^3/uL (0.1-0.6); Absolute Neutrophils 1.6 10^3/uL (1.4-6.5); Nucleated Red Blood Cells % 0 %
== END ==
LOC: REG 08:24
PROVIDERS: ATTENDING PHYSICIAN Internal Medicine Hematology & Oncology; FAMILY PHYSICIAN Family Medicine; REFERRING PHYSICIAN Internal Medicine Hematology
DX: D47.2 Monoclonal gammopathy (principal); R16.1 Splenomegaly, not elsewhere classified; D68.61 Antiphospholipid syndrome; D69.2 Other nonthrombocytopenic purpura; C91.Z0 Other lymphoid leukemia not having achieved remission; D61.818 Other pancytopenia; D76.3 Other histiocytosis syndromes; D36.11 Benign neoplasm of peripheral nerves and autonomic nervous system of face, head, and neck; D70.9 Neutropenia, unspecified; D83.9 Common variable immunodeficiency, unspecified
CPT/HCPCS: 36415; 85025

== ENCOUNTER → 2025-01-17 08:18 | Outpatient (REF) | payer OTHER, SELFPAY ==
[2025-01-17 09:41] LABS: Hematocrit 35.7 % (37.0-47.0); Hemoglobin 12.3 g/dL (12.0-16.0); Mean Corp Hgb Conc. 34.5 g/dL (33.0-37.0); Mean Corpuscular Volume 89.9 fL (81.0-99.0); Red Blood Cell Count 3.97 10^6/uL (4.20-5.40); Red Cell Dist. Width 13.2 % (11.5-14.5); White Blood Cell Count 5.3 10^3/uL (4.8-10.8)
[2025-01-17 10:56] LABS: Mean Platelet Volume 11.4 fL (7.4-10.4); Platelet Count 90 10^3/uL (130-400)
[2025-01-17 10:57] LABS: % Basophils 0.6 % (0-2); % Eosinophils 0.2 % (0-6); % Immature Granulocytes 0.4 % (0-0.5); % Monocytes 4.3 % (1.7-9.3); % Neutrophils 19.5 % (42.2-75.2); Absolute Monocytes 0.2 10^3/uL (0.1-0.6); Nucleated Red Blood Cells % 0 %
== END ==
LOC: REG 08:18
PROVIDERS: ATTENDING PHYSICIAN Internal Medicine Hematology & Oncology; FAMILY PHYSICIAN Family Medicine; REFERRING PHYSICIAN Internal Medicine Hematology
DX: D47.2 Monoclonal gammopathy (principal); R16.1 Splenomegaly, not elsewhere classified; D68.61 Antiphospholipid syndrome; D69.2 Other nonthrombocytopenic purpura; C91.Z0 Other lymphoid leukemia not having achieved remission; D61.818 Other pancytopenia; D76.3 Other histiocytosis syndromes; D36.11 Benign neoplasm of peripheral nerves and autonomic nervous system of face, head, and neck; D70.9 Neutropenia, unspecified; D83.9 Common variable immunodeficiency, unspecified
CPT/HCPCS: 36415; 85025

== ENCOUNTER → 2025-01-24 08:09 | Outpatient (REF) | payer OTHER, SELFPAY ==
[2025-01-24 09:32] LABS: Hematocrit 37.8 % (37.0-47.0); Hemoglobin 12.9 g/dL (12.0-16.0); Mean Corp Hgb Conc. 34.1 g/dL (33.0-37.0); Mean Corpuscular Hgb 31.5 pg (27.0-31.0); Mean Corpuscular Volume 92.4 fL (81.0-99.0); Platelet Count 74 10^3/uL (130-400); Red Blood Cell Count 4.09 10^6/uL (4.20-5.40); Red Cell Dist. Width 13.5 % (11.5-14.5); White Blood Cell Count 5.6 10^3/uL (4.8-10.8)
[2025-01-24 10:04] LABS: % Basophils 0.7 % (0-2); % Eosinophils 0.2 % (0-6); % Immature Granulocytes 0.4 % (0-0.5); % Lymphocytes 59.8 % (20.5-51.1); % Neutrophils 32.9 % (42.2-75.2); Absolute Lymphocytes 3.4 10^3/uL (1.2-3.4); Absolute Monocytes 0.3 10^3/uL (0.1-0.6); Absolute Neutrophils 1.9 10^3/uL (1.4-6.5); Nucleated Red Blood Cells % 0 %
== END ==
LOC: REG 08:09
PROVIDERS: ATTENDING PHYSICIAN Internal Medicine Hematology & Oncology; FAMILY PHYSICIAN Family Medicine; OTHER PHYSICIAN Internal Medicine Hematology; REFERRING PHYSICIAN Surgery
DX: N39.0 Urinary tract infection, site not specified (principal); D47.2 Monoclonal gammopathy; R16.1 Splenomegaly, not elsewhere classified; D68.61 Antiphospholipid syndrome; D69.2 Other nonthrombocytopenic purpura; C91.Z0 Other lymphoid leukemia not having achieved remission; D61.818 Other pancytopenia; D76.3 Other histiocytosis syndromes; D36.11 Benign neoplasm of peripheral nerves and autonomic nervous system of face, head, and neck; D70.9 Neutropenia, unspecified; D83.9 Common variable immunodeficiency, unspecified
CPT/HCPCS: 36415; 85025; 87086

== ENCOUNTER 2025-01-31 06:19 | Day surgery (SDC) | payer OTHER, SELFPAY ==
[2025-01-20 13:47] VITALS: BMI 25.3
[2025-01-31] VITALS (19 sets, daily range): BP systolic 82–124; BP diastolic 31–71; BMI 25.3
[2025-01-31] MEDS: NORMOSOL-R/PLASMALYTE-A 1000 IV (12:14)
--- NOTE | 2025-01-31 14:37 | W.IMMPOSTOP ---
Addendum entered and electronically signed by Wil Coleman MD 01/31/25 16:35:
Due to thrombocytopenia and bleeding risk maintain Garcia catheter until AM 02/01 - Urology will order catheter removal in AM.
Original Note:
Surgical Immed Post Op Note
-
Primary Surgeon: Jared
Pre-op Diagnosis: Bilateral renal stones s/p bilateral ureteral stent placement, h/o Rosai-Mirna syndrome, h/o leukopenia and thrombocytopenia, immunosuppression on chronic steroids
Post-op Diagnosis: Same
Procedure Performed: cystoscopy, bilateral URS/laser lithotripsy/stone extraction/stent exchange
Anesthesia Type: LMA
Specimen / Cultures: None/None
Estimated Blood Loss: Minimal
Drains: 4.7Fr x 22 cm JJ bilateral ureteral stents
Complications: None
Operative Findings:
~2 cm of stone burden between both kidneys fragmented to 2-3 mm and stone dust, mild oozing within renal papillae noted (baseline thrombocytopenia), urine pink at conclusion of procedure.
Final KUB and cystoscopy confirming proper positioning of bilateral ureteral stents.
D/w spouse post-op - plan for observation o/n due to prior h/o evolving urosepsis, hematologic deficiencies, and immunosuppression.
[2025-01-31] MEDS: DETROL LA 4 MG PO (15:19)
[2025-01-31] MEDS: Pyridium 200 MG PO (15:20)
--- NOTE | 2025-01-31 16:49 | PTCARENOTE ---
Patient received from PACU. Report received from Yasmin. VSS. Garcia catheter draining blood tinged urine. Dr. Coleman aware. Patient oriented to unit. Call banegas within reach.
--- NOTE | 2025-01-31 18:23 | CON.HOSP ---
Consultation
-
Date/Time Consultation Requested: 01/31/20251820
Date/Time Consultation Performed: 01/31/20251824
Requesting Provider: Dr. Wil Neumann
Performing Provider: Marcelina No NP
Reason for Consultation: medical management
Family Physician
-
Family Physician: Corona Chacko
Chief Complaint
-
post-op medical management
History of Present Illness
Patient is a 64-year-old female with past medical history significant for Epilepsy, Ogden pilocytic syndrome, Mixed hyperlipidemia, Osteoporosis, Kidney stones, Bilateral kidney stones, Rosai-Mirna disease, Colonic polyps, CVA, Thrombocytopenia,
MGUS, Hepatitis C and Brain tumor who presented to [facility] for urological procedure and is being admitted for observation post-op. Hospitalist group consulted for medical management. Patient denies any symptoms at this time. Has mendoza
post procedure in place draining bloody urine.
Medical History
Past Medical History
Past Medical History: Reports Other
Additional Past Medical History:
Epilepsy
Ogden pilocytic syndrome
Mixed hyperlipidemia
Osteoporosis
Kidney stones
Bilateral kidney stones
Rosai-Mirna disease
Colonic polyps
CVA
Thrombocytopenia
MGUS
Hepatitis C
Brain tumor
Additional Past Surgical History:
Appendectomy
Cholecystectomy right nephrostomy placement
Brain tumor resection
Port placement
Social History
Tobacco: Non-smoker
Alcohol: None
Drug: None
Personal:
Living: With Family
Family History
Family History: Reviewed & Not Pertinent
Allergies / Home Medications
Allergies reflects when Allergies were last updated in [facility].
Home Medications with original date entered in [facility]
Allergy/Medication List:
Allergies
Allergy/AdvReac Type Severity Reaction Status Date / Time
penicillin G Allergy Unknown Unknown Verified 05/09/22 08:50
Sulfa (Sulfonamide Allergy Unknown Unknown Verified 05/09/22 08:50
Antibiotics)
codeine Allergy n/v ; Verified 05/09/22 11:09
foggy ;
percocet
'too
strong'
Home Medications
alendronate 70 mg tablet 70 mg PO JUNIOR bones 03/31/20
atorvastatin 20 mg tablet 20 mg PO DAILY High cholesterol 03/31/20
potassium citrate 10 mEq (1,080 mg) tablet,extended release 20 meq PO BID Supplement 03/31/20
cholecalciferol (vitamin D3) 25 mcg (1,000 unit) tablet 1,000 units PO DAILY Supplement 04/12/20
acetaminophen 500 mg tablet (Tylenol Extra Strength) 1,000 mg PO Q4HPRN PRN mild pain/fever 12/12/21
albuterol sulfate 90 mcg/actuation aerosol inhaler 2 puff inhalation R Q6HPRN PRN sob/wheezing 12/12/21
aspirin 81 mg chewable tablet 81 mg PO DAILY Blood clot prevention/tx 12/12/21
Probiotic 1 cap PO DAILY 05/07/22
iron 27 mg PO DAILY 05/07/22
levetiracetam 1,000 mg tablet 1,000 mg PO BID 05/07/22
upbfcakiztku-zxjbgnme-xkvscz tablet (Multivitamin 50 Plus tablet) 1 tab PO DAILY 05/07/22
Review of Systems
-
History Source: Patient
Constitutional: Reports No Symptoms
EENT: Reports No Symptoms
Respiratory: Reports No Symptoms
Cardiac: Reports No Symptoms
Abdomen/GI: Reports No Symptoms
: Reports Bleeding and Mendoza
Musculoskeletal: Reports No Symptoms
Skin: Reports No Symptoms
Neurological: Reports No Symptoms
Endocrine: Reports No Symptoms
Hematologic/Lymphatic: Reports No Symptoms
Psych: Reports No Symptoms
Physical Exam
Vital Signs
Vital Signs
Temp Pulse Resp BP Pulse Ox
98.5 F 111 16 91/53 97
01/31/25 17:16 01/31/25 17:54 01/31/25 17:16 01/31/25 17:54 01/31/25 17:16
Physical Exam
General: Well Developed, Well Nourished, No Apparent Distress and Comfortable
HEENT: Normocephalic, Moist Mucous Membranes and Atraumatic
Respiratory: Clear
Cardiac: S1/S2 and Regular Rhythm; Negative Murmur or Rub
Breast: Deferred by me
GI: Soft, Non Tender, Non Distended and Normal Bowel Sounds
Rectal: Deferred by Provider
Genito-urinary: Bloody Urine and Mendoza Catheter
Musculoskeletal: No Clubbing, No Cyanosis and No Edema
Skin: Negative Rash
Neuro: Awake, Alert, AO x 3 and Nonfocal/Grossly Intact
Psych: Calm and Intact Judgement
Data Reviewed
-
Lab Data: Labs Reviewed
Impression / Plan
-
IMPRESSION/PLAN:
#Kidney stones
#Bilateral kidney stones
s/p Bilateral renal stones s/p bilateral ureteral stent placement
- Urology following
- Mendoza overnight (urology will order when to discontinue)
- IV antibiotics
- IVF
- supportive care
#Rosai-Mirna disease
#Thrombocytopenia
Platelets 74
- monitor CBC
- Type and screen and consented
- Transfuse PRN Platelets<20K or if bleeding then <50K
- Would also hold ASA if platelet <40K again 3/2
- Transfuse PRBC's PRN Hgb <7
#Hx benign Brain tumor
Patient has increased dose of prednisone from a low of 2.5 down to 20 pending this procedure. She is continued on the prednisone 20 mg daily until follow-up by heme-onc. If she becomes febrile, hypotensive or otherwise hemodynamically unstable we
will increase to stress dose steroids of Solu-Cortef 50 mg 3 times daily IV.
- continue prednisone (increase to stress dosing as indicated)
#Epilepsy
- continue levetiracetam
#Mixed hyperlipidemia
- continue atorvastatin
#asthma
- continue albuterol
#Ogden pilocytic syndrome
#Osteoporosis
#Colonic polyps
#CVA
#MGUS
#Hepatitis C
r/t previous blood transfusions
Code status: full code
DVT prophylaxis: SCDs
[2025-01-31] MEDS: ROCEPHIN 1000 MG IV (18:25)
[2025-01-31] MEDS: LR 1000 IV (18:25)
[2025-01-31] MEDS: STERILE WATER FOR INJECTION 10 ML IV (18:25)
[2025-01-31] MEDS: FLUSH (NSS) 10 FLUSH IV ×2 (18:26)
--- NOTE | 2025-01-31 18:29 | PTCARENOTE ---
Patient hypotensive and tachycardic. Dr Coleman made aware. Continuous IVF, IV ABX and STAT CBC and BMP ordered per MD. Garcia catheter draining punch colored urine. Dr. Coleman aware. Patient has no complaints. Call banegas within reach. at
bedside.
--- NOTE | 2025-01-31 18:44 | W.PN.UPDATE ---
Update Note
Progress Note Update
Patient seen in conjunction with TANK TENDER. I agree with the findings and physical. I concur with assessment and plan unless stated otherwise. We have been asked to consult on Ms Berry by Dr. Coleman for medical management.
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
on chronic prednisone, treated hep C, splenomegaly secondary to portal hypertension history of recurrent nephrolithiasis status post multiple procedures who is postop day #0 status post cystoscopy, bilateral URS�laser lithotripsy and stone
extraction with stent exchange for bilateral renal stones. Devyn procedures been complicated by cytopenias and hypotension in the past. She now has a 4.7 Luxembourger by 22 cm JJ bilateral ureteral stents. She is status post urinary cath draining
blood-tinged urine.
On examination she is well-appearing and in no acute distress.
Vital signs BP 91/50, pulse of 111, she is satting 97% on room air with a temp of 98.5
Labs are pending at this time.
Assessment and plan
Patient has increased dose of prednisone from a low of 2.5 down to 20 pending this procedure. She is continued on the prednisone 20 mg daily until follow-up by heme-onc. If she becomes febrile, hypotensive or otherwise hemodynamically unstable we
will increase to stress dose steroids of Solu-Cortef 50 mg 3 times daily IV.
Urine cultures for now, blood 'blood cultures afebrile
Prophylactic antibiotics, she has had Proteus and Pseudomonas department sensitive in the past, I agree with IV ceftriaxone for now continue with IV ceftriaxone daily pending cultures. DC of antibiotics per urology
GCSF PRN ANC <1000, currently 1800
Type and screen and consented
Transfuse PRN Platelets<20K or if bleeding then <50K
Would also hold ASA if platelet <40K again 3/2
Transfuse PRBC's PRN Hgb <7
DVT PPX with SCDs for now
Full Code
[2025-01-31 18:58] LABS: Urine Albumin 4+ (Neg - Trace); Urine Bilirubin 2+ (Negative); Urine Character Cloudy (Clear); Urine Color Red; Urine Glucose Negative (Negative); Urine Ketone Negative (Negative); Urine Leukocyte Negative (Negative); Urine Nitrite Negative (Negative); Urine Occult Blood 4+ (Negative); Urine Specific Gravity 1.015 (<1.030); Urine Urobilinogen Negative (Neg - 1+); Urine pH 6.5 (5.0-9.0)
[2025-01-31 19:08] LABS: Urine Bacteria Few (Negative); Urine Red Blood Cell >100 /HPF (0-2); Urine Squamous Cell 0-2 /LPF (Few); Urine White Cell 0-2 /HPF (0-5)
[2025-01-31 19:12] LABS: Urine Calcium Oxalate Crystals Seen
[2025-01-31 19:13] LABS: % Immature Granulocytes 1.1 % (0-0.5); % Lymphocytes 7.8 % (20.5-51.1); % Monocytes 2.5 % (1.7-9.3); % Neutrophils 88.6 % (42.2-75.2); Absolute Lymphocytes 0.3 10^3/uL (1.2-3.4); Absolute Monocytes 0.1 10^3/uL (0.1-0.6); Absolute Neutrophils 3.2 10^3/uL (1.4-6.5); Hematocrit 38.2 % (37.0-47.0); Hemoglobin 13.3 g/dL (12.0-16.0); Mean Corp Hgb Conc. 34.8 g/dL (33.0-37.0); Mean Corpuscular Hgb 31.9 pg (27.0-31.0); Mean Corpuscular Volume 91.6 fL (81.0-99.0); Mean Platelet Volume 10.8 fL (7.4-10.4); Nucleated Red Blood Cells % 0 %; Platelet Count 75 10^3/uL (130-400); Red Blood Cell Count 4.17 10^6/uL (4.20-5.40); Red Cell Dist. Width 13.5 % (11.5-14.5); White Blood Cell Count 3.6 10^3/uL (4.8-10.8)
[2025-01-31 19:15] LABS: Blood Urea Nitrogen 22 mg/dl (7-17); Calcium 8.3 mg/dl (8.4-10.2); Carbon Dioxide 26 mmol/L (22-30); Chloride 104 mmol/L (98-107); Estimated Creatinine Clearance 51 ml/min; Glucose 185 mg/dl (70-99); Potassium 3.8 mmol/L (3.5-5.1); Sodium 140 mmol/L (135-145); eGFR > 60.00
[2025-01-31] MEDS: KEPPRA 1000 MG PO (20:00)
[2025-01-31] MEDS: ZOVIRAX 800 MG PO (20:00)
[2025-01-31] MEDS: LIPITOR 20 MG PO (20:14)
[2025-01-31] MEDS: TYLENOL PO (23:24)
[2025-01-31] MEDS: COMPAZINE 10 MG IV (23:42)
[2025-01-31] MEDS: OFIRMEV 100 IV (23:49)
--- NOTE | 2025-01-31 23:55 | PTCARENOTE ---
At approximately 2315, patient complaining of chills, 'shaking', and nausea/vomiting. Patient vomited a small amount of green emesis. Temp 101.0, HR 133, BP 123/64, RR 20 and POX 98% on RA. ABSEILING INSTRUCTOR notified. IV Compazine and Ofirmev ordered and
administered - see JAN.
[2025-02-01] VITALS (10 sets, daily range): BP systolic 94–150; BP diastolic 48–67
[2025-02-01 02:26] LABS: Lactic Acid 1.8 mmol/L (0.7-2.0)
--- NOTE | 2025-02-01 04:17 | PTCARENOTE ---
At approximately 0115, Patient's temp 100.1. HR approximately 125-130. Pt drowsy - awakes to voice but falls asleep quickly. BP reading of 94/48, then repeat BP approximately 2 minutes later of 103/49. POX 90-93 on room air. NAIL TECHNICIAN notified. Blood
culture and lactic acid ordered and drawn. Placed on 2L of O2 - pox improved to 94-96% on 2L.
[2025-02-01] MEDS: LR 1000 IV (05:03)
[2025-02-01] MEDS: TYLENOL PO (05:52)
[2025-02-01] MEDS: COMPAZINE 10 MG IV (06:01)
[2025-02-01] MEDS: OFIRMEV 100 IV (06:14)
--- NOTE | 2025-02-01 06:18 | PTCARENOTE ---
Patient w/ oral temp of 100.9 this AM. Pt complaining of chills and 'shaking'. Attempted to give PO Tylenol. Patient complaining of no nausea. Patient given first pill of Tylenol and then vomited immediately after. Unsure if patient vomited up pill.
SENIOR BRANCH MANAGER notified. PRN IV compazine given - see JAN. IV Ofirmev ordered and administered. See JAN.
[2025-02-01 06:50] LABS: Hematocrit 33.2 % (37.0-47.0); Hemoglobin 11.5 g/dL (12.0-16.0); Mean Corp Hgb Conc. 34.6 g/dL (33.0-37.0); Mean Corpuscular Hgb 31.6 pg (27.0-31.0); Mean Corpuscular Volume 91.2 fL (81.0-99.0); Mean Platelet Volume 11.6 fL (7.4-10.4); Platelet Count 58 10^3/uL (130-400); Red Blood Cell Count 3.64 10^6/uL (4.20-5.40); Red Cell Dist. Width 13.5 % (11.5-14.5); White Blood Cell Count 1.9 10^3/uL (4.8-10.8)
[2025-02-01 06:58] LABS: Blood Urea Nitrogen 23 mg/dl (7-17); Calcium 8.4 mg/dl (8.4-10.2); Carbon Dioxide 26 mmol/L (22-30); Chloride 108 mmol/L (98-107); Estimated Creatinine Clearance 45 ml/min; Glucose 106 mg/dl (70-99); Potassium 3.9 mmol/L (3.5-5.1); Sodium 140 mmol/L (135-145); eGFR > 60.00
[2025-02-01] MEDS: KEPPRA 1000 MG PO ×2 (08:27→20:59)
[2025-02-01] MEDS: DELTASONE 20 MG PO (08:27)
[2025-02-01] MEDS: VISBIOME 1 CAP PO (08:27)
[2025-02-01] MEDS: ZOVIRAX 800 MG PO ×2 (08:27→20:59)
[2025-02-01] MEDS: VITAMIN D3 (cholecalciferol) PO (08:30)
[2025-02-01] MEDS: ZINC PO (08:30)
--- NOTE | 2025-02-01 09:00 | W.PN.HOSP.TC ---
Today's Communication/Plan
-
Cont. ceftriaxone
Monitor BP
Monitor CBC
Assessment / Plan
Assessment / Plan
Patient is a 64-year-old female with past medical history significant for Epilepsy, [place] pilocytic syndrome, Mixed hyperlipidemia, Osteoporosis, Kidney stones, Bilateral kidney stones, Rosai-Mirna disease, Colonic polyps, CVA, Thrombocytopenia,
MGUS, Hepatitis C and Brain tumor who presented to [facility] for elective bilateral kidney stone removal and bilateral ureteral stent placement. Has Garcia postprocedure and is draining bloody urine.
Overnight:
Spiked fever 101.0
Nausea and vomiting
Tachycardia in the 140s
Bloody urine output through Garcia
#Bilateral kidney stones
#Status post bilateral renal stone lithotripsy and removal, status post bilateral ureteral stent placement
�Urology following
- Garcia overnight, draining bloody urine, discontinue per urology
� IV ceftriaxone as she has grown proteus and pseudomonas sensitive to cef in the past
- Blood cultures pending
- IVF
-Supportive care
# Rosai-Mirna disease
# Pancytopenia
-Monitor CBC
-Type and screen consented
-Transfuse for platelets less than 20K or bleeding then less than 50K
-Hold ASA if platelets drop below 40K
-Transfuse for hemoglobin less than 7
-Consider granulocyte stimulating factor if absolute neutrophil count less than 1000
-Follows with Dr. García on outpatient with weekly blood draws from port for monitoring
# History of benign brain tumor (2022)
-Patient on 2.5 prednisone daily normally, however prior to this procedure up trended to 20 outpatient anticipating drop in blood pressure
-Continue prednisone daily
-Continue stress dose Solu-Cortef 50 mg 3 times daily IV if close hemodynamically unstable
# Epilepsy
-Last seizure in 2015
-Continue Keppra
# Mixed hyperlipidemia
-Continue atorvastatin
#Asthma
-Continue albuterol
#[place] pilocytic syndrome
#Osteoporosis
#Colonic polyps
#CVA
#MGUS
#Hepatitis C
r/t previous blood transfusions
Anticipated Discharge: > 48 hours
Subjective/Interval History
-
Date of Service: February 01, 2025
Objective Data
-
Labs:
Laboratory Results
02/01/25
06:03
WBC 1.9 L*
Hgb 11.5 L
Hct 33.2 L
Plt Count 58 L D
Sodium 140
Potassium 3.9
Chloride 108 H
Carbon Dioxide 26
BUN 23 H
Creatinine 0.9
Glucose 106 H
Calcium 8.4
Vital Signs:
Vital Signs
Temp Pulse Resp BP Pulse Ox
98.4 F 117 16 97/55 94
02/01/25 07:48 02/01/25 07:48 02/01/25 07:48 02/01/25 07:48 02/01/25 07:48
I&O
01/31/25 02/01/25 02/02/25
06:59 06:59 06:59
Intake Total 780 / 780 1690 / 1690
Output Total 1100 / 1100 475 / 475
Balance -320 / -320 1215 / 1215
Review of Systems
-
History Source: Patient
Constitutional: Reports Fever and Fatigue
EENT: Reports No Symptoms Reported
Respiratory: Reports No Symptoms
Cardiac: Reports No Symptoms
Abdomen/GI: Reports Nausea and Vomiting; Denies Diarrhea or Constipated
Genitourinary: Reports Other (Blood in urine ); Denies Dysuria or Frequency
Neuro: Reports No Symptoms
Physical Exam
-
General: No Apparent Distress
HEENT: Normocephalic
Respiratory: Clear to Auscultation
Cardiac: Regular Rhythm and S1/S2
GI: Soft, Nontender, Nondistended and Normal Bowel Sounds
Genito-urinary: Other (Blood in urine )
Musculoskeletal: No Edema
Skin: Warm and Dry
Neuro: AO x 3
Psych: Calm
--- NOTE | 2025-02-01 10:39 | CM ---
Patient seen at bedside. Patient currently on O2. Patient has no home DME and lives with her in a 2 story home. Patient was independent of ADL's and IADL's prior to admission. [facility] uses [facility] on [address] in [place]. Patient PCP
is Dr. Chacko. CM will continue to follow for discharge planning needs.
Plan; home with no needs vs home with VN
--- NOTE | 2025-02-01 10:48 | W.PN.UPDATE ---
Update Note
Progress Note Update
01/31: s/p bilateral ureteroscopy/laser lithotripsy/stent exchange for large volume renal stone burden.
Significant h/o nephrolithiasis and urosepsis-like syndrome perioperatively (despite negative UCx).
H/o immunosuppression and pancytopenia (leukopenia, thrombocytopenia).
H/H stable post-op, stable in AM.
Cr WNL.
Garcia catheter w/ clearing urine in tubing (pyridium-stained) - hematuria drastically cleared o/n.
Plan:
- continue IV Ceftriaxone post-operatively
- Evaluation by Hematology and Hospital Medicine
- BCx pending
[2025-02-01 11:00] LABS: Absolute Neutrophils -Man Diff 1.4 10^3/uL (1.4-6.5); Band Neutrophils 2 % (0-3); Lymphocytes 24 % (20-51); Monocytes 2 % (2-9); Segmented Neutrophils 72 % (42-75)
[2025-02-01 11:01] LABS: Normal RBC Morphology Yes; Platelets Checked Yes; Total Cells Counted 100
--- NOTE | 2025-02-01 13:18 | W.PN.UPDATE ---
Update Note
Progress Note Update
I saw and evaluated the patient. I reviewed the resident�s note and agree with findings and plan as documented in the resident�s note.
#Bilateral kidney stones
#s/p Bilateral renal stones s/p bilateral ureteral stent placement
# Immunocompromise state
-Patient had some hematuria which is clearing up, continue monitoring with underlying homicidal
-Denies of having any excessive pain/nausea/vomiting
-UA reviewed and patient have bacteriuria, covered with empiric Rocephin. As patient is technically immunocompromised will require further escalation antibiotic if I have subpar response
-Indwelling Garcia catheter, monitor output, Garcia management per urology services
#Rosai-Mirna disease
#Thrombocytopenia
- Transfuse PRN Platelets<20K or if bleeding then <50K
- Would also hold ASA if platelet <40K again 3/2
- Transfuse PRBC's PRN Hgb <7
- Hematology requested
#Hx benign Brain tumor
-Maintained on prednisone 20 mg daily, patient was hypotensive yesterday also blood pressure improving no indication of stress dose steroid
#Epilepsy
- continue levetiracetam
#Mixed hyperlipidemia
- continue atorvastatin
#asthma
- continue albuterol
[place] pilocytic syndrome
Osteoporosis
Colonic polyps
CVA
MGUS
Hepatitis C
r/t previous blood transfusions
Code status: full code
DVT prophylaxis: SCDs
Total time spent : 52 mins
[2025-02-01] MEDS: SOLU-CORTEF 25 MG IV (15:09)
--- NOTE | 2025-02-01 16:27 | CON.ONC ---
Impression
Impression
Rosai Mirna disease w/ pancytopenia
kidney stones, s/p extraction 01/31
Plan
Plan
Monitor CBC daily
Will give GCSF if ANC < 1000
Transfuse platelets is < 20, of if bleeding and < 50
She has close CBC f/u as outpt with Dr. Nieves
Patient History
History of Present Illness
Hermila is a [address] Nieves, with Rosai-Mirna disease and associated pancytopenia, managed with prednisone and GCSF prn ANC < 1000. She was admitted for urologic procedure to address bilateral renal stones, with stent placements
yesterday. Cbc today notes for ANC 1400, platelet count 58, hgb 11.5.
She's sleepy, but arousable, at bedside. She had a temp of 100.9 early this am.
Past-Medical/Surgical History
as per the HPI
Patient Medication
�Medication �Instructions �Recorded �Confirmed �Last Taken �Type
atorvastatin 20 mg tablet 20 mg PO HS High cholesterol 03/31/20 01/31/25 01/30/25 21:00 History
Lactobac no.2-Bifidobac no.1-S. 1 cap PO DAILY Gastrointestinal 01/21/23 01/31/25 01/24/25 History
thermo 112.5 billion cell capsule issue
(Visbiome)
acyclovir 800 mg tablet 800 mg PO Q12H Infection 07/05/23 01/31/25 01/31/25 08:00 History
levetiracetam 1,000 mg tablet 1,000 mg PO BID Seizures 07/05/23 01/31/25 01/31/25 08:00 History
(Keppra)
acetaminophen 500 mg tablet 1,000 mg PO Q6HPRN PRN mild pain 11/20/23 01/31/25 01/28/25 History
(Tylenol Extra Strength)
albuterol sulfate 90 mcg/actuation 2 puff inhalation R Q6HPRN PRN sob 11/20/23 01/31/25 Unknown History
aerosol inhaler
cholecalciferol (vitamin D3) 25 25 mcg PO DAILY Supplement 11/20/23 01/31/25 01/24/25 History
mcg (1,000 unit) tablet
loratadine 10 mg tablet (Claritin) 10 mg PO DAILYPRN PRN allergies 11/20/23 01/31/25 01/30/25 History
prochlorperazine maleate 10 mg 10 mg PO Q6HPRN PRN nausea/vomiting 11/20/23 01/31/25 11/19/23 History
tablet
ferrous sulfate 27 mg iron tablet 27 mg PO DAILY 01/24/25 01/31/25 01/24/25 History
lidocaine 2.5 mg topical PRN PRN Power port 01/24/25 01/31/25 01/31/25 History
access
melatonin 10 mg tablet 10 mg PO HS PRN sleep 01/24/25 01/31/25 01/24/25 History
prednisone 10 mg tablet 20 mg PO DAILY 01/24/25 01/31/25 01/30/25 History
zinc 50 mg PO DAILY 01/24/25 01/31/25 01/24/25 History
Active Medications
Generic Name Dose Route Start Last Admin
Trade Name Freq PRN Reason Stop Dose Admin
Acetaminophen 650 mg 01/31/25 14:36
Acetaminophen 325 Mg Tablet PO 02/28/25 14:35
Q4HPRN PRN
mild pain/temp
Acyclovir Sodium 800 mg 01/31/25 20:00 02/01/25 08:27
Acyclovir Sodium 800 Mg Tablet PO 02/10/25 19:59 800 mg
Q12H SEBLE Administration
Albuterol 2 puff 01/31/25 14:41
Albuterol Hfa [90 Mcg/Dose] Inhaler INH
R Q6HPRN PRN
sob
Protocol
Atorvastatin Calcium 20 mg 01/31/25 22:00 01/31/25 20:14
Atorvastatin (Lipitor) 20 Mg Tablet PO 02/28/25 21:59 20 mg
HS SEBLE Administration
Ceftriaxone Sodium 1,000 mg 01/31/25 18:00 01/31/25 18:25
Ceftriaxone 1000 Mg / 10 Ml Vial IV 1,000 mg
Q24H SEBLE Administration
Cholecalciferol 25 mcg 02/01/25 08:00 02/01/25 08:30
Cholecalciferol (Vitamin D3) 25 Mcg Tablet (1,000 Units) PO 03/01/25 07:59 Not Given
DAILY SEBLE
Heparin Sodium (Porcine) 500 unit 01/31/25 18:30 02/01/25 15:11
Heparin Flush Pf (100 Unit/Ml) 5 Ml Syringe IV 02/28/25 18:29 500 unit
PRN PRN Administration
SC PORT FLUSH
Ibuprofen 600 mg 01/31/25 14:36
Ibuprofen 600 Mg Tablet PO 02/28/25 14:35
Q6HPRN PRN
moderate pain
Lactobacillus/Bifidobacterium 1 cap 02/01/25 08:00 02/01/25 08:27
Lactobac/Bifidobac (Visbiome) PO 03/01/25 07:59 1 cap
DAILY SEBLE Administration
Levetiracetam 1,000 mg 01/31/25 20:00 02/01/25 08:27
Levetiracetam 500 Mg Regular Release Tablet PO 02/28/25 19:59 1,000 mg
BID SEBLE Administration
Loratadine 10 mg 01/31/25 14:41
Loratadine 10 Mg Tablet PO 02/28/25 14:40
DAILYPRN PRN
allergies
Melatonin 10 mg 01/31/25 16:07
Melatonin 5 Mg Tablet PO 02/28/25 16:06
HSPRN PRN
sleep
Phenazopyridine HCl 200 mg 01/31/25 14:33
Phenazopyridine 200 Mg Tablet PO 02/28/25 14:32
[id number] PRN
dysuria
Prednisone 20 mg 02/01/25 08:00 02/01/25 08:27
Prednisone 10 Mg Tablet PO 03/01/25 07:59 20 mg
DAILY SEBLE Administration
Prochlorperazine Edisylate 10 mg 01/31/25 23:36 02/01/25 06:01
Prochlorperazine 10 Mg/2 Ml Vial IV 02/28/25 23:35 10 mg
Q6HPRN PRN Administration
n/v
Prochlorperazine Maleate 10 mg 01/31/25 14:41
Prochlorperazine 10 Mg Tablet PO 02/28/25 14:40
Q6HPRN PRN
nausea/vomiting
Sodium Chloride 0 flush 01/31/25 12:00
Sodium Chloride 0.9% (Flush) Syringe IV 02/28/25 11:59
PER PROTOCOL SEBLE
Sodium Chloride 0 flush 01/31/25 17:55 01/31/25 18:26
0.9% Nacl Flush If Lactated Ringers Ivf Ordered IV 02/28/25 17:54 10 flush
BID@1755,1805 SEBLE Administration
Sterile Water 10 ml 01/31/25 18:00 01/31/25 18:25
Sterile Water For Injection 10 Ml Vial IV 02/28/25 17:59 10 ml
Q24H SEBLE Administration
Zinc 50 mg 02/01/25 08:00 02/01/25 08:30
Zinc 50 Mg (Zinc Sulfate 220 Mg) Capsule PO 03/01/25 07:59 Not Given
DAILY SEBLE
Physical Exam
-
General: Comfortable
HEENT: Negative Jaundice
Neurology: Non Focal
Psych: Intact Judgement/Insight
Labs
Lab Results
WBC 1.9 10^3/uL (4.8-10.8) L* 02/01/25 06:03
RBC 3.64 10^6/uL (4.20-5.40) L 02/01/25 06:03
Hgb 11.5 g/dL (12.0-16.0) L 02/01/25 06:03
Hct 33.2 % (37.0-47.0) L 02/01/25 06:03
MCV 91.2 fL (81.0-99.0) 02/01/25 06:03
MCH 31.6 pg (27.0-31.0) H 02/01/25 06:03
MCHC 34.6 g/dL (33.0-37.0) 02/01/25 06:03
RDW 13.5 % (11.5-14.5) 02/01/25 06:03
Plt Count 58 10^3/uL (130-400) L D 02/01/25 06:03
MPV 11.6 fL (7.4-10.4) H 02/01/25 06:03
Abs Immat Gran (auto) 0.0 10^3/uL (0-0.05) 01/31/25 18:45
Absolute Neuts (auto) 3.2 10^3/uL (1.4-6.5) 01/31/25 18:45
Absolute Lymphs (auto) 0.3 10^3/uL (1.2-3.4) L 01/31/25 18:45
Absolute Monos (auto) 0.1 10^3/uL (0.1-0.6) 01/31/25 18:45
Absolute Eos (auto) 0.0 10^3/uL (0-0.7) 01/31/25 18:45
Absolute Basos (auto) 0.0 10^3/uL (0-0.2) 01/31/25 18:45
Immature Gran % 1.1 % (0-0.5) H 01/31/25 18:45
Neutrophils % 88.6 % (42.2-75.2) H 01/31/25 18:45
Lymphocytes % 7.8 % (20.5-51.1) L 01/31/25 18:45
Monocytes % 2.5 % (1.7-9.3) 01/31/25 18:45
Eosinophils % 0.0 % (0-6) 01/31/25 18:45
Basophils % 0.0 % (0-2) 01/31/25 18:45
Creatinine 0.9 mg/dL (0.6-1.0) 02/01/25 06:03
Vital Signs
Vital Signs
Temp Pulse Resp BP Pulse Ox
99.5 F 105 16 107/65 95
02/01/25 15:23 02/01/25 15:23 02/01/25 15:23 02/01/25 15:23 02/01/25 15:23
[2025-02-01] MEDS: MOTRIN 600 MG PO (17:12)
[2025-02-01] MEDS: STERILE WATER FOR INJECTION 10 ML IV (17:13)
[2025-02-01] MEDS: ROCEPHIN 1000 MG IV (17:13)
[2025-02-01] MEDS: ZOFRAN 4 MG IV (17:13)
[2025-02-01] MEDS: FLUSH (NSS) 1 FLUSH IV ×2 (17:14)
[2025-02-01] MEDS: LIPITOR 20 MG PO (20:59)
[2025-02-01] MEDS: MELATONIN 5 MG PO (21:00)
[2025-02-02] MEDS: TYLENOL 650 MG PO (05:27)
[2025-02-02 05:45] LABS: Hematocrit 32.4 % (37.0-47.0); Hemoglobin 11.2 g/dL (12.0-16.0); Mean Corp Hgb Conc. 34.6 g/dL (33.0-37.0); Mean Corpuscular Hgb 31.5 pg (27.0-31.0); Mean Corpuscular Volume 91.3 fL (81.0-99.0); Mean Platelet Volume 11.1 fL (7.4-10.4); Platelet Count 55 10^3/uL (130-400); Red Blood Cell Count 3.55 10^6/uL (4.20-5.40); Red Cell Dist. Width 13.2 % (11.5-14.5); White Blood Cell Count 2.5 10^3/uL (4.8-10.8)
[2025-02-02 06:27] LABS: Blood Urea Nitrogen 20 mg/dl (7-17); Calcium 8.6 mg/dl (8.4-10.2); Carbon Dioxide 29 mmol/L (22-30); Chloride 107 mmol/L (98-107); Estimated Creatinine Clearance 58 ml/min; Glucose 87 mg/dl (70-99); Potassium 4.1 mmol/L (3.5-5.1); Sodium 140 mmol/L (135-145); eGFR > 60.00
--- NOTE | 2025-02-02 07:03 | W.PN.ONC2 ---
Today's Communication / Plan
-
Await differential but white blood count = 2.5 suggest adequate blood counts. Rest of CBC adequate. Moderate thrombocytopenia but plt count is stable. In my opinion stable for discharge as remains afebrile and blood culture negative.
Impression
Impression
Rosai Mirna disease w/ pancytopenia
kidney stones, s/p extraction 01/31
Plan
Plan
Monitor CBC daily
Will give GCSF if ANC < 1000
Transfuse platelets is < 20, of if bleeding and < 50
She has close CBC f/u as outpt with Dr. Nieves
Subjective/Objective
Chief Complaint
ACS heme-onc follow-up progress note
Subjective
Feels much better today. Had a good night sleep. Denies fever or pain.
Vital Signs:
Vital Signs
Temp Pulse Resp BP Pulse Ox
98.3 F 78 16 119/67 93
02/02/25 05:36 02/01/25 23:30 02/01/25 23:30 02/01/25 23:30 02/01/25 23:30
Lab Results:
Laboratory Data
WBC 2.5 10^3/uL (4.8-10.8) L 02/02/25 04:59
Hgb 11.2 g/dL (12.0-16.0) L 02/02/25 04:59
Plt Count 55 10^3/uL (130-400) L 02/02/25 04:59
eGFR > 60.00 02/02/25 04:59
Physical Exam
HEENT: No Jaundice
Cardiology: S1 and S2
Pulmonary: Clear
GI: Soft
Extremities: No C/C/E
[2025-02-02 07:26] VITALS: BP 108/65
[2025-02-02 08:30] LABS: % Basophils 0.4 % (0-2); % Immature Granulocytes 1.6 % (0-0.5); % Lymphocytes 32.7 % (20.5-51.1); % Monocytes 4.1 % (1.7-9.3); % Neutrophils 61.2 % (42.2-75.2); Absolute Lymphocytes 0.8 10^3/uL (1.2-3.4); Absolute Monocytes 0.1 10^3/uL (0.1-0.6); Absolute Neutrophils 1.5 10^3/uL (1.4-6.5); Nucleated Red Blood Cells % 0 %
--- NOTE | 2025-02-02 08:43 | W.PN.HOSP.TC ---
Addendum entered and electronically signed by Julien Jung MD 02/02/25 13:48:
I saw and evaluated the patient. I reviewed the resident�s note and agree with findings and plan as documented in the resident�s note.
#Bilateral kidney stones
#s/p Bilateral renal stones s/p bilateral ureteral stent placement
# Immunocompromise state
-Patient had some hematuria which is clearing up, continue monitoring with underlying homicidal
-Denies of having any excessive pain/nausea/vomiting
-UA reviewed and patient have bacteriuria
-Indwelling Garcia catheter has been removed
-Urine culture and blood culture remains negative. Transitioning to oral Omnicef therapy for 7 more days as patient had appropriate response with IV Rocephin
#Rosai-Mirna disease
#Thrombocytopenia
- Transfuse PRN Platelets<20K or if bleeding then <50K
- Would also hold ASA if platelet <40K again /
- Transfuse PRBC's PRN Hgb <7
- Hematology requested
#Hx benign Brain tumor
-Maintained on prednisone 20 mg daily, patient was hypotensive yesterday also blood pressure improving no indication of stress dose steroid
#Epilepsy
- continue levetiracetam
#Mixed hyperlipidemia
- continue atorvastatin
#asthma
- continue albuterol
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
Osteoporosis
Colonic polyps
CVA
MGUS
Hepatitis C
r/t previous blood transfusions
Code status: full code
DVT prophylaxis: SCDs
More than 30 minutes spent in discharge including
Final examination of the patient
Summarizing hospital stay
Instructions for continuing care to all relevant caregivers
Preparation of discharge records, prescriptions, and referral forms
Total time spent (in minutes): 38 mins
Original Note:
Today's Communication/Plan
-
Discharge today pending urology
Assessment / Plan
Assessment / Plan
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
MGUS, Hepatitis C and Brain tumor who presented to [facility] for elective bilateral kidney stone removal and bilateral ureteral stent placement. Has Garcia postprocedure and is draining bloody urine.
Overnight:
Afebrile
Good night sleep
Feels good, wants to go home
#Bilateral kidney stones
#Status post bilateral renal stone lithotripsy and removal, status post bilateral ureteral stent placement
�Urology following
- Garcia d/c yesterday per urology
� IV ceftriaxone as she has grown proteus and pseudomonas sensitive to cef in the past
- Blood cultures (-)
- IVF
-Supportive care
-Discharge per urology
# Rosai-Mirna disease
# Pancytopenia
#Immunocompromised
-Monitor CBC
-Type and screen consented
-Transfuse for platelets less than 20K or bleeding then less than 50K
-Hold ASA if platelets drop below 40K
-Transfuse for hemoglobin less than 7
-Consider granulocyte stimulating factor if absolute neutrophil count less than 1000
-Follows with Dr. García on outpatient with weekly blood draws from port for monitoring
-Hemeonc following
# History of benign brain tumor (2022)
-Patient on 2.5 prednisone daily normally, however prior to this procedure up trended to 20 outpatient anticipating drop in blood pressure
-Continue prednisone daily
-Continue stress dose Solu-Cortef 50 mg 3 times daily IV if close hemodynamically unstable
# Epilepsy
-Last seizure in 2015
-Continue Keppra
# Mixed hyperlipidemia
-Continue atorvastatin
#Asthma
-Continue albuterol
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
#Osteoporosis
#Colonic polyps
#CVA
#MGUS
#Hepatitis C
r/t previous blood transfusions
DVT SCD
Anticipated Discharge: Within 24 hours
Subjective/Interval History
-
Date of Service: February 02, 2025
Objective Data
-
Labs:
Laboratory Results
02/02/25
04:59
WBC 2.5 L
Hgb 11.2 L
Hct 32.4 L
Plt Count 55 L
Sodium 140
Potassium 4.1
Chloride 107
Carbon Dioxide 29
BUN 20 H
Creatinine 0.7
Glucose 87
Calcium 8.6
Vital Signs:
Vital Signs
Temp Pulse Resp BP Pulse Ox
98.5 F 77 16 108/65 95
02/02/25 07:26 02/02/25 07:26 02/02/25 07:26 02/02/25 07:26 02/02/25 07:26
I&O
02/01/25 02/02/25 02/03/25
06:59 06:59 06:59
Intake Total 780 / 780 2050 / 2410 360 / 360
Output Total 1100 / 1100 1200 / 2024 825 / 825
Balance -320 / -320 850 / 385 -465 / -465
Review of Systems
-
History Source: Patient
Constitutional: Reports No Symptoms
EENT: Reports No Symptoms Reported
Respiratory: Reports No Symptoms
Cardiac: Reports No Symptoms
Abdomen/GI: Reports No Symptoms
Genitourinary: Reports No Symptoms
Neuro: Reports No Symptoms
Physical Exam
-
General: No Apparent Distress and Comfortable
HEENT: Normocephalic
Respiratory: Clear to Auscultation
Cardiac: Regular Rhythm and S1/S2
GI: Soft, Nontender and Nondistended
Musculoskeletal: No Edema
Skin: Warm and Dry
Neuro: Awake, Alert and Oriented
Psych: Calm
[2025-02-02] MEDS: KEPPRA 1000 MG PO (08:54)
[2025-02-02] MEDS: ZOVIRAX 800 MG PO (08:54)
[2025-02-02] MEDS: VISBIOME 1 CAP PO (08:54)
[2025-02-02] MEDS: ZINC 50 MG PO (08:54)
[2025-02-02] MEDS: DELTASONE 20 MG PO (08:54)
[2025-02-02] MEDS: VITAMIN D3 (cholecalciferol) 25 MCG PO (08:54)
--- NOTE | 2025-02-02 10:25 | CM ---
Patient in bathroom. Patient for discharge home today no needs anticipated. CM will review discharge needs and complete referral.
Plan; home with no needs.
[2025-02-02] MEDS: OMNICEF 300 MG PO (10:56)
--- NOTE | 2025-02-02 13:03 | W.DCSUMMARY ---
Discharge Summary
Discharge Data
Date of Admission: 01/31/25
Date of Discharge: 02/02/25
-
Pending Results: No
Hospital Course
Primary diagnosis:
Elective bilateral ureteroscopy/laser lithotripsy/stent exchange for large volume renal stone burden
Secondary diagnosis:
Rosai-Mirna disease
Pancytopenia
History of benign brain tumor
Epilepsy
Hyperlipidemia
Asthma
Hospital course:
Patient is a 64-year-old female presented to [facility] for elective bilateral kidney stone removal and bilateral ureteral stent placement. Procedure was successful and she was put on prophylactic ceftriaxone. Overnight, patient was
febrile and experienced nausea and vomiting. Over the course of her stay, she got progressively better.
Today, patient is clinically stable for discharge. Provided cefdinir 300 mg twice daily for next 7 days to cover for any urological bacterial infection second occurred postop. Recommend close follow-up with urology.
Discharge Plan
-
Patient Disposition: Home (Routine Discharge)
Diet: Low Fat and Low Cholesterol
Activity: No restrictions
Driving Restrictions: As prior to admission
Bathing Restrictions: None
Referrals:
Wil Coleman MD [Active] - in two weeks (Dr. Coleman's office will call you within 1-2 business days after discharge to schedule your post-op stent removal in 2 weeks - this is to maximize passage of minute stone fragments from your bilateral
kidney stone procedure. )
Corona Chacko MD [Family Provider] - in one week
Prescriptions:
New
cefdinir 300 mg capsule
300 mg PO BID 7 Days Qty: 14 0RF
Continued
atorvastatin 20 MG tablet
20 mg PO HS
Visbiome 112.5 billion cell Capsule
1 cap PO DAILY
acyclovir 800 mg Tablet
800 mg PO Q12H
levetiracetam [Keppra] 1,000 mg Tablet
1,000 mg PO BID
prochlorperazine maleate 10 mg Tablet
10 mg PO Q6HPRN PRN (Reason: nausea/vomiting)
acetaminophen [Tylenol Extra Strength] 500 mg Tablet
1,000 mg PO Q6HPRN PRN (Reason: mild pain)
albuterol sulfate 90 mcg/actuation Hfa Aerosol Inhaler
2 puff INHALATION R Q6HPRN PRN (Reason: sob)
loratadine [Claritin] 10 mg Tablet
10 mg PO DAILYPRN PRN (Reason: allergies)
cholecalciferol (vitamin D3) 25 mcg (1,000 unit) Tablet
25 mcg PO DAILY
prednisone 10 mg Tablet
20 mg PO DAILY
ferrous sulfate 27 mg iron Tablet
27 mg PO DAILY
melatonin 10 mg Tablet
10 mg PO HS PRN (Reason: sleep)
lidocaine
2.5 mg topical PRN PRN (Reason: Power port access)
zinc
50 mg PO DAILY
Discharge Orders:
Discharge Patient (As Directed); Ordered 02/02/25
Ordered By: Popeye Del Cid
Discharge Date and Time
Print Language: CITIZEN OF [place]
[2025-02-02 14:37] VITALS: BP 109/62
--- NOTE | 2025-02-02 14:49 | PTCARENOTE ---
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 Patient states that she slept better here than at home. Patient asking what brand melatonin do we use. Called to pharmacy and spoke with Nicki who is trying to locate brand. Paged Iv team to [facility]
for d/c.
== END 2025-02-02 15:57 | disposition home or self-care (01) ==
LOC: SDS 06:19
PROVIDERS: Registered Nurse; Surgery; ATTENDING PHYSICIAN Hospitalist; CONSULT PHYSICIAN Internal Medicine Hematology & Oncology; FAMILY PHYSICIAN Family Medicine
DX: N20.0 Calculus of kidney (principal); D84.89 Other immunodeficiencies; D76.3 Other histiocytosis syndromes; Z79.52 Long term (current) use of systemic steroids
CPT/HCPCS: 52356; 52332; 36415; 74018; 76000; 80048; 81003; 81015; 83605; 85025; 87040; 87070; 87147; 93005; C1894; C2617

== ENCOUNTER → 2025-02-07 08:42 | Outpatient (REF) | payer OTHER, SELFPAY ==
[2025-02-07 10:38] LABS: % Basophils 0.3 % (0-2); % Eosinophils 0.3 % (0-6); % Immature Granulocytes 0.3 % (0-0.5); % Lymphocytes 39.3 % (20.5-51.1); % Monocytes 4.6 % (1.7-9.3); % Neutrophils 55.2 % (42.2-75.2); Absolute Lymphocytes 2.7 10^3/uL (1.2-3.4); Absolute Monocytes 0.3 10^3/uL (0.1-0.6); Absolute Neutrophils 3.7 10^3/uL (1.4-6.5); Hematocrit 38.5 % (37.0-47.0); Hemoglobin 13.5 g/dL (12.0-16.0); Mean Corp Hgb Conc. 35.1 g/dL (33.0-37.0); Mean Corpuscular Hgb 31.8 pg (27.0-31.0); Mean Corpuscular Volume 90.8 fL (81.0-99.0); Mean Platelet Volume 10.8 fL (7.4-10.4); Nucleated Red Blood Cells % 0 %; Platelet Count 121 10^3/uL (130-400); Red Blood Cell Count 4.24 10^6/uL (4.20-5.40); Red Cell Dist. Width 13.1 % (11.5-14.5); White Blood Cell Count 6.8 10^3/uL (4.8-10.8)
== END ==
LOC: REG 08:42
PROVIDERS: ATTENDING PHYSICIAN Internal Medicine Hematology & Oncology; FAMILY PHYSICIAN Family Medicine; REFERRING PHYSICIAN Internal Medicine Hematology
DX: D47.2 Monoclonal gammopathy (principal); R16.1 Splenomegaly, not elsewhere classified; D68.61 Antiphospholipid syndrome; D69.2 Other nonthrombocytopenic purpura; C91.Z0 Other lymphoid leukemia not having achieved remission; D61.818 Other pancytopenia; D76.3 Other histiocytosis syndromes; D36.11 Benign neoplasm of peripheral nerves and autonomic nervous system of face, head, and neck; D70.9 Neutropenia, unspecified
CPT/HCPCS: 36415; 85025

== ENCOUNTER → 2025-02-14 08:02 | Outpatient (REF) | payer OTHER, SELFPAY ==
[2025-02-14 09:43] LABS: Hematocrit 36.6 % (37.0-47.0); Hemoglobin 12.7 g/dL (12.0-16.0); Mean Corp Hgb Conc. 34.7 g/dL (33.0-37.0); Mean Corpuscular Hgb 31.7 pg (27.0-31.0); Mean Corpuscular Volume 91.3 fL (81.0-99.0); Mean Platelet Volume 11.2 fL (7.4-10.4); Platelet Count 114 10^3/uL (130-400); Red Blood Cell Count 4.01 10^6/uL (4.20-5.40); Red Cell Dist. Width 13.4 % (11.5-14.5); White Blood Cell Count 6.2 10^3/uL (4.8-10.8)
[2025-02-14 10:59] LABS: % Basophils 0.8 % (0-2); % Eosinophils 0.2 % (0-6); % Immature Granulocytes 0.5 % (0-0.5); % Lymphocytes 55.1 % (20.5-51.1); % Monocytes 5.8 % (1.7-9.3); % Neutrophils 37.6 % (42.2-75.2); Absolute Basophils 0.1 10^3/uL (0-0.2); Absolute Lymphocytes 3.4 10^3/uL (1.2-3.4); Absolute Monocytes 0.4 10^3/uL (0.1-0.6); Absolute Neutrophils 2.3 10^3/uL (1.4-6.5); Nucleated Red Blood Cells % 0 %
== END ==
LOC: REG 08:02
PROVIDERS: ATTENDING PHYSICIAN Internal Medicine Hematology & Oncology; FAMILY PHYSICIAN Family Medicine; REFERRING PHYSICIAN Internal Medicine Hematology
DX: D47.2 Monoclonal gammopathy (principal); R16.1 Splenomegaly, not elsewhere classified; D68.61 Antiphospholipid syndrome; D69.2 Other nonthrombocytopenic purpura; C91.Z0 Other lymphoid leukemia not having achieved remission; D61.818 Other pancytopenia; D76.3 Other histiocytosis syndromes; D36.11 Benign neoplasm of peripheral nerves and autonomic nervous system of face, head, and neck; D70.9 Neutropenia, unspecified; D83.9 Common variable immunodeficiency, unspecified
CPT/HCPCS: 36415; 85025

== ENCOUNTER → 2025-02-21 08:18 | Outpatient (REF) | payer OTHER, SELFPAY ==
[2025-02-21 09:21] LABS: Hematocrit 38.5 % (37.0-47.0); Hemoglobin 13.6 g/dL (12.0-16.0); Mean Corp Hgb Conc. 35.3 g/dL (33.0-37.0); Mean Corpuscular Hgb 32.8 pg (27.0-31.0); Mean Corpuscular Volume 92.8 fL (81.0-99.0); Mean Platelet Volume 10.6 fL (7.4-10.4); Platelet Count 119 10^3/uL (130-400); Red Blood Cell Count 4.15 10^6/uL (4.20-5.40); Red Cell Dist. Width 13.4 % (11.5-14.5); White Blood Cell Count 5.4 10^3/uL (4.8-10.8)
[2025-02-21 09:48] LABS: % Basophils 0.7 % (0-2); % Eosinophils 0.2 % (0-6); % Immature Granulocytes 0.2 % (0-0.5); % Lymphocytes 58.7 % (20.5-51.1); % Monocytes 6.5 % (1.7-9.3); % Neutrophils 33.7 % (42.2-75.2); Absolute Lymphocytes 3.2 10^3/uL (1.2-3.4); Absolute Monocytes 0.4 10^3/uL (0.1-0.6); Absolute Neutrophils 1.8 10^3/uL (1.4-6.5); Nucleated Red Blood Cells % 0 %
== END ==
LOC: REG 08:18
PROVIDERS: ATTENDING PHYSICIAN Internal Medicine Hematology & Oncology; FAMILY PHYSICIAN Family Medicine; OTHER PHYSICIAN Internal Medicine Hematology
DX: D47.2 Monoclonal gammopathy (principal); R16.1 Splenomegaly, not elsewhere classified; D68.61 Antiphospholipid syndrome; D69.2 Other nonthrombocytopenic purpura; C91.Z0 Other lymphoid leukemia not having achieved remission; D61.818 Other pancytopenia; D76.3 Other histiocytosis syndromes; D36.11 Benign neoplasm of peripheral nerves and autonomic nervous system of face, head, and neck; D70.9 Neutropenia, unspecified; D83.9 Common variable immunodeficiency, unspecified
CPT/HCPCS: 36415; 85025

== ENCOUNTER → 2025-02-28 08:24 | Outpatient (REF) | payer OTHER, SELFPAY ==
[2025-02-28 09:38] LABS: % Basophils 0.7 % (0-2); % Eosinophils 0.2 % (0-6); % Immature Granulocytes 0.5 % (0-0.5); % Lymphocytes 45.7 % (20.5-51.1); % Monocytes 7.1 % (1.7-9.3); % Neutrophils 45.8 % (42.2-75.2); Absolute Lymphocytes 2.5 10^3/uL (1.2-3.4); Absolute Monocytes 0.4 10^3/uL (0.1-0.6); Absolute Neutrophils 2.5 10^3/uL (1.4-6.5); Hematocrit 38.6 % (37.0-47.0); Hemoglobin 13.3 g/dL (12.0-16.0); Mean Corp Hgb Conc. 34.5 g/dL (33.0-37.0); Mean Corpuscular Hgb 31.7 pg (27.0-31.0); Mean Corpuscular Volume 92.1 fL (81.0-99.0); Mean Platelet Volume 10.6 fL (7.4-10.4); Nucleated Red Blood Cells % 0 %; Platelet Count 105 10^3/uL (130-400); Red Blood Cell Count 4.19 10^6/uL (4.20-5.40); Red Cell Dist. Width 13.2 % (11.5-14.5); White Blood Cell Count 5.5 10^3/uL (4.8-10.8)
== END ==
LOC: REG 08:24
PROVIDERS: ATTENDING PHYSICIAN Internal Medicine Hematology & Oncology; FAMILY PHYSICIAN Family Medicine; OTHER PHYSICIAN Internal Medicine Hematology
DX: D47.2 Monoclonal gammopathy (principal); R16.1 Splenomegaly, not elsewhere classified; D68.61 Antiphospholipid syndrome; D69.2 Other nonthrombocytopenic purpura; C91.Z0 Other lymphoid leukemia not having achieved remission; D61.818 Other pancytopenia; D76.3 Other histiocytosis syndromes; D36.11 Benign neoplasm of peripheral nerves and autonomic nervous system of face, head, and neck; D70.9 Neutropenia, unspecified; D83.9 Common variable immunodeficiency, unspecified
CPT/HCPCS: 36415; 85025

== ENCOUNTER 2025-03-05 16:54 | Emergency (ER) | payer OTHER, SELFPAY ==
[2025-03-05 16:56] VITALS: BP 117/80; BMI 25.1
--- NOTE | 2025-03-05 17:53 | ED.GENMED ---
History of Present Illness
General
Chief Complaint: Fever
Time Seen by Provider: 03/05/25 17:31
History of Present Illness
History of Present Illness:
65-year-old female with history of hyperlipidemia and immuno suppression secondary to Rosai Mirna syndrome on chronic prednisone presents to the emergency department for evaluation of intermittent fever as well as diarrhea ongoing for the past 4
to 5 days. Fever seems to wax and wane throughout the day without obvious provoking factors. Has recorded temperatures as high as 101.8 Fahrenheit orally. Has not had any antipyretics today. Denies headache, vision changes, chest pain, shortness
of breath, coughing, nasal congestion, or dysuria. She is approxi-1 month status post bilateral ureteral stent placement due to bilateral kidney stones, stents have since been removed. She also notes that over the past several weeks her prednisone
has been weaned down and currently she is on 5 mg q. OD.
Past History
Past History
ED Past Medical History: Asthma, Cancer, CVA, Hypercholesterolemia, Seizures and Other (Kidney stones, thrombocytopenia, hepatitis C, anemia, TIA)
ED Past Surgical History: Appendectomy, Cholecystectomy and Urological (Stents)
Social History
Tobacco: Non-smoker
Alcohol: None
Drug: None
Personal:
Living: with family
Employment: Retired
Family History
Family History: Other (nc)
Review of Systems
Review of Systems
Allergies reviewed?: Yes
All Other Systems: ROS reviewed and negative except as documented in HPI and ROS
Phy Exam
Physical Exam
Physical Exam:
GEN: Well appearing, NAD, WDWN
Eyes: PERRLA, EOMs intact, no scleral icterus
HENT: NCAT, oral mucosa moist, no JVD, no cervical adenopathy.
Lungs: CTAB, no wheezes, rales, rhonchi, normal chest wall excursion
Cardiac: RRR, no M/R/G, no peripheral edema. Radial pulses 2+ bilat
Abdomen: S, NT, ND, NABS, no masses or hepatosplenomegaly
Neuro: AO x 3, no focal deficits to BUE/BLE, normal sensation throughout
MSK: No gross deformity or ecchymosis. No edema. No digital clubbing
Skin: No rashes, petechiae. Normal color, no pallor or jaundice.
Psych: Calm, cooperative, proper hygiene
Sepsis
Sepsis Screening
Sepsis Assessment: Sepsis Ruled Out
Sepsis Screen
Sepsis Screen: Sepsis Ruled Out
Date: 03/05/25
Time: 23:56
Course
Orders/Labs/Results
Orders:
Orders
03/05/25 17:42
CR Chest - 2 Views Urgent
Comment:
Reason For Exam: fever
03/05/25 18:04
Complete Blood Count/With Diff Urgent
Comprehensive Metabolic Panel Urgent
Lactic Acid Urgent
03/05/25 18:46
COVID-19 Antigen Urgent
Source: Nasal Swab
Influenza A+B Rapid Molecular Urgent
JONATAN Source: Nasal Swab
Specimen Description:
03/05/25 19:08
C DIFF [C difficile Antigen & Toxins] Urgent
JONATAN Source: Feces/Stool
Specimen Description:
Date Specimen was Collected: 03/05/25
Time Specimen was Collected: 19:07
Stool Culture Urgent
JONATAN Source: Feces/Stool
Specimen Description:
Date Specimen was Collected: 03/05/25
Time Specimen was Collected: 19:07
03/05/25 20:57
0.9% Sodium Chloride 500 ml [Nss] 500 ml IV BOLUS
03/05/25 21:58
Urinalysis Reflex To Culture Urgent
Date Specimen was Collected: 03/05/25
Time Specimen was Collected: 18:29
Urine Microscopic Reflex Cult Urgent
Urine Culture Urgent
JONATAN Source: U
Specimen Description:
Date Specimen was Collected: 03/05/25
Time Specimen was Collected: 18:29
03/05/25 22:35
Acetaminophen [Tylenol] 1,000 mg .ROUTE .STK-MED ONE
Ondansetron Injectable [Zofran] 4 mg .ROUTE .STK-MED ONE
03/05/25 22:36
Ondansetron Injectable [Zofran] 4 mg IV NOW STA
03/05/25 22:37
Acetaminophen [Tylenol] 1,000 mg PO NOW STA
03/05/25 22:48
Add On - Microbiology Urgent
Tests Added?: urine culture
03/05/25 22:59
Blood Culture Q30M
JONATAN Source: Blood/Venous
Specimen Description:
Blood Culture Q30M
JONATAN Source: Blood/Venous
Specimen Description:
Abnormal Lab Results
03/05/25 03/05/25
18:04 21:58
RBC 3.97 L 10^6/uL
(4.20-5.40)
Hct 35.2 L %
(37.0-47.0)
MCH 31.7 H pg
(27.0-31.0)
MPV 10.6 H fL
(7.4-10.4)
Immature Gran % 0.7 H %
(0-0.5)
Potassium 3.0 L mmol/L
(3.5-5.1)
Calcium 8.3 L mg/dl
(8.4-10.2)
AST 39 H U/L
(14-36)
ALT 53 H U/L
(0-35)
Total Protein 5.3 L g/dl
(6.3-8.2)
Albumin 3.4 L g/dl
(3.5-5.0)
Urine Ketones 3+ A
(Negative)
Ur Occult Blood Reflex 1+ A
(Negative)
Urine RBC 3-6 A /HPF
(0-2)
Urine Bacteria (Reflex) Few A
(Negative)
Urine Albumin (Reflex) 3+ A
(Neg - Trace)
03/05/25 18:04
03/05/25 18:04
Vital Signs
Initial and Last Documented VS:
Initial Vital Signs
Temp Pulse Resp BP Pulse Ox
99.1 F 128 18 117/80 98
03/05/25 16:56 03/05/25 16:56 03/05/25 16:56 03/05/25 16:56 03/05/25 16:56
Last Documented Vital Signs
Temp Pulse Resp BP Pulse Ox
99.1 F 128 18 116/63 98
03/05/25 16:56 03/05/25 16:56 03/05/25 16:56 03/05/25 22:00 03/05/25 22:00
MDM/Problems Addressed
MDM/Problems Addressed:
Patient's workup was grossly benign. Given the diarrhea thus stool cultures were sent as this may be the ultimate source of her fever versus a nonspecific viral syndrome. Given her immunosuppression, although she is not on significant steroid
dosage and her blood counts are adequate, we have pancultured her including blood cultures, particularly noting that she has an indwelling port. She remained febrile at time of discharge. Do not see any indication for CT imaging at this time given
that she has no specific abdominal complaints outside of the diarrhea. Do not feel there is any indication for empiric antibiotics at this point pending cultures
*Critical Care Note
Total Time (30-74mins, 75-104mins- exclusive of procedures): Not Applicable
ED Attending Note
-
Portions of this chart may have been created with voice recognition software.� Occasional wrong word or��sound alike� substitutions may have occurred due to the inherent limitations of voice recognition software.
Discharge Plan
Departure
Patient Disposition: Home (Routine Discharge)
Date of Disposition: 03/05/25
Time of Disposition: 22:49
Patient with high blood pressure during this ER visit?: No
Discharge Problem:
Fever
Instructions: Fever, Adult (DC)
Prescriptions:
No Action
atorvastatin 20 MG tablet
20 mg PO HS
Visbiome 112.5 billion cell Capsule
1 cap PO DAILY
acyclovir 800 mg Tablet
800 mg PO Q12H
levetiracetam [Keppra] 1,000 mg Tablet
1,000 mg PO BID
prochlorperazine maleate 10 mg Tablet
10 mg PO Q6HPRN PRN (Reason: nausea/vomiting)
acetaminophen [Tylenol Extra Strength] 500 mg Tablet
1,000 mg PO Q6HPRN PRN (Reason: mild pain)
albuterol sulfate 90 mcg/actuation Hfa Aerosol Inhaler
2 puff INHALATION R Q6HPRN PRN (Reason: sob)
loratadine [Claritin] 10 mg Tablet
10 mg PO DAILYPRN PRN (Reason: allergies)
cholecalciferol (vitamin D3) 25 mcg (1,000 unit) Tablet
25 mcg PO DAILY
prednisone 10 mg Tablet
20 mg PO DAILY
ferrous sulfate 27 mg iron Tablet
27 mg PO DAILY
melatonin 10 mg Tablet
10 mg PO HS PRN (Reason: sleep)
lidocaine
2.5 mg topical PRN PRN (Reason: Power port access)
zinc
50 mg PO DAILY
cefdinir 300 mg capsule
300 mg PO BID 7 Days Qty: 14 0RF
Referrals:
UNKNOWN - PT NOT,INTERVIEWE [Family Provider] -
Activity Restrictions/Additional Instructions:
Increase fluids
Take 1000 mg of acetaminophen every 6-8 hours for fever control
You will receive a call back if any of the culture test are positive
Interventions
Interventions:
*Risk Screen - Suicide Last Done: 03/05/25 16:56
*General Assessment Last Done: 03/05/25 21:03
*Neglect/Abuse Screening Last Done: 03/05/25 21:03
*ED- Fall Risk Assessment Last Done: 03/05/25 21:03
*ED COVID-19 Vaccine History Last Done: 03/05/25 21:03
*Nursing Disposition Last Done: 03/05/25 23:16
ED- Neurological Assessment Last Done: 03/05/25 20:15
ED-Skin Assessment Last Done: 03/05/25 20:15
Discharge Date and Time
Discharge Date/Time: 03/05/25 23:19
Print Language: [id number]
[2025-03-05 18:28] LABS: % Basophils 0.5 % (0-2); % Immature Granulocytes 0.7 % (0-0.5); % Lymphocytes 40.6 % (20.5-51.1); % Monocytes 8.5 % (1.7-9.3); % Neutrophils 49.7 % (42.2-75.2); Absolute Lymphocytes 2.4 10^3/uL (1.2-3.4); Absolute Monocytes 0.5 10^3/uL (0.1-0.6); Hematocrit 35.2 % (37.0-47.0); Hemoglobin 12.6 g/dL (12.0-16.0); Mean Corp Hgb Conc. 35.8 g/dL (33.0-37.0); Mean Corpuscular Hgb 31.7 pg (27.0-31.0); Mean Corpuscular Volume 88.7 fL (81.0-99.0); Mean Platelet Volume 10.6 fL (7.4-10.4); Nucleated Red Blood Cells % 0 %; Platelet Count 130 10^3/uL (130-400); Red Blood Cell Count 3.97 10^6/uL (4.20-5.40); Red Cell Dist. Width 12.7 % (11.5-14.5)
[2025-03-05 18:29] LABS: Lactic Acid 0.8 mmol/L (0.7-2.0)
[2025-03-05 18:49] LABS: ALT (SGPT) 53 U/L (0-35); AST (SGOT) 39 U/L (14-36); Albumin 3.4 g/dl (3.5-5.0); Alkaline Phosphatase 109 U/L (38-126); Blood Urea Nitrogen 15 mg/dl (7-17); Calcium 8.3 mg/dl (8.4-10.2); Carbon Dioxide 25 mmol/L (22-30); Chloride 104 mmol/L (98-107); Estimated Creatinine Clearance 47 ml/min; Glucose 97 mg/dl (70-99); Sodium 136 mmol/L (135-145); Total Bilirubin 0.7 mg/dl (0.2-1.3); Total Protein 5.3 g/dl (6.3-8.2); eGFR > 60.00
[2025-03-05 19:05] VITALS: BP 103/67
[2025-03-05 19:46] LABS: COVID-19 Antigen Negative (Negative)
[2025-03-05 20:13] VITALS: BP 107/51
[2025-03-05 21:00] VITALS: BP 107/58
[2025-03-05] MEDS: NSS 500 IV (21:02)
[2025-03-05 22:00] VITALS: BP 116/63
[2025-03-05 22:04] LABS: Urine Albumin 3+ (Neg - Trace); Urine Bilirubin Negative (Negative); Urine Character Clear (Clear); Urine Color Yellow; Urine Glucose Negative (Negative); Urine Ketone 3+ (Negative); Urine Leukocyte Negative (Negative); Urine Nitrite Negative (Negative); Urine Occult Blood 1+ (Negative); Urine Specific Gravity 1.015 (<1.030); Urine Urobilinogen Negative (Neg - 1+)
[2025-03-05 22:23] LABS: Urine Bacteria Few (Negative); Urine Mucus Few
[2025-03-05] MEDS: TYLENOL 1000 MG PO (22:37)
[2025-03-05] MEDS: ZOFRAN 4 MG IV (22:38)
== END 2025-03-05 23:19 | disposition home or self-care (01) ==
LOC: EMR 16:54
PROVIDERS: Physician Assistant; EMERGENCY PHYSICIAN Emergency Medicine
DX: R50.9 Fever, unspecified (principal); E78.00 Pure hypercholesterolemia, unspecified; J45.909 Unspecified asthma, uncomplicated; Z86.73 Personal history of transient ischemic attack (TIA), and cerebral infarction without residual deficits; D76.3 Other histiocytosis syndromes; Z79.52 Long term (current) use of systemic steroids; Z11.52 Encounter for screening for COVID-19
CPT/HCPCS: 96374; 96361; 99284; 71046; 80053; 81003; 81015; 83605; 85025; 87040; 87045; 87046; 87086; 87324; 87427; 87449; 87502; 87811

== ENCOUNTER 2025-03-06 20:51 | Inpatient (IN) | payer OTHER, SELFPAY ==
[2025-03-06 13:51] VITALS: BP 117/79
--- NOTE | 2025-03-06 15:29 | ED.GENMED ---
History of Present Illness
General
Chief Complaint: Fever
Time Seen by Provider: 03/06/25 15:20
History of Present Illness
History of Present Illness:
65-year-old female returns emergency department for evaluation of continued fevers and weakness. She was seen by me in the ED yesterday for the same symptoms including fever and diarrhea. Broad workup was unremarkable Lau culture sent at time of
discharge. Labs today reveal that C. difficile is positive. 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
Past History
Past History
ED Past Medical History: Asthma, Cancer, CVA, Hypercholesterolemia, Seizures and Other (Kidney stones, thrombocytopenia, hepatitis C, anemia, TIA)
ED Past Surgical History: Appendectomy, Cholecystectomy and Urological (Stents)
Social History
Tobacco: Non-smoker
Alcohol: None
Drug: None
Personal:
Living: with family
Employment: Retired
Family History
Family History: Other (nc)
Review of Systems
Review of Systems
Allergies reviewed?: Yes
All Other Systems: ROS reviewed and negative except as documented in HPI and ROS
Phy Exam
Physical Exam
Physical Exam:
GEN: Well appearing, NAD, WDWN
HEENT: Oral mucosa moist, no scleral icterus
Cardiac: Tachycardic, regular
Lung: No respiratory distress, no tachypnea
MSK: No gross deformity or injuries
Skin: Good color, no pallor or jaundice, no rashes
Neuro: AO x3, moves all extremities freely
Psych: Calm, cooperative
Sepsis
Sepsis Screening
Sepsis Assessment: Sepsis Ruled Out
Sepsis Screen
Sepsis Screen: Sepsis Ruled Out
Date: 03/06/25
Time: 22:05
Course
Orders/Labs/Results
Orders:
Orders
03/06/25 Lunch
Regular
At Your Request: Limited Participation
03/06/25 15:29
CT Abd/Pel (IV only)-DH only Urgent
Comment:
Reason For Exam: fever, diarrhea
0.9% Sodium Chloride 1000 ml [Nss] 1,000 ml IV BOLUS
03/06/25 15:32
Acetaminophen [Tylenol] See Dose Instructions .ROUTE .STK-MED ONE
Vancomycin HCl [Firvanq] 125 mg PO NOW STA
03/06/25 15:40
CMP [Comprehensive Metabolic Panel] Urgent
Complete Blood Count/With Diff Urgent
03/06/25 15:47
Acetaminophen [Tylenol] 1,000 mg PO NOW STA
03/06/25 15:48
Acetaminophen [Tylenol] 1,000 mg .ROUTE .STK-MED ONE
03/06/25 18:08
GASTROINTESTINAL CONSULT Routine
Consulting Provider: Lanette Self
Was physician already notified: Yes
Reason for consult: colitis
03/06/25 18:51
Albuterol [ProAIR HFA INHALER] 2 puff INH R Q6HPRN PRN
03/06/25 18:53
Code Status As Directed
Resuscitation Status: Full Code
Acetaminophen [Tylenol] 650 mg PO Q4HPRN PRN
03/06/25 18:54
Activity As Directed
Activity Level: Out of Bed-Early Mobility
Vital Signs As Directed
Frequency: Per unit guidelines
DX Deep Vein Thrombosis Video Routine
03/06/25 19:00
Lactated Ringers [Lr] 1,000 ml IV 125 mls/hr
03/06/25 19:53
Dicyclomine [Bentyl] 10 mg PO QIDPRN PRN
03/06/25 19:57
Admit Patient As Directed
Co-Sign Provider:
Level of Care: Inpatient admission
Assign to:: Medical/Surgical
Physician / Group: Gm
Diagnosis: C Diff Colitis
Reason for Hospitalization: intractable diarrhea
Expected length of stay greater than two midnights?: Yes
ELOS- Estimated Length of Stay in days: 3
I certify the patient meets the requirements for IP care: Yes
PRN Pain Medication Management As Directed
May give lesser potent ordered pain med per pt: Yes
preference::
Protocol:: Medication orders for pain may be administered in a
manner that supports deferring to patient preference
when the pt is:
- Requesting an ordered lesser potent pain medication.
Least to most potent pain medications are defined
as: acetaminophen < NSAID < tramadol < opioids
(morphine, oxycodone, hydromorphone).
- Requesting a lesser dose of the same medication IF
ORDERED.
- Requesting a less intrusive route of administration
if both routes are prescribed by the provider (PO <
IV).
03/06/25 20:00
Flush (0.9% Sodium Chloride) [Flush (Nss)] See Dose Instructions IV PER PROTOCOL
MetroNIDAZOLE 500 MG/100 ML [Flagyl 500 mg] 100 ml IV Q8H
03/06/25 21:00
Levetiracetam Injectable [Keppra] 1,000 mg IV Q12
03/06/25 22:00
Atorvastatin [Lipitor] 20 mg PO HS
03/07/25 00:00
Vancomycin HCl [Firvanq] 125 mg PO Q6
03/07/25 06:00
Complete Blood Count/With Diff IN AM
Comprehensive Metabolic Panel IN AM
Magnesium IN AM
03/07/25 08:00
Dexamethasone Sod Phosphate [Decadron] 4 mg IV DAILY
Ferrous Sulfate [Feosol] 162.5 mg PO DAILY
03/07/25 18:00
Enoxaparin Sodium [Lovenox] 40 mg SC QPM
Abnormal Lab Results
03/06/25
15:40
MCH 32.0 H pg
(27.0-31.0)
MPV 10.5 H fL
(7.4-10.4)
Abs Immat Gran (auto) 0.1 H 10^3/uL
(0-0.05)
Absolute Neuts (auto) 7.9 H 10^3/uL
(1.4-6.5)
Absolute Lymphs (auto) 0.9 L 10^3/uL
(1.2-3.4)
Absolute Monos (auto) 0.8 H 10^3/uL
(0.1-0.6)
Immature Gran % 0.9 H %
(0-0.5)
Neutrophils % 81.6 H %
(42.2-75.2)
Lymphocytes % 8.8 L %
(20.5-51.1)
Sodium 134 L mmol/L
(135-145)
Glucose 113 H mg/dl
(70-99)
Calcium 8.0 L mg/dl
(8.4-10.2)
ALT 49 H U/L
(0-35)
Alkaline Phosphatase 130 H U/L
(38-126)
Total Protein 5.9 L g/dl
(6.3-8.2)
03/06/25 15:40
03/06/25 15:40
Vital Signs
Initial and Last Documented VS:
Initial Vital Signs
Temp Pulse Resp BP Pulse Ox
101.4 F H 136 18 117/79 94
03/06/25 13:51 03/06/25 13:51 03/06/25 13:51 03/06/25 13:51 03/06/25 13:51
Last Documented Vital Signs
Temp Pulse Resp BP Pulse Ox
98.8 F 115 17 115/69 94
03/06/25 19:34 03/06/25 19:34 03/06/25 19:34 03/06/25 19:34 03/06/25 13:51
MDM/Problems Addressed
MDM/Problems Addressed:
Due to persistent symptoms and evidence for enteritis/colitis on CT Will admit for further management, oral vancomycin initiated in the ED
*Critical Care Note
Total Time (30-74mins, 75-104mins- exclusive of procedures): Not Applicable
ED Attending Note
-
Portions of this chart may have been created with voice recognition software.� Occasional wrong word or��sound alike� substitutions may have occurred due to the inherent limitations of voice recognition software.
Discharge Plan
Departure
Patient Disposition: Admit
Date of Disposition: 03/06/25
Time of Disposition: 17:55
Presentation/result/management discussed w/ accepting MD/DO: Hospitalist
Discharge Problem:
C. difficile colitis
Interventions
Interventions:
*Risk Screen - Suicide Last Done: 03/06/25 13:51
*General Assessment Last Done: 03/06/25 13:51
*Neglect/Abuse Screening Last Done: 03/06/25 16:07
*ED- Fall Risk Assessment Last Done: 03/06/25 16:07
*ED COVID-19 Vaccine History Last Done: 03/06/25 13:51
ED- Neurological Assessment Last Done: 03/06/25 16:07
ED-Skin Assessment Last Done: 03/06/25 16:07
[2025-03-06] MEDS: TYLENOL 1000 MG PO (15:57)
[2025-03-06] MEDS: NSS 1000 IV (15:58)
[2025-03-06 16:00] LABS: % Basophils 0.4 % (0-2); % Immature Granulocytes 0.9 % (0-0.5); % Lymphocytes 8.8 % (20.5-51.1); % Monocytes 8.3 % (1.7-9.3); % Neutrophils 81.6 % (42.2-75.2); Absolute Immature Granulocytes 0.1 10^3/uL (0-0.05); Absolute Lymphocytes 0.9 10^3/uL (1.2-3.4); Absolute Monocytes 0.8 10^3/uL (0.1-0.6); Absolute Neutrophils 7.9 10^3/uL (1.4-6.5); Hematocrit 37.6 % (37.0-47.0); Hemoglobin 13.6 g/dL (12.0-16.0); Mean Corp Hgb Conc. 36.2 g/dL (33.0-37.0); Mean Corpuscular Volume 88.5 fL (81.0-99.0); Mean Platelet Volume 10.5 fL (7.4-10.4); Nucleated Red Blood Cells % 0 %; Platelet Count 140 10^3/uL (130-400); Red Blood Cell Count 4.25 10^6/uL (4.20-5.40); Red Cell Dist. Width 12.7 % (11.5-14.5); White Blood Cell Count 9.6 10^3/uL (4.8-10.8)
[2025-03-06 16:06] VITALS: BMI 26.9
[2025-03-06] MEDS: FIRVANQ 125 MG PO (16:11)
[2025-03-06 16:32] LABS: Albumin 3.6 g/dl (3.5-5.0); Blood Urea Nitrogen 14 mg/dl (7-17); Carbon Dioxide 22 mmol/L (22-30); Estimated Creatinine Clearance 44 ml/min; Total Bilirubin 0.9 mg/dl (0.2-1.3); Total Protein 5.9 g/dl (6.3-8.2); eGFR > 60.00
[2025-03-06 16:49] LABS: ALT (SGPT) 49 U/L (0-35); AST (SGOT) 35 U/L (14-36); Alkaline Phosphatase 130 U/L (38-126); Chloride 103 mmol/L (98-107); Glucose 113 mg/dl (70-99); Sodium 134 mmol/L (135-145)
[2025-03-06 17:00] LABS: Potassium 3.6 mmol/L (3.5-5.1)
--- NOTE | 2025-03-06 18:17 | HPS.HSE ---
Family Physician
-
Family Physician: Corona Chacko
Chief Complaint
-
diarrhea, fever
History of Present Illness
65yo F with PMHx of cholecystectomy, seizur d/o, nephrolithiasis, Rosai-Jose Eduardo (benign histiocytosis), Hx of brain tumor, HLD, asthma recently seen in ED with fevers and diarrhea came back with the same. Diagnosed with c.diff colitis. Has profuse
diarrhe and fevers for the past week. On chronic prednisone, so immunosuppressed. ALso dry hetabatha, reported that had troubles taking oral meds
Medical History
Past Medical History
Past Medical History: Reports Other
Additional Past Medical History:
See HPI
Past Surgical History: Reports Other
Additional Past Surgical History:
See HPI
Social History
Tobacco: Non-smoker
Alcohol: None
Drug: None
Family History
Family History: Not pertinent
Allergies / Home Medications
Allergies reflects when Allergies were last updated in [facility].
Home Medications with original date entered in [facility]
Allergy/Medication List:
Allergies
Allergy/AdvReac Type Severity Reaction Status Date / Time
codeine Allergy n/v ; Verified 03/06/25 13:54
foggy ;
percocet
'too
strong'
penicillin G Allergy SEE BELOW Verified 03/06/25 13:54
Sulfa (Sulfonamide Allergy Un[place]wn Verified 03/06/25 13:54
Antibiotics) reaction
>40 years
ago
Home Medications
atorvastatin 20 mg tablet 20 mg PO HS High cholesterol 03/31/20
Lactobac no.2-Bifidobac no.1-S. thermo 112.5 billion cell capsule (Visbiome) 1 cap PO DAILY Gastrointestinal issue 01/21/23
acyclovir 800 mg tablet 800 mg PO Q12H Infection 07/05/23
levetiracetam 1,000 mg tablet (Keppra) 1,000 mg PO BID Seizures 07/05/23
acetaminophen 500 mg tablet (Tylenol Extra Strength) 1,000 mg PO Q6HPRN PRN mild pain 11/20/23
albuterol sulfate 90 mcg/actuation aerosol inhaler 2 puff inhalation R Q6HPRN PRN sob 11/20/23
cholecalciferol (vitamin D3) 25 mcg (1,000 unit) tablet 25 mcg PO DAILY Supplement 11/20/23
loratadine 10 mg tablet (Claritin) 10 mg PO DAILYPRN PRN allergies 11/20/23
prochlorperazine maleate 10 mg tablet 10 mg PO Q6HPRN PRN nausea/vomiting 11/20/23
ferrous sulfate 27 mg iron tablet 27 mg PO DAILY 01/24/25
lidocaine 2.5 mg topical PRN PRN Power port access 01/24/25
melatonin 10 mg tablet 10 mg PO HS PRN sleep 01/24/25
prednisone 10 mg tablet 20 mg PO DAILY 01/24/25
zinc 50 mg PO DAILY 01/24/25
cefdinir 300 mg capsule 300 mg PO BID 7 days #14 caps 02/02/25
Review of Systems
-
History Source: Patient
A 12 point ROS was completed and negative except as noted: Yes
Constitutional: Reports Fever
Abdomen/GI: Reports Abdominal Pain, Nausea and Diarrhea
Physical Exam
Vital Signs
Vital Signs
Temp Pulse Resp BP Pulse Ox
101.4 F H 136 18 117/79 94
03/06/25 13:51 03/06/25 13:51 03/06/25 13:51 03/06/25 13:51 03/06/25 13:51
Physical Exam
General: No Apparent Distress, Comfortable and Conversant
HEENT: NormoCephalic, Anicteric and Moist mucous membranes
Respiratory: Clear; No Wheezes or Rhonchi
Cardiac: S1/S2 and Regular Rhythm; No Murmur
GI: Soft, Non Tender and Distended
Rectal: Other (watery)
Genito-urinary: No costovertebral tender
Musculoskeletal: No Clubbing, No Cyanosis and No Edema
Skin: Warm
Neuro: Awake, Alert, Oriented and AO x 3
Psych: Calm
Laboratory Results
-
03/06/25 15:40
03/06/25 15:40
Laboratory Results
Total Bilirubin 0.9 mg/dl (0.2-1.3) 03/06/25 15:40
AST 35 U/L (14-36) 03/06/25 15:40
ALT 49 U/L (0-35) H 03/06/25 15:40
Alkaline Phosphatase 130 U/L (38-126) H 03/06/25 15:40
Data Reviewed
-
CT Scan: Report Reviewed by me
Impression/Plan
-
A/P:
#C.diff colitis with profuse diarrhea and nausea, concern for inability to hold oral meds
with profuse diarrhea - will attempt oral Vanco+FLagyl IV (as unlikely to hold enemas)
IVF
GI consult due to CT findings of severe colitis
Avoid antimotility agents and stool softeners
#Alk. phos elevation
#Mild ALT.elevation
s/p cholecystectomy
Most likely 2/2 colitis
minimal CBD dilation on CT, but bili WNL
follow LFT
#Seizure d/o
#YESICA
#HLD
#Rosai-Jose Eduardo disease
cont home meds - switch steroids and keppra to IV
DVT ppx lovenox
FUll code
I have spent at least 79min reviewing chart, test results, communication with consultants and providing direct patient care
[2025-03-06] MEDS: LR 1000 IV (19:28)
[2025-03-06] MEDS: FLAGYL 500 MG 100 IV (19:29)
[2025-03-06] MEDS: FLUSH (NSS) 1 FLUSH IV (19:31)
[2025-03-06 19:33] VITALS: BP 115/69
[2025-03-06 19:34] VITALS: BP 115/69
[2025-03-06] MEDS: KEPPRA 1000 MG IV (21:32)
[2025-03-06] MEDS: BENTYL 10 MG PO (21:32)
[2025-03-06] MEDS: LIPITOR 20 MG PO (21:32)
[2025-03-07 00:56] VITALS: BP 117/64
[2025-03-07] MEDS: FIRVANQ 125 MG PO ×3 (00:57→13:29)
[2025-03-07 00:58] VITALS: BP 117/64
[2025-03-07] MEDS: TYLENOL 650 MG PO ×3 (01:17→23:13)
[2025-03-07] MEDS: LR 1000 IV ×3 (03:51→23:11)
[2025-03-07] MEDS: FLAGYL 500 MG 100 IV ×2 (03:51→13:29)
[2025-03-07 06:06] LABS: Hemoglobin 12.2 g/dL (12.0-16.0); Mean Corp Hgb Conc. 34.9 g/dL (33.0-37.0); Mean Corpuscular Hgb 30.9 pg (27.0-31.0); Mean Corpuscular Volume 88.6 fL (81.0-99.0); Mean Platelet Volume 10.5 fL (7.4-10.4); Platelet Count 122 10^3/uL (130-400); Red Blood Cell Count 3.95 10^6/uL (4.20-5.40); Red Cell Dist. Width 12.8 % (11.5-14.5); White Blood Cell Count 10.6 10^3/uL (4.8-10.8)
[2025-03-07 06:22] LABS: ALT (SGPT) 35 U/L (0-35); AST (SGOT) 21 U/L (14-36); Albumin 2.6 g/dl (3.5-5.0); Alkaline Phosphatase 92 U/L (38-126); Blood Urea Nitrogen 11 mg/dl (7-17); Carbon Dioxide 20 mmol/L (22-30); Chloride 105 mmol/L (98-107); Estimated Creatinine Clearance 50 ml/min; Glucose 104 mg/dl (70-99); Magnesium 1.7 mg/dl (1.6-2.3); Potassium 3.1 mmol/L (3.5-5.1); Sodium 133 mmol/L (135-145); Total Bilirubin 0.7 mg/dl (0.2-1.3); Total Protein 4.5 g/dl (6.3-8.2); eGFR > 60.00
[2025-03-07] MEDS: ZOFRAN 4 MG IV ×2 (08:00→21:28)
[2025-03-07] MEDS: KEPPRA 1000 MG IV ×2 (08:01→21:21)
[2025-03-07] MEDS: DECADRON 4 MG IV (08:02)
[2025-03-07] MEDS: FEOSOL 162.5 MG PO (08:02)
[2025-03-07] MEDS: BENTYL 10 MG PO (08:03)
[2025-03-07 09:47] LABS: % Basophils 0.7 % (0-2); % Eosinophils 0.2 % (0-6); % Immature Granulocytes 0.7 % (0-0.5); % Lymphocytes 9.1 % (20.5-51.1); % Neutrophils 80.3 % (42.2-75.2); Absolute Basophils 0.1 10^3/uL (0-0.2); Absolute Immature Granulocytes 0.1 10^3/uL (0-0.05); Absolute Neutrophils 8.5 10^3/uL (1.4-6.5); Nucleated Red Blood Cells % 0 %
[2025-03-07] MEDS: KCL 270 MEQ IV (10:13)
[2025-03-07 10:21] VITALS: BP 112/61
--- NOTE | 2025-03-07 11:41 | CM ---
CM attempted bedside visit with pt, being transferred off unit
Call with spouse who is bedside with pt
They reside in a [facility] with 1STE, full flight to 2nd floor
Pt is indep with her ADLs with use of a SPC as needed
No longer drives to hx brain tumor/Rosai-Mirna
PCP- Corona Chacko
Rx- [facility]
Pt transferred to 1 acute, c-diff+
CM will remain available for dc planning as needed
Discharge Disposition- home,no needs anticipated
[2025-03-07 11:44] VITALS: BP 113/63
--- NOTE | 2025-03-07 11:47 | W.PN.HOSP.TC ---
Today's Communication/Plan
-
Replete potassium
Monitor for p.o. intake
IV antiepileptic medication
Switch to home dose of p.o. steroids
Continue vancomycin
Assessment / Plan
Assessment / Plan
A/P:
#C.diff colitis with profuse diarrhea and nausea, concern for inability to hold oral meds
with profuse diarrhea - will attempt oral Vanco+FLagyl IV (as unlikely to hold enemas)
IVF aggressively
LR diet
GI consult due to CT findings of severe colitis
received preop antibiotics before urological procedure recently
Antinausea meds as needed
Avoid antimotility agents and stool softeners
#Alk. phos elevation
#Mild ALT.elevation
s/p cholecystectomy
Most likely 2/2 colitis
minimal CBD dilation on CT, but bili WNL
follow LFT
#Hypokalemia
-Replete/monitor
#Seizure d/o
#YESICA
#HLD
#Rosai-Mirna disease
#Hx benign Brain tumor
-Maintained on prednisone
cont home meds - switch keppra to IV
Tolerating po-switch back to po steroids home regimen. Blood pressure stable. If with episode of hypotension then can start stress dose steroids.
On prophylactic acyclovir continue
#Bilateral renal stone s/p recent urteral stent placement by Dr. Coleman on 03/02/25
DVT ppx lovenox
FUll code
Anticipated Discharge: > 48 hours
Subjective/Interval History
-
Date of Service: March 07, 2025
States feels tired/drained
diarrhea slowing down
abd feels sore
Objective Data
-
Labs:
Laboratory Results
03/07/25
05:35
WBC 10.6
Hgb 12.2
Hct 35.0 L
Plt Count 122 L
Sodium 133 L
Potassium 3.1 L
Chloride 105
Carbon Dioxide 20 L
BUN 11
Creatinine 0.8
Glucose 104 H
Calcium 7.0 L
Total Bilirubin 0.7
AST 21
ALT 35
Alkaline Phosphatase 92
Vital Signs:
Vital Signs
Temp Pulse Resp BP Pulse Ox
98.5 F 112 16 113/63 95
03/07/25 11:44 03/07/25 11:44 03/07/25 11:44 03/07/25 11:44 03/07/25 11:44
Physical Exam
-
General: No Apparent Distress and Comfortable
HEENT: Normocephalic
Respiratory: Clear to Auscultation
Cardiac: Regular Rhythm and S1/S2
GI: Soft, Normal Bowel Sounds, Tender and Distended
Musculoskeletal: No Edema
Skin: Warm and Dry
Neuro: Awake, Alert and Oriented
Psych: Calm
Data Reviewed
-
Total Time Spent with Patient (in minutes): 55
--- NOTE | 2025-03-07 13:09 | CON.GI ---
Addendum entered and electronically signed by Lanette Self DO 03/07/25 17:04:
Patient seen and examined independently of JOSE. I agree with her note with my additions below
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
with a week of diarrhea with fever to 103 and diarrhea roughly every 15 minutes found to have C. difficile.
CT scan done on 03/06/2025 shows fluid-filled loops of nondistended small and large bowel with some mild bowel wall thickening throughout its nonobstructed. No pneumatosis.
She has no leukocytosis, normal renal function
# Nonsevere CDI -first episode
-- Likely due to chronic immunosuppression with recent antibiotics
-- Patient does have indication for Dificid and would change antibiotics to Dificid
-- She is improving and is only had 2 stools today
-- No fever, okay for low residue diet
GI will sign off. If he is not improving call infectious disease
Keep appointment with Dr. Raines as previously scheduled
Original Note:
Consultation
-
Date/Time Consultation Requested: 03/06/25 1818
Date/Time Consultation Performed: 03/07/25 1300
Requesting Provider: Baljit Worrell MD
Performing Provider: JOSE Butt, Lanette Self DO
Reason for Consultation: diarrhea
Medical History
Chief Complaint / HPI
Chief Complaint: diarrhea, fever
History of Present Illness:
Pt is a 65yo with hx stanford, seizure disorder, nephrolithiasis, rosai- alyse (benign histiocytosis) on chronic Prednisone, IGm MGUS, hep C with prior treatment at [facility] in 2011 - Solvaldi and Ribavirin with prior noted splenomegaly and
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 She now returns with fever up to 103 and diarrhea. She was initially here 03/05
and discharged but returns with continued symptoms. On admission she is noted with concern for c-diff + from initial visit. Ct completed on admission with prior stanford, mild intra and extrahepatic biliary dilatation with prior stanford, non obs renal
calculi and fluid filled loops of non distended SB and entire colon concern for enteritis or atypical IBD or atypical colitis.
In review with patient she had multiple medical issues in 2022 then improved in 2023. She had recent renal stone and noted diarrhea that become severe over last week. She admits to stools every 20 minutes and nocturnal stools. She also
admits to some abdominal discomfort, bloating and nausea and did take about 3 doses of Imodium 2 tablets several days ago. She is scheduled follow up with Dr. Raines in April as new eval to discuss follow up colonoscopy. She otherwise denies
dysphagia, GERD, constipation or rectal bleeding. Last colonoscopy about 7 years ago recall colon polyps.
Past Medical History
Past Medical History: Asthma, Seizures and Other (hep C with prior treatment with prior noted splenomegaly and portal HTN, nephrolithiaiss, rosai- alyse, IGM MGUS, ENERGY EFFICIENCY SPECIALIST involvement of RDS, benign brain tumor)
Past Surgical History: Appendectomy, Cholecystectomy, and Urological (multiple stone removals and prior nephrostomy tube, lithotripsy, brain tumor biopsy, lymph node biopsy, spinal tap)
Social History
Tobacco: Non-Smoker
Alcohol: None
Drug: None
Personal:
Living: With Family
Employment: Retired
Family History
Family History: Other (daughter with IBS )
Allergies / Home Medications
Allergy/AdvReac Type Severity Reaction Status Date / Time
codeine Allergy n/v ; Verified 03/06/25 13:54
foggy ;
percocet
'too
strong'
penicillin G Allergy SEE BELOW Verified 03/06/25 13:54
Sulfa (Sulfonamide Allergy Un[place]wn Verified 03/06/25 13:54
Antibiotics) reaction
>40 years
ago
�Medication �Instructions �Recorded
atorvastatin 20 mg tablet 20 mg PO HS High cholesterol 03/31/20
acyclovir 800 mg tablet 800 mg PO Q12H Infection 07/05/23
levetiracetam 1,000 mg tablet 1,000 mg PO BID Seizures 07/05/23
(Keppra)
acetaminophen 500 mg tablet 1,000 mg PO DAILYPRN PRN mild pain 11/20/23
(Tylenol Extra Strength)
cholecalciferol (vitamin D3) 25 25 mcg PO DAILY Supplement 11/20/23
mcg (1,000 unit) tablet
prochlorperazine maleate 10 mg 10 mg PO Q6HPRN PRN nausea/vomiting 11/20/23
tablet
melatonin 10 mg tablet 10 mg PO HS PRN sleep 01/24/25
lidocaine-prilocaine 2.5 %-2.5 % 1 applic topical PRN PRN port 03/06/25
topical cream access
loperamide 2 mg tablet 4 mg PO Q4H PRN diarrhea 03/06/25
prednisone 2.5 mg tablet 5 mg PO Q48H 03/06/25
Review of Systems
-
History Source: Patient
Constitutional: Reports Fever
EENT: Reports No Symptoms
Respiratory: Reports No Symptoms
Cardiac: Reports No Symptoms
Abdomen/GI: Reports Abdominal Pain (mild ), Nausea and Diarrhea
: Reports No Symptoms
Musculoskeletal: Reports No Symptoms
Skin: Reports No Symptoms
Neurological: Reports Weakness
Endocrine: Reports No Symptoms
Hematologic/Lymphatic: Reports No Symptoms
Vital Signs
Temp Pulse Resp BP Pulse Ox
98.5 F 112 16 113/63 95
03/07/25 11:44 03/07/25 11:44 03/07/25 11:44 03/07/25 11:44 03/07/25 11:44
Physical Exam
Exam
General: Well Developed, Well Nourished, No Apparent Distress and Other (pale )
HEENT: Normocephalic and Anicteric
Respiratory: Clear
Cardiac: Other (tachy)
GI: Soft, Tender (mild ) and Distended (mild )
Musculoskeletal: No Clubbing and No Cyanosis
Skin: Warm and Dry
Neuro: Awake, Alert and AO x 3
Psych: Calm
Results
WBC 10.6 10^3/uL (4.8-10.8) 03/07/25 05:35
Hgb 12.2 g/dL (12.0-16.0) 03/07/25 05:35
Hct 35.0 % (37.0-47.0) L 03/07/25 05:35
MCV 88.6 fL (81.0-99.0) 03/07/25 05:35
Plt Count 122 10^3/uL (130-400) L 03/07/25 05:35
Absolute Neuts (auto) 8.5 10^3/uL (1.4-6.5) H 03/07/25 05:35
Sodium 133 mmol/L (135-145) L 03/07/25 05:35
Potassium 3.1 mmol/L (3.5-5.1) L 03/07/25 05:35
Chloride 105 mmol/L (98-107) 03/07/25 05:35
Carbon Dioxide 20 mmol/L (22-30) L 03/07/25 05:35
BUN 11 mg/dl (7-17) 03/07/25 05:35
Creatinine 0.8 mg/dL (0.6-1.0) 03/07/25 05:35
Calcium 7.0 mg/dl (8.4-10.2) L 03/07/25 05:35
Total Bilirubin 0.7 mg/dl (0.2-1.3) 03/07/25 05:35
AST 21 U/L (14-36) 03/07/25 05:35
ALT 35 U/L (0-35) 03/07/25 05:35
Alkaline Phosphatase 92 U/L (38-126) 03/07/25 05:35
Diagnostic Image Results:
03/07/25 CT Abd/Pel (IV only)-DH only
Prior cholecystectomy. Mild intrahepatic and extrahepatic biliary tract dilatation most likely the sequela of prior cholecystectomy. Recommend correlation with LFTs.
Small bilateral nonobstructing renal calculi.
luid-filled loops of nondistended small bowel and virtually entire large bowel filled with fluid with prominent areas of mild wall thickening, nonobstructed intestinal tract. Findings are suspicious for ENTERITIS or atypical Inflammatory Bowel
Disease. Cannot exclude atypical colitis. Gastroenterology evaluation suggested.
Prior GI Procedures:
EGD: ? [facility] in past
Colonoscopy: 7 years ago [facility] recalls as normal
Assessment / Plan
-
Pt is a 65yo with hx stanford, seizure disorder, nephrolithiasis, rosai- alyse (benign histiocytosis) on chronic Prednisone , hep C with prior treatment at [facility] in 2011 - Solvaldi and Ribavirin, brain tumor, HLD, asthma with recent admission
in early February with renal stones with stent placement with antibiotic course. She now returns with fever up to 103 and diarrhea. She was initially here 03/05 and discharged but returns with continued symptoms. On admission she is noted with
concern for c-diff + from initial visit. Ct completed on admission with prior stanford, mild intra and extrahepatic biliary dilatation with prior stanford, non obs renal calculi and fluid filled loops of non distended SB and entire colon concern for
enteritis or atypical IBD or atypical colitis. In review with patient she had multiple medical issues in 2022 then improved in 2023. She had recent renal stone and noted diarrhea that become severe over last week. She admits to stools every 20
minutes and nocturnal stools. She also admits to some abdominal discomfort, bloating and nausea and did take about 3 doses of Imodium 2 tablets several days ago. She is scheduled follow up with Dr. Raines in April as new eval to discuss follow
up colonoscopy. Last colonoscopy about 7 years ago recall colon polyps.
-first episode c-diff with fever and diarrhea
-tachycardia
-CT with concern for enteritis/atypical IBD/atypical colitis
-hx rosai-alyse on chronic prednisone follow with Dr. Ezequiel Zamorano at [place]
-recent renal stone with stent placement and antibiotic course
-hypokalemia
-increased LFT's on admission now normalized
other med problems:
-hep C with prior treatment at [facility] in 2012 - Solvaldi and Ribavirin
-splenomegaly and portal HTN
-brain tumor
-ENERGY EFFICIENCY SPECIALIST involvement of RDS
-HLD
-asthma
-seizures disorder
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
-CVA
PLAN:
etiology of symptoms with diarrhea and fever concern for first episode of C-diff with hx chronic prednisone use for rosai-alyse and prior noted leukopenia/thrombocytopenia
will review regiment with Dr. Self currently on Vanco PO 125mg Q 6 hours and IV Flagyl with some improvement
cont clear diet advance as tolerated
remains on Predinsone 5mg q 48 hours with close watch of CBC
monitor stool output
blood cx pending with fever on admission
stressed to patient to call GI after discharge if diarrhea is recurrent
pt is scheduled new visit with Dr. Raines 04/20 at 2:30PM will provide as hospital follow up and discusss colonoscopy
-
-
Thank you for consultation and allowing me to participate in the patient's care. Please call the aeronautical engineering officer GI physician during the after hours with any questions or concerns.
[2025-03-07] MEDS: ZOVIRAX 800 MG PO ×2 (13:45→21:20)
[2025-03-07 15:55] VITALS: BP 109/66
[2025-03-07] MEDS: LOVENOX 40 MG SC (17:51)
[2025-03-07] MEDS: DIFICID 200 MG PO (21:20)
[2025-03-07] MEDS: LIPITOR 20 MG PO (21:20)
[2025-03-07 23:05] VITALS: BP 101/51
[2025-03-07] MEDS: MELATONIN 10 MG PO (23:12)
--- NOTE | 2025-03-08 03:42 | PTCARENOTE ---
Pt with multiple inc episodes, with loose stools. Frequent arlen care provided. Pt given Zofran for complaints of nausea. Pt also reports feeling bloated. Tylenol administered for fever 101.7. IVF infusing as ordered. Will continue to monitor.
[2025-03-08] MEDS: LR 1000 IV ×2 (06:12→11:42)
[2025-03-08 08:05] VITALS: BP 105/66
--- NOTE | 2025-03-08 09:03 | PN.CDI ---
CDI
- -
CDI:
Physician Documentation Request
Admit Date: 03/06/25 20:51
Dear Doctor Shay,
Patient admitted for colitis.
H&P: 'On chronic prednisone, so immunosuppressed.'
03/07 Hospitalist PN: 'C.diff colitis...will attempt oral Vanco+FLagyl IV (as unlikely to hold enemas). IVF aggressively'
Selected Entries
03/06/25
13:51 03/07/25
00:58 03/07/25
04:01
Temp 101.4 F H 103 F H 101.1 F H
03/06/25
13:51 03/07/25
00:58 03/07/25
11:44
Pulse 136 123 112
Please clarify which of the following most accurately describes the status of the patient's infection:
Sepsis, POA
- Systemic manifestations of infection, with 2 or more SIRS criteria which include:
- Fever >100.4 degrees F or hypothermia < 96.8 degrees F
- Leukocytosis - WBC > 12,000 or leukopenia - WBC < 4,000 or > 10% bands
- Tachycardia > 90 beats per minute
- Tachypnea - RR > 20 breaths per minute or PaCO2 , 32mmHg
Source: Merck Manual 2013
Localized Infection Only, Without Systemic Illness
- indicate the site/source, such as UTI, pneumonia etc.
Other
Use of terms such as suspected, likely, concern for, or probable (associated with a specific diagnosis that is being evaluated, monitored, or treated as if it exists) are acceptable and can be coded in the inpatient setting, when documented at the
time of discharge.
Thank you,
Corrine Mckeon RN, BSN
CDI Specialist
Available via [employer] text
Please use your independent medical judgment in providing your response.
[2025-03-08 09:06] LABS: Hematocrit 30.8 % (37.0-47.0); Hemoglobin 11.1 g/dL (12.0-16.0); Mean Corpuscular Hgb 31.5 pg (27.0-31.0); Mean Corpuscular Volume 87.5 fL (81.0-99.0); Mean Platelet Volume 10.2 fL (7.4-10.4); Platelet Count 116 10^3/uL (130-400); Red Blood Cell Count 3.52 10^6/uL (4.20-5.40); White Blood Cell Count 8.4 10^3/uL (4.8-10.8)
[2025-03-08] MEDS: DELTASONE 5 MG PO (09:23)
[2025-03-08] MEDS: FEOSOL 162.5 MG PO (09:23)
[2025-03-08] MEDS: ZOVIRAX 800 MG PO ×2 (09:23→21:06)
[2025-03-08] MEDS: DIFICID 200 MG PO ×2 (09:23→21:06)
[2025-03-08 09:24] LABS: Blood Urea Nitrogen 11 mg/dl (7-17); Calcium 7.1 mg/dl (8.4-10.2); Carbon Dioxide 21 mmol/L (22-30); Chloride 108 mmol/L (98-107); Estimated Creatinine Clearance 57 ml/min; Glucose 104 mg/dl (70-99); Potassium 3.6 mmol/L (3.5-5.1); Sodium 137 mmol/L (135-145); eGFR > 60.00
[2025-03-08] MEDS: KEPPRA 1000 MG IV ×2 (09:24→21:06)
[2025-03-08 10:09] LABS: % Basophils 0.2 % (0-2); % Immature Granulocytes 0.7 % (0-0.5); % Lymphocytes 4.6 % (20.5-51.1); % Monocytes 5.2 % (1.7-9.3); % Neutrophils 89.3 % (42.2-75.2); Absolute Immature Granulocytes 0.1 10^3/uL (0-0.05); Absolute Lymphocytes 0.4 10^3/uL (1.2-3.4); Absolute Monocytes 0.4 10^3/uL (0.1-0.6); Absolute Neutrophils 7.5 10^3/uL (1.4-6.5); Nucleated Red Blood Cells % 0 %
--- NOTE | 2025-03-08 11:29 | W.PN.HOSP.TC ---
Today's Communication/Plan
-
encourage po intake
oob
cont dificd
Assessment / Plan
Assessment / Plan
A/P:
#C.diff colitis with profuse diarrhea and nausea-1st episode
#Sepsis 2/2 above-poa
IVF aggressively
LR diet
GI consult due to CT findings of severe colitis
received preop antibiotics before urological procedure recently
Antinausea meds as needed
Abx switched to Dificid
Monitor for po tolerance.
#Mild hyponatremia
resolved
#Hypokalemia
replete prn
#Alk. phos elevation
#Mild ALT.elevation
s/p cholecystectomy
Most likely 2/2 colitis
minimal CBD dilation on CT, but bili WNL
follow LFT
#Hypokalemia
-Replete/monitor
#Seizure d/o
#YESICA
#HLD
#Rosai-Mirna disease
#Hx benign Brain tumor
-Maintained on prednisone
cont home meds - switch keppra to IV
Tolerating po-switch back to po steroids home regimen. Blood pressure stable. If with episode of hypotension then can start stress dose steroids.
On prophylactic acyclovir continue
#Chronic thrombocytopenia
#Bilateral renal stone s/p recent urteral stent placement by Dr. Coleman on 03/02/25
DVT ppx lovenox
FUll code
Anticipated Discharge: > 48 hours
Subjective/Interval History
-
Date of Service: March 08, 2025
states of bloating
having loose stools
Objective Data
-
Labs:
Laboratory Results
03/08/25
08:49
WBC 8.4
Hgb 11.1 L
Hct 30.8 L
Plt Count 116 L
Sodium 137
Potassium 3.6
Chloride 108 H
Carbon Dioxide 21 L
BUN 11
Creatinine 0.7
Glucose 104 H
Calcium 7.1 L
Vital Signs:
Vital Signs
Temp Pulse Resp BP Pulse Ox
98.2 F 96 17 105/66 95
03/08/25 08:05 03/08/25 08:05 03/08/25 08:05 03/08/25 08:05 03/08/25 08:05
I&O
03/07/25 03/08/25 03/09/25
06:59 06:59 06:59
Intake Total 1500 / 1500 120 / 120
Balance 1500 / 1500 120 / 120
Physical Exam
-
General: No Apparent Distress and Comfortable
HEENT: Normocephalic
Respiratory: Clear to Auscultation
Cardiac: Regular Rhythm and S1/S2
GI: Soft, Nontender, Normal Bowel Sounds and Distended
Musculoskeletal: No Edema
Skin: Warm and Dry
Neuro: Awake, Alert, Oriented, AO x 3 and No Motor Deficits
Psych: Calm
[2025-03-08] MEDS: MYLICON 80 MG PO (11:43)
[2025-03-08 15:46] VITALS: BP 103/61
--- NOTE | 2025-03-08 16:07 | CM ---
Patient currently on Dificid, TC to insurance co just to see what cost would be if she is discharged on the medication. (Dificid 200 mg BID x 10 days would be $1640.92)
CM will continue to follow for d/c needs.
[2025-03-08] MEDS: LOVENOX 40 MG SC (17:43)
[2025-03-08] MEDS: LIPITOR 20 MG PO (21:06)
[2025-03-08] MEDS: MELATONIN 10 MG PO (21:18)
[2025-03-08 23:04] VITALS: BP 123/66
[2025-03-09] MEDS: LR 1000 IV (01:57)
[2025-03-09 07:40] VITALS: BP 108/55
[2025-03-09] MEDS: ZOVIRAX 800 MG PO ×2 (08:24→20:32)
[2025-03-09] MEDS: FEOSOL 162.5 MG PO (08:24)
[2025-03-09] MEDS: DIFICID 200 MG PO ×2 (08:24→20:34)
[2025-03-09] MEDS: KEPPRA 1000 MG IV (08:25)
[2025-03-09 09:02] LABS: Hematocrit 27.8 % (37.0-47.0); Mean Corpuscular Hgb 31.6 pg (27.0-31.0); Mean Platelet Volume 10.9 fL (7.4-10.4); Platelet Count 109 10^3/uL (130-400); Red Blood Cell Count 3.16 10^6/uL (4.20-5.40); Red Cell Dist. Width 12.9 % (11.5-14.5); White Blood Cell Count 6.2 10^3/uL (4.8-10.8)
[2025-03-09 09:50] LABS: % Basophils 0.3 % (0-2); % Immature Granulocytes 0.3 % (0-0.5); % Lymphocytes 14.8 % (20.5-51.1); % Monocytes 5.5 % (1.7-9.3); % Neutrophils 79.1 % (42.2-75.2); Absolute Lymphocytes 0.9 10^3/uL (1.2-3.4); Absolute Monocytes 0.3 10^3/uL (0.1-0.6); Absolute Neutrophils 4.9 10^3/uL (1.4-6.5); Nucleated Red Blood Cells % 0 %
[2025-03-09 09:53] LABS: Blood Urea Nitrogen 10 mg/dl (7-17); Calcium 6.8 mg/dl (8.4-10.2); Carbon Dioxide 24 mmol/L (22-30); Chloride 106 mmol/L (98-107); Estimated Creatinine Clearance 57 ml/min; Glucose 104 mg/dl (70-99); Magnesium 1.8 mg/dl (1.6-2.3); Potassium 2.9 mmol/L (3.5-5.1); Sodium 137 mmol/L (135-145); eGFR > 60.00
[2025-03-09] MEDS: KCL 40 MEQ PO (12:07)
[2025-03-09] MEDS: POTASSIUM PHOSPHATE 259.0909 MEQ IV (12:07)
--- NOTE | 2025-03-09 13:37 | W.PN.HOSP.TC ---
Today's Communication/Plan
-
replete lytes
po tolerance improving
CM for Dificid cost
Assessment / Plan
Assessment / Plan
A/P:
#C.diff colitis with profuse diarrhea and nausea-1st episode
#Sepsis 2/2 above-poa
Switch IVF to LR+KCL
LR diet
GI signed off
received preop antibiotics before urological procedure recently
Antinausea meds as needed
Abx switched to Dificid. However cost of medication course is extremely expensive and patient states she is not able to afford. If no other option may need to switch to vancomycin as patient states she would not be able to pay for cost of Difcid.
Monitor for po tolerance.
#Mild hyponatremia
resolved
#Hypokalemia/hypophosphatemia/hypocalcemia
replete prn
#Alk. phos elevation
#Mild ALT.elevation
s/p cholecystectomy
Most likely 2/2 colitis
minimal CBD dilation on CT, but bili WNL
follow LFT
#Hypokalemia
-Replete/monitor
#Seizure d/o
#YESICA
#HLD
#Rosai-Mirna disease
#Hx benign Brain tumor
-Maintained on prednisone
[facility]
Tolerating po-switch back to po steroids home regimen. Blood pressure stable. If with episode of hypotension then can start stress dose steroids.
On prophylactic acyclovir continue
#Chronic thrombocytopenia
#Bilateral renal stone s/p recent urteral stent placement by Dr. Coleman on 03/02/25
DVT ppx lovenox
FUll code
Anticipated Discharge: Within 24 hours
Subjective/Interval History
-
Date of Service: March 09, 2025
remains with loose stools
bloating has reduced
appetite is improving
Objective Data
-
Labs:
Laboratory Results
03/09/25
08:35
WBC 6.2
Hgb 10.0 L
Hct 27.8 L
Plt Count 109 L
Sodium 137
Potassium 2.9 L
Chloride 106
Carbon Dioxide 24
BUN 10
Creatinine 0.7
Glucose 104 H
Calcium 6.8 L*
Vital Signs:
Vital Signs
Temp Pulse Resp BP Pulse Ox
98.7 F 95 17 108/55 94
03/09/25 07:40 03/09/25 07:40 03/09/25 07:40 03/09/25 07:40 03/09/25 07:40
I&O
03/08/25 03/09/25 03/10/25
06:59 06:59 06:59
Intake Total 1500 / 1500 1680 / 1680 250 / 250
Balance 1500 / 1500 1680 / 1680 250 / 250
Physical Exam
-
General: No Apparent Distress and Comfortable
HEENT: Normocephalic
Respiratory: Clear to Auscultation
Cardiac: Regular Rhythm and S1/S2
GI: Soft, Nontender, Normal Bowel Sounds and Distended
Musculoskeletal: No Edema
Skin: Warm and Dry
Neuro: Awake, Alert, Oriented, AO x 3 and No Motor Deficits
Psych: Calm
Data Reviewed
-
Total Time Spent with Patient (in minutes): 55
[2025-03-09] MEDS: LR IV (13:48)
[2025-03-09 15:22] VITALS: BP 113/60
[2025-03-09] MEDS: CALCIUM GLUCONATE 100 IV (16:27)
[2025-03-09] MEDS: KCL 1020 MEQ IV (16:27)
[2025-03-09] MEDS: LOVENOX 40 MG SC (16:27)
[2025-03-09] MEDS: KEPPRA 1000 MG PO (20:32)
[2025-03-09] MEDS: LIPITOR 20 MG PO (20:34)
[2025-03-09] MEDS: MELATONIN 10 MG PO (22:03)
[2025-03-09 23:03] VITALS: BP 109/55
[2025-03-10] MEDS: KCL 1020 MEQ IV (06:17)
[2025-03-10 07:00] VITALS: BP 116/61
[2025-03-10] MEDS: FEOSOL 162.5 MG PO (07:48)
[2025-03-10] MEDS: DIFICID 200 MG PO (07:48)
[2025-03-10] MEDS: KEPPRA 1000 MG PO ×2 (07:48→20:13)
[2025-03-10] MEDS: ZOVIRAX 800 MG PO ×2 (07:48→20:13)
[2025-03-10] MEDS: DELTASONE 5 MG PO (07:48)
[2025-03-10 08:20] LABS: % Basophils 0.5 % (0-2); % Immature Granulocytes 1.2 % (0-0.5); % Lymphocytes 29.4 % (20.5-51.1); % Monocytes 6.2 % (1.7-9.3); % Neutrophils 62.7 % (42.2-75.2); Absolute Immature Granulocytes 0.1 10^3/uL (0-0.05); Absolute Lymphocytes 1.8 10^3/uL (1.2-3.4); Absolute Monocytes 0.4 10^3/uL (0.1-0.6); Absolute Neutrophils 3.8 10^3/uL (1.4-6.5); Hematocrit 31.6 % (37.0-47.0); Hemoglobin 11.2 g/dL (12.0-16.0); Mean Corp Hgb Conc. 35.4 g/dL (33.0-37.0); Mean Corpuscular Hgb 31.3 pg (27.0-31.0); Mean Corpuscular Volume 88.3 fL (81.0-99.0); Mean Platelet Volume 10.5 fL (7.4-10.4); Nucleated Red Blood Cells % 0 %; Platelet Count 136 10^3/uL (130-400); Red Blood Cell Count 3.58 10^6/uL (4.20-5.40); Red Cell Dist. Width 13.1 % (11.5-14.5)
[2025-03-10 08:47] LABS: Blood Urea Nitrogen 5 mg/dl (7-17); Calcium 7.3 mg/dl (8.4-10.2); Carbon Dioxide 24 mmol/L (22-30); Chloride 106 mmol/L (98-107); Estimated Creatinine Clearance 57 ml/min; Glucose 100 mg/dl (70-99); Potassium 4.1 mmol/L (3.5-5.1); Sodium 135 mmol/L (135-145); eGFR > 60.00
--- NOTE | 2025-03-10 10:56 | CM ---
Spoke with patient bedside.
Patient stated cost of medication Dificid too expensive for patient.
CM attempted calling Rep and referred to [employer], TC to [employer] and patient did not qualify for decreased cost.
updated.
Patient stated her spouse also called insurance and was given an alternate medication.
IMM reviewed with patient, not signed due to contact isolation. copy left with patient.
Per patient still with loose stools.
Patient denies home care needs, ambulating in room independently.
Plan:home no needs.
--- NOTE | 2025-03-10 11:01 | W.PN.HOSP.TC ---
Today's Communication/Plan
-
Transition patient to p.o. vancomycin
DC IV fluids
Monitor for diet tolerance
Start dispo planning
Assessment / Plan
Assessment / Plan
A/P:
#C.diff colitis with profuse diarrhea and nausea-1st episode
#Sepsis 2/2 above-poa
DC fluids
LR diet
GI signed off
received preop antibiotics before urological procedure recently
Antinausea meds as needed
Abx switched to Dificid. However cost of medication course is extremely expensive and patient states she is not able to afford. If no other option may need to switch to vancomycin as patient states she would not be able to pay for cost of Difcid.
With the assistance of case management also call [employer] and [employer] rep with no help at all. Patient stated she is not able to afford a would not take Dificid. Will switch patient to p.o. vancomycin
Monitor for po tolerance.
#Mild hyponatremia
resolved
#Hypokalemia/hypophosphatemia/hypocalcemia
replete prn
#Alk. phos elevation
#Mild ALT.elevation
s/p cholecystectomy
Most likely 2/2 colitis
minimal CBD dilation on CT, but bili WNL
follow LFT
#Hypokalemia
-Replete/monitor
#Seizure d/o
#YESICA
#HLD
#Rosai-Mirna disease
#Hx benign Brain tumor
-Maintained on prednisone
cont home meds -keppra.
Tolerating po-switch back to po steroids home regimen. Blood pressure stable. If with episode of hypotension then can start stress dose steroids.
On prophylactic acyclovir continue
#Chronic thrombocytopenia
#Bilateral renal stone s/p recent urteral stent placement by Dr. Coleman on 03/02/25
DVT ppx lovenox
FUll code
Dispo plan for tentative DC later today if tolerating diet and tolerating p.o. vancomycin
Anticipated Discharge: Today
Subjective/Interval History
-
Date of Service: March 10, 2025
Having bm -loose at times
afebrile
Objective Data
-
Labs:
Laboratory Results
03/10/25
08:03
WBC 6.0
Hgb 11.2 L
Hct 31.6 L
Plt Count 136 D
Sodium 135
Potassium 4.1 D
Chloride 106
Carbon Dioxide 24
BUN 5 L
Creatinine 0.7
Glucose 100 H
Calcium 7.3 L
Vital Signs:
Vital Signs
Temp Pulse Resp BP Pulse Ox
99.2 F 108 14 116/61 100
03/10/25 07:00 03/10/25 07:00 03/10/25 07:00 03/10/25 07:00 03/10/25 07:00
I&O
03/09/25 03/10/25 03/11/25
06:59 06:59 06:59
Intake Total 1679
Balance 1679
Physical Exam
-
General: No Apparent Distress and Comfortable
HEENT: Normocephalic
Respiratory: Clear to Auscultation
Cardiac: Regular Rhythm and S1/S2
GI: Soft, Nontender, Nondistended and Normal Bowel Sounds
Musculoskeletal: No Edema
Skin: Warm and Dry
Neuro: Awake, Alert, Oriented, AO x 3 and No Motor Deficits
Psych: Calm
[2025-03-10 11:43] LABS: Magnesium 1.6 mg/dl (1.6-2.3); Phosphorus 1.3 mg/dl (2.5-4.5)
[2025-03-10] MEDS: FIRVANQ 125 MG PO ×3 (11:53→23:24)
[2025-03-10 15:00] VITALS: BP 96/55
[2025-03-10] MEDS: LOVENOX 40 MG SC (18:25)
[2025-03-10] MEDS: LIPITOR 20 MG PO (20:14)
[2025-03-10] MEDS: MELATONIN 10 MG PO (21:39)
[2025-03-10 23:10] VITALS: BP 109/61
[2025-03-11 04:43] LABS: % Basophils 0.6 % (0-2); % Eosinophils 0.2 % (0-6); % Lymphocytes 34.4 % (20.5-51.1); % Neutrophils 55.8 % (42.2-75.2); Absolute Immature Granulocytes 0.1 10^3/uL (0-0.05); Absolute Lymphocytes 1.9 10^3/uL (1.2-3.4); Absolute Monocytes 0.4 10^3/uL (0.1-0.6); Hematocrit 31.5 % (37.0-47.0); Mean Corp Hgb Conc. 34.9 g/dL (33.0-37.0); Mean Corpuscular Hgb 31.2 pg (27.0-31.0); Mean Corpuscular Volume 89.2 fL (81.0-99.0); Mean Platelet Volume 10.9 fL (7.4-10.4); Nucleated Red Blood Cells % 0 %; Platelet Count 139 10^3/uL (130-400); Red Blood Cell Count 3.53 10^6/uL (4.20-5.40); Red Cell Dist. Width 12.9 % (11.5-14.5); White Blood Cell Count 5.4 10^3/uL (4.8-10.8)
[2025-03-11 05:05] LABS: Blood Urea Nitrogen 10 mg/dl (7-17); Calcium 7.4 mg/dl (8.4-10.2); Carbon Dioxide 25 mmol/L (22-30); Chloride 106 mmol/L (98-107); Estimated Creatinine Clearance 66 ml/min; Glucose 100 mg/dl (70-99); Potassium 3.6 mmol/L (3.5-5.1); Sodium 137 mmol/L (135-145); eGFR > 60.00
[2025-03-11] MEDS: FIRVANQ 125 MG PO ×2 (05:31→11:48)
[2025-03-11 07:05] VITALS: BP 116/58
[2025-03-11] MEDS: FEOSOL 162.5 MG PO (08:08)
[2025-03-11] MEDS: KEPPRA 1000 MG PO (08:08)
[2025-03-11] MEDS: ZOVIRAX 800 MG PO (08:08)
[2025-03-11 08:42] LABS: Magnesium 1.7 mg/dl (1.6-2.3); Phosphorus 2.2 mg/dl (2.5-4.5)
[2025-03-11] MEDS: SODIUM PHOSPHATE 255 MEQ IV (09:40)
--- NOTE | 2025-03-11 11:42 | W.PN.HOSP.TC ---
Today's Communication/Plan
-
po vanc
dc home
Assessment / Plan
Assessment / Plan
A/P:
#C.diff colitis with profuse diarrhea and nausea-1st episode
#Sepsis 2/2 above-poa
DC fluids
LR diet
GI signed off
received preop antibiotics before urological procedure recently
Antinausea meds as needed
Abx switched to Dificid. However cost of medication course is extremely expensive and patient states she is not able to afford. If no other option may need to switch to vancomycin as patient states she would not be able to pay for cost of Difcid.
With the assistance of case management also call [facility] and [employer] rep with no help at all. Patient stated she is not able to afford a would not take Dificid. Will switch patient to p.o. vancomycin and patient stated she actually felt lot better
with p.o. vancomycin.
Did prenatal genetic counselor patient on prophylactic p.o. vancomycin if requires antibiotics in the future.
Monitor for po tolerance.
#Mild hyponatremia
resolved
#Hypokalemia/hypophosphatemia/hypocalcemia
replete prn
#Alk. phos elevation
#Mild ALT.elevation
s/p cholecystectomy
Most likely 2/2 colitis
minimal CBD dilation on CT, but bili WNL
follow LFT
#Hypokalemia
-Replete/monitor
#Seizure d/o
#YESICA
#HLD
#Rosai-Mirna disease
#Hx benign Brain tumor
-Maintained on prednisone
cont home meds -keppra.
Tolerating po-switch back to po steroids home regimen. Blood pressure stable. If with episode of hypotension then can start stress dose steroids.
On prophylactic acyclovir continue
#Chronic thrombocytopenia
#Bilateral renal stone s/p recent urteral stent placement by Dr. Coleman on 03/02/25
DVT ppx lovenox
FUll code
Dispo plan for tentative DC later today
More than 30 minutes spent in discharge including
Final examination of the patient
Summarizing hospital stay
Instructions for continuing care to all relevant caregivers
Preparation of discharge records, prescriptions, and referral forms
Total time spent (in minutes): 52
Anticipated Discharge: Today
Subjective/Interval History
-
Date of Service: March 11, 2025
states she is actually feeling better and improved with vancomycin
appetite has improved
1 loose bm overnight
Objective Data
-
Labs:
Laboratory Results
03/11/25
04:25
WBC 5.4
Hgb 11.0 L
Hct 31.5 L
Plt Count 139
Sodium 137
Potassium 3.6
Chloride 106
Carbon Dioxide 25
BUN 10
Creatinine 0.6
Glucose 100 H
Calcium 7.4 L
Vital Signs:
Vital Signs
Temp Pulse Resp BP Pulse Ox
99.1 F 105 18 116/58 96
03/11/25 07:05 03/11/25 07:05 03/11/25 07:05 03/11/25 07:05 03/11/25 07:05
I&O
03/10/25 03/11/25 03/12/25
06:59 06:59 06:59
Intake Total 2039 240 / 240
Balance 2039 240 / 240
Physical Exam
-
General: No Apparent Distress and Comfortable
HEENT: Normocephalic
Respiratory: Clear to Auscultation
Cardiac: Regular Rhythm and S1/S2
GI: Soft, Nontender, Nondistended and Normal Bowel Sounds
Musculoskeletal: No Edema
Skin: Warm and Dry
Neuro: Awake, Alert, Oriented, AO x 3 and No Motor Deficits
Psych: Calm
--- NOTE | 2025-03-11 11:51 | W.DCSUMMARY ---
Discharge Summary
Discharge Data
Date of Admission: 03/06/25
Date of Discharge: 03/11/25
-
Pending Results: No
Hospital Course
65-year-old female past medical history of seizure disorder, anemia, hyperlipidemia, benign brain tumor, Rosai-Mirna disease was presented with diarrhea. Patient underwent CT abdomen pelvis which showed diffuse colitis. Patient was found to have
C. difficile colitis. Patient was on IV fluid resuscitation. Patient was started on vancomycin and Flagyl initially. GI evaluated patient recommend Dificid. Patient potassium electrolytes were repleted. IV fluid was continued. Diet was slowly
advanced. Patient was unable to afford Dificid because of nursing was switched to p.o. vancomycin. Patient slowly with improvement in p.o. tolerance and IV fluid was discontinued. Patient was tolerating diet. Frequency of diarrhea significantly
decreased. Patient was ambulating without difficulty. Patient without any nausea and vomiting was tolerating diet. Did aids counselor patient on prophylactic p.o. vancomycin if requires antibiotics in the future.
Discharge Plan
-
Patient Disposition: Home (Routine Discharge)
Discharge Diagnosis/Procedures: Sepsis secondary to C. difficile colitis
Hypokalemia
Hypomagnesemia
Hypophosphatemia
Condition: Fair
Diet: Low Residue
Activity: As tolerated
Driving Restrictions: As prior to admission
Blood Work: BMP and magnesium phosphorus level with primary doctor in 1 week
Referrals:
Corona Chacko MD [Family Provider] - in less than 1 week
Raissa Raines MD [Active] - 04/20/25 2:30 pm (follow up in April as scheduled. Call GI office if any recurrent diarrhea issue after admission)
Prescriptions:
New
vancomycin 125 mg capsule
125 mg PO QID 6 Days Qty: 24 0RF
Continued
atorvastatin 20 MG tablet
20 mg PO HS
acyclovir 800 mg Tablet
800 mg PO Q12H
Patient Comments:
levetiracetam [Keppra] 1,000 mg Tablet
1,000 mg PO BID
prochlorperazine maleate 10 mg Tablet
10 mg PO Q6HPRN PRN (Reason: nausea/vomiting)
acetaminophen [Tylenol Extra Strength] 500 mg Tablet
1,000 mg PO DAILYPRN PRN (Reason: mild pain)
cholecalciferol (vitamin D3) 25 mcg (1,000 unit) Tablet
25 mcg PO DAILY
melatonin 10 mg Tablet
10 mg PO HS PRN (Reason: sleep)
loperamide 2 mg Tablet
4 mg PO Q4H PRN (Reason: diarrhea)
lidocaine-prilocaine 2.5-2.5 % cream
1 applic topical PRN PRN (Reason: port access)
prednisone 2.5 mg tablet
5 mg PO Q48H
Discharge Orders:
Discharge Patient (As Directed); Ordered 03/11/25
Ordered By: Efrain Day
Discharge Date and Time
Print Language: NAURUAN
[2025-03-11] MEDS: PREVNAR 20 0.5 ML IM (12:23)
[2025-03-11 13:50] VITALS: BP 95/63
== END 2025-03-11 15:21 | disposition home or self-care (01) | DRG 872 ==
LOC: 3 WEST ACU 20:51
PROVIDERS: ADMITTING PHYSICIAN Internal Medicine; ATTENDING PHYSICIAN Hospitalist; CONSULT PHYSICIAN Internal Medicine; EMERGENCY PHYSICIAN Emergency Medicine; FAMILY PHYSICIAN Family Medicine
PROC: 3E0234Z Introduction of Serum, Toxoid and Vaccine into Muscle, Percutaneous Approach (ICD-10-PCS; 2025-03-11)
DX: A41.9 Sepsis, unspecified organism (principal); A04.72 Enterocolitis due to Clostridium difficile, not specified as recurrent; E87.1 Hypo-osmolality and hyponatremia; D84.9 Immunodeficiency, unspecified; D76.3 Other histiocytosis syndromes; G40.909 Epilepsy, unspecified, not intractable, without status epilepticus; E87.6 Hypokalemia; E78.00 Pure hypercholesterolemia, unspecified; Z79.52 Long term (current) use of systemic steroids; D69.6 Thrombocytopenia, unspecified; E83.42 Hypomagnesemia; E83.39 Other disorders of phosphorus metabolism; Z23 Encounter for immunization; Z79.899 Other long term (current) drug therapy
CPT/HCPCS: 74177; 80048; 80053; 83735; 84100; 85025; 90677; 96360; 99285; G0009; Q9967

== ENCOUNTER → 2025-03-17 14:35 | Outpatient (REF) | payer OTHER, SELFPAY | LOC: HWWDC 14:35 | PROVIDERS: ATTENDING PHYSICIAN Family Medicine | DX: Z12.31 Encounter for screening mammogram for malignant neoplasm of breast (principal) | CPT/HCPCS: 77063; 77067 ==

== ENCOUNTER → 2025-03-21 08:04 | Outpatient (REF) | payer OTHER, SELFPAY ==
[2025-03-21 09:12] LABS: Hematocrit 34.3 % (37.0-47.0); Hemoglobin 11.6 g/dL (12.0-16.0); Mean Corp Hgb Conc. 33.8 g/dL (33.0-37.0); Mean Corpuscular Hgb 30.6 pg (27.0-31.0); Mean Corpuscular Volume 90.5 fL (81.0-99.0); Platelet Count 162 10^3/uL (130-400); Red Blood Cell Count 3.79 10^6/uL (4.20-5.40); Red Cell Dist. Width 12.9 % (11.5-14.5); White Blood Cell Count 4.2 10^3/uL (4.8-10.8)
[2025-03-21 09:29] LABS: ALT (SGPT) 23 U/L (0-35); AST (SGOT) 22 U/L (14-36); Albumin 3.7 g/dl (3.5-5.0); Alkaline Phosphatase 70 U/L (38-126); Blood Urea Nitrogen 11 mg/dl (7-17); Calcium 8.6 mg/dl (8.4-10.2); Carbon Dioxide 28 mmol/L (22-30); Chloride 109 mmol/L (98-107); Glucose 114 mg/dl (70-99); LDH 230 U/L (120-246); Phosphorus 2.8 mg/dl (2.5-4.5); Potassium 3.6 mmol/L (3.5-5.1); Sodium 143 mmol/L (135-145); Total Bilirubin 0.6 mg/dl (0.2-1.3); Total Protein 5.6 g/dl (6.3-8.2); eGFR > 60.00
[2025-03-21 09:57] LABS: TSH Reflex To Free T4 1.19 uIU/ml (0.47-4.68)
[2025-03-21 11:38] LABS: % Basophils 1.2 % (0-2); % Eosinophils 0.2 % (0-6); % Immature Granulocytes 0.2 % (0-0.5); % Lymphocytes 57.8 % (20.5-51.1); % Monocytes 7.4 % (1.7-9.3); % Neutrophils 33.2 % (42.2-75.2); Absolute Basophils 0.1 10^3/uL (0-0.2); Absolute Lymphocytes 2.4 10^3/uL (1.2-3.4); Absolute Monocytes 0.3 10^3/uL (0.1-0.6); Absolute Neutrophils 1.4 10^3/uL (1.4-6.5); Nucleated Red Blood Cells % 0 %
== END ==
LOC: REG 08:04
PROVIDERS: ATTENDING PHYSICIAN Internal Medicine Hematology & Oncology; FAMILY PHYSICIAN Family Medicine; OTHER PHYSICIAN Internal Medicine Hematology; REFERRING PHYSICIAN Nurse Practitioner Primary Care
DX: D47.2 Monoclonal gammopathy (principal); R16.1 Splenomegaly, not elsewhere classified; D68.61 Antiphospholipid syndrome; D69.2 Other nonthrombocytopenic purpura; C91.Z0 Other lymphoid leukemia not having achieved remission; D61.818 Other pancytopenia; D76.3 Other histiocytosis syndromes; D36.11 Benign neoplasm of peripheral nerves and autonomic nervous system of face, head, and neck; D70.9 Neutropenia, unspecified; D83.9 Common variable immunodeficiency, unspecified; A04.72 Enterocolitis due to Clostridium difficile, not specified as recurrent
CPT/HCPCS: 36415; 80053; 83615; 83735; 84100; 84443; 85025

== ENCOUNTER → 2025-03-29 07:49 | Outpatient (REF) | payer OTHER, SELFPAY ==
[2025-03-29 09:18] LABS: Hematocrit 36.9 % (37.0-47.0); Hemoglobin 12.7 g/dL (12.0-16.0); Mean Corp Hgb Conc. 34.4 g/dL (33.0-37.0); Mean Corpuscular Hgb 31.6 pg (27.0-31.0); Mean Corpuscular Volume 91.8 fL (81.0-99.0); Mean Platelet Volume 11.3 fL (7.4-10.4); Platelet Count 130 10^3/uL (130-400); Red Blood Cell Count 4.02 10^6/uL (4.20-5.40); Red Cell Dist. Width 13.4 % (11.5-14.5); White Blood Cell Count 5.2 10^3/uL (4.8-10.8)
[2025-03-29 13:29] LABS: % Basophils 0.6 % (0-2); % Immature Granulocytes 0.2 % (0-0.5); % Lymphocytes 52.8 % (20.5-51.1); % Monocytes 8.5 % (1.7-9.3); % Neutrophils 36.9 % (42.2-75.2); Absolute Eosinophils 0.1 10^3/uL (0-0.7); Absolute Lymphocytes 2.7 10^3/uL (1.2-3.4); Absolute Monocytes 0.4 10^3/uL (0.1-0.6); Absolute Neutrophils 1.9 10^3/uL (1.4-6.5); Nucleated Red Blood Cells % 0 %
== END ==
LOC: REG 07:49
PROVIDERS: ATTENDING PHYSICIAN Internal Medicine Hematology & Oncology
DX: D47.2 Monoclonal gammopathy (principal); R16.1 Splenomegaly, not elsewhere classified; D68.61 Antiphospholipid syndrome; D69.2 Other nonthrombocytopenic purpura; C91.Z0 Other lymphoid leukemia not having achieved remission; D61.818 Other pancytopenia; D76.3 Other histiocytosis syndromes; D36.11 Benign neoplasm of peripheral nerves and autonomic nervous system of face, head, and neck; D70.9 Neutropenia, unspecified; D83.9 Common variable immunodeficiency, unspecified
CPT/HCPCS: 36415; 85025

== ENCOUNTER → 2025-04-04 08:17 | Outpatient (REF) | payer OTHER, SELFPAY ==
[2025-04-04 09:30] LABS: % Basophils 0.7 % (0-2); % Eosinophils 0.4 % (0-6); % Immature Granulocytes 0.5 % (0-0.5); % Lymphocytes 47.8 % (20.5-51.1); % Monocytes 8.6 % (1.7-9.3); Absolute Lymphocytes 2.7 10^3/uL (1.2-3.4); Absolute Monocytes 0.5 10^3/uL (0.1-0.6); Absolute Neutrophils 2.4 10^3/uL (1.4-6.5); Hematocrit 38.9 % (37.0-47.0); Hemoglobin 13.3 g/dL (12.0-16.0); Mean Corp Hgb Conc. 34.2 g/dL (33.0-37.0); Mean Corpuscular Hgb 30.9 pg (27.0-31.0); Mean Corpuscular Volume 90.5 fL (81.0-99.0); Mean Platelet Volume 10.9 fL (7.4-10.4); Nucleated Red Blood Cells % 0 %; Platelet Count 127 10^3/uL (130-400); Red Cell Dist. Width 13.7 % (11.5-14.5); White Blood Cell Count 5.7 10^3/uL (4.8-10.8)
== END ==
LOC: REG 08:17
PROVIDERS: ATTENDING PHYSICIAN Internal Medicine Hematology & Oncology; FAMILY PHYSICIAN Family Medicine; OTHER PHYSICIAN Internal Medicine Hematology
DX: D47.2 Monoclonal gammopathy (principal); R16.1 Splenomegaly, not elsewhere classified; D68.61 Antiphospholipid syndrome; D69.2 Other nonthrombocytopenic purpura; C91.Z0 Other lymphoid leukemia not having achieved remission; D61.818 Other pancytopenia; D76.3 Other histiocytosis syndromes; D36.11 Benign neoplasm of peripheral nerves and autonomic nervous system of face, head, and neck; D70.9 Neutropenia, unspecified; D83.9 Common variable immunodeficiency, unspecified
CPT/HCPCS: 36415; 85025

== ENCOUNTER → 2025-05-02 07:43 | Outpatient (REF) | payer OTHER, SELFPAY ==
[2025-05-02 08:33] LABS: % Basophils 0.4 % (0-2); % Eosinophils 0.4 % (0-6); % Immature Granulocytes 0.5 % (0-0.5); % Lymphocytes 45.1 % (20.5-51.1); % Monocytes 7.6 % (1.7-9.3); Absolute Lymphocytes 2.5 10^3/uL (1.2-3.4); Absolute Monocytes 0.4 10^3/uL (0.1-0.6); Absolute Neutrophils 2.6 10^3/uL (1.4-6.5); Hematocrit 36.8 % (37.0-47.0); Hemoglobin 12.8 g/dL (12.0-16.0); Mean Corp Hgb Conc. 34.8 g/dL (33.0-37.0); Mean Corpuscular Hgb 31.5 pg (27.0-31.0); Mean Corpuscular Volume 90.6 fL (81.0-99.0); Mean Platelet Volume 10.8 fL (7.4-10.4); Nucleated Red Blood Cells % 0 %; Platelet Count 112 10^3/uL (130-400); Red Blood Cell Count 4.06 10^6/uL (4.20-5.40); Red Cell Dist. Width 12.5 % (11.5-14.5); White Blood Cell Count 5.6 10^3/uL (4.8-10.8)
[2025-05-02 10:01] LABS: Iron 69 ug/dl (37-170); LDH 230 U/L (120-246)
[2025-05-02 10:10] LABS: Percent Saturation 21 % (20-50); Total Iron Binding Capacity 317 ug/dl (265-497)
[2025-05-02 10:19] LABS: Ferritin 60.5 ng/ml (11.1-264.0)
[2025-05-04 15:59] LABS: Albumin 3.92 g/dL (3.75-5.01); Alpha 1 Globulin 0.38 g/dL (0.19-0.46); Alpha 2 Globulin 0.74 g/dL (0.48-1.05); Free Kappa Light Chains,Quant 78.55 mg/L (3.30-19.40); Free Lambda Light Chains,Quant 26.46 mg/L (5.71-26.30); IgA 109 mg/dL (68-408); IgG 576 mg/dL (768-1632); IgM 67 mg/dL (35-263); Immunofixation Electrophoresis IFE Done; Kappa/Lambda Fr Light Ratio 2.97 (0.26-1.65); Total Protein-Electrophoresis 6.3 g/dL (6.3-8.2)
== END ==
LOC: REG 07:43
PROVIDERS: ATTENDING PHYSICIAN Internal Medicine Hematology & Oncology; FAMILY PHYSICIAN Family Medicine; OTHER PHYSICIAN Internal Medicine Hematology
DX: D47.2 Monoclonal gammopathy (principal); R16.1 Splenomegaly, not elsewhere classified; D68.61 Antiphospholipid syndrome; D69.2 Other nonthrombocytopenic purpura; C91.Z0 Other lymphoid leukemia not having achieved remission; D61.818 Other pancytopenia; D76.3 Other histiocytosis syndromes; D36.11 Benign neoplasm of peripheral nerves and autonomic nervous system of face, head, and neck; D70.9 Neutropenia, unspecified; D83.9 Common variable immunodeficiency, unspecified
CPT/HCPCS: 36415; 82728; 82784; 83521; 83540; 83550; 83615; 84155; 84165; 85025; 86334

== ENCOUNTER → 2025-05-16 07:40 | Outpatient (REF) | payer OTHER, SELFPAY ==
[2025-05-16 08:57] LABS: Hematocrit 37.7 % (37.0-47.0); Hemoglobin 12.9 g/dL (12.0-16.0); Mean Corp Hgb Conc. 34.2 g/dL (33.0-37.0); Mean Corpuscular Volume 90.8 fL (81.0-99.0); Platelet Count 101 10^3/uL (130-400); Red Cell Dist. Width 12.8 % (11.5-14.5)
[2025-05-16 09:17] LABS: ALT (SGPT) 19 U/L (0-35); AST (SGOT) 24 U/L (14-36); Albumin 4.6 g/dl (3.5-5.0); Alkaline Phosphatase 99 U/L (38-126); Blood Urea Nitrogen 22 mg/dl (7-17); Calcium 9.3 mg/dl (8.4-10.2); Carbon Dioxide 29 mmol/L (22-30); Chloride 108 mmol/L (98-107); Glucose 76 mg/dl (70-99); HDL Cholesterol 35 mg/dl; LDL Cholesterol, Calculated 46 mg/dl; Potassium 3.7 mmol/L (3.5-5.1); Sodium 143 mmol/L (135-145); Total Protein 6.8 g/dl (6.3-8.2); Very Low Density Lipoprotein 66 mg/dl (0-30); eGFR > 60.00
[2025-05-16 09:48] LABS: Nucleated Red Blood Cells % 0 %
== END ==
LOC: REG 07:40
PROVIDERS: ATTENDING PHYSICIAN Family Medicine
DX: D50-D89 Diseases of the blood and blood-forming organs and certain disorders involving the immune mechanism (principal); E78.2 Mixed hyperlipidemia
CPT/HCPCS: 36415; 80053; 80061; 85025

== ENCOUNTER → 2025-05-30 07:56 | Outpatient (REF) | payer OTHER, SELFPAY ==
[2025-05-30 09:36] LABS: Hematocrit 35.4 % (37.0-47.0); Hemoglobin 12.2 g/dL (12.0-16.0); Mean Corp Hgb Conc. 34.5 g/dL (33.0-37.0); Mean Corpuscular Volume 88.9 fL (81.0-99.0); Nucleated Red Blood Cells % 0 %; Platelet Count 89 10^3/uL (130-400); Red Cell Dist. Width 12.6 % (11.5-14.5)
== END ==
LOC: REG 07:56
PROVIDERS: ATTENDING PHYSICIAN Internal Medicine Hematology & Oncology; FAMILY PHYSICIAN Family Medicine; REFERRING PHYSICIAN Internal Medicine Hematology
DX: D47.2 Monoclonal gammopathy (principal); R16.1 Splenomegaly, not elsewhere classified; D68.61 Antiphospholipid syndrome; D69.2 Other nonthrombocytopenic purpura; C91.Z0 Other lymphoid leukemia not having achieved remission; D61.818 Other pancytopenia; D76.3 Other histiocytosis syndromes; D36.11 Benign neoplasm of peripheral nerves and autonomic nervous system of face, head, and neck; D70.9 Neutropenia, unspecified
CPT/HCPCS: 36415; 85025

== ENCOUNTER → 2025-06-13 07:34 | Outpatient (REF) | payer OTHER, SELFPAY ==
[2025-06-13 08:28] LABS: Hematocrit 33.5 % (37.0-47.0); Hemoglobin 11.3 g/dL (12.0-16.0); Mean Corp Hgb Conc. 33.7 g/dL (33.0-37.0); Mean Corpuscular Volume 86.3 fL (81.0-99.0); Platelet Count 59 10^3/uL (130-400); Red Cell Dist. Width 12.7 % (11.5-14.5)
[2025-06-13 08:52] LABS: C-Reactive Protein 17.40 mg/L (0.0-10.00)
[2025-06-13 09:22] LABS: Vitamin D, 25-OH*** 38.1 ng/mL (30-80)
[2025-06-13 10:25] LABS: Nucleated Red Blood Cells % 0 %
[2025-06-13 13:13] LABS: Glycohemoglobin (HgbA1c) 5.6 % (4.0-5.6)
[2025-06-15 13:24] LABS: SSA 52 (Ro)(ENA) Ab, IgG 1 AU/mL (0-40); SSA 60 (Ro)(ENA) Ab, IgG 0 AU/mL (0-40); SSB (La)(ENA) Ab, IgG 0 AU/mL (0-40)
[2025-06-15 16:08] LABS: Vitamin B1, Whole Blood 98 nmol/L (70-180)
[2025-06-15 18:22] LABS: Gamma-Tocopherol 2.7 mg/L (0.0-6.0)
[2025-06-15 21:54] LABS: Albumin 3.69 g/dL (3.75-5.01); SPEP IFE Reflex Not Done; Total Protein-Electrophoresis 6.2 g/dL (6.3-8.2)
== END ==
LOC: REG 07:34
PROVIDERS: ATTENDING PHYSICIAN Internal Medicine Hematology & Oncology; FAMILY PHYSICIAN Family Medicine; OTHER PHYSICIAN Internal Medicine Hematology; OTHER PHYSICIAN Psychiatry & Neurology Neurology
DX: D47.2 Monoclonal gammopathy (principal); R16.1 Splenomegaly, not elsewhere classified; D68.61 Antiphospholipid syndrome; D69.2 Other nonthrombocytopenic purpura; C91.Z0 Other lymphoid leukemia not having achieved remission; D61.818 Other pancytopenia; D76.3 Other histiocytosis syndromes; D36.11 Benign neoplasm of peripheral nerves and autonomic nervous system of face, head, and neck; D70.9 Neutropenia, unspecified; D83.9 Common variable immunodeficiency, unspecified; R20.0 Anesthesia of skin; R20.2 Paresthesia of skin
CPT/HCPCS: 36415; 82306; 82652; 83036; 84155; 84165; 84207; 84425; 84443; 84446; 85025; 85652; 86140; 86235

== ENCOUNTER → 2025-06-20 07:45 | Outpatient (REF) | payer OTHER, SELFPAY ==
[2025-06-20 09:10] LABS: Hematocrit 33.2 % (37.0-47.0); Hemoglobin 11.3 g/dL (12.0-16.0); Mean Corp Hgb Conc. 34.0 g/dL (33.0-37.0); Mean Corpuscular Volume 86.5 fL (81.0-99.0); Nucleated Red Blood Cells % 0 %; Platelet Count 94 10^3/uL (130-400); Red Cell Dist. Width 12.8 % (11.5-14.5)
[2025-06-20 09:15] LABS: ALT (SGPT) 16 U/L (0-35); AST (SGOT) 20 U/L (14-36); Albumin 4.2 g/dl (3.5-5.0); Alkaline Phosphatase 106 U/L (38-126); Blood Urea Nitrogen 21 mg/dl (7-17); Calcium 8.8 mg/dl (8.4-10.2); Carbon Dioxide 23 mmol/L (22-30); Chloride 109 mmol/L (98-107); Glucose 93 mg/dl (70-99); LDH 234 U/L (120-246); Potassium 3.8 mmol/L (3.5-5.1); Sodium 140 mmol/L (135-145); Total Protein 6.4 g/dl (6.3-8.2); eGFR > 60.00
== END ==
LOC: REG 07:45
PROVIDERS: ATTENDING PHYSICIAN Internal Medicine Hematology & Oncology; FAMILY PHYSICIAN Family Medicine; REFERRING PHYSICIAN Internal Medicine Hematology
DX: D76.3 Other histiocytosis syndromes (principal); D47.2 Monoclonal gammopathy; R16.1 Splenomegaly, not elsewhere classified; D68.61 Antiphospholipid syndrome; D69.2 Other nonthrombocytopenic purpura; C91.Z0 Other lymphoid leukemia not having achieved remission; D61.818 Other pancytopenia; D36.11 Benign neoplasm of peripheral nerves and autonomic nervous system of face, head, and neck; D70.9 Neutropenia, unspecified; D83.9 Common variable immunodeficiency, unspecified
CPT/HCPCS: 36415; 80053; 83615; 84443; 85025

== ENCOUNTER → 2025-06-28 13:32 | Outpatient (REF) | payer OTHER, SELFPAY | LOC: PAVMRI 13:32 | PROVIDERS: ATTENDING PHYSICIAN Internal Medicine Hematology; FAMILY PHYSICIAN Family Medicine | DX: D76.3 Other histiocytosis syndromes (principal); D72.820 Lymphocytosis (symptomatic); Z87.898 Personal history of other specified conditions; D61.818 Other pancytopenia | CPT/HCPCS: 70553; A9575 ==

== ENCOUNTER 2025-07-12 06:23 | Day surgery (SDC) | payer OTHER, SELFPAY | END 2025-07-12 09:28 | disposition home or self-care (01) | LOC: GI 06:23 | PROVIDERS: ATTENDING PHYSICIAN Internal Medicine Gastroenterology | DX: Z12.11 Encounter for screening for malignant neoplasm of colon (principal); Z86.0101 Personal history of adenomatous and serrated colon polyps | CPT/HCPCS: G0105 ==

== ENCOUNTER → 2025-08-01 07:56 | Outpatient (REF) | payer OTHER, SELFPAY ==
[2025-08-01 10:00] LABS: Hematocrit 36.5 % (37.0-47.0); Hemoglobin 12.4 g/dL (12.0-16.0); Mean Corp Hgb Conc. 34.0 g/dL (33.0-37.0); Mean Corpuscular Volume 86.7 fL (81.0-99.0); Platelet Count 92 10^3/uL (130-400); Red Cell Dist. Width 13.6 % (11.5-14.5)
[2025-08-01 11:12] LABS: Nucleated Red Blood Cells % 0 %
== END ==
LOC: REG 07:56
PROVIDERS: ATTENDING PHYSICIAN Internal Medicine Hematology & Oncology; FAMILY PHYSICIAN Family Medicine; REFERRING PHYSICIAN Internal Medicine Hematology
DX: D47.2 Monoclonal gammopathy (principal); R16.1 Splenomegaly, not elsewhere classified; D68.61 Antiphospholipid syndrome; D69.2 Other nonthrombocytopenic purpura; C91.Z0 Other lymphoid leukemia not having achieved remission; D61.818 Other pancytopenia; D76.3 Other histiocytosis syndromes; D36.11 Benign neoplasm of peripheral nerves and autonomic nervous system of face, head, and neck; D70.9 Neutropenia, unspecified
CPT/HCPCS: 36415; 85025

== ENCOUNTER → 2025-08-29 08:15 | Outpatient (REF) | payer OTHER, SELFPAY ==
[2025-08-29 09:02] LABS: Hematocrit 37.1 % (37.0-47.0); Hemoglobin 12.5 g/dL (12.0-16.0); Mean Corp Hgb Conc. 33.7 g/dL (33.0-37.0); Mean Corpuscular Volume 88.3 fL (81.0-99.0); Platelet Count 94 10^3/uL (130-400); Red Cell Dist. Width 13.8 % (11.5-14.5)
[2025-08-29 09:54] LABS: Nucleated Red Blood Cells % 0 %
== END ==
LOC: REG 08:15
PROVIDERS: ATTENDING PHYSICIAN Internal Medicine Hematology & Oncology; FAMILY PHYSICIAN Family Medicine; OTHER PHYSICIAN Internal Medicine Hematology
DX: D47.2 Monoclonal gammopathy (principal); R16.1 Splenomegaly, not elsewhere classified; D68.61 Antiphospholipid syndrome; D69.2 Other nonthrombocytopenic purpura; C91.Z0 Other lymphoid leukemia not having achieved remission; D61.818 Other pancytopenia; D76.3 Other histiocytosis syndromes; D36.11 Benign neoplasm of peripheral nerves and autonomic nervous system of face, head, and neck; D70.9 Neutropenia, unspecified; D83.9 Common variable immunodeficiency, unspecified
CPT/HCPCS: 36415; 85025

== ENCOUNTER → 2025-09-07 09:10 | Outpatient (REF) | payer OTHER, SELFPAY ==
[2025-09-07 18:01] LABS: Folate 6.6 ng/ml (2.76-20); Vitamin B12 274 pg/ml (239-931)
== END ==
LOC: REG 09:10
PROVIDERS: ATTENDING PHYSICIAN Nurse Practitioner; FAMILY PHYSICIAN Family Medicine; OTHER PHYSICIAN Internal Medicine Hematology; OTHER PHYSICIAN Internal Medicine Hematology & Oncology
DX: R20.2 Paresthesia of skin (principal); R20.0 Anesthesia of skin
CPT/HCPCS: 36415; 82607; 82746

== ENCOUNTER → 2025-09-26 08:51 | Outpatient (REF) | payer OTHER, SELFPAY | LOC: MRI 3T 08:51 | PROVIDERS: ATTENDING PHYSICIAN Internal Medicine Hematology; FAMILY PHYSICIAN Family Medicine | DX: D76.3 Other histiocytosis syndromes (principal); D72.820 Lymphocytosis (symptomatic); Z87.898 Personal history of other specified conditions; D61.818 Other pancytopenia | CPT/HCPCS: 70553; A9575 ==

== ENCOUNTER → 2025-10-03 08:29 | Outpatient (REF) | payer OTHER, SELFPAY ==
[2025-10-03 09:41] LABS: Hematocrit 36.0 % (37.0-47.0); Hemoglobin 12.3 g/dL (12.0-16.0); Mean Corp Hgb Conc. 34.2 g/dL (33.0-37.0); Mean Corpuscular Volume 87.2 fL (81.0-99.0); Platelet Count 88 10^3/uL (130-400); Red Cell Dist. Width 13.5 % (11.5-14.5)
[2025-10-03 10:17] LABS: Nucleated Red Blood Cells % 0 %
== END ==
LOC: REG 08:29
PROVIDERS: ATTENDING PHYSICIAN Internal Medicine Hematology & Oncology; FAMILY PHYSICIAN Family Medicine; REFERRING PHYSICIAN Internal Medicine Hematology
DX: D47.2 Monoclonal gammopathy (principal); R16.1 Splenomegaly, not elsewhere classified; Z86.2 Personal history of diseases of the blood and blood-forming organs and certain disorders involving the immune mechanism; D68.61 Antiphospholipid syndrome; D69.2 Other nonthrombocytopenic purpura; C91.Z0 Other lymphoid leukemia not having achieved remission; D61.818 Other pancytopenia; D76.3 Other histiocytosis syndromes; D36.11 Benign neoplasm of peripheral nerves and autonomic nervous system of face, head, and neck; D70.9 Neutropenia, unspecified; D83.9 Common variable immunodeficiency, unspecified
CPT/HCPCS: 36415; 85025

== ENCOUNTER → 2025-11-02 09:10 | Outpatient (REF) | payer OTHER, SELFPAY | LOC: PET 09:10 | PROVIDERS: ATTENDING PHYSICIAN Internal Medicine Hematology | DX: D61.818 Other pancytopenia (principal); D76.3 Other histiocytosis syndromes | CPT/HCPCS: 78815; A9552 ==